=== PATIENT | male | born 1945 | race African-American/Black ===

== ENCOUNTER 2018-01-22 11:16 | Observation (INO) | payer OTHER ==
[2018-01-22] MEDS ORDERED: Morphine VIAL* 4 MG/ML VIAL (1 ml vial) IV ONE ×2 (11:36→12:47)
[2018-01-22] MEDS ORDERED: Morphine VIAL* 10 MG/ML 1 ML VIAL IV ONE (11:49)
[2018-01-22] MEDS ORDERED: Ondansetron INJ* 2 MG/ML VIAL IV ONE (11:49)
[2018-01-22 12:22] LABS: ABS Basophils 0 10^3/ul (0-0.2); ABS Eosinophils 0.2 10^3/ul (0-0.6); ABS Monocytes 0.5 10^3/ul (0-0.8); ABS Neutrophils 5.2 10^3/ul (1.5-7.7); ABS Nucleated RBC 0 10^3/ul; Eosinophil % 2.4 % (0-6); Hematocrit 40 % (42-52); Hemoglobin 13.7 g/dl (14.0-18.0); Lymphocyte % 25.3 % (25-47); Mean Corpuscular HGB Conc 35 g/dl (31-36); Mean Corpuscular Hemoglobin 31 pg (27-31); Mean Corpuscular Volume 89 fL (80-94); Mean Platelet Volume 7.5 um3 (7.4-10.4); Nucleated Red Blood Cells % 0.1; Platelet Count 260 10^3/ul (150-450); Red Blood Count 4.45 10^6/ul (4.0-5.4); Red Cell Distribution Width 14 % (10.5-15); White Blood Count 7.9 10^3/ul (3.5-10.8)
[2018-01-22] MEDS ORDERED: Morphine INJ* 10 MG/ML 1 ML CARPUJECT IV ONE (12:22)
[2018-01-22 12:34] LABS: INR 0.85 (0.77-1.02)
[2018-01-22 12:35] LABS: Urine Appearance Clear; Urine Blood 1+ (Negative); Urine Color Straw; Urine Ketones Negative (Negative); Urine Protein 2+(100 mg/dL) (Negative); Urine Specific Gravity 1.008 (1.010-1.030); Urine Urobilinogen Negative (Negative)
[2018-01-22 12:49] LABS: EGFR Non-African American 74.7 (>60)
--- NOTE | 2018-01-22 13:54 | RAD ---
HISTORY: Fall, history of stroke COMPARISONS: March 16, 2010 TECHNIQUE: Multiple contiguous axial CT scans were obtained of the head without intravenous contrast. FINDINGS: HEMORRHAGE/INFARCT: There is no hemorrhage or acute infarct. MASSES/SHIFT: There is no mass or shift. EXTRA-AXIAL SPACES: There are no extra-axial fluid collections. SULCI AND VENTRICLES: There is stable ex vacuo dilatation of the right lateral ventricle. CEREBRUM: Again noted is a large area of encephalomalacia involving the entirety of the right MCA territory, stable. BRAINSTEM: There are no focal parenchymal abnormalities. CEREBELLUM: There are no focal parenchymal abnormalities. VESSELS: The vessels are grossly normal. PARANASAL SINUSES: There is opacification of the right maxillary sinus with osteitis of the surrounding bone. ORBITS: The orbits are unremarkable. BONES AND SOFT TISSUE: There is post surgical change to the skull. OTHER: None IMPRESSION: 1. STABLE ENCEPHALOMALACIA OF THE RIGHT MCA TERRITORY CONSISTENT WITH REMOTE INFARCT. 2. CHRONIC RIGHT MAXILLARY SINUSITIS. 3. NO ACUTE INTRACRANIAL PATHOLOGY
--- NOTE | 2018-01-22 13:58 | RAD ---
HISTORY: Pain, status post fall, left shoulder pain COMPARISONS: Head CT dated January 22, 2015 TECHNIQUE: Multiple contiguous axial CT scans were obtained of the cervical spine without intravenous contrast, with coronal and sagittal multiplanar reformations. FINDINGS: BRAIN: Again noted is right MCA territory encephalomalacia. CENTRAL CANAL: Evaluation of the central canal is limited on CT technique; however, there is no obvious canalicular mass or epidural hemorrhage. ALIGNMENT: The alignment is normal, without subluxation or dislocation. VERTEBRAL BODIES: There are bridging marginal osteophytes at C3-C4, C4-C5, and C5-C6 and to a lesser extent at C6-C7 and C2-C3. There is subchondral lucency of the facet joints at C6-C7 likely secondary to facet osteoarthritis. There is no displaced fracture. JOINTS: There is osteoarthritis of the atlantoaxial articulation with multilevel uncovertebral and facet osteoarthritis. MUSCULATURE: Unremarkable INTERVERTEBRAL DISCS: There is diffuse loss of intervertebral disc height. AXIAL IMAGES: There is no osseous central canal stenosis. There is mild diffuse neural foraminal narrowing, with more pronounced neural foraminal narrowing at C5-C6. SOFT TISSUES: The visualized soft tissues of the neck are unremarkable. The prevertebral fat stripe is preserved. OTHER: None. IMPRESSION: DEGENERATIVE DISC DISEASE AND OSTEOARTHRITIS. NO ACUTE OSSEOUS INJURY TO THE CERVICAL SPINE
--- NOTE | 2018-01-22 14:35 | RAD ---
HISTORY: Left shoulder pain, status post fall COMPARISONS: None VIEWS: 6, Frontal internal rotation, external rotation, outlet, and axillary views of the left shoulder with frontal internal rotation views of left humerus. FINDINGS: BONE DENSITY: There is diffuse osteopenia. BONES: There is a transverse nondisplaced fracture of the surgical neck of the left humerus. 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 osteoarthritis. ALIGNMENT: There is no dislocation. SOFT TISSUES: Unremarkable. OTHER FINDINGS: None. IMPRESSION: OSTEOPENIA WITH TRANSVERSE NONDISPLACED FRACTURE OF THE SURGICAL NECK OF THE LEFT HUMERUS
--- NOTE | 2018-01-22 17:14 | ED ---
Aquilino Ponce Julia, scribed for Duane Verdugo MD on 01/22/18 at 1148 . Upper Extremity Pain - HPI Summary HPI Summary: This patient is a 72 year old M BIBA to [facility] with a chief complaint of left shoulder pain s/p fall out of bed this morning. The patient rates the pain 10/ 10 in severity. Pain aggravated by movement. Patient reports neck pain and frequent urination, but denies concern for UTI. Left sided weakness at baseline due to previous CVA. Patient denies LOC and CP. - History of Current Complaint Chief Complaint: EDExtremityUpper Stated Complaint: FALL,SHOULDER PAIN Time Seen by Provider: 01/22/18 11:23 Hx Obtained From: Patient Mechanism Of Injury: Fall From Height Of: - bed Onset/Duration: Started Hours Ago, Still Present Timing: Constant Pain Location: Shoulder - left, Other: - neck Aggravating Factor(s): Movement Associated Signs & Symptoms: Positive: Weakness - left sided at baseline - Allergies/Home Medications Allergies/Adverse Reactions: Allergies Allergy/AdvReac Type Severity Reaction Status Date / Time No Known Allergies Allergy Verified 04/02/16 13:27 Home Medications: Home Medications Gabapentin CAP(*) [Neurontin 400 mg CAP(*)] 400 mg PO BID 01/22/18 [History Confirmed 01/22/18] Lisinopril TAB* [Prinivil TAB*] 40 mg PO DAILY 01/22/18 [History Confirmed 01/22] Pantoprazole TAB (NF) [Protonix TAB (NF)] 20 mg PO QAM 01/22/18 [History Confirmed 01/22/18] glipiZIDE TAB* [Glucotrol TAB*] 7.5 mg PO BID 01/22/18 [History Confirmed ] lamoTRIgine TAB(*) [LaMICtal TAB(*)] 150 mg PO Q12H 01/22/18 [History Confirmed 01/22/18] PMH/Surg Hx/FS Hx/Imm Hx Endocrine/Hematology History: Reports: Hx Diabetes Cardiovascular History: Reports: Hx Hypertension, Other Cardiovascular Problems/ Disorders - WPW Neurological History: Reports: Hx CVA - with left sided residual effects - Cancer History Cancer Type, Location and Year: Prostate CA Infectious Disease History: No Infectious Disease History: Denies: Traveled Outside the [place] in Last 30 Days - Family History Known Family History: Positive: Hypertension - Social History Alcohol Use: None Hx Substance Use: No Substance Use Type: Reports: None Hx Tobacco Use: Yes Smoking Status (MU): Never Smoked Tobacco Review of Systems Negative: Chest Pain Positive: frequency Positive: Myalgia - let shoulder pain Positive: Weakness - left sided baseline. Negative: Syncope All Other Systems Reviewed And Are Negative: Yes Physical Exam - Summary Physical Exam Summary: General: well-appearing, mild pain distress Skin: warm, color reflects adequate perfusion, dry Head: normal Eyes: EOMI, EULA ENT: normal Neck: supple, nontender Respiratory: CTA, breath sounds present Cardiovascular: RRR, good capillary refill to left hand Abdomen: soft, nontender Bowel: present Musculoskeletal: tender to palpation to upper left humerus, able to move fingers well Neurological: , sensory/motor intact, A&O x3, chronically weak on left Psychological: affect/mood appropriate Triage Information Reviewed: Yes Vital Signs On Initial Exam: Initial Vitals Temp Pulse Resp BP Pulse Ox 98 F 80 16 149/110 97 01/22/18 11:24 01/22/18 11:24 01/22/18 11:24 01/22/18 11:24 01/22/18 11:24 Vital Signs Reviewed: Yes Diagnostics - Vital Signs Vital Signs Temp Pulse Resp BP Pulse Ox 01/22/18 11:32 84 149/110 98 01/22/18 11:30 85 97 01/22/18 11:24 98 F 80 16 149/110 97 - Laboratory Lab Results: Lab Results 01/22/18 01/22/18 01/22/18 Range/Units 11:56 12:10 12:10 WBC 7.9 (3.5-10.8) 10^3/ul RBC 4.45 (4.0-5.4) 10^6/ul Hgb 13.7 L (14.0-18.0) g/dl Hct 40 L (42-52) % MCV 89 (80-94) fL MCH 31 (27-31) pg MCHC 35 (31-36) g/dl RDW 14 (10.5-15) % Plt Count 260 (150-450) 10^3/ul MPV 7.5 (7.4-10.4) um3 Neut % (Auto) 66.2 (38-83) % Lymph % (Auto) 25.3 (25-47) % Luce % (Auto) 5.8 (0-7) % Eos % (Auto) 2.4 (0-6) % Baso % (Auto) 0.3 (0-2) % Absolute Neuts (auto) 5.2 (1.5-7.7) 10^3/ul Absolute Lymphs (auto) 2.0 (1.0-4.8) 10^3/ul Absolute Monos (auto) 0.5 (0-0.8) 10^3/ul Absolute Eos (auto) 0.2 (0-0.6) 10^3/ul Absolute Basos (auto) 0 (0-0.2) 10^3/ul Absolute Nucleated RBC 0 10^3/ul Nucleated RBC % 0.1 INR (Anticoag Therapy) 0.85 (0.77-1.02) APTT 25.8 L (26.0-36.3) seconds Sodium (139-145) mmol/L Potassium (3.5-5.0) mmol/L Chloride (101-111) mmol/L Carbon Dioxide (22-32) mmol/L Anion Gap (2-11) mmol/L BUN (6-24) mg/dL Creatinine (0.67-1.17) mg/dL Est GFR ( Amer) (>60) Est GFR (Non-Af Amer) (>60) BUN/Creatinine Ratio (8-20) Glucose (70-100) mg/dL Lactic Acid (0.5-2.0) mmol/L Calcium (8.6-10.3) mg/dL Total Bilirubin (0.2-1.0) mg/dL AST (13-39) U/L ALT (7-52) U/L Alkaline Phosphatase (34-104) U/L Total Protein (6.4-8.9) g/dL Albumin (3.2-5.2) g/dL Globulin (2-4) g/dL Albumin/Globulin Ratio (1-3) Urine Color Straw Urine Appearance Clear Urine pH 6.0 (5-9) Ur Specific [place] 1.008 L (1.010-1.030) Urine Protein 2+(100 mg/dl) A (Negative) Urine Ketones Negative (Negative) Urine Blood 1+ A (Negative) Urine Nitrate Negative (Negative) Urine Bilirubin Negative (Negative) Urine Urobilinogen Negative (Negative) Ur Leukocyte Esterase Negative (Negative) Urine WBC (Auto) Trace(0-5/hpf) (Absent) Urine RBC (Auto) Trace(0-2/hpf) (Absent) Ur Squamous Epith Cells Present A (Absent) Urine Bacteria Absent (Absent) Urine Glucose 3+(>=500 mg/dl) A (Negative) 01/22/18 01/22/18 Range/Units 12:10 12:10 WBC (3.5-10.8) 10^3/ul RBC (4.0-5.4) 10^6/ul Hgb (14.0-18.0) g/dl Hct (42-52) % MCV (80-94) fL MCH (27-31) pg MCHC (31-36) g/dl RDW (10.5-15) % Plt Count (150-450) 10^3/ul MPV (7.4-10.4) um3 Neut % (Auto) (38-83) % Lymph % (Auto) (25-47) % Luce % (Auto) (0-7) % Eos % (Auto) (0-6) % Baso % (Auto) (0-2) % Absolute Neuts (auto) (1.5-7.7) 10^3/ul Absolute Lymphs (auto) (1.0-4.8) 10^3/ul Absolute Monos (auto) (0-0.8) 10^3/ul Absolute Eos (auto) (0-0.6) 10^3/ul Absolute Basos (auto) (0-0.2) 10^3/ul Absolute Nucleated RBC 10^3/ul Nucleated RBC % INR (Anticoag Therapy) (0.77-1.02) APTT (26.0-36.3) seconds Sodium 140 (139-145) mmol/L Potassium 3.6 (3.5-5.0) mmol/L Chloride 102 (101-111) mmol/L Carbon Dioxide 29 (22-32) mmol/L Anion Gap 9 (2-11) mmol/L BUN 14 (6-24) mg/dL Creatinine 0.99 (0.67-1.17) mg/dL Est GFR ( Amer) 96.1 (>60) Est GFR (Non-Af Amer) 74.7 (>60) BUN/Creatinine Ratio 14.1 (8-20) Glucose 294 H (70-100) mg/dL Lactic Acid 1.3 (0.5-2.0) mmol/L Calcium 9.5 (8.6-10.3) mg/dL Total Bilirubin 0.50 (0.2-1.0) mg/dL AST 10 L (13-39) U/L ALT 7 (7-52) U/L Alkaline Phosphatase 91 (34-104) U/L Total Protein 7.3 (6.4-8.9) g/dL Albumin 4.1 (3.2-5.2) g/dL Globulin 3.2 (2-4) g/dL Albumin/Globulin Ratio 1.3 (1-3) Urine Color Urine Appearance Urine pH (5-9) Ur Specific [place] (1.010-1.030) Urine Protein (Negative) Urine Ketones (Negative) Urine Blood (Negative) Urine Nitrate (Negative) Urine Bilirubin (Negative) Urine Urobilinogen (Negative) Ur Leukocyte Esterase (Negative) Urine WBC (Auto) (Absent) Urine RBC (Auto) (Absent) Ur Squamous Epith Cells (Absent) Urine Bacteria (Absent) Urine Glucose (Negative) Result Diagrams: 01/22/18 12:10 01/22/18 12:10 Lab Statement: Any lab studies that have been ordered have been reviewed, and results considered in the medical decision making process. - Radiology L Shoulder XR Radiology Interpretation Completed By: Radiologist - OSTEOPENIA WITH TRANSVERSE NONDISPLACED FRACTURE OF THE SURGICAL NECK OF THE LEFT HUMERUS. ED Physician has reviewed this report. L Humerus XR Radiology Interpretation Completed By: Radiologist - OSTEOPENIA WITH TRANSVERSE NONDISPLACED FRACTURE OF THE SURGICAL NECK OF THE LEFT HUMERUS. ED Physician has reviewed this report. - CT C-Spine CT CT Interpretation Completed By: Radiologist - DEGENERATIVE DISC DISEASE AND OSTEOARTHRITIS. NO ACUTE OSSEOUS INJURY TO THE CERVICAL SPINE ED physician has reviewed this report. Brain CT CT Interpretation Completed By: Radiologist - 1. STABLE ENCEPHALOMALACIA OF THE RIGHT MCA TERRITORY CONSISTENT WITH REMOTE INFARCT. 2. CHRONIC RIGHT MAXILLARY SINUSITIS. 3. NO ACUTE INTRACRANIAL PATHOLOGY ED Physician has reviewed this report. Re-Evaluation - Re-Evaluation 1 Re-Evaluation Time: 14:47 Comment: Pt is informed of results. Course/Dx - Course Course Of Treatment: DISCUSSED RESULTS WITH THE PATIENT. HE IS AWAKE, ALERT AND ORIENTED. HIS MD PROVIDER CALLED, [place]LE [place] [place] [phone]. SHE RELATED THE PATIENT HAS BEEN FALLING MULTIPLE TIMES AND IS UNSAFE AT HIS PRESENT HOME. SHE SPOKE WITH MR AMRITA WHO ADMITTED THIS IS THE CASE AND HE REQUESTS HELP. I PLACED A SOCIAL WORK CONSULT AND THE HOSPITALIST WILL ADMIT. - Diagnoses Provider Diagnoses: Closed fracture of left proximal humerus, Multiple falls - Physician Notifications Discussed Care of Patient With: Gurinder Cortés MD - hospitalist Time Discussed With Above Provider: 15:32 Instructed by Provider To: Admit As Inpatient Discharge - Sign-Out/Discharge Documenting (check all that apply): Discharge/Admit/Transfer - Discharge Plan Condition: Stable Disposition: ADMITTED TO [facility] Patient Education Materials: How to Use a Sling (ED), Proximal Humerus Fracture (ED) Referrals: [facility] PHYSICIAN REFERRAL [Outside] [facility]THOPEDICS AND SPORTS MED [Outside] Nick Jimenez MD [Medical Doctor] - Additional Instructions: FOLLOW UP WITH VANDANA VAZQUEZ AT THE [place], X [phone]. CALL TODAY TO ARRANGE FOLLOW UP. FOLLOW UP WITH ORTHOPEDICS, DR JIMENEZ, [phone]. RETURN TO THE EMERGENCY DEPARTMENT FOR ANY WORSENING OF YOUR CONDITION; PAIN, YOU ARE UNABLE TO CARE FOR YOURSELF OR QUESTIONS OR CONCERNS. - Billing Disposition and Condition Condition: STABLE Disposition: [facility] The documentation as recorded by the Aquilino cortez Julia accurately reflects the service I personally performed and the decisions made by me, Duane Verdugo MD.
[2018-01-22] MEDS ORDERED: Al Hydrox/Mg Hydrox/Simet LIQ* 30 ML UDC PO PRN (18:54)
[2018-01-22] MEDS ORDERED: cloNIDine 0.3 MG PATCH* 0.3 MG/24 HR 7 DAY PATCH TRANSDERM SCH (20:00)
--- NOTE | 2018-01-22 21:58 | PN ---
Hospitalist Progress Note Date of Service: 01/22/[address] Maldonado from Orthopedics patient should be placed in a shoulder immobilzer or sling. Patient should start PT in 4 to 6 weeks. He needs to follow up with DR. Maldonado in 1 week for evaluation.
[2018-01-22] MEDS: oxyCODONE/Acetamin 5/325 MG* TAB PO PRN (22:05)
[2018-01-22] MEDS: Atorvastatin* 10 MG TAB PO SCH (22:05)
[2018-01-22] MEDS: Baclofen TAB* 10 MG PO SCH (22:06)
[2018-01-22] MEDS: Gabapentin CAP(*) 400 MG PO SCH (22:07)
[2018-01-22] MEDS: lamoTRIgine TAB(*) 100 MG PO SCH (22:07)
[2018-01-22] MEDS: Heparin VIAL(*) 5000 UNITS/ML VIAL (FIVE THOUSAND) SUBCUT SCH (22:08)
[2018-01-22] MEDS: Trospium (NF) 20 MG TAB PO SCH (23:13)
--- NOTE | 2018-01-23 00:03 | HP ---
CC: Doctor at the [facility] in [place].* HISTORY AND PHYSICAL: DATE OF ADMISSION: 01/22/18 ATTENDING PHYSICIAN WHILE IN THE HOSPITAL: Dr. Ya Cruz * (dictated by Jackelyn Mccoy NP). CHIEF COMPLAINT: 1. Right shoulder pain. 2. Fall. HISTORY OF PRESENT ILLNESS: Mr. Craven is a 72-year-old male with a past medical history significant for diabetes, hypertension, hyperlipidemia, cancer of the prostate and right CVA with left-sided weakness, who presented to the emergency room today for evaluation of left shoulder pain after a fall out of his bed. The patient reports that he was standing to get into his wheelchair and he fell landing on his left shoulder. He denies any loss of consciousness. He denied any dizziness prior to the event. The patient states that he did not hit his head hard. He denies any neck pain. He reports that this incident happened at approximately 4 a.m. this morning. He reports that he lives alone. He denies any other injuries. While in the emergency room, he had routine lab work drawn and chest x-ray of his left humerus, which showed a nondisplaced transverse fracture of the surgical neck of the left humerus and osteopenia. Due to the fact that Mr. Craven has underlying weakness on the left side and now a left humeral fracture , we were asked to evaluate him for admission. PAST MEDICAL HISTORY: 1. CVA with left-sided weakness. 2. Diabetes. 3. Hypertension. 4. Hyperlipidemia. 5. Cancer of the prostate. 6. Seizures. PAST SURGICAL HISTORY: 1. Prostatectomy. 2. Appendectomy. 3. Craniotomy. HOME MEDICATIONS: Include: 1. Metformin 1000 mg p.o. b.i.d. 2. Lamictal 150 mg p.o. q.12 hours. 3. Glipizide 7.5 mg p.o. b.i.d. 4. Clonidine 0.3 mg patch transdermal q.7 days. 5. Amlodipine 5 mg p.o. q.a.m. 6. Sanctura 20 mg p.o. b.i.d. 7. Flomax 0.4 mg p.o. daily. 8. Simvastatin 20 mg p.o. at bedtime. 9. Protonix 20 mg p.o. q.a.m. 10. [place]-3 fatty acids 2000 mg p.o. b.i.d. 11. Lisinopril 40 mg p.o. daily. 12. Levemir 74 units subcu daily. 13. Gabapentin 400 mg p.o. b.i.d. 14. Celexa 40 mg p.o. daily. 15. Vitamin D 2000 units p.o. daily. 16. Carvedilol 37.5 mg p.o. q.a.m. 17. Carvedilol 25 mg p.o. q.p.m. 18. Baclofen 10 mg p.o. b.i.d. 19. Aspirin 325 mg p.o. daily. ALLERGIES TO MEDICATIONS: No known drug allergies. REVIEW OF SYSTEMS: There was no documented fever. No significant weight loss. There was no double vision. Denied any dizziness. Denied any ear discharge. There is no rhinorrhea. There is no sore throat. Denies having any chest pain or shortness of breath. Denies any cough or congestion. Denies any hemoptysis. There was no abdominal pain. Denies any nausea, vomiting or diarrhea. Denies any dysuria or urinary frequency. There were no seizures. He denies any loss of consciousness. No pruritus or skin ulcerations. A review of 14 systems was completed and all others were negative. PHYSICAL EXAMINATION GENERAL: At this time, Mr. Craven is a 72-year-old male that appears in a mild amount of pain, resting on the stretcher in the emergency room. He does not appear to be in any acute distress. VITAL SIGNS: Are as follows: Blood pressure 161/70, heart rate is 90, respirations are 18, O2 saturation was 97%. HEENT: Head is atraumatic, normocephalic. Eyes: EOMs are intact. Sclerae anicteric, not pale. Oral mucosa appears to be moist. NECK: Supple. LUNGS: Clear to auscultation bilaterally. No wheezes, rales or rhonchi. CARDIAC: S1, S2. Regular rate and rhythm. No murmurs, rubs or gallops. ABDOMEN: Soft and nontender. Bowel sounds are present x4. EXTREMITIES: Pulses are +2 throughout. He can move all 4 extremities. The left , he does have left-sided chronic weakness and contractures to his left fingers. His left shoulder is currently in a shoulder immobilizer. NEUROLOGIC: He is alert and oriented x3. Speech is clear. Tongue is midline. SKIN: Intact. DIAGNOSTIC STUDIES/LAB DATA: WBCs were 7.9, RBCs 4.45, hemoglobin was 13.7, hematocrit was 40, platelet count was 260. INR was 0.85. Chemistry: Sodium was 140, potassium was 3.6, chloride 102, carbon dioxide was 29, anion gap was 9 , BUN was 14, creatinine 0.99, glucose was 294, lactic acid was 1.3. ASTs were 10, ALTs were 7. Urine pH was 6.0, specific gravity 1.008, urine protein was 2+ , urine ketones were negative, urine blood was 1+, urine nitrites were negative , urine bilirubin was negative, urobilinogen was negative, urine leukocytes esterase was negative; urine wbc's were trace, rbc's were trace; urine squamous epithelial cells were present, urine bacteria was absent, urine glucose was 3+. The patient had a CT of the brain while in the emergency room. Radiologist's impression: 1. Stable encephalomalacia of the right MCA territory consistent with a remote infarct. 2. Chronic right maxillary sinusitis. 3. No acute intracranial pathology. He had a CT of the cervical spine. Radiologist's impression: Degenerative disk disease and osteoarthritis. No acute osseous injury to the cervical spine. He had an x-ray of the left humerus. Radiologist's impression: Osteopenia with transverse nondisplaced fracture of the surgical neck of the left humerus. He had a left shoulder x-ray, which also showed osteopenia with transverse nondisplaced fracture of the surgical neck of the left humerus. ASSESSMENT AND PLAN: Mr. Craven is a 72-year-old gentleman who presented to the emergency room today complaining of left shoulder pain after a fall from his bed. We were asked to see and evaluate him for admission due to his left humeral head fracture. He will be admitted under observation for: 1. Left humerus fracture. We will give him oxycodone q.4 hours as needed for pain. He has been placed in his shoulder immobilizer for comfort. I will arrange for PT and OT as the patient lives home alone. He will most likely need short-term rehab discharge planning. I will consult Dr. Maldonado from Orthopedics. 2. Diabetes. We will place him on Lantus 74 units subcu daily. We will continue him on his glipizide and metformin. 3. Hypertension. We will continue him on his home medications of clonidine 0.3 patch, Coreg, lisinopril, amlodipine 5 mg. 4. Hyperlipidemia. We will continue him on Simvastatin 20 mg daily. 5. Gastroesophageal reflux disease. We will continue him on Protonix. 6. Seizures. We will continue him on Lamictal 150 mg p.o. q.12 hours. 7. For his history of cerebrovascular accident, we will continue him on aspirin 325 mg along with the simvastatin. 8. FEN. He can be placed on a heart healthy, caffeine okay diet. 9. Code status. He is a full code. 10. DVT prophylaxis. I will place him on heparin 5000 units subcu q. 8 hours. 11. Disposition. He will be placed inpatient on the medical floor. TIME SPENT: Time spent on this admission was 60 minutes, greater than half the time was spent with the patient [id number] obtaining my history and physical, the other half the time was spent going over my plan of care and implementing my plan of care. I have discussed this with my attending, Dr. Ya Cruz, and she is in agreement with my plan. JACKELYN MCCOY, GEORGE [id number]/[facility] #: [id number] RAFAEL
[2018-01-23] MEDS: lamoTRIgine TAB(*) 100 MG PO SCH ×2 (05:41→17:24)
[2018-01-23] MEDS: Heparin VIAL(*) 5000 UNITS/ML VIAL (FIVE THOUSAND) SUBCUT SCH ×3 (05:42→20:36)
[2018-01-23] MEDS: Lisinopril TAB* 10 MG PO SCH (08:16)
[2018-01-23] MEDS: Aspirin TAB* 325 MG PO SCH (08:17)
[2018-01-23] MEDS: Carvedilol TAB* 25 MG PO SCH ×2 (08:17→17:24)
[2018-01-23] MEDS: Gabapentin CAP(*) 400 MG PO SCH ×2 (08:17→20:36)
[2018-01-23] MEDS: Cholecalciferol TAB* 1000 UNITS PO SCH (08:17)
[2018-01-23] MEDS: amLODIPine TAB* 5 MG PO SCH (08:18)
[2018-01-23] MEDS: Tamsulosin CAP* 0.4 MG PO SCH (08:18)
[2018-01-23] MEDS: Citalopram TAB* 40 MG PO SCH (08:18)
[2018-01-23] MEDS: Baclofen TAB* 10 MG PO SCH ×2 (08:18→20:36)
[2018-01-23] MEDS: metFORMIN* 500 MG TAB PO SCH ×2 (08:18→17:25)
[2018-01-23] MEDS: Insulin GLARGINE(*) 1 UNITS UNIT SUBCUT SCH (08:18)
[2018-01-23] MEDS: glipiZIDE TAB* 5 MG PO SCH ×2 (08:18→17:24)
[2018-01-23] MEDS: Trospium (NF) 20 MG TAB PO SCH ×2 (08:19→20:36)
[2018-01-23] MEDS: oxyCODONE/Acetamin 5/325 MG* TAB PO PRN ×2 (08:59→20:33)
[2018-01-23] MEDS: CMCS: Pantoprazole TAB (NF) 40 MG TAB PO SCH (11:08)
--- NOTE | 2018-01-23 15:20 | PN ---
Subjective Date of Service: 01/23/18 Interval History: Mr. Craven reports pain in his left shoulder but denies other complaint. Objective Active Medications: Al Hydrox/Mg Hydrox/Simethicone (Maalox Plus*) 30 ml PO Q6H PRN Amlodipine Besylate (Norvasc Tab*) 5 mg PO QAM PENDING SALE TO [facility] Aspirin (Aspirin Tab*) 325 mg PO DAILY PENDING SALE TO [facility] Atorvastatin Calcium (Lipitor*) 10 mg PO BEDTIME JANELL Baclofen (Lioresal Tab*) 10 mg PO BID JANELL Carvedilol (Coreg Tab*) 25 mg PO QPM JANELL Carvedilol (Coreg Tab*) 37.5 mg PO QAM PENDING SALE TO [facility] Cholecalciferol (Vitamin D Tab*) 2,000 units PO DAILY JANELL Citalopram Hydrobromide (Celexa Tab*) 40 mg PO DAILY PENDING SALE TO [facility] Clonidine HCl (Hjciygst-Jin-6 0.3 Mg Patch*) 0.3 mg TRANSDERM Q7D PENDING SALE TO [facility] Gabapentin (Neurontin Cap(*)) 400 mg PO BID PENDING SALE TO [facility] Glipizide (Glucotrol Tab*) 7.5 mg PO BID WITH MEALS PENDING SALE TO [facility] Heparin Sodium (Porcine) (Heparin Vial(*)) 5,000 units SUBCUT Q8HR PENDING SALE TO [facility] Insulin Glargine (Lantus(*)) 74 units SUBCUT DAILY PENDING SALE TO [facility] Lamotrigine (Lamictal Tab(*)) 150 mg PO Q12H JANELL Lisinopril (Prinivil Tab*) 40 mg PO DAILY PENDING SALE TO [facility] Metformin HCl (Glucophage*) 1,000 mg PO BID WITH MEALS PENDING SALE TO [facility] Oxycodone/Acetaminophen (Percocet 5/325 Tab*) 1 tab PO Q4H PRN Pantoprazole Sodium (Protonix Tab (Nf)) 40 mg PO QAM PENDING SALE TO [facility] Tamsulosin HCl (Flomax Cap*) 0.4 mg PO DAILY PENDING SALE TO [facility] Trospium (Sanctura (Nf)) 20 mg PO BID PENDING SALE TO [facility] Vital Signs: Temp Pulse Resp BP Pulse Ox 98.3 F 71 18 128/60 97 01/23/18 13:48 01/23/18 13:48 01/23/18 13:48 01/23/18 13:48 01/23/18 13:48 Oxygen Devices in Use Now: None Appearance: Male lying in bed in NAD Eyes: No Scleral Icterus Ears/Nose/Mouth/Throat: NL Teeth, Lips, Gums Neck: NL Appearance and Movements; NL JVP Respiratory: Symmetrical Chest Expansion and Respiratory Effort, Clear to Auscultation Cardiovascular: NL Sounds; No Murmurs; No JVD, No Edema Abdominal: NL Sounds; No Tenderness; No Distention Lymphatic: No Cervical Adenopathy Extremities: No Edema Skin: No Rash or Ulcers Neurological: Alert and Oriented x 3, - - Left side flaccid, right U and LE +5 strength Nutrition: Taking PO's Result Diagrams: 01/22/18 12:10 01/22/18 12:10 Additional Lab and Data: . Assess/Plan/Problems-Billing Assessment: Mr. Craven is a 72 yo male with a PMH of CVA with left sided weakness, DM, HTN , and seizures who was admitted on 01/22/18 with left humerus fracture. - Patient Problems (1) Humerus fracture Comment: - Pain meds prn, L shoulder immobilizer in place. - Patient able to transfer to wheelchair, at baseline for mobility. - Follow up with Dr. Lees in 1 week. (2) Hypertension Comment: - SBP 120-130s. - Continue amlodipine, lisinopril, carvedilol, clonidine (3) Hyperlipidemia Comment: - Continue atorvastatin. (4) Diabetes Comment: - Continue lantus. - Continue glipizide and metformin (5) DVT prophylaxis Comment: - Heparin SQ. (6) Full code status Comment: Status and Disposition: Switch from inpatient to OBV. Discharge to home.
--- NOTE | 2018-01-23 15:39 | PN ---
Progress Note - Progress Note Date of Service: 01/23/18 Note: Mr. Craven feels that he is not close enough to baseline to be independent at home with help from aides. He would like to pursue rehab placement at the [facility]. Social workers and case operator following.
[2018-01-23] MEDS: Atorvastatin* 10 MG TAB PO SCH (20:36)
[2018-01-23] MEDS: Morphine VIAL* 4 MG/ML VIAL (1 ml vial) IV PRN (22:22)
[2018-01-23] MEDS ORDERED: Mouth Piece, Nicotine* 1 EACH CARTRIDGE INH PRN ×2 (22:27)
[2018-01-23] MEDS: Nicotine Inhaler* 10 MG AMP INH PRN (23:32)
[2018-01-24] MEDS: lamoTRIgine TAB(*) 100 MG PO SCH ×2 (06:13→17:41)
[2018-01-24] MEDS: Morphine VIAL* 4 MG/ML VIAL (1 ml vial) IV PRN (06:14)
[2018-01-24] MEDS: Heparin VIAL(*) 5000 UNITS/ML VIAL (FIVE THOUSAND) SUBCUT SCH ×2 (06:15→14:25)
[2018-01-24] MEDS: Nicotine Inhaler* 10 MG AMP INH PRN (06:34)
--- NOTE | 2018-01-24 07:18 | RAD ---
INDICATION: Left ankle pain. TECHNIQUE: 4 views of the left ankle were obtained. The exam is limited. The patient was unable to be positioned for the standard views. FINDINGS: The foot is plantarflexed and inverted limiting the study. The bones appear osteopenic. No fracture is seen. There appears to be moderate osteoarthritic change in the tibiotalar joint. IMPRESSION: LIMITED STUDY, NO FRACTURE IS SEEN. IF THE PATIENT'S SYMPTOMS PERSIST RECOMMEND FOLLOW-UP IMAGING.
--- NOTE | 2018-01-24 07:20 | RAD ---
INDICATION: Left foot pain. TECHNIQUE: 2 views of the left foot were obtained. The exam is limited. The patient was unable to be positioned for the standard views. FINDINGS: The bones appear osteopenic. No fracture is seen. There is mild to moderate osteoarthritic changes in the intertarsal and first metatarsal-phalangeal joints. IMPRESSION: LIMITED STUDY, NO EVIDENCE FOR FRACTURE, IF THE PATIENT'S SYMPTOMS PERSIST RECOMMEND FOLLOW-UP IMAGING.
[2018-01-24] MEDS: glipiZIDE TAB* 5 MG PO SCH ×2 (08:11→17:19)
[2018-01-24] MEDS: metFORMIN* 500 MG TAB PO SCH ×2 (08:12→17:18)
[2018-01-24] MEDS: Insulin GLARGINE(*) 1 UNITS UNIT SUBCUT SCH (10:23)
[2018-01-24] MEDS: CMCS: Pantoprazole TAB (NF) 40 MG TAB PO SCH (10:24)
[2018-01-24] MEDS: oxyCODONE/Acetamin 5/325 MG* TAB PO PRN ×2 (10:24→15:27)
[2018-01-24] MEDS: Gabapentin CAP(*) 400 MG PO SCH (10:26)
[2018-01-24] MEDS: Baclofen TAB* 10 MG PO SCH (10:26)
[2018-01-24] MEDS: Citalopram TAB* 40 MG PO SCH (10:27)
[2018-01-24] MEDS: Lisinopril TAB* 10 MG PO SCH (10:27)
[2018-01-24] MEDS: Aspirin TAB* 325 MG PO SCH (10:27)
[2018-01-24] MEDS: amLODIPine TAB* 5 MG PO SCH (10:27)
[2018-01-24] MEDS: Tamsulosin CAP* 0.4 MG PO SCH (10:27)
[2018-01-24] MEDS: Cholecalciferol TAB* 1000 UNITS PO SCH (10:27)
[2018-01-24] MEDS: Carvedilol TAB* 25 MG PO SCH ×2 (10:28→17:18)
[2018-01-24] MEDS: Trospium (NF) 20 MG TAB PO SCH (10:29)
--- NOTE | 2018-01-24 12:54 | PN ---
Subjective Date of Service: 01/24/18 Interval History: continues to c/o right shoulder pain, denies chest pain or shortness of breath. Denies abd pain, n/v/d Family History: Unchanged from Admission Social History: Unchanged from Admission Past Medical History: Unchanged from Admission Objective Active Medications: Al Hydrox/Mg Hydrox/Simethicone (Maalox Plus*) 30 ml PO Q6H PRN PRN Reason: INDIGESTION Amlodipine Besylate (Norvasc Tab*) 5 mg PO QAM [facility] Last Admin: 01/24/18 10:27 Dose: 5 mg Aspirin (Aspirin Tab*) 325 mg PO DAILY [facility] Last Admin: 01/24/18 10:27 Dose: 325 mg Atorvastatin Calcium (Lipitor*) 10 mg PO BEDTIME [facility] Last Admin: 01/23/18 20:36 Dose: 10 mg Baclofen (Lioresal Tab*) 10 mg PO BID [facility] Last Admin: 01/24/18 10:26 Dose: 10 mg Carvedilol (Coreg Tab*) 25 mg PO QPM [facility] Last Admin: 01/23/18 17:24 Dose: 25 mg Carvedilol (Coreg Tab*) 37.5 mg PO QAM [facility] Last Admin: 01/24/18 10:28 Dose: 37.5 mg Cholecalciferol (Vitamin D Tab*) 2,000 units PO DAILY [facility] Last Admin: 01/24/18 10:27 Dose: 2,000 units Citalopram Hydrobromide (Celexa Tab*) 40 mg PO DAILY [facility] Last Admin: 01/24/18 10:27 Dose: 40 mg Clonidine HCl (Sfxouhyk-Tgd-0 0.3 Mg Patch*) 0.3 mg TRANSDERM Q7D [facility] Last Admin: 01/22/18 22:07 Dose: 0.3 mg Device (Nicotine Mouth Piece*) 1 each INH .USE WITH NICOTROL PRN PRN Reason: CRAVING Last Admin: 01/23/18 23:32 Dose: 1 each Gabapentin (Neurontin Cap(*)) 400 mg PO BID [facility] Last Admin: 01/24/18 10:26 Dose: 400 mg Glipizide (Glucotrol Tab*) 7.5 mg PO BID WITH MEALS [facility] Last Admin: 01/24/18 08:11 Dose: 7.5 mg Heparin Sodium (Porcine) (Heparin Vial(*)) 5,000 units SUBCUT Q8HR [facility] Last Admin: 01/24/18 06:15 Dose: 5,000 units Insulin Glargine (Lantus(*)) 74 units SUBCUT DAILY [facility] Last Admin: 01/24/18 10:23 Dose: 74 units Lamotrigine (Lamictal Tab(*)) 150 mg PO Q12H [facility] Last Admin: 01/24/18 06:13 Dose: 150 mg Lisinopril (Prinivil Tab*) 40 mg PO DAILY [facility] Last Admin: 01/24/18 10:27 Dose: 40 mg Metformin HCl (Glucophage*) 1,000 mg PO BID WITH MEALS [facility] Last Admin: 01/24/18 08:12 Dose: 1,000 mg Morphine Sulfate (Morphine Vial*) 2 mg IV Q4H PRN PRN Reason: PAIN - MILD Last Admin: 01/24/18 06:14 Dose: 2 mg Nicotine (Nicotine Inhaler*) 10 mg INH Q2H PRN PRN Reason: CRAVING Last Admin: 01/24/18 06:34 Dose: 10 mg Oxycodone/Acetaminophen (Percocet 5/325 Tab*) 1 tab PO Q4H PRN PRN Reason: Pain Last Admin: 01/24/18 10:24 Dose: 1 tab Pantoprazole Sodium (Protonix Tab (Nf)) 40 mg PO QAM [facility] Last Admin: 01/24/18 10:24 Dose: 40 mg Tamsulosin HCl (Flomax Cap*) 0.4 mg PO DAILY [facility] Last Admin: 01/24/18 10:27 Dose: 0.4 mg Trospium (Sanctura (Nf)) 20 mg PO BID [facility] Last Admin: 01/24/18 10:29 Dose: Not Given Vital Signs - 8 hr 01/24/18 01/24/18 01/24/18 06:14 07:10 07:16 Temperature 97.8 F Pulse Rate 77 Respiratory 16 16 18 Rate Blood Pressure 143/54 (mmHg) O2 Sat by Pulse 96 Oximetry 01/24/18 01/24/18 01/24/18 10:24 10:26 12:15 Temperature Pulse Rate Respiratory 16 16 16 Rate Blood Pressure (mmHg) O2 Sat by Pulse Oximetry Oxygen Devices in Use Now: None Appearance: appears comfortable sitting in bed. no acute distress Eyes: No Scleral Icterus Ears/Nose/Mouth/Throat: Clear Oropharnyx, Mucous Membranes Moist Neck: NL Appearance and Movements; NL JVP Respiratory: Symmetrical Chest Expansion and Respiratory Effort, Clear to Auscultation Cardiovascular: NL Sounds; No Murmurs; No JVD Abdominal: NL Sounds; No Tenderness; No Distention Extremities: No Edema, No Clubbing, Cyanosis, - - left arm in a sling, left sided chronic weakness left foot drop(chronic) Skin: No Rash or Ulcers, No Nodules or Sclerosis Neurological: Alert and Oriented x 3 Nutrition: Taking PO's Result Diagrams: 01/22/18 12:10 01/22/18 12:10 Additional Lab and Data: . Assess/Plan/Problems-Billing Assessment: Mr. Craven is a 72 yo male with a PMH of CVA with left sided weakness, DM, HTN , and seizures who was admitted on 01/22/18 with left humerus fracture. - Patient Problems (1) Diabetes Current Visit: Yes Status: Acute Code(s): E11.9 - TYPE 2 DIABETES MELLITUS WITHOUT COMPLICATIONS SNOMED Code(s): 48696600 Comment: - blood sugar 115-140 today - Continue lantus. - Continue glipizide and metformin (2) Humerus fracture Current Visit: Yes Status: Acute Code(s): S42.309A - UNSP FRACTURE OF SHAFT OF HUMERUS, UNSP ARM, INIT SNOMED Code(s): 92191276 Comment: - Pain meds prn, L shoulder immobilizer in place. - Patient able to transfer to wheelchair, at baseline for mobility. - Follow up with Dr. Lees in 1 week. (3) Hyperlipidemia Current Visit: Yes Status: Acute Code(s): E78.5 - HYPERLIPIDEMIA, UNSPECIFIED SNOMED Code(s): 16791160 Comment: - Continue atorvastatin. (4) Hypertension Current Visit: Yes Status: Acute Code(s): I10 - ESSENTIAL (PRIMARY) HYPERTENSION SNOMED Code(s): 05228897 Comment: - SBP 140's - Continue amlodipine, lisinopril, carvedilol, clonidine (5) DVT prophylaxis Current Visit: Yes Status: Acute Code(s): NSH2075 - SNOMED Code(s): 073630849 Comment: - Heparin SQ. (6) Full code status Current Visit: Yes Status: Acute Code(s): Z78.9 - OTHER SPECIFIED HEALTH STATUS SNOMED Code(s): 638190305 Comment: Status and Disposition: Switch from inpatient to [facility]. may need short term rehab
[2018-01-24 15:54] VITALS: BP 143/49
--- NOTE | 2018-01-25 16:45 | DS ---
CC: Doctor at the [facility] in [place] * DISCHARGE SUMMARY: DATE OF ADMISSION: 01/22/18 DATE OF DISCHARGE: 01/24/18 PROVIDER: Jackelyn Mccoy NP ATTENDING PHYSICIAN WHILE IN THE HOSPITAL: Gab Smith MD * (dictated by Jackelyn Mccoy NP) PRIMARY DIAGNOSES: 1. Left humerus fracture. 2. Fall. SECONDARY DIAGNOSES: 1. Cerebrovascular accident with left-sided weakness. 2. Diabetes. 3. Hypertension. 4. Hyperlipidemia. 5. Cancer of the prostate. 6. Seizures. STUDIES COMPLETED WHILE IN THE HOSPITAL: A. He had a CT of the brain on 01/22/18, radiologist's impression: 1. Stable encephalomalacia of the right MCA territory consistent with a remote infarct. 2. Chronic right maxillary sinusitis. 3. No acute intracranial pathology. B. He had a CT of the C-spine on 01/22/18, radiologist's impression: Degenerative disk disease and osteoarthritis, no acute osseous injury of the cervical spine. C. He had a humerus x-ray on 01/22/18, left humerus osteopenia with transverse nondisplaced fracture of the surgical neck of the left humerus. He also had left shoulder, radiologist's impression again was osteopenia with transverse nondisplaced fracture of the surgical neck of the left humerus. D. On 01/23/18, he had left ankle x-ray, radiologist's impression was limited study, no fracture is seen. E. He also had a left foot x-ray on 01/23/18, this again was a limited study, no evidence of fracture. DISCHARGE MEDICATIONS: 1. Norvasc 5 mg p.o. daily. 2. Aspirin 325 mg p.o. daily. 3. Baclofen 10 mg p.o. b.i.d. 4. Carvedilol 25 mg q.p.m. 5. Carvedilol 37.5 mg p.o. q.a.m. 6. Vitamin D 2000 units p.o. daily. 7. Celexa 40 mg p.o. daily. 8. Clonidine 0.3 mg patch q.7 days. 9. Gabapentin 400 mg p.o. b.i.d. 10. Glipizide 7.5 mg p.o. b.i.d. 11. Levemir 74 units subcu daily. 12. Lamictal 150 mg p.o. q.12 hours. 13. Lisinopril 40 mg p.o. daily. 14. Metformin 1000 mg p.o. b.i.d. 15. Nicotine inhaler 10 mg q.2 hours as needed. 16. Everett-3 fatty acids 2000 units p.o. b.i.d. 17. Oxycodone/acetaminophen 5/325 one tablet q.4 hours as needed. 18. Protonix 20 mg p.o. daily. 19. Simvastatin 20 mg p.o. at bedtime. 20. Flomax 0.4 mg p.o. daily. 21. Sanctura 20 mg p.o. b.i.d. HISTORY OF PRESENT ILLNESS AND HOSPITAL COURSE: Mr. Craven is a 72-year-old male with a past medical history significant for diabetes, hypertension, hyperlipidemia, cancer of the prostate, right CVA with left-sided weakness, who presented to the emergency room on 01/22/18 for evaluation of right shoulder pain after a fall out of his bed. He reports that he was standing to get into his wheelchair and landed on his left shoulder. He denied any loss of consciousness. Denied any dizziness prior to the event. He denies any neck pain. While in the emergency room, routine lab work was drawn, and chest x-ray and left humerus x-ray were completed. The left humerus x-ray showed a nondisplaced transverse fracture of the surgical neck of the left humerus and osteopenia. While in the hospital, Mr. Craven was monitored. He received physical therapy and was given pain meds as needed for left shoulder pain. Mr. Craven lives home alone and is unable to return home, so he has opted to go to short-term rehab at discharge. At this time, Mr. Craven will be placed in a swing bed pending bed placement at the [place]. Mr. Craven is stable for a swing bed today. Vital signs are as follows, temperature was 98.0, pulse 72, respirations 15, blood pressure 142/52. REVIEW OF SYSTEMS: There has been no documented fever during this hospitalization. He denies any double vision. Denies any rhinorrhea. Denies any sore throat. Denies any chest pain or shortness of breath. Denies any orthopnea or nocturnal dyspnea. There was no abdominal pain, nausea, vomiting, or diarrhea. There were no seizures. He has had no loss of consciousness. There has been no pruritus or skin ulcerations. He does report left shoulder pain at rest and with movement. He did report some left foot and ankle pain that has started to resolve. A review of 14 systems was completed and all others are negative. PHYSICAL EXAMINATION: General: At this time, Mr. Craven is a 72-year-old male who appears well, resting in bed. He does have mild discomfort in his left shoulder that has increased with movement. He does not appear to be in any acute distress. HEENT: Head is atraumatic, normocephalic. Eyes: EOMs are intact. Sclerae anicteric and not pale. Oral mucosa appears to be moist. Neck is supple. Lungs are clear to auscultation bilaterally. No wheezes, rales , or rhonchi. Cardiac: S1, S2. Regular rate and rhythm. There are no murmurs , rubs, or gallops. Abdomen is soft and nontender. Bowel sounds are present x4. Extremities: Pulses are +2 throughout. He does have left-sided weakness with decreased strength on the left side. Neurologic: He is awake and alert and oriented x3. His speech is clear. Skin is intact. DISCHARGE PLAN: Mr. Craven will be discharged to the swing bed at [facility]. Activity as tolerated. He should follow up with Dr. Maldonado in 1 week for a recheck of the left humerus fracture. He should continue oxycodone/acetaminophen 5/325 one tablet every 4 hours as needed for pain. He should continue physical therapy. This is a summarization of his medical hospitalization. For further details, please see the entire medical record. TIME SPENT: Time spent on this admission was approximately 45 minutes, greater than half the time was spent with the patient discussing discharge plans and implementing swing bed orders. CONDITION AT DISCHARGE: Stable. This discharge summary will also serve as an admission note for the swing bed patient of Mr. Craven. JACKELYN LONNIE, [employer] REPAIRER [id number]/[facility] #: [id number] RAFAEL
== END 2018-01-24 17:48 | disposition swing bed (61) ==
LOC: ED 11:16 → INTOOBSV 18:54 → MED 18:54
PROVIDERS: ADMIT Hospitalist; ATTEND Student in an Organized Health Care Education/Training Program
DX: S42.215A Unspecified nondisplaced fracture of surgical neck of left humerus, initial encounter for closed fracture (principal); W01.0XXA Fall on same level from slipping, tripping and stumbling without subsequent striking against object, initial encounter; Y92.9 Unspecified place or not applicable; I69.354 Hemiplegia and hemiparesis following cerebral infarction affecting left non-dominant side; I10 Essential (primary) hypertension; E11.9 Type 2 diabetes mellitus without complications; E78.5 Hyperlipidemia, unspecified; G40.909 Epilepsy, unspecified, not intractable, without status epilepticus; Z85.46 Personal history of malignant neoplasm of prostate; Z79.899 Other long term (current) drug therapy; Z79.84 Long term (current) use of oral hypoglycemic drugs
CPT/HCPCS: 36415; 70450; 72125; 80053; 81003; 81015; 83605; 85025; 85610; 85730; 87086; 96372; 96374; 96375; 96376; 99283; A9270-GY; G0378; G8978-GP-CM; G8979-GP-CM; G8987-GO-CM; G8988-GO-CL; J1644; J2270; J2405

== ENCOUNTER 2018-01-24 17:49 | Inpatient (IN) | payer OTHER ==
[2018-01-24] MEDS ORDERED: Al Hydrox/Mg Hydrox/Simet LIQ* 30 ML UDC PO PRN (19:15)
[2018-01-24] MEDS: glipiZIDE TAB* 5 MG PO SCH (20:27)
[2018-01-24] MEDS: oxyCODONE/Acetamin 5/325 MG* TAB PO PRN (20:28)
[2018-01-24] MEDS: Atorvastatin* 10 MG TAB PO SCH (20:28)
[2018-01-24] MEDS: lamoTRIgine TAB(*) 100 MG PO SCH (20:28)
[2018-01-24] MEDS: Gabapentin CAP(*) 400 MG PO SCH (20:29)
[2018-01-24] MEDS: Baclofen TAB* 10 MG PO SCH (20:29)
[2018-01-24] MEDS: metFORMIN* 1,000 MG TAB PO SCH (20:30)
[2018-01-24] MEDS: Nicotine Inhaler* 10 MG AMP INH PRN (20:30)
[2018-01-24] MEDS: Trospium (NF) 20 MG TAB PO SCH (20:38)
[2018-01-24] MEDS: Heparin VIAL(*) 5000 UNITS/ML VIAL (FIVE THOUSAND) SUBCUT SCH (22:11)
[2018-01-25] MEDS: oxyCODONE/Acetamin 5/325 MG* TAB PO PRN ×3 (03:51→14:32)
[2018-01-25] MEDS: Heparin VIAL(*) 5000 UNITS/ML VIAL (FIVE THOUSAND) SUBCUT SCH ×3 (05:51→22:43)
[2018-01-25] MEDS: Trospium (NF) 20 MG TAB PO SCH ×2 (08:13→20:32)
[2018-01-25] MEDS: Baclofen TAB* 10 MG PO SCH ×2 (08:16→20:27)
[2018-01-25] MEDS: metFORMIN* 1,000 MG TAB PO SCH ×2 (08:16→20:27)
[2018-01-25] MEDS: Cholecalciferol TAB* 1000 UNITS PO SCH (08:16)
[2018-01-25] MEDS: amLODIPine TAB* 5 MG PO SCH (08:16)
[2018-01-25] MEDS: Gabapentin CAP(*) 400 MG PO SCH ×2 (08:16→20:26)
[2018-01-25] MEDS: Lisinopril TAB* 10 MG PO SCH (08:16)
[2018-01-25] MEDS: Aspirin TAB* 325 MG PO SCH (08:16)
[2018-01-25] MEDS: Tamsulosin CAP* 0.4 MG PO SCH (08:17)
[2018-01-25] MEDS: Citalopram TAB* 40 MG PO SCH (08:17)
[2018-01-25] MEDS: Pantoprazole TAB (NF) 20 MG TAB PO SCH (08:18)
[2018-01-25] MEDS: glipiZIDE TAB* 5 MG PO SCH ×2 (08:18→20:25)
[2018-01-25] MEDS: Carvedilol TAB* 25 MG PO SCH ×2 (08:20→18:09)
[2018-01-25] MEDS: lamoTRIgine TAB(*) 100 MG PO SCH ×2 (08:22→20:26)
[2018-01-25] MEDS: Insulin GLARGINE(*) 1 UNITS UNIT SUBCUT SCH (08:23)
--- NOTE | 2018-01-25 15:46 | PN ---
Subjective Date of Service: 01/25/18 Interval History: Mr. Crowe is doing a little better today. Still c/o left shoulder pain, relived with narcotics. Denies chest pain, palpitations, weakness or SOB. He is in a swing bed status awaiting placement for STR at [facility]. He has no new complaints. Family History: Unchanged from Admission Social History: Unchanged from Admission Past Medical History: Unchanged from Admission Objective Active Medications: Acetaminophen (Tylenol Tab*) 650 mg PO Q4H PRN PRN Reason: FEVER/PAIN Al Hydrox/Mg Hydrox/Simethicone (Maalox Plus*) 30 ml PO Q6H PRN PRN Reason: INDIGESTION Amlodipine Besylate (Norvasc Tab*) 5 mg PO QAM [facility] Last Admin: 01/25/18 08:16 Dose: 5 mg Aspirin (Aspirin Tab*) 325 mg PO DAILY [facility] Last Admin: 01/25/18 08:16 Dose: 325 mg Atorvastatin Calcium (Lipitor*) 10 mg PO BEDTIME [facility] Last Admin: 01/24/18 20:28 Dose: 10 mg Baclofen (Lioresal Tab*) 10 mg PO BID [facility] Last Admin: 01/25/18 08:16 Dose: 10 mg Carvedilol (Coreg Tab*) 25 mg PO QPM [facility] Carvedilol (Coreg Tab*) 37.5 mg PO QAM [facility] Last Admin: 01/25/18 08:20 Dose: 37.5 mg Cholecalciferol (Vitamin D Tab*) 2,000 units PO DAILY [facility] Last Admin: 01/25/18 08:16 Dose: 2,000 units Citalopram Hydrobromide (Celexa Tab*) 40 mg PO DAILY [facility] Last Admin: 01/25/18 08:17 Dose: 40 mg Clonidine HCl (Hotngfei-Pzv-5 0.3 Mg Patch*) 0.3 mg TRANSDERM Q7D [facility] Gabapentin (Neurontin Cap(*)) 400 mg PO BID [facility] Last Admin: 01/25/18 08:16 Dose: 400 mg Glipizide (Glucotrol Tab*) 7.5 mg PO BID [facility] Last Admin: 01/25/18 08:18 Dose: 7.5 mg Heparin Sodium (Porcine) (Heparin Vial(*)) 5,000 units SUBCUT Q8HR [facility] Last Admin: 05/05/18 14:34 Dose: 5,000 units Insulin Glargine (Lantus(*)) 74 units SUBCUT DAILY [facility] Last Admin: 01/25/18 08:23 Dose: 74 units Lamotrigine (Lamictal Tab(*)) 150 mg PO Q12H [facility] Last Admin: 01/25/18 08:22 Dose: 150 mg Lisinopril (Prinivil Tab*) 40 mg PO DAILY [facility] Last Admin: 01/25/18 08:16 Dose: 40 mg Metformin HCl (Glucophage*) 1,000 mg PO BID [facility] Last Admin: 01/25/18 08:16 Dose: 1,000 mg Morphine Sulfate (Morphine Vial*) 2 mg IV Q1H PRN PRN Reason: PAIN - SEVERE Nicotine (Nicotine Inhaler*) 10 mg INH Q2H PRN PRN Reason: CRAVING Last Admin: 01/24/18 20:30 Dose: 10 mg Oxycodone/Acetaminophen (Percocet 5/325 Tab*) 1 tab PO Q4H PRN PRN Reason: Pain Last Admin: 01/25/18 14:32 Dose: 1 tab Pantoprazole Sodium (Protonix Tab (Nf)) 20 mg PO QAM [facility] Last Admin: 01/25/18 08:18 Dose: 20 mg Tamsulosin HCl (Flomax Cap*) 0.4 mg PO DAILY [facility] Last Admin: 01/25/18 08:17 Dose: 0.4 mg Trospium (Sanctura (Nf)) 20 mg PO BID [facility] Last Admin: 01/25/18 08:13 Dose: Not Given Vital Signs - 8 hr 01/25/18 01/25/18 01/25/18 07:49 08:14 08:16 Temperature 98.2 F Pulse Rate 77 Respiratory 18 16 16 Rate Blood Pressure 186/72 (mmHg) O2 Sat by Pulse 95 Oximetry 01/25/18 01/25/18 01/25/18 08:30 08:50 11:35 Temperature 98.4 F Pulse Rate 71 Respiratory 16 16 Rate Blood Pressure 178/60 151/61 (mmHg) O2 Sat by Pulse 96 Oximetry 01/25/18 01/25/18 14:31 14:32 Temperature Pulse Rate Respiratory 16 16 Rate Blood Pressure (mmHg) O2 Sat by Pulse Oximetry Oxygen Devices in Use Now: None Appearance: Awake and alert, laying on his bed, appears comfortable and in NAD. Eyes: No Scleral Icterus, PERRLA Ears/Nose/Mouth/Throat: Clear Oropharnyx, Mucous Membranes Moist Neck: NL Appearance and Movements; NL JVP, Trachea Midline Respiratory: Symmetrical Chest Expansion and Respiratory Effort, Clear to Auscultation Cardiovascular: NL Sounds; No Murmurs; No JVD, RRR Abdominal: NL Sounds; No Tenderness; No Distention, No Hepatosplenomegaly Extremities: No Edema, No Clubbing, Cyanosis, - - Left shoulder immobilized in place. No visible ecchymosis or deformity. Distal pulse and sensation intact. Neurological: Alert and Oriented x 3, NL Sensation Nutrition: Taking PO's Microbiology and Other Data: . Diagnostic Imaging: Patient Name: CHANDAN CROWE JR Medical Record#: [id number] Ordering Physician: Duane Verdugo MD Acct.#: [id number] : 1945 Age: 72 Sex: M Location: EMERGENCY DEPARTMENT Exam Date: 01/22/18 1311 ADM Status: REG ER Order Information: SHOULDER LEFT 2+ VWS Accession Number: [id number] CPT: 08017 HISTORY: Left shoulder pain, status post fall COMPARISONS: None VIEWS: 6, Frontal internal rotation, external rotation, outlet, and axillary views of the left shoulder with frontal internal rotation views of left humerus. FINDINGS: BONE DENSITY: There is diffuse osteopenia. BONES: There is a transverse nondisplaced fracture of the surgical neck of the left humerus. 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 osteoarthritis. ALIGNMENT: There is no dislocation. SOFT TISSUES: Unremarkable. OTHER FINDINGS: None. IMPRESSION: OSTEOPENIA WITH TRANSVERSE NONDISPLACED FRACTURE OF THE SURGICAL NECK OF THE LEFT HUMERUS EKG Data: . Assess/Plan/Problems-Billing Assessment: A 72 y/o male with hx HTN and insulin-dependent DM, who suffered a non- displaced surgical neck fracture of the left humerus secondary to a fall. - Patient Problems (1) Humerus fracture Current Visit: No Status: Acute Comment: - Pain meds prn, L shoulder immobilizer in place. - Patient able to transfer to wheelchair, at baseline for mobility. - Follow up with Dr. Lese in 1 week. (2) Diabetes Current Visit: No Status: Chronic Comment: - blood glucose at baseline, good glycemic control - Continue lantus - Continue glipizide and metformin (3) Hyperlipidemia Current Visit: No Status: Chronic Comment: - Continue atorvastatin. (4) Hypertension Current Visit: No Status: Chronic Code(s): I10 - ESSENTIAL (PRIMARY) HYPERTENSION SNOMED Code(s): 90893797 Comment: - SBP 140's-150's - Continue amlodipine, lisinopril, carvedilol, clonidine (5) DVT prophylaxis Current Visit: No Status: Acute Comment: - Heparin SQ. (6) Full code status Current Visit: No Status: Acute Comment: Hi is a full code Status and Disposition: Swing bed status, awaiting placement for STR
[2018-01-25] MEDS ORDERED: Mouth Piece, Nicotine* 1 EACH CARTRIDGE ONE (18:08)
[2018-01-25] MEDS: Nicotine Inhaler* 10 MG AMP INH PRN (18:09)
[2018-01-25] MEDS: Morphine VIAL* 4 MG/ML VIAL (1 ml vial) IV PRN (20:22)
[2018-01-25] MEDS: Atorvastatin* 10 MG TAB PO SCH (20:26)
[2018-01-26] MEDS: oxyCODONE/Acetamin 5/325 MG* TAB PO PRN ×3 (03:49→23:11)
[2018-01-26] MEDS: Heparin VIAL(*) 5000 UNITS/ML VIAL (FIVE THOUSAND) SUBCUT SCH ×3 (05:30→21:20)
[2018-01-26] MEDS: Insulin GLARGINE(*) 1 UNITS UNIT SUBCUT SCH (08:03)
[2018-01-26] MEDS: metFORMIN* 1,000 MG TAB PO SCH ×2 (08:03→20:21)
[2018-01-26] MEDS: Lisinopril TAB* 10 MG PO SCH (08:03)
[2018-01-26] MEDS: Aspirin TAB* 325 MG PO SCH (08:03)
[2018-01-26] MEDS: Cholecalciferol TAB* 1000 UNITS PO SCH (08:04)
[2018-01-26] MEDS: Carvedilol TAB* 25 MG PO SCH ×2 (08:04→16:00)
[2018-01-26] MEDS: Gabapentin CAP(*) 400 MG PO SCH ×2 (08:05→20:22)
[2018-01-26] MEDS: glipiZIDE TAB* 5 MG PO SCH ×2 (08:06→20:20)
[2018-01-26] MEDS: lamoTRIgine TAB(*) 100 MG PO SCH ×2 (08:06→20:21)
[2018-01-26] MEDS: Baclofen TAB* 10 MG PO SCH ×2 (08:06→20:20)
[2018-01-26] MEDS: amLODIPine TAB* 5 MG PO SCH (08:06)
[2018-01-26] MEDS: Citalopram TAB* 40 MG PO SCH (08:06)
[2018-01-26] MEDS: Tamsulosin CAP* 0.4 MG PO SCH (08:07)
[2018-01-26] MEDS: Pantoprazole TAB (NF) 20 MG TAB PO SCH (08:07)
[2018-01-26] MEDS: Trospium (NF) 20 MG TAB PO SCH (08:08)
[2018-01-26] MEDS: Morphine VIAL* 4 MG/ML VIAL (1 ml vial) IV PRN ×3 (11:15→23:53)
[2018-01-26] MEDS: Atorvastatin* 10 MG TAB PO SCH (20:21)
[2018-01-26] MEDS: Nicotine Inhaler* 10 MG AMP INH PRN (20:33)
[2018-01-26] MEDS: Docusate CAP* 100 MG PO PRN (21:22)
[2018-01-26] MEDS: Senna TAB PO SCH (21:22)
[2018-01-27] MEDS: oxyCODONE/Acetamin 5/325 MG* TAB PO PRN (05:38)
[2018-01-27] MEDS: Heparin VIAL(*) 5000 UNITS/ML VIAL (FIVE THOUSAND) SUBCUT SCH ×3 (05:38→22:30)
[2018-01-27] MEDS: Morphine VIAL* 4 MG/ML VIAL (1 ml vial) IV PRN ×3 (07:37→20:58)
[2018-01-27] MEDS: Baclofen TAB* 10 MG PO SCH ×2 (10:21→21:05)
[2018-01-27] MEDS: Aspirin TAB* 325 MG PO SCH (10:21)
[2018-01-27] MEDS: Tamsulosin CAP* 0.4 MG PO SCH (10:21)
[2018-01-27] MEDS: Lisinopril TAB* 10 MG PO SCH (10:21)
[2018-01-27] MEDS: Oxybutynin XL TAB* 5 MG PO SCH (10:21)
[2018-01-27] MEDS: Cholecalciferol TAB* 1000 UNITS PO SCH (10:22)
[2018-01-27] MEDS: Citalopram TAB* 40 MG PO SCH (10:22)
[2018-01-27] MEDS: Gabapentin CAP(*) 400 MG PO SCH ×2 (10:22→21:07)
[2018-01-27] MEDS: amLODIPine TAB* 5 MG PO SCH (10:22)
[2018-01-27] MEDS: CMC: Pantoprazole TAB (NF) 40 MG TAB PO SCH (10:23)
[2018-01-27] MEDS: metFORMIN* 1,000 MG TAB PO SCH (10:23)
[2018-01-27] MEDS: glipiZIDE TAB* 5 MG PO SCH (10:24)
[2018-01-27] MEDS: Carvedilol TAB* 25 MG PO SCH ×2 (10:24→17:43)
[2018-01-27] MEDS: lamoTRIgine TAB(*) 100 MG PO SCH ×2 (10:24→21:06)
[2018-01-27] MEDS: Insulin GLARGINE(*) 1 UNITS UNIT SUBCUT SCH (10:25)
[2018-01-27] MEDS: Docusate CAP* 100 MG PO PRN (12:51)
[2018-01-27] MEDS: Polyethylene Glycol 3350* 17 GM PACKET PO PRN (12:51)
[2018-01-27] MEDS ORDERED: Insulin GLARGINE(*) 1 UNITS UNIT SUBCUT SCH (18:42)
--- NOTE | 2018-01-27 18:48 | PN ---
Subjective Date of Service: 01/27/18 Interval History: Mr. Crowe is doing well today. He still c/o intermittent left shoulder pain, relieved with narcotics. Denies any headaches, visual changes, weakness, chest pain or SOB. Per his nurse, BP elevated today, POC blood glucose low upon checking. Patient denies any symptoms. Family History: Unchanged from Admission Social History: Unchanged from Admission Past Medical History: Unchanged from Admission Objective Active Medications: Acetaminophen (Tylenol Tab*) 650 mg PO Q4H PRN PRN Reason: FEVER/PAIN Al Hydrox/Mg Hydrox/Simethicone (Maalox Plus*) 30 ml PO Q6H PRN PRN Reason: INDIGESTION Amlodipine Besylate (Norvasc Tab*) 5 mg PO QAM [facility] Stop: 01/28/18 09:00 Last Admin: 01/27/18 10:22 Dose: 5 mg Amlodipine Besylate (Norvasc Tab*) 10 mg PO QAM [facility] Aspirin (Aspirin Tab*) 325 mg PO DAILY [facility] Last Admin: 01/27/18 10:21 Dose: 325 mg Atorvastatin Calcium (Lipitor*) 10 mg PO BEDTIME [facility] Last Admin: 01/26/18 20:21 Dose: 10 mg Baclofen (Lioresal Tab*) 10 mg PO BID [facility] Last Admin: 01/27/18 10:21 Dose: 10 mg Carvedilol (Coreg Tab*) 37.5 mg PO Q12H [facility] Last Admin: 01/27/18 17:43 Dose: 37.5 mg Cholecalciferol (Vitamin D Tab*) 2,000 units PO DAILY [facility] Last Admin: 01/27/18 10:22 Dose: 2,000 units Citalopram Hydrobromide (Celexa Tab*) 40 mg PO DAILY [facility] Last Admin: 01/27/18 10:22 Dose: 40 mg Clonidine HCl (Yyayozoj-Vea-8 0.3 Mg Patch*) 0.3 mg TRANSDERM Q7D [facility] Docusate Sodium (Colace Cap*) 100 mg PO DAILY PRN PRN Reason: CONSTIPATION Last Admin: 01/27/18 12:51 Dose: 100 mg Gabapentin (Neurontin Cap(*)) 400 mg PO BID [facility] Last Admin: 01/27/18 10:22 Dose: 400 mg Glipizide (Glucotrol Tab*) 7.5 mg PO BID [facility] Last Admin: 01/27/18 10:24 Dose: 7.5 mg Heparin Sodium (Porcine) (Heparin Vial(*)) 5,000 units SUBCUT Q8HR [facility] Last Admin: 01/27/18 14:11 Dose: 5,000 units Insulin Glargine (Lantus(*)) 30 units SUBCUT DAILY [facility] Lamotrigine (Lamictal Tab(*)) 150 mg PO Q12H [facility] Last Admin: 01/27/18 10:24 Dose: 150 mg Lisinopril (Prinivil Tab*) 40 mg PO DAILY [facility] Last Admin: 01/27/18 10:21 Dose: 40 mg Metformin HCl (Glucophage*) 1,000 mg PO BID [facility] Last Admin: 01/27/18 10:23 Dose: 1,000 mg Morphine Sulfate (Morphine Vial*) 2 mg IV Q1H PRN PRN Reason: PAIN - SEVERE Last Admin: 01/27/18 12:19 Dose: 2 mg Nicotine (Nicotine Inhaler*) 10 mg INH Q2H PRN PRN Reason: CRAVING Last Admin: 01/26/18 20:33 Dose: 10 mg Oxybutynin Chloride (Ditropan Xl Tab*) 10 mg PO DAILY [facility] Last Admin: 01/27/18 10:21 Dose: 10 mg Oxycodone/Acetaminophen (Percocet 5/325 Tab*) 1 tab PO Q4H PRN PRN Reason: Pain Last Admin: 01/27/18 05:38 Dose: 1 tab Oxycodone/Acetaminophen (Percocet 5/325 Tab*) 2 tab PO Q6H PRN PRN Reason: PAIN Pantoprazole Sodium (Protonix Tab (Nf)) 40 mg PO DAILY [facility] Last Admin: 01/27/18 10:23 Dose: 40 mg Polyethylene Glycol/Electrolytes (Miralax*) 17 gm PO DAILY PRN PRN Reason: CONSTIPATION Last Admin: 01/27/18 12:51 Dose: 17 gm Senna (Senokot Tab*) 1 tab PO BEDTIME [facility] Last Admin: 01/26/18 21:22 Dose: 1 tab Tamsulosin HCl (Flomax Cap*) 0.4 mg PO DAILY [facility] Last Admin: 01/27/18 10:21 Dose: 0.4 mg Vital Signs - 8 hr 01/27/18 01/27/18 01/27/18 11:25 12:19 12:25 Pulse Rate 69 Respiratory 21 16 Rate Blood Pressure 180/65 180/70 (mmHg) O2 Sat by Pulse 95 Oximetry 01/27/18 01/27/18 12:45 14:39 Pulse Rate Respiratory 16 14 Rate Blood Pressure (mmHg) O2 Sat by Pulse Oximetry Oxygen Devices in Use Now: None Appearance: Comfortable in bed, in NAD Eyes: No Scleral Icterus, PERRLA Ears/Nose/Mouth/Throat: Clear Oropharnyx, Mucous Membranes Moist Neck: NL Appearance and Movements; NL JVP, Trachea Midline Respiratory: Symmetrical Chest Expansion and Respiratory Effort, Clear to Auscultation Cardiovascular: NL Sounds; No Murmurs; No JVD, RRR Abdominal: NL Sounds; No Tenderness; No Distention Extremities: No Edema Neurological: Alert and Oriented x 3, NL Sensation Nutrition: Taking PO's Microbiology and Other Data: . Diagnostic Imaging: Patient Name: CHANDAN CROWE JR Medical Record#: [id number] Ordering Physician: Duane Verdugo MD Acct.#: [id number] : 1945 Age: 72 Sex: M Location: EMERGENCY DEPARTMENT Exam Date: 01/22/18 1311 ADM Status: REG ER Order Information: SHOULDER LEFT 2+ VWS Accession Number: [id number] CPT: 97078 HISTORY: Left shoulder pain, status post fall COMPARISONS: None VIEWS: 6, Frontal internal rotation, external rotation, outlet, and axillary views of the left shoulder with frontal internal rotation views of left humerus. FINDINGS: BONE DENSITY: There is diffuse osteopenia. BONES: There is a transverse nondisplaced fracture of the surgical neck of the left humerus. 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 osteoarthritis. ALIGNMENT: There is no dislocation. SOFT TISSUES: Unremarkable. OTHER FINDINGS: None. IMPRESSION: OSTEOPENIA WITH TRANSVERSE NONDISPLACED FRACTURE OF THE SURGICAL NECK OF THE LEFT HUMERUS EKG Data: . Assess/Plan/Problems-Billing Assessment: A 72 y/o male with hx HTN and insulin-dependent DM, who suffered a non- displaced surgical neck fracture of the left humerus secondary to a fall. - Patient Problems (1) Humerus fracture Current Visit: No Status: Acute Comment: - Continue pain meds prn, L shoulder immobilizer in place. - Patient able to transfer to wheelchair, at baseline for mobility. - Follow up with Dr. Lees in 1 week after discharge - Await placement for SNF (2) Diabetes Current Visit: No Status: Chronic Comment: - Hypoglycemia today, will decrease Lantus dose starting in AM - Continue glipizide and metformin as ordered (3) Hyperlipidemia Current Visit: No Status: Chronic Comment: - Continue atorvastatin. (4) Hypertension Current Visit: No Status: Chronic Code(s): I10 - ESSENTIAL (PRIMARY) HYPERTENSION SNOMED Code(s): 81078196 Comment: - SBP 180's - Continue amlodipine, dose increased to 10mg - Continue lisinopril, carvedilol, clonidine patch (5) DVT prophylaxis Current Visit: No Status: Acute Comment: - Heparin SQ. (6) Full code status Current Visit: No Status: Acute Comment: Hi is a full code Status and Disposition: Swing bed status, awaiting placement for STR
[2018-01-27] MEDS: Atorvastatin* 10 MG TAB PO SCH (21:05)
[2018-01-27] MEDS: Senna TAB PO SCH (21:06)
--- NOTE | 2018-01-28 00:13 | PN ---
Progress Note - Progress Note Date of Service: 01/28/18 Note: Patient persistently hypoglycemic - stopped his oral agents. Will decrease lantus from 20 units to 5 units to be started tomorrow morning.
[2018-01-28] MEDS: oxyCODONE/Acetamin 5/325 MG* TAB PO PRN ×5 (00:39→23:58)
[2018-01-28] MEDS: glipiZIDE TAB* 5 MG PO SCH (00:41)
[2018-01-28] MEDS: metFORMIN* 1,000 MG TAB PO SCH (00:47)
[2018-01-28] MEDS: Carvedilol TAB* 25 MG PO SCH ×2 (05:16→17:46)
[2018-01-28] MEDS: Heparin VIAL(*) 5000 UNITS/ML VIAL (FIVE THOUSAND) SUBCUT SCH ×3 (05:21→22:13)
[2018-01-28] MEDS: lamoTRIgine TAB(*) 100 MG PO SCH ×2 (08:04→20:12)
[2018-01-28] MEDS: Gabapentin CAP(*) 400 MG PO SCH ×2 (08:05→20:12)
[2018-01-28] MEDS: Citalopram TAB* 40 MG PO SCH (08:05)
[2018-01-28] MEDS: Cholecalciferol TAB* 1000 UNITS PO SCH (08:05)
[2018-01-28] MEDS: Oxybutynin XL TAB* 5 MG PO SCH (08:05)
[2018-01-28] MEDS: Baclofen TAB* 10 MG PO SCH ×2 (08:06→20:14)
[2018-01-28] MEDS: amLODIPine TAB* 5 MG PO SCH ×2 (08:06→08:08)
[2018-01-28] MEDS: Lisinopril TAB* 10 MG PO SCH (08:06)
[2018-01-28] MEDS: Tamsulosin CAP* 0.4 MG PO SCH (08:06)
[2018-01-28] MEDS: CMC: Pantoprazole TAB (NF) 40 MG TAB PO SCH (08:07)
[2018-01-28] MEDS: Aspirin TAB* 325 MG PO SCH (08:07)
[2018-01-28] MEDS ORDERED: Insulin GLARGINE(*) 1 UNITS UNIT SUBCUT SCH (09:00)
[2018-01-28] MEDS ORDERED: Mouth Piece, Nicotine* 1 EACH CARTRIDGE ONE (09:53)
[2018-01-28] MEDS: Nicotine Inhaler* 10 MG AMP INH PRN (09:54)
[2018-01-28] MEDS: Atorvastatin* 10 MG TAB PO SCH (20:12)
[2018-01-28] MEDS: Senna TAB PO SCH (20:12)
[2018-01-29] MEDS: Morphine VIAL* 4 MG/ML VIAL (1 ml vial) IV PRN (03:22)
[2018-01-29] MEDS: Carvedilol TAB* 25 MG PO SCH ×2 (05:01→18:04)
[2018-01-29] MEDS: Heparin VIAL(*) 5000 UNITS/ML VIAL (FIVE THOUSAND) SUBCUT SCH ×3 (05:02→20:03)
[2018-01-29] MEDS: Gabapentin CAP(*) 400 MG PO SCH ×2 (09:39→20:02)
[2018-01-29] MEDS: Aspirin TAB* 325 MG PO SCH (09:39)
[2018-01-29] MEDS: oxyCODONE/Acetamin 5/325 MG* TAB PO PRN (09:40)
[2018-01-29] MEDS: Lisinopril TAB* 10 MG PO SCH (09:41)
[2018-01-29] MEDS: amLODIPine TAB* 5 MG PO SCH (09:41)
[2018-01-29] MEDS: Tamsulosin CAP* 0.4 MG PO SCH (09:41)
[2018-01-29] MEDS: Citalopram TAB* 40 MG PO SCH (09:42)
[2018-01-29] MEDS: Cholecalciferol TAB* 1000 UNITS PO SCH (09:42)
[2018-01-29] MEDS: Oxybutynin XL TAB* 5 MG PO SCH (09:43)
[2018-01-29] MEDS: CMC: Pantoprazole TAB (NF) 40 MG TAB PO SCH (09:43)
[2018-01-29] MEDS: Baclofen TAB* 10 MG PO SCH ×2 (09:43→20:01)
[2018-01-29] MEDS: lamoTRIgine TAB(*) 100 MG PO SCH ×2 (09:44→20:02)
[2018-01-29] MEDS: Hydrochlorothiazide TAB* 25 MG PO SCH (09:44)
[2018-01-29] MEDS: Insulin GLARGINE(*) 1 UNITS UNIT SUBCUT SCH (09:46)
--- NOTE | 2018-01-29 13:58 | PN ---
Subjective Date of Service: 01/29/18 Interval History: Patient complains of persistent pain in his left arm which is worse with movement and better with pain medication. Patient denies F/C, N/V, abdominal pain, CP, SOB, Dysuria, dizziness, or other pain. Patient state he would be willing to try an arm immobilizer if it would decrease pain in arm. Family History: Unchanged from Admission Social History: Unchanged from Admission Past Medical History: Unchanged from Admission Objective Active Medications: Acetaminophen (Tylenol Tab*) 650 mg PO Q4H PRN PRN Reason: FEVER/PAIN Al Hydrox/Mg Hydrox/Simethicone (Maalox Plus*) 30 ml PO Q6H PRN PRN Reason: INDIGESTION Amlodipine Besylate (Norvasc Tab*) 10 mg PO QAM [facility] Last Admin: 01/29/18 09:41 Dose: 10 mg Aspirin (Aspirin Tab*) 325 mg PO DAILY [facility] Last Admin: 01/29/18 09:39 Dose: 325 mg Atorvastatin Calcium (Lipitor*) 10 mg PO BEDTIME [facility] Last Admin: 01/28/18 20:12 Dose: 10 mg Baclofen (Lioresal Tab*) 10 mg PO BID [facility] Last Admin: 01/29/18 09:43 Dose: 10 mg Carvedilol (Coreg Tab*) 37.5 mg PO Q12H [facility] Last Admin: 01/29/18 05:01 Dose: 37.5 mg Cholecalciferol (Vitamin D Tab*) 2,000 units PO DAILY [facility] Last Admin: 01/29/18 09:42 Dose: 2,000 units Citalopram Hydrobromide (Celexa Tab*) 40 mg PO DAILY [facility] Last Admin: 01/29/18 09:42 Dose: 40 mg Clonidine HCl (Lwvgbdig-Czh-4 0.3 Mg Patch*) 0.3 mg TRANSDERM Q7D [facility] Docusate Sodium (Colace Cap*) 100 mg PO DAILY PRN PRN Reason: CONSTIPATION Last Admin: 01/27/18 12:51 Dose: 100 mg Gabapentin (Neurontin Cap(*)) 400 mg PO BID [facility] Last Admin: 01/29/18 09:39 Dose: 400 mg Heparin Sodium (Porcine) (Heparin Vial(*)) 5,000 units SUBCUT Q8HR [facility] Last Admin: 01/29/18 05:02 Dose: 5,000 units Hydrochlorothiazide (Hydrodiuril Tab*) 12.5 mg PO DAILY [facility] Last Admin: 01/29/18 09:44 Dose: 12.5 mg Insulin Glargine (Lantus(*)) 5 units SUBCUT DAILY [facility] Last Admin: 01/29/18 09:46 Dose: 5 units Lamotrigine (Lamictal Tab(*)) 150 mg PO Q12H [facility] Last Admin: 01/29/18 09:44 Dose: 150 mg Lisinopril (Prinivil Tab*) 40 mg PO DAILY [facility] Last Admin: 01/29/18 09:41 Dose: 40 mg Nicotine (Nicotine Inhaler*) 10 mg INH Q2H PRN PRN Reason: CRAVING Last Admin: 01/28/18 09:54 Dose: 10 mg Oxybutynin Chloride (Ditropan Xl Tab*) 10 mg PO DAILY [facility] Last Admin: 01/29/18 09:43 Dose: 10 mg Oxycodone/Acetaminophen (Percocet 5/325 Tab*) 1 tab PO Q4H PRN PRN Reason: Pain Last Admin: 01/28/18 23:58 Dose: 1 tab Oxycodone/Acetaminophen (Percocet 5/325 Tab*) 2 tab PO Q6H PRN PRN Reason: PAIN Last Admin: 01/29/18 09:40 Dose: 2 tab Pantoprazole Sodium (Protonix Tab (Nf)) 40 mg PO DAILY [facility] Last Admin: 01/29/18 09:43 Dose: 40 mg Polyethylene Glycol/Electrolytes (Miralax*) 17 gm PO DAILY PRN PRN Reason: CONSTIPATION Last Admin: 01/27/18 12:51 Dose: 17 gm Senna (Senokot Tab*) 1 tab PO BEDTIME [facility] Last Admin: 01/28/18 20:12 Dose: 1 tab Tamsulosin HCl (Flomax Cap*) 0.4 mg PO DAILY [facility] Last Admin: 01/29/18 09:41 Dose: 0.4 mg Vital Signs - 8 hr 01/29/18 01/29/18 01/29/18 07:34 07:53 09:39 Temperature 97.7 F Pulse Rate 63 Respiratory 15 16 16 Rate Blood Pressure 152/53 (mmHg) O2 Sat by Pulse 96 Oximetry 01/29/18 09:40 Temperature Pulse Rate Respiratory 16 Rate Blood Pressure (mmHg) O2 Sat by Pulse Oximetry Oxygen Devices in Use Now: None Appearance: Patient is a 72yo male who appears stated age and is sitting in the bed in NAD. Neck: NL Appearance and Movements; NL JVP, Trachea Midline Respiratory: Symmetrical Chest Expansion and Respiratory Effort, Clear to Auscultation Cardiovascular: NL Sounds; No Murmurs; No JVD, RRR, No Edema Extremities: - - Ecchymosis on KRYSTIAN without obvious deformity. Arm not in sling. Pulses and sensation intact distal Neurological: Alert and Oriented x 3, - - CN II-XII intact Microbiology and Other Data: . EKG Data: . Assess/Plan/Problems-Billing Assessment: A 72 y/o male with hx HTN and insulin-dependent DM, who suffered a non- displaced surgical neck fracture of the left humerus secondary to a fall. - Patient Problems (1) Humerus fracture Current Visit: No Status: Acute Code(s): S42.309A - UNSP FRACTURE OF SHAFT OF HUMERUS, UNSP ARM, INIT SNOMED Code(s): 42759852 Comment: Continue pain meds prn. D/C Morphine L shoulder immobilizer in place. Patient able to transfer to wheelchair, at baseline for mobility. Follow up with Dr. Lees in 1 week after discharge Await placement for SNF (2) Hypertension Current Visit: No Status: Chronic Code(s): I10 - ESSENTIAL (PRIMARY) HYPERTENSION SNOMED Code(s): 37819697 Comment: SBP 180's Started on HCTZ Continue amlodipine, dose increased to 10mg Continue lisinopril, carvedilol, clonidine patch (3) Diabetes Current Visit: No Status: Chronic Code(s): E11.9 - TYPE 2 DIABETES MELLITUS WITHOUT COMPLICATIONS SNOMED Code(s): 51946217 Comment: Hypoglycemia overnight, D/C oral antihyperglycemics. Continue lantus at decreased dose. Good BG control today. (4) Hyperlipidemia Current Visit: No Status: Chronic Code(s): E78.5 - HYPERLIPIDEMIA, UNSPECIFIED SNOMED Code(s): 44577933 Comment: Continue atorvastatin. (5) DVT prophylaxis Current Visit: No Status: Acute Code(s): XQU9976 - SNOMED Code(s): 383586619 Comment: Heparin SQ. (6) Full code status Current Visit: No Status: Acute Code(s): Z78.9 - OTHER SPECIFIED HEALTH STATUS SNOMED Code(s): 183142482 Comment: Status and Disposition: Swing bed status, awaiting placement for STR
[2018-01-29] MEDS: Senna TAB PO SCH (20:01)
[2018-01-29] MEDS: Atorvastatin* 10 MG TAB PO SCH (20:03)
[2018-01-29] MEDS: cloNIDine 0.3 MG PATCH* 0.3 MG/24 HR 7 DAY PATCH TRANSDERM SCH (20:13)
[2018-01-30] MEDS: Heparin VIAL(*) 5000 UNITS/ML VIAL (FIVE THOUSAND) SUBCUT SCH ×3 (05:05→21:42)
[2018-01-30] MEDS: Carvedilol TAB* 25 MG PO SCH ×2 (05:05→16:20)
[2018-01-30] MEDS: oxyCODONE/Acetamin 5/325 MG* TAB PO PRN ×4 (09:14→23:35)
[2018-01-30] MEDS: Lisinopril TAB* 10 MG PO SCH (09:15)
[2018-01-30] MEDS: Citalopram TAB* 40 MG PO SCH (09:16)
[2018-01-30] MEDS: Hydrochlorothiazide TAB* 25 MG PO SCH (09:16)
[2018-01-30] MEDS: Gabapentin CAP(*) 400 MG PO SCH ×2 (09:16→21:39)
[2018-01-30] MEDS: Oxybutynin XL TAB* 5 MG PO SCH (09:16)
[2018-01-30] MEDS: Baclofen TAB* 10 MG PO SCH ×2 (09:17→21:41)
[2018-01-30] MEDS: Cholecalciferol TAB* 1000 UNITS PO SCH (09:17)
[2018-01-30] MEDS: lamoTRIgine TAB(*) 100 MG PO SCH ×2 (09:17→21:40)
[2018-01-30] MEDS: metFORMIN* 1,000 MG TAB PO SCH ×2 (09:17→16:20)
[2018-01-30] MEDS: amLODIPine TAB* 5 MG PO SCH (09:17)
[2018-01-30] MEDS: CMC: Pantoprazole TAB (NF) 40 MG TAB PO SCH (09:17)
[2018-01-30] MEDS: Aspirin TAB* 325 MG PO SCH (09:18)
[2018-01-30] MEDS: Insulin GLARGINE(*) 1 UNITS UNIT SUBCUT SCH (09:19)
[2018-01-30] MEDS: Tamsulosin CAP* 0.4 MG PO SCH (09:19)
--- NOTE | 2018-01-30 12:59 | RAD ---
Indication: Left humerus fracture. 2 views of the left humerus demonstrates fracture through the surgical neck with medial displacement approximately one half shafts width. IMPRESSION: There is fracture of the surgical neck of the humerus with displacement approximately one half shafts width medially.
--- NOTE | 2018-01-30 13:48 | PN ---
Subjective Date of Service: 01/30/18 Interval History: Patient state that the pain in his arm is increased from yesterday, rates it at 8.5/10. Patient describes a crepitus sensation. Denies numbness, tingling or pain in distal arm. Denies F/C, N/v, CP, SOB, N/V, abdominal pain, diarrhea, Or other pain. Patient would be amenable to surgery and dose not want his daughter contacted. Family History: Unchanged from Admission Social History: Unchanged from Admission Past Medical History: Unchanged from Admission Objective Active Medications: Acetaminophen (Tylenol Tab*) 650 mg PO Q4H PRN PRN Reason: FEVER/PAIN Al Hydrox/Mg Hydrox/Simethicone (Maalox Plus*) 30 ml PO Q6H PRN PRN Reason: INDIGESTION Amlodipine Besylate (Norvasc Tab*) 10 mg PO QAM [facility] Last Admin: 01/30/18 09:17 Dose: 10 mg Aspirin (Aspirin Tab*) 325 mg PO DAILY [facility] Last Admin: 01/30/18 09:18 Dose: 325 mg Atorvastatin Calcium (Lipitor*) 10 mg PO BEDTIME [facility] Last Admin: 01/29/18 20:03 Dose: 10 mg Baclofen (Lioresal Tab*) 10 mg PO BID [facility] Last Admin: 01/30/18 09:17 Dose: 10 mg Carvedilol (Coreg Tab*) 37.5 mg PO Q12H [facility] Last Admin: 01/30/18 05:05 Dose: 37.5 mg Cholecalciferol (Vitamin D Tab*) 2,000 units PO DAILY [facility] Last Admin: 01/30/18 09:17 Dose: 2,000 units Citalopram Hydrobromide (Celexa Tab*) 40 mg PO DAILY [facility] Last Admin: 01/30/18 09:16 Dose: 40 mg Clonidine HCl (Raumtthd-Qzd-0 0.3 Mg Patch*) 0.3 mg TRANSDERM Q7D [facility] Last Admin: 01/29/18 20:13 Dose: 0.3 mg Docusate Sodium (Colace Cap*) 100 mg PO DAILY PRN PRN Reason: CONSTIPATION Last Admin: 01/27/18 12:51 Dose: 100 mg Gabapentin (Neurontin Cap(*)) 400 mg PO BID [facility] Last Admin: 01/30/18 09:16 Dose: 400 mg Heparin Sodium (Porcine) (Heparin Vial(*)) 5,000 units SUBCUT Q8HR [facility] Last Admin: 01/30/18 05:05 Dose: 5,000 units Hydrochlorothiazide (Hydrodiuril Tab*) 12.5 mg PO DAILY [facility] Last Admin: 01/30/18 09:16 Dose: 12.5 mg Insulin Glargine (Lantus(*)) 5 units SUBCUT DAILY [facility] Last Admin: 01/30/18 09:19 Dose: 5 units Lamotrigine (Lamictal Tab(*)) 150 mg PO Q12H [facility] Last Admin: 01/30/18 09:17 Dose: 150 mg Lisinopril (Prinivil Tab*) 40 mg PO DAILY [facility] Last Admin: 01/30/18 09:15 Dose: 40 mg Metformin HCl (Glucophage*) 1,000 mg PO 0800,1700 [facility] Last Admin: 01/30/18 09:17 Dose: 1,000 mg Nicotine (Nicotine Inhaler*) 10 mg INH Q2H PRN PRN Reason: CRAVING Last Admin: 01/28/18 09:54 Dose: 10 mg Oxybutynin Chloride (Ditropan Xl Tab*) 10 mg PO DAILY [facility] Last Admin: 01/30/18 09:16 Dose: 10 mg Oxycodone/Acetaminophen (Percocet 5/325 Tab*) 1 tab PO Q4H PRN PRN Reason: Pain Last Admin: 01/30/18 00:00 Dose: 1 tab Oxycodone/Acetaminophen (Percocet 5/325 Tab*) 2 tab PO Q6H PRN PRN Reason: PAIN Last Admin: 01/30/18 09:14 Dose: 2 tab Pantoprazole Sodium (Protonix Tab (Nf)) 40 mg PO DAILY [facility] Last Admin: 01/30/18 09:17 Dose: 40 mg Polyethylene Glycol/Electrolytes (Miralax*) 17 gm PO DAILY PRN PRN Reason: CONSTIPATION Last Admin: 01/27/18 12:51 Dose: 17 gm Senna (Senokot Tab*) 1 tab PO BEDTIME [facility] Last Admin: 01/29/18 20:01 Dose: 1 tab Tamsulosin HCl (Flomax Cap*) 0.4 mg PO DAILY [facility] Last Admin: 01/30/18 09:19 Dose: 0.4 mg Vital Signs - 8 hr 01/30/18 01/30/18 01/30/18 07:34 09:14 09:16 Temperature 97.9 F Pulse Rate 64 Respiratory 16 16 16 Rate Blood Pressure 151/53 (mmHg) O2 Sat by Pulse 97 Oximetry 01/30/18 01/30/18 01/30/18 09:39 10:58 11:02 Temperature 98.4 F Pulse Rate 58 Respiratory 16 16 17 Rate Blood Pressure 142/62 (mmHg) O2 Sat by Pulse 93 Oximetry Oxygen Devices in Use Now: None Appearance: Patient is a 72yo male who appears stated age and is sitting in the bed in NAD. Eyes: No Scleral Icterus, PERRLA Ears/Nose/Mouth/Throat: NL Teeth, Lips, Gums, Clear Oropharnyx, Mucous Membranes Moist Neck: NL Appearance and Movements; NL JVP, Trachea Midline Respiratory: Symmetrical Chest Expansion and Respiratory Effort, Clear to Auscultation Cardiovascular: NL Sounds; No Murmurs; No JVD, RRR, No Edema Abdominal: NL Sounds; No Tenderness; No Distention, No Hepatosplenomegaly Lymphatic: No Cervical Adenopathy Extremities: No Edema, No Clubbing, Cyanosis, - - Ecchymosis on proximal left UE. No obvious deformity. Skin: No Rash or Ulcers, No Nodules or Sclerosis Neurological: Alert and Oriented x 3, - - CN II-XII intact. Microbiology and Other Data: . EKG Data: . Assess/Plan/Problems-Billing Assessment: A 72 y/o male with hx HTN and insulin-dependent DM, who suffered a non- displaced surgical neck fracture of the left humerus secondary to a fall which has become displaced during his hospitalization. - Patient Problems (1) Humerus fracture Current Visit: No Status: Acute Code(s): S42.309A - UNSP FRACTURE OF SHAFT OF HUMERUS, UNSP ARM, INIT SNOMED Code(s): 89814186 Comment: Continue pain meds prn. D/C Morphine L shoulder immobilizer in place. Repeat shoulder XR shows new displacement of humerus. Patient will decide on surgery with orthopedics later today. Patient able to transfer to wheelchair, at baseline for mobility. Await placement for SNF (2) Hypertension Current Visit: No Status: Chronic Code(s): I10 - ESSENTIAL (PRIMARY) HYPERTENSION SNOMED Code(s): 09272717 Comment: SBP 140's-150s Started on HCTZ Continue amlodipine, dose increased to 10mg Continue lisinopril, carvedilol, clonidine patch (3) Diabetes Current Visit: No Status: Chronic Code(s): E11.9 - TYPE 2 DIABETES MELLITUS WITHOUT COMPLICATIONS SNOMED Code(s): 98219191 Comment: Hyperglycemia overnight. Resume metformin, Continue lantus at decreased dose. Worse BG control today. (4) Hyperlipidemia Current Visit: No Status: Chronic Code(s): E78.5 - HYPERLIPIDEMIA, UNSPECIFIED SNOMED Code(s): 18095639 Comment: Continue atorvastatin. (5) DVT prophylaxis Current Visit: No Status: Acute Code(s): ZQP0943 - SNOMED Code(s): 726580026 Comment: Heparin SQ. (6) Full code status Current Visit: No Status: Acute Code(s): Z78.9 - OTHER SPECIFIED HEALTH STATUS SNOMED Code(s): 345665902 Comment: Status and Disposition: Swing bed status, awaiting placement for STR and consideration for surgery.
--- NOTE | 2018-01-30 15:38 | RAD ---
INDICATION: Traumatic fracture left humerus COMPARISON: Left shoulder January 22, 2018 TECHNIQUE: Multiple views were obtained. FINDINGS: There is a transverse fracture through the surgical neck of the humerus. There is mild increased distraction. There is medial displacement distal fracture fragment one quarter bone width. No other fractures are evident. There is AC joint osteoarthritis. IMPRESSION: FRACTURE OF THE THE SURGICAL NECK OF THE LEFT HUMERUS DESCRIBED.
[2018-01-30] MEDS: Atorvastatin* 10 MG TAB PO SCH (21:39)
[2018-01-30] MEDS: Senna TAB PO SCH (21:41)
--- NOTE | 2018-01-30 22:25 | CONS ---
CONSULTATION REPORT: DATE OF CONSULT: 01/30/18 PRIMARY CARE PHYSICIAN: [facility] in [place]. ATTENDING ORTHOPEDIC PROVIDER: Dr. Nick Maldonado. CHIEF COMPLAINT: Left humerus fracture. HISTORY OF PRESENT ILLNESS: Mr. 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 He presented to [facility] on 01/22/18, at which time he was diagnosed with a nondisplaced left humerus fracture. The patient was placed in an immobilizer for comfort. He has been in the hospital since and Orthopedics was consulted on 01/30/18 prior to discharge as the patient was originally to follow up with Orthopedics in 1 week. As he is still in the hospital after one week, I was asked to see him today. New x-rays were ordered, which showed displacement of the left humerus fracture. The patient states that the original fall occurred while he was reaching to get out of bed at his home. He has a pole next to his bed that helps him to mobilize at baseline as he has significant left-sided weakness. He states that his pole was not in the position he expected, his left hand slipped out off the pole and he fell onto his left shoulder. He did not have any loss of consciousness at that time and did not have any chest pain, shortness of breath, dizziness, or headache at that time. The patient has had surgery in the past and tolerated the anesthesia well. He has never had a blood transfusion and has no known history of hepatitis or hypotension. He has no history of heart attack or blood clot. He does have a history of stroke leaving him with left-sided weakness 8 years ago. This is also resulted in him being wheelchair bound. Most of the time, he does stand to take a few steps to transfer. He does live alone and cares for himself with a nurse coming in daily, morning and night. PAST MEDICAL HISTORY: CVA with left-sided weakness 8 years ago; diabetes; hypertension; hyperlipidemia; history of prostate cancer; seizures, last 4 months ago. PAST SURGICAL HISTORY: Prostatectomy, appendectomy, craniotomy. Craniotomy was for seizures and the patient suffered a stroke during this procedure. HOME MEDICATIONS: As in chart. ALLERGIES: No known drug allergies. SOCIAL HISTORY: The patient does not use alcohol. He does not use drugs. He is a former smoker stopping when he had the CVA. The patient lives alone and he cares for himself. He is wheelchair bound. Aside from transfers, he takes a few steps. He does have a pole by his bed to allow him to mobilize more easily. REVIEW OF SYSTEMS: General: No report of fever or chills. He had a history of craniotomy with known scar. No headaches. ENT: No new change in vision. Cardiac: No history of IA. No chest pain. No irregular beats. Respiratory: No shortness of breath. No asthma. No COPD. GI: No abdominal pain. No nausea. No vomiting. No diarrhea. No constipation. : History of prostatectomy due to prostate cancer. Denies dysuria. Hematology: No history of blood clot. No history of easy bleeding or bruising. Endocrine: History of diabetes. Musculoskeletal: Left humerus fracture. Neuro: Weakness on the left side both the arm and the leg resulting in inability to walk long distances beginning 8 years ago with CVA. PHYSICAL EXAM: Vital Signs: Temperature 98.4, pulse rate 54, respiratory rate 17, oxygen saturation 93%, blood pressure 142/62. General: Mr. Craven is well appearing. He is in no acute distress. He is lying in bed. HEENT: The patient has a scar to the right of midline of his scalp from history of craniotomy. Extraocular movements are intact. Lungs: Clear to auscultation bilaterally. Cardiac: S1, S2. Regular rate and rhythm. Abdomen: Bowel sounds normoactive, soft, and nontender. Musculoskeletal: Left upper extremity without any obvious deformity. He is wearing an immobilizer, though both straps have fallen down around his wrist. The patient is unable to produce any active range of motion at the elbow, wrist or fingers. At baseline , his hand is somewhat contracted. He reports that at baseline he is able to move his wrist and elbow. I am able to range his elbow to reach almost full extension and flex up to approximately 90 degrees before the patient is in a great deal of pain. The left foot is turned inward at baseline. He is nontender throughout bilateral lower extremities or throughout the right upper extremity. He moves the extremities on the right well. The left lower extremity , he is able to straight leg raise, but is not able to hold the leg off the bed due to baseline weakness. Neuro: Sensation is intact throughout the left upper extremity from the shoulder to the distal tips of the fingers. The patient's speech is clear. He is alert and oriented x3. Skin is intact. The patient does have some yellow ecchymosis around the proximal aspect of the left humerus. Vascular: Radial pulse 2+ bilaterally. DIAGNOSTIC STUDIES/LAB DATA: X-ray of the left humerus and shoulder shows fracture of the surgical neck of the left humerus. This is displaced from previous. ASSESSMENT: Mr. Craven is a 72-year-old male with a left humerus fracture. PLAN: Left humerus fracture: The patient will remain in his immobilizer or in his sling. He has been reminded not to use his left arm for adjusting his position in bed, he is to be nonweightbearing and to allow his arm to rest comfortably in the immobilizer or in the sling. Dr. Maldonado will be seeing this patient within the next day. JUAN CARLOS DARDEN [id number]/[facility] #: [id number] RAFAEL
[2018-01-31] MEDS ORDERED: LORazepam INJ* 2 MG/ML 1 ML VIAL IV ONE (01:20)
[2018-01-31] MEDS ORDERED: Naloxone* 0.4 MG/ML 1 ML VIAL IV PUSH ONE (04:02)
[2018-01-31] MEDS: Heparin VIAL(*) 5000 UNITS/ML VIAL (FIVE THOUSAND) SUBCUT SCH ×3 (05:27→21:38)
[2018-01-31] MEDS: Carvedilol TAB* 25 MG PO SCH ×2 (05:27→16:47)
[2018-01-31 06:29] LABS: ABS Basophils 0 10^3/ul (0-0.2); ABS Eosinophils 0.3 10^3/ul (0-0.6); ABS Lymphocytes 2.9 10^3/ul (1.0-4.8); ABS Monocytes 0.6 10^3/ul (0-0.8); ABS Neutrophils 3.7 10^3/ul (1.5-7.7); ABS Nucleated RBC 0 10^3/ul; Eosinophil % 3.8 % (0-6); Hematocrit 34 % (42-52); Hemoglobin 11.8 g/dl (14.0-18.0); Lymphocyte % 38.5 % (25-47); Mean Corpuscular HGB Conc 34 g/dl (31-36); Mean Corpuscular Hemoglobin 31 pg (27-31); Mean Corpuscular Volume 91 fL (80-94); Mean Platelet Volume 7.5 um3 (7.4-10.4); Nucleated Red Blood Cells % 0.1; Platelet Count 248 10^3/ul (150-450); Red Blood Count 3.76 10^6/ul (4.0-5.4); Red Cell Distribution Width 14 % (10.5-15); White Blood Count 7.5 10^3/ul (3.5-10.8)
[2018-01-31 06:40] LABS: EGFR Non-African American 57.1 (>60)
[2018-01-31] MEDS: Oxybutynin XL TAB* 5 MG PO SCH (08:24)
[2018-01-31] MEDS: Aspirin TAB* 325 MG PO SCH (08:24)
[2018-01-31] MEDS: Cholecalciferol TAB* 1000 UNITS PO SCH (08:24)
[2018-01-31] MEDS: Baclofen TAB* 10 MG PO SCH ×2 (08:25→20:15)
[2018-01-31] MEDS: amLODIPine TAB* 5 MG PO SCH (08:25)
[2018-01-31] MEDS: Tamsulosin CAP* 0.4 MG PO SCH (08:25)
[2018-01-31] MEDS: lamoTRIgine TAB(*) 100 MG PO SCH ×2 (08:26→20:15)
[2018-01-31] MEDS: metFORMIN* 1,000 MG TAB PO SCH ×2 (08:27→16:47)
[2018-01-31] MEDS: Lisinopril TAB* 10 MG PO SCH (08:27)
[2018-01-31] MEDS: Hydrochlorothiazide TAB* 25 MG PO SCH (08:27)
[2018-01-31] MEDS: Citalopram TAB* 40 MG PO SCH (08:27)
[2018-01-31] MEDS: Gabapentin CAP(*) 400 MG PO SCH ×2 (08:28→20:14)
[2018-01-31] MEDS: oxyCODONE/Acetamin 5/325 MG* TAB PO PRN (08:28)
[2018-01-31] MEDS: CMC: Pantoprazole TAB (NF) 40 MG TAB PO SCH (08:29)
[2018-01-31] MEDS: Insulin GLARGINE(*) 1 UNITS UNIT SUBCUT SCH (08:44)
--- NOTE | 2018-01-31 17:37 | PN ---
Progress Note - Progress Note Date of Service: 01/31/18 SOAP: Subjective: See ortho consult note from yesterday. 72 yo M c CVA 8 years ago with profound left sided weakness, wheelchair bound with some steps for transfers, p/w fall and proximal humerus fracture. Treated non-op in shoulder immobilizer so far. I met patient this morning and again this afternoon. This morning his answers were non-sensical. Hospitalist was treating him for delirium. Objective: NAD LUE - Mild swelling left shoulder - Skin intact - Sensation intact L upper extremity but gross motor deficit - CR < 2 sec x-rays: L proximal humerus fracture, surgical neck, minimally displaced medial and anterior with less than 1cm of displacement. Osteopenia. Assessment: L proximal humerus fracture, minimally displaced Plan: - Patient does not meet absolute surgical indications (1 cm displacement surgical neck) - Osteopenia, post-CVA weakness of LUE increase risk of hardware cut-out and other surgical complications, another reason to treat non-op. - Fracture should heal and not change his prior LUE function - Crepitus should be expected as healing starts - Recommend immobilizer or sling immobilization x 6 weeks from fracture date - F/u with me in 2 weeks for xrays to make sure fracture does not displace more - Medical manage/social/dispo by Hospitalist -
[2018-01-31] MEDS: Atorvastatin* 10 MG TAB PO SCH (20:14)
[2018-01-31] MEDS: Senna TAB PO SCH (20:14)
[2018-01-31] MEDS: Acetaminophen TAB* 325 MG PO PRN (20:18)
[2018-02-01] MEDS: oxyCODONE/Acetamin 5/325 MG* TAB PO PRN ×2 (01:59→23:46)
[2018-02-01] MEDS: Carvedilol TAB* 25 MG PO SCH ×2 (05:22→16:50)
[2018-02-01] MEDS: Heparin VIAL(*) 5000 UNITS/ML VIAL (FIVE THOUSAND) SUBCUT SCH ×3 (05:23→20:36)
[2018-02-01] MEDS: Acetaminophen TAB* 325 MG PO PRN (05:31)
[2018-02-01] MEDS: Baclofen TAB* 10 MG PO SCH ×2 (08:37→20:35)
[2018-02-01] MEDS: Tamsulosin CAP* 0.4 MG PO SCH (08:37)
[2018-02-01] MEDS: lamoTRIgine TAB(*) 100 MG PO SCH ×2 (08:37→20:35)
[2018-02-01] MEDS: CMC: Pantoprazole TAB (NF) 40 MG TAB PO SCH (08:37)
[2018-02-01] MEDS: metFORMIN* 1,000 MG TAB PO SCH ×2 (08:39→16:50)
[2018-02-01] MEDS: Cholecalciferol TAB* 1000 UNITS PO SCH (08:39)
[2018-02-01] MEDS: Citalopram TAB* 40 MG PO SCH (08:40)
[2018-02-01] MEDS: Aspirin TAB* 325 MG PO SCH (08:40)
[2018-02-01] MEDS: Gabapentin CAP(*) 400 MG PO SCH ×2 (08:41→20:34)
[2018-02-01] MEDS: Oxybutynin XL TAB* 5 MG PO SCH (08:41)
[2018-02-01] MEDS: amLODIPine TAB* 5 MG PO SCH (08:41)
[2018-02-01] MEDS: Lisinopril TAB* 10 MG PO SCH (08:42)
[2018-02-01] MEDS: Hydrochlorothiazide TAB* 25 MG PO SCH (08:42)
[2018-02-01] MEDS: Insulin GLARGINE(*) 1 UNITS UNIT SUBCUT SCH (08:43)
--- NOTE | 2018-02-01 16:03 | PN ---
Subjective Date of Service: 02/01/18 Interval History: Patient was seen and examined at bedside. Reports intermittent left shoulder/ arm pain, relieved with narcotics. Denies chest pain, headaches, weakness, dizziness or SOB. Has been ambulatory, awaiting placement to SNF. He has no new complaints today. Seen your orthopedic team yesterday, new xrays reviewed, no indications for surgical repair. Recommended immobilizer and follow up in 2 weeks. Family History: Unchanged from Admission Social History: Unchanged from Admission Past Medical History: Unchanged from Admission Objective Active Medications: Acetaminophen (Tylenol Tab*) 650 mg PO Q4H PRN PRN Reason: FEVER/PAIN Last Admin: 02/01/18 05:31 Dose: 650 mg Al Hydrox/Mg Hydrox/Simethicone (Maalox Plus*) 30 ml PO Q6H PRN PRN Reason: INDIGESTION Amlodipine Besylate (Norvasc Tab*) 10 mg PO QAM [facility] Last Admin: 02/01/18 08:41 Dose: 10 mg Aspirin (Aspirin Tab*) 325 mg PO DAILY [facility] Last Admin: 02/01/18 08:40 Dose: 325 mg Atorvastatin Calcium (Lipitor*) 10 mg PO BEDTIME [facility] Last Admin: 01/31/18 20:14 Dose: 10 mg Baclofen (Lioresal Tab*) 10 mg PO BID [facility] Last Admin: 02/01/18 08:37 Dose: 10 mg Carvedilol (Coreg Tab*) 37.5 mg PO Q12H [facility] Last Admin: 02/01/18 05:22 Dose: 37.5 mg Cholecalciferol (Vitamin D Tab*) 2,000 units PO DAILY [facility] Last Admin: 02/01/18 08:39 Dose: 2,000 units Citalopram Hydrobromide (Celexa Tab*) 40 mg PO DAILY [facility] Last Admin: 02/01/18 08:40 Dose: 40 mg Clonidine HCl (Cdjlukfz-Veg-7 0.3 Mg Patch*) 0.3 mg TRANSDERM Q7D [facility] Last Admin: 01/29/18 20:13 Dose: 0.3 mg Docusate Sodium (Colace Cap*) 100 mg PO DAILY PRN PRN Reason: CONSTIPATION Last Admin: 01/27/18 12:51 Dose: 100 mg Gabapentin (Neurontin Cap(*)) 400 mg PO BID [facility] Last Admin: 02/01/18 08:41 Dose: 400 mg Heparin Sodium (Porcine) (Heparin Vial(*)) 5,000 units SUBCUT Q8HR [facility] Last Admin: 02/01/18 13:10 Dose: 5,000 units Hydrochlorothiazide (Hydrodiuril Tab*) 12.5 mg PO DAILY [facility] Last Admin: 02/01/18 08:42 Dose: 12.5 mg Insulin Glargine (Lantus(*)) 5 units SUBCUT DAILY [facility] Last Admin: 02/01/18 08:43 Dose: 5 units Lamotrigine (Lamictal Tab(*)) 150 mg PO Q12H [facility] Last Admin: 02/01/18 08:37 Dose: 150 mg Lisinopril (Prinivil Tab*) 40 mg PO DAILY [facility] Last Admin: 02/01/18 08:42 Dose: 40 mg Metformin HCl (Glucophage*) 1,000 mg PO 0800,1700 [facility] Last Admin: 02/01/18 08:39 Dose: 1,000 mg Nicotine (Nicotine Inhaler*) 10 mg INH Q2H PRN PRN Reason: CRAVING Last Admin: 01/28/18 09:54 Dose: 10 mg Oxybutynin Chloride (Ditropan Xl Tab*) 10 mg PO DAILY [facility] Last Admin: 02/01/18 08:41 Dose: 10 mg Oxycodone/Acetaminophen (Percocet 5/325 Tab*) 1 tab PO Q6H PRN PRN Reason: Pain Last Admin: 02/01/18 01:59 Dose: 1 tab Pantoprazole Sodium (Protonix Tab (Nf)) 40 mg PO DAILY [facility] Last Admin: 02/01/18 08:37 Dose: 40 mg Polyethylene Glycol/Electrolytes (Miralax*) 17 gm PO DAILY PRN PRN Reason: CONSTIPATION Last Admin: 01/27/18 12:51 Dose: 17 gm Senna (Senokot Tab*) 1 tab PO BEDTIME [facility] Last Admin: 01/31/18 20:14 Dose: 1 tab Tamsulosin HCl (Flomax Cap*) 0.4 mg PO DAILY [facility] Last Admin: 02/01/18 08:37 Dose: 0.4 mg Vital Signs - 8 hr 02/01/18 02/01/18 02/01/18 08:00 08:41 10:39 Respiratory 16 16 14 Rate Oxygen Devices in Use Now: None Appearance: Appears comfortable and in NAD. Eyes: No Scleral Icterus, PERRLA Ears/Nose/Mouth/Throat: Clear Oropharnyx, Mucous Membranes Moist Neck: Trachea Midline Respiratory: Symmetrical Chest Expansion and Respiratory Effort, Clear to Auscultation Cardiovascular: NL Sounds; No Murmurs; No JVD, RRR Abdominal: NL Sounds; No Tenderness; No Distention Extremities: No Edema, - - L shoulder secured with immobilizer, No ecchymosis or swelling. Skin: No Rash or Ulcers Neurological: Alert and Oriented x 3, NL Sensation Nutrition: Taking PO's Result Diagrams: 01/31/18 05:45 01/31/18 05:45 Microbiology and Other Data: . Diagnostic Imaging: Patient Name: CHANDAN CROWE JR Medical Record#: [id number] Ordering Physician: Duane Verdugo MD Acct.#: [id number] : 1945 Age: 72 Sex: M Location: EMERGENCY DEPARTMENT Exam Date: 01/22/18 1311 ADM Status: REG ER Order Information: SHOULDER LEFT 2+ VWS Accession Number: [id number] CPT: 97343 HISTORY: Left shoulder pain, status post fall COMPARISONS: None VIEWS: 6, Frontal internal rotation, external rotation, outlet, and axillary views of the left shoulder with frontal internal rotation views of left humerus. FINDINGS: BONE DENSITY: There is diffuse osteopenia. BONES: There is a transverse nondisplaced fracture of the surgical neck of the left humerus. 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 osteoarthritis. ALIGNMENT: There is no dislocation. SOFT TISSUES: Unremarkable. OTHER FINDINGS: None. IMPRESSION: OSTEOPENIA WITH TRANSVERSE NONDISPLACED FRACTURE OF THE SURGICAL NECK OF THE LEFT HUMERUS EKG Data: . Assess/Plan/Problems-Billing Assessment: A 72 y/o male with hx HTN and insulin-dependent DM, who suffered a non- displaced surgical neck fracture of the left humerus secondary to a fall which has become displaced during his hospitalization. - Patient Problems (1) Humerus fracture Current Visit: No Status: Acute Comment: Continue pain meds prn. D/C Morphine L shoulder immobilizer in place. Repeat shoulder XR shows new displacement of humerus. Orthopedic team consulted again and no indication for surgerical repair at this time. Patient able to transfer to wheelchair, at baseline for mobility. Await placement for SNF (2) Diabetes Current Visit: No Status: Chronic Comment: Remains hyperglycemic, but POC glucose checks have been improving slowly. Continue Metformin and low dose Lantus. (3) Hyperlipidemia Current Visit: No Status: Chronic Comment: Continue atorvastatin. (4) Hypertension Current Visit: No Status: Chronic Code(s): I10 - ESSENTIAL (PRIMARY) HYPERTENSION SNOMED Code(s): 75720890 Comment: SBP 130's-170s Started on HCTZ Continue amlodipine, dose increased to 10mg Continue lisinopril, carvedilol, clonidine patch (5) DVT prophylaxis Current Visit: No Status: Acute Comment: Heparin SQ. (6) Full code status Current Visit: No Status: Acute Comment: Status and Disposition: Swing bed status, awaiting placement for STR at SNF. Per ortho team, no indication for surgical repair at this time. Patient aware and agreeable to plans.
[2018-02-01] MEDS: Atorvastatin* 10 MG TAB PO SCH (20:35)
[2018-02-01] MEDS: Senna TAB PO SCH (20:36)
[2018-02-02] MEDS ORDERED: hydrALAZINE IV* 20 MG/ML VIAL IV PRN (04:00)
[2018-02-02] MEDS: Carvedilol TAB* 25 MG PO SCH ×2 (05:15→16:18)
[2018-02-02] MEDS: Heparin VIAL(*) 5000 UNITS/ML VIAL (FIVE THOUSAND) SUBCUT SCH ×3 (05:22→22:21)
[2018-02-02] MEDS: lamoTRIgine TAB(*) 100 MG PO SCH ×2 (08:22→22:18)
[2018-02-02] MEDS: Citalopram TAB* 40 MG PO SCH (08:23)
[2018-02-02] MEDS: Baclofen TAB* 10 MG PO SCH ×2 (08:23→22:19)
[2018-02-02] MEDS: metFORMIN* 1,000 MG TAB PO SCH ×2 (08:23→16:18)
[2018-02-02] MEDS: Tamsulosin CAP* 0.4 MG PO SCH (08:25)
[2018-02-02] MEDS: Hydrochlorothiazide TAB* 25 MG PO SCH (08:25)
[2018-02-02] MEDS: amLODIPine TAB* 5 MG PO SCH (08:26)
[2018-02-02] MEDS: CMC: Pantoprazole TAB (NF) 40 MG TAB PO SCH (08:26)
[2018-02-02] MEDS: Gabapentin CAP(*) 400 MG PO SCH ×2 (08:26→22:19)
[2018-02-02] MEDS: Lisinopril TAB* 10 MG PO SCH (08:27)
[2018-02-02] MEDS: Cholecalciferol TAB* 1000 UNITS PO SCH (08:27)
[2018-02-02] MEDS: Oxybutynin XL TAB* 5 MG PO SCH (08:27)
[2018-02-02] MEDS: Aspirin TAB* 325 MG PO SCH (08:27)
[2018-02-02] MEDS: Insulin GLARGINE(*) 1 UNITS UNIT SUBCUT SCH (08:28)
[2018-02-02] MEDS: oxyCODONE/Acetamin 5/325 MG* TAB PO PRN ×2 (08:31→16:19)
[2018-02-02] MEDS: Senna TAB PO SCH (22:18)
[2018-02-02] MEDS: Atorvastatin* 10 MG TAB PO SCH (22:18)
[2018-02-03] MEDS: oxyCODONE/Acetamin 5/325 MG* TAB PO PRN (04:02)
[2018-02-03] MEDS: Heparin VIAL(*) 5000 UNITS/ML VIAL (FIVE THOUSAND) SUBCUT SCH ×3 (05:37→20:06)
[2018-02-03] MEDS: Carvedilol TAB* 25 MG PO SCH ×2 (05:37→16:56)
[2018-02-03] MEDS: lamoTRIgine TAB(*) 100 MG PO SCH ×2 (07:49→19:55)
[2018-02-03] MEDS: Hydrochlorothiazide TAB* 25 MG PO SCH (07:50)
[2018-02-03] MEDS: Lisinopril TAB* 10 MG PO SCH (07:51)
[2018-02-03] MEDS: Tamsulosin CAP* 0.4 MG PO SCH (07:52)
[2018-02-03] MEDS: Gabapentin CAP(*) 400 MG PO SCH ×2 (07:52→19:56)
[2018-02-03] MEDS: metFORMIN* 1,000 MG TAB PO SCH ×2 (07:52→16:55)
[2018-02-03] MEDS: amLODIPine TAB* 5 MG PO SCH (07:53)
[2018-02-03] MEDS: Aspirin TAB* 325 MG PO SCH (07:53)
[2018-02-03] MEDS: Cholecalciferol TAB* 1000 UNITS PO SCH (07:53)
[2018-02-03] MEDS: Baclofen TAB* 10 MG PO SCH ×2 (07:54→19:56)
[2018-02-03] MEDS: Citalopram TAB* 40 MG PO SCH (07:54)
[2018-02-03] MEDS: Insulin GLARGINE(*) 1 UNITS UNIT SUBCUT SCH (07:54)
[2018-02-03] MEDS: CMC: Pantoprazole TAB (NF) 40 MG TAB PO SCH (07:56)
[2018-02-03] MEDS: Oxybutynin XL TAB* 5 MG PO SCH (07:56)
[2018-02-03] MEDS: Acetaminophen TAB* 325 MG PO PRN (19:54)
[2018-02-03] MEDS: Atorvastatin* 10 MG TAB PO SCH (19:55)
[2018-02-03] MEDS: Senna TAB PO SCH (19:55)
[2018-02-04] MEDS: Heparin VIAL(*) 5000 UNITS/ML VIAL (FIVE THOUSAND) SUBCUT SCH ×3 (07:31→21:09)
[2018-02-04] MEDS: Carvedilol TAB* 25 MG PO SCH ×2 (07:33→16:31)
[2018-02-04] MEDS: Insulin GLARGINE(*) 1 UNITS UNIT SUBCUT SCH (09:19)
[2018-02-04] MEDS: Oxybutynin XL TAB* 5 MG PO SCH (09:20)
[2018-02-04] MEDS: Aspirin TAB* 325 MG PO SCH (09:20)
[2018-02-04] MEDS: lamoTRIgine TAB(*) 100 MG PO SCH ×2 (09:20→21:10)
[2018-02-04] MEDS: Lisinopril TAB* 10 MG PO SCH (09:20)
[2018-02-04] MEDS: metFORMIN* 1,000 MG TAB PO SCH ×2 (09:20→16:31)
[2018-02-04] MEDS: Baclofen TAB* 10 MG PO SCH ×2 (09:20→21:10)
[2018-02-04] MEDS: Tamsulosin CAP* 0.4 MG PO SCH (09:21)
[2018-02-04] MEDS: Citalopram TAB* 40 MG PO SCH (09:21)
[2018-02-04] MEDS: CMC: Pantoprazole TAB (NF) 40 MG TAB PO SCH (09:21)
[2018-02-04] MEDS: Gabapentin CAP(*) 400 MG PO SCH ×2 (09:21→21:09)
[2018-02-04] MEDS: Hydrochlorothiazide TAB* 25 MG PO SCH (09:21)
[2018-02-04] MEDS: amLODIPine TAB* 5 MG PO SCH (09:21)
[2018-02-04] MEDS: Cholecalciferol TAB* 1000 UNITS PO SCH (09:21)
[2018-02-04] MEDS: oxyCODONE/Acetamin 5/325 MG* TAB PO PRN ×2 (11:05→21:10)
[2018-02-04] MEDS: Senna TAB PO SCH (21:09)
[2018-02-04] MEDS: Atorvastatin* 10 MG TAB PO SCH (21:10)
[2018-02-05] MEDS: Carvedilol TAB* 25 MG PO SCH ×2 (05:59→17:14)
[2018-02-05] MEDS: Heparin VIAL(*) 5000 UNITS/ML VIAL (FIVE THOUSAND) SUBCUT SCH ×3 (05:59→22:06)
[2018-02-05] MEDS: Polyethylene Glycol 3350* 17 GM PACKET PO PRN (08:10)
[2018-02-05] MEDS: metFORMIN* 1,000 MG TAB PO SCH ×2 (08:11→17:13)
[2018-02-05] MEDS: Docusate CAP* 100 MG PO PRN (08:11)
[2018-02-05] MEDS: CMC: Pantoprazole TAB (NF) 40 MG TAB PO SCH (08:11)
[2018-02-05] MEDS: amLODIPine TAB* 5 MG PO SCH (08:11)
[2018-02-05] MEDS: Citalopram TAB* 40 MG PO SCH (08:11)
[2018-02-05] MEDS: Cholecalciferol TAB* 1000 UNITS PO SCH (08:11)
[2018-02-05] MEDS: Gabapentin CAP(*) 400 MG PO SCH ×2 (08:11→22:06)
[2018-02-05] MEDS: Oxybutynin XL TAB* 5 MG PO SCH (08:12)
[2018-02-05] MEDS: Hydrochlorothiazide TAB* 25 MG PO SCH (08:12)
[2018-02-05] MEDS: Baclofen TAB* 10 MG PO SCH ×2 (08:12→22:08)
[2018-02-05] MEDS: lamoTRIgine TAB(*) 100 MG PO SCH ×2 (08:12→22:08)
[2018-02-05] MEDS: Aspirin TAB* 325 MG PO SCH (08:12)
[2018-02-05] MEDS: Lisinopril TAB* 10 MG PO SCH (08:12)
[2018-02-05] MEDS: Tamsulosin CAP* 0.4 MG PO SCH (08:13)
[2018-02-05] MEDS: oxyCODONE/Acetamin 5/325 MG* TAB PO PRN (08:13)
[2018-02-05] MEDS: Insulin GLARGINE(*) 1 UNITS UNIT SUBCUT SCH (08:15)
--- NOTE | 2018-02-05 12:06 | PN ---
Subjective Date of Service: 02/05/18 Interval History: Patient reports pain is well controlled at this time. He is noted to be A+Ox3 but then has moments of confusion stating "he is home", easily reoriented. He denies SOB/CP. No fever or chills. Reports good appetite. No diarrhea or constipation. Family History: Unchanged from Admission Social History: Unchanged from Admission Past Medical History: Unchanged from Admission Objective Active Medications: Acetaminophen (Tylenol Tab*) 650 mg PO Q4H PRN PRN Reason: FEVER/PAIN Last Admin: 02/03/18 19:54 Dose: 650 mg Al Hydrox/Mg Hydrox/Simethicone (Maalox Plus*) 30 ml PO Q6H PRN PRN Reason: INDIGESTION Amlodipine Besylate (Norvasc Tab*) 10 mg PO QAM [facility] Last Admin: 02/05/18 08:11 Dose: 10 mg Aspirin (Aspirin Tab*) 325 mg PO DAILY [facility] Last Admin: 02/05/18 08:12 Dose: 325 mg Atorvastatin Calcium (Lipitor*) 10 mg PO BEDTIME [facility] Last Admin: 02/04/18 21:10 Dose: 10 mg Baclofen (Lioresal Tab*) 10 mg PO BID [facility] Last Admin: 02/05/18 08:12 Dose: 10 mg Carvedilol (Coreg Tab*) 37.5 mg PO Q12H [facility] Last Admin: 02/05/18 05:59 Dose: 37.5 mg Cholecalciferol (Vitamin D Tab*) 2,000 units PO DAILY [facility] Last Admin: 02/05/18 08:11 Dose: 2,000 units Citalopram Hydrobromide (Celexa Tab*) 40 mg PO DAILY [facility] Last Admin: 02/05/18 08:11 Dose: 40 mg Clonidine HCl (Gpgkzqtz-Vft-8 0.3 Mg Patch*) 0.3 mg TRANSDERM Q7D [facility] Last Admin: 01/29/18 20:13 Dose: 0.3 mg Docusate Sodium (Colace Cap*) 100 mg PO DAILY PRN PRN Reason: CONSTIPATION Last Admin: 02/05/18 08:11 Dose: 100 mg Gabapentin (Neurontin Cap(*)) 400 mg PO BID [facility] Last Admin: 02/05/18 08:11 Dose: 400 mg Heparin Sodium (Porcine) (Heparin Vial(*)) 5,000 units SUBCUT Q8HR [facility] Last Admin: 02/05/18 05:59 Dose: 5,000 units Hydralazine HCl (Apresoline Iv*) 10 mg IV Q4H PRN PRN Reason: Systolic >170 Last Admin: 02/02/18 04:19 Dose: 10 mg Hydrochlorothiazide (Hydrodiuril Tab*) 12.5 mg PO DAILY [facility] Last Admin: 02/05/18 08:12 Dose: 12.5 mg Insulin Glargine (Lantus(*)) 5 units SUBCUT DAILY [facility] Last Admin: 02/04/18 09:19 Dose: 5 units Lamotrigine (Lamictal Tab(*)) 150 mg PO Q12H [facility] Last Admin: 02/05/18 08:12 Dose: 150 mg Lisinopril (Prinivil Tab*) 40 mg PO DAILY [facility] Last Admin: 02/05/18 08:12 Dose: 40 mg Metformin HCl (Glucophage*) 1,000 mg PO 0800,1700 [facility] Last Admin: 02/05/18 08:11 Dose: 1,000 mg Nicotine (Nicotine Inhaler*) 10 mg INH Q2H PRN PRN Reason: CRAVING Last Admin: 01/28/18 09:54 Dose: 10 mg Oxybutynin Chloride (Ditropan Xl Tab*) 10 mg PO DAILY [facility] Last Admin: 02/05/18 08:12 Dose: 10 mg Oxycodone/Acetaminophen (Percocet 5/325 Tab*) 1 tab PO Q6H PRN PRN Reason: Pain Last Admin: 02/05/18 08:13 Dose: 1 tab Pantoprazole Sodium (Protonix Tab (Nf)) 40 mg PO DAILY [facility] Last Admin: 02/05/18 08:11 Dose: 40 mg Polyethylene Glycol/Electrolytes (Miralax*) 17 gm PO DAILY PRN PRN Reason: CONSTIPATION Last Admin: 02/05/18 08:10 Dose: 17 gm Senna (Senokot Tab*) 1 tab PO BEDTIME [facility] Last Admin: 02/04/18 21:09 Dose: 1 tab Tamsulosin HCl (Flomax Cap*) 0.4 mg PO DAILY [facility] Last Admin: 02/05/18 08:13 Dose: 0.4 mg Vital Signs - 8 hr 02/05/18 02/05/18 02/05/18 04:15 07:18 08:00 Temperature 98.8 F Pulse Rate 68 Respiratory 16 16 18 Rate Blood Pressure 110/51 (mmHg) O2 Sat by Pulse 97 Oximetry 02/05/18 02/05/18 08:11 08:13 Temperature Pulse Rate Respiratory 18 18 Rate Blood Pressure (mmHg) O2 Sat by Pulse Oximetry Oxygen Devices in Use Now: None Appearance: A+Ox3 elderly male, some mild confusion noted. NAD Eyes: No Scleral Icterus, PERRLA Ears/Nose/Mouth/Throat: NL Teeth, Lips, Gums, Mucous Membranes Moist Respiratory: Symmetrical Chest Expansion and Respiratory Effort Cardiovascular: NL Sounds; No Murmurs; No JVD, RRR, No Edema Extremities: No Edema, No Clubbing, Cyanosis, - - left arm in immobilzer Skin: No Rash or Ulcers, No Nodules or Sclerosis Neurological: Alert and Oriented x 3 Lines/Tubes/Other Access: Clean, Dry and Intact Peripheral IV Nutrition: Taking PO's Result Diagrams: 01/31/18 05:45 01/31/18 05:45 Microbiology and Other Data: . Diagnostic Imaging: Patient Name: CHANDAN CROWE JR Medical Record#: [id number] Ordering Physician: Duane Verdugo MD Acct.#: [id number] : 1945 Age: 72 Sex: M Location: EMERGENCY DEPARTMENT Exam Date: 01/22/181310 ADM Status: REG ER Order Information: SHOULDER LEFT 2+ VWS Accession Number: [id number] CPT: 39130 HISTORY: Left shoulder pain, status post fall COMPARISONS: None VIEWS: 6, Frontal internal rotation, external rotation, outlet, and axillary views of the left shoulder with frontal internal rotation views of left humerus. FINDINGS: BONE DENSITY: There is diffuse osteopenia. BONES: There is a transverse nondisplaced fracture of the surgical neck of the left humerus. 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 osteoarthritis. ALIGNMENT: There is no dislocation. SOFT TISSUES: Unremarkable. OTHER FINDINGS: None. IMPRESSION: OSTEOPENIA WITH TRANSVERSE NONDISPLACED FRACTURE OF THE SURGICAL NECK OF THE LEFT HUMERUS EKG Data: . Assess/Plan/Problems-Billing Assessment: A 72 y/o male with hx HTN and insulin-dependent DM, who suffered a non- displaced surgical neck fracture of the left humerus secondary to a fall which has become displaced during his hospitalization. - Patient Problems (1) Humerus fracture Comment: L shoulder immobilizer in place. Continue pain meds prn. Repeat shoulder XR shows new displacement of humerus. Orthopedic team consulted again and no indication for surgerical repair at this time. Patient able to transfer to wheelchair, at baseline for mobility. Await placement for SNF (2) Diabetes Comment: Good control. Continue Metformin and low dose Lantus. (3) Hyperlipidemia Comment: Continue atorvastatin. (4) Hypertension Status: Chronic Comment: Better control Started on HCTZ Continue amlodipine, dose increased to 10mg Continue lisinopril, carvedilol, clonidine patch (5) DVT prophylaxis Comment: Heparin SQ. (6) Full code status Comment: Status and Disposition: Swing bed status, awaiting placement for STR at SNF. Per ortho team, no indication for surgical repair at this time. Patient aware and agreeable to plans.
[2018-02-05] MEDS: Senna TAB PO SCH (22:09)
[2018-02-05] MEDS: Atorvastatin* 10 MG TAB PO SCH (22:09)
[2018-02-05] MEDS: cloNIDine 0.3 MG PATCH* 0.3 MG/24 HR 7 DAY PATCH TRANSDERM SCH (22:15)
[2018-02-06] MEDS: Carvedilol TAB* 25 MG PO SCH ×2 (05:57→17:28)
[2018-02-06] MEDS: Heparin VIAL(*) 5000 UNITS/ML VIAL (FIVE THOUSAND) SUBCUT SCH ×3 (05:59→20:12)
[2018-02-06] MEDS: lamoTRIgine TAB(*) 100 MG PO SCH ×2 (09:11→20:10)
[2018-02-06] MEDS: Hydrochlorothiazide TAB* 25 MG PO SCH (09:11)
[2018-02-06] MEDS: Insulin GLARGINE(*) 1 UNITS UNIT SUBCUT SCH (09:12)
[2018-02-06] MEDS: Polyethylene Glycol 3350* 17 GM PACKET PO PRN (09:12)
[2018-02-06] MEDS: Oxybutynin XL TAB* 5 MG PO SCH (09:12)
[2018-02-06] MEDS: Docusate CAP* 100 MG PO PRN ×2 (09:12→20:12)
[2018-02-06] MEDS: Tamsulosin CAP* 0.4 MG PO SCH (09:13)
[2018-02-06] MEDS: Aspirin TAB* 325 MG PO SCH (09:13)
[2018-02-06] MEDS: Lisinopril TAB* 10 MG PO SCH (09:13)
[2018-02-06] MEDS: amLODIPine TAB* 5 MG PO SCH (09:13)
[2018-02-06] MEDS: metFORMIN* 1,000 MG TAB PO SCH ×2 (09:14→17:28)
[2018-02-06] MEDS: Cholecalciferol TAB* 1000 UNITS PO SCH (09:14)
[2018-02-06] MEDS: Gabapentin CAP(*) 400 MG PO SCH ×2 (09:14→20:11)
[2018-02-06] MEDS: Citalopram TAB* 40 MG PO SCH (09:15)
[2018-02-06] MEDS: Baclofen TAB* 10 MG PO SCH ×2 (09:15→20:12)
[2018-02-06] MEDS: CMC: Pantoprazole TAB (NF) 40 MG TAB PO SCH (09:15)
[2018-02-06] MEDS: Senna TAB PO SCH (20:11)
[2018-02-06] MEDS: Atorvastatin* 10 MG TAB PO SCH (20:12)
[2018-02-07] MEDS: oxyCODONE/Acetamin 5/325 MG* TAB PO PRN (00:54)
[2018-02-07] MEDS: Carvedilol TAB* 25 MG PO SCH (04:54)
[2018-02-07] MEDS: Heparin VIAL(*) 5000 UNITS/ML VIAL (FIVE THOUSAND) SUBCUT SCH (04:56)
[2018-02-07 08:22] VITALS: BP 154/60
[2018-02-07] MEDS: Polyethylene Glycol 3350* 17 GM PACKET PO PRN (08:47)
[2018-02-07] MEDS: Insulin GLARGINE(*) 1 UNITS UNIT SUBCUT SCH (08:47)
[2018-02-07] MEDS: Aspirin TAB* 325 MG PO SCH (08:49)
[2018-02-07] MEDS: Gabapentin CAP(*) 400 MG PO SCH (08:49)
[2018-02-07] MEDS: Tamsulosin CAP* 0.4 MG PO SCH (08:49)
[2018-02-07] MEDS: Oxybutynin XL TAB* 5 MG PO SCH (08:49)
[2018-02-07] MEDS: lamoTRIgine TAB(*) 100 MG PO SCH (08:50)
[2018-02-07] MEDS: metFORMIN* 1,000 MG TAB PO SCH (08:50)
[2018-02-07] MEDS: Citalopram TAB* 40 MG PO SCH (08:51)
[2018-02-07] MEDS: Cholecalciferol TAB* 1000 UNITS PO SCH (08:51)
[2018-02-07] MEDS: Hydrochlorothiazide TAB* 25 MG PO SCH (08:51)
[2018-02-07] MEDS: amLODIPine TAB* 5 MG PO SCH (08:51)
[2018-02-07] MEDS: Lisinopril TAB* 10 MG PO SCH (08:51)
[2018-02-07] MEDS: Baclofen TAB* 10 MG PO SCH (08:51)
[2018-02-07] MEDS: Docusate CAP* 100 MG PO PRN (08:52)
[2018-02-07] MEDS: Acetaminophen TAB* 325 MG PO PRN (08:52)
[2018-02-07] MEDS: CMC: Pantoprazole TAB (NF) 40 MG TAB PO SCH (08:52)
--- NOTE | 2018-02-07 09:02 | DS ---
DISCHARGE SUMMARY: INITIAL DATE OF ADMISSION: 01/22/18 DATE OF DISCHARGE TO SWING STATUS: 01/25/18 DATE OF ADMISSION TO SWING STATUS: 01/25/18 DATE OF DISCHARGE: 02/07/18. ATTENDING FOR THIS ADMISSION: Gab Smith MD ATTENDING PROVIDER FOR TODAY: Dr. Vazquez * (dictated by Rona Lara NP ) PRIMARY CARE PROVIDER: [facility] COURSE: This is a 72-year-old male patient who initially presented to the emergency department with complaint of a fall with traumatic injury. The patient was initially brought in for evaluation of some left arm pain. The patient states he was trying to stand and transfer to his wheelchair when he fell onto his left shoulder. He denied any loss of consciousness or any prodromal symptoms prior to the event. It was subsequently a mechanical fall. The patient was found to have a surgical neck fracture of the left humerus and some moderate osteopenia. The patient also has some underlying weaknesses in the side secondary to previous CVA with prominent hemiparesis, which is normally at his baseline. Imaging revealed a fracture of the left humerus, and he was admitted for evaluation by orthopedics in anticipation of his potentially having surgery; however, he was seen by Dr. Maldonado who determined conservative treatment would be appropriate as the fracture is nondisplaced and the patient would require pain control, nonweightbearing on left side, control of his diabetes, and then placement in a rehab facility. It took some time to get patient placed into rehab, so he was discharged into swing status. During that time, he had some difficulty controlling the sugars. He went from bouts of hyperglycemia to hypoglycemia, and sugars have been regulated since. The patient was waiting for bed placement which there were some issues because he would need to be placed through the [facility]. We were told today that the patient did have a placement option at [facility] in [place]. The patient will be transferred to that facility on 02/07/18. PHYSICAL EXAMINATION: Blood pressure 141/54, heart rate 59, respiratory rate 16 , O2 saturation 94% on room air with temperature of 97.6. HEENT: The patient is atraumatic, normocephalic. PERRLA, with nonicteric sclerae. Neck is supple , nontender. No JVD noted. No carotid bruit auscultated. Cardiovascular: S1 , S2 are present. No murmurs, gallops, or rubs noted. Lungs are clear bilaterally to auscultation with no wheezing, rhonchi, or rales. He does have a significant amount of tenderness over the left shoulder and some swelling, but otherwise he has good pulses. His cap refill was brisk. His left upper extremity is warm and he does have range of motion of his fingers. Neurologic: He is confused at baseline at some times, but he is easy to be reoriented. Otherwise, he is alert and oriented x3. No further neurologic focal findings noted. Psychiatric: He is cooperative and appropriate. LABORATORY DATA: Last labs include WBCs 7.5, RBCs 3.76, hemoglobin 11.8, hematocrit 34, platelets 248. Blood glucose ranging between 122 and 172. Sodium 138, potassium 4.3, chloride 105, CO2 30, BUN 23, creatinine 1.25, GFR 57.1, calcium 9.2. DISCHARGE DIAGNOSES: 1. Mechanical fall with left humerus surgical neck fracture - conservative treatment maintained. 2. Diabetes mellitus - controlled with metformin and low-dose Lantus. 3. History of hyperlipidemia - controlled on atorvastatin. 4. History of hypertension - presently stable on lisinopril, carvedilol, clonidine, and amlodipine. DISCHARGE MEDICATIONS: 1. Maalox 30 mL q.6 hours as needed. 2. Percocet 5/325 one tablet q.4 hours as needed. 3. Metformin 1000 mg p.o. 2 times a day. 4. Lamictal 150 mg q.12 hours. 5. Glipizide 7.5 mg p.o. b.i.d. 6. Clonidine 0.3 mg patch transdermal q.7 days. 7. Sanctura 20 mg p.o. b.i.d. 8. Flomax 0.4 daily. 9. Simvastatin 20 mg p.o. at bedtime. 10. Protonix 20 mg in the morning. 11. Fish oil 2000 mg two times a day. 12. Lisinopril 40 mg daily. 13. Levemir 74 units subcu daily. 14. Gabapentin 400 mg two times a day. 15. Celexa 40 mg daily. 16. Amlodipine 5 mg daily. 17. Vitamin D 2000 units daily. 18. Carvedilol 37.5 mg in the morning 25 mg in the evening. 19. Baclofen 10 mg p.o. two times a day. 20. Aspirin 325 mg daily. 21. MiraLax 17 g daily as needed. 22. Ditropan 10 mg p.o. daily. 23. Tylenol 650 mg q.4 hours as needed. 24. Colace 100 mg p.o. daily as needed. DISPOSITION: The patient will be discharged to [facility] in the morning, . The patient states understanding of his discharge. Case management has also communicated with his health care proxy of the plan for discharge. Again, this plan will also be communicated by me tomorrow before the patient is transferred. It will be discussed with Ashtyn Echeverria, who is his caregiver and person to notify in case of emergency. RONA ALTAMIRANO, CHEMICAL DEPENDENCY COUNSELOR [id number]/[facility] #: [id number] RAFAEL
== END 2018-02-07 12:05 | DRG 563 ==
LOC: MED 17:49
PROVIDERS: ADMIT Hospitalist; ATTEND Internal Medicine
DX: S42.212A Unspecified displaced fracture of surgical neck of left humerus, initial encounter for closed fracture (principal); I69.354 Hemiplegia and hemiparesis following cerebral infarction affecting left non-dominant side; W17.89XA Other fall from one level to another, initial encounter; M85.832 Other specified disorders of bone density and structure, left forearm; I10 Essential (primary) hypertension; E78.5 Hyperlipidemia, unspecified; E11.65 Type 2 diabetes mellitus with hyperglycemia; E11.649 Type 2 diabetes mellitus with hypoglycemia without coma; Z85.46 Personal history of malignant neoplasm of prostate; Y92.89 Other specified places as the place of occurrence of the external cause; Z99.3 Dependence on wheelchair; Z79.84 Long term (current) use of oral hypoglycemic drugs; Z79.82 Long term (current) use of aspirin; Z90.79 Acquired absence of other genital organ(s); Z87.891 Personal history of nicotine dependence
CPT/HCPCS: 36415; 80048; 85025; 97530; A9270-GY; G8978-GP-CM; G8979-GP-CL; J0360; J1644; J2060; J2270; J2310

== ENCOUNTER 2018-07-14 10:13 | Emergency (ER) | payer OTHER ==
[2018-07-14] MEDS ORDERED: Morphine INJ** 4 MG/ML 1 ML CARPUJECT IV ONE (10:56)
--- NOTE | 2018-07-14 10:59 | ED ---
Upper Extremity Pain - HPI Summary HPI Summary: Patient is a 73-year-old male with a history of stroke and recent injury to the left arm 2 months ago presenting to the ED after a fall. He sustained a fall last evening and trying to get up from his wheelchair to get into bed. He denies hitting his head and recalls the event. He states he was unable to get himself back up into the bed due to his stroke and left arm pain so he lied there until his home health aide came into work this morning. He states he lied on the floor for approximately 8 hours. He has a home health aide 2 hours per day who helps him with his ADLs. He states he fell directly onto his left side, injuring his left hip as well as his left arm. He states he fractured the arm a few months ago, but the orthopedist decided not to do any surgery at that time. He is unable to tell me exactly what he has fractured. He is A & O x 3 on arrival. Ambulance was called by home health aideLory Ogden - History of Current Complaint Chief Complaint: EDExtremityUpper Stated Complaint: FALL Time Seen by Provider: 07/14/18 10:21 Hx Obtained From: Patient Onset/Duration: Started Hours Ago Timing: Constant Severity Initially: Moderate Severity Currently: Moderate Pain Location: Shoulder Character: Aching Alleviating Factor(s): Rest, Ice Associated Signs & Symptoms: Positive: Swelling Related History: Dominant Hand Right - Risk Factors Non-Orthopedic Risk Factor: Negative DVT Risk Factors: Negative Septic Arthritis Risk Factor: Negative Compartment Syndrome Risk Factors: Pain - Allergies/Home Medications Allergies/Adverse Reactions: Allergies Allergy/AdvReac Type Severity Reaction Status Date / Time No Known Allergies Allergy Verified 07/14/18 10:32 Home Medications: Home Medications Acetaminophen [Acetaminophen Extra Strength] 500 mg PO BID PRN 07/14/18 [ History Confirmed 07/14/18] Aspirin EC TAB* [Ecotrin EC Low Dose 81 MG*] 81 mg PO DAILY 07/14/18 [History Confirmed 07/14/18] Dextrose [Glucose] 12 gm PO DAILY PRN 07/14/18 [History Confirmed 07/14/18] Dextrose/Dextrin/Maltose [Insta-Glucose Gel] 31 gm PO DAILY PRN 07/14/18 [ History Confirmed 07/14/18] Melatonin (NF) 6 mg PO BEDTIME PRN 10/22/18 [History Confirmed 07/14/18] Nut.tx.gluc.intoler,Lac-Fr,Soy [Glucerna] 237 ml PO DAILY 07/14/18 [History Confirmed 07/14/18] Pantoprazole TAB (NF) [Protonix TAB (NF)] 20 mg PO QAM 07/14/18 [History Confirmed 07/14/18] Pioglitazone TAB* [Actos TAB*] 30 mg PO DAILY 07/14/18 [History Confirmed ] Salsalate TAB* [Disalcid*] 500 mg PO TID 07/14/18 [History Confirmed 07/14/18] Simvastatin (NF) [Zocor (NF)] 20 mg PO DAILY 07/14/18 [History Confirmed ] amLODIPine TAB* [Norvasc 5 mg TAB*] 5 mg PO DAILY 07/14/18 [History Confirmed ] PMH/Surg Hx/FS Hx/Imm Hx Previously Healthy: No - previous stroke Endocrine/Hematology History: Reports: Hx Diabetes Cardiovascular History: Reports: Hx Hypertension, 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: Hx Benign Prostatic Hyperplasia, Other Problems/ Disorders - Prostate cancer Musculoskeletal History: Reports: Hx Arthritis, Hx Back Problems Sensory History: Denies: Hx Contacts or Glasses, Hx Glaucoma, Hx Hearing Aid Opthamlomology History: Denies: Hx Contacts or Glasses, Hx Glaucoma Neurological History: Reports: Hx CVA - with left sided residual effects, Hx Seizures, 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 - Cancer History Cancer Type, Location and Year: Prostate CA - Surgical History Surgery Procedure, Year, and Place: brain, prostate - Immunization History Hx Pertussis Vaccination: No Immunizations Up to Date: Yes Infectious Disease History: No Infectious Disease History: Denies: Traveled Outside the [place] in Last 30 Days - Family History Known Family History: Positive: Hypertension - Social History Occupation: Unemployed, Disabled Lives: Alone - home health aide comes to visit x 2 hours per day Alcohol Use: None Hx Substance Use: No Substance Use Type: Reports: None Hx Tobacco Use: Yes Smoking Status (MU): Never Smoked Tobacco Have You Smoked in the Last Year: No Review of Systems Negative: Fever, Chills, Fatigue, Skin Diaphoresis Negative: Palpitations, Chest Pain Negative: Shortness Of Breath, Cough Positive: Arthralgia - left shoulder and forearm pain, left hip pain Skin: Negative Neurological: Negative All Other Systems Reviewed And Are Negative: Yes Physical Exam Triage Information Reviewed: Yes Vital Signs On Initial Exam: Initial Vitals Temp Pulse Resp BP Pulse Ox 97.6 F 77 16 191/86 97 07/14/18 10:17 07/14/18 10:17 07/14/18 10:17 07/14/18 10:17 07/14/18 10:17 Vital Signs Reviewed: Yes Appearance: Positive: Well-Appearing, Well-Nourished Skin: Positive: Skin Color Reflects Adequate Perfusion Head/Face: Positive: Normal Head/Face Inspection Eyes: Positive: EULA, Conjunctiva Clear Neck: Positive: Supple, No Lymphadenopathy Respiratory/Lung Sounds: Positive: Breath Sounds Present Cardiovascular: Positive: Pulses are Symmetrical in both Upper and Lower Extremities. Negative: Leg Edema Left, Leg Edema Right Musculoskeletal: Positive: Pain @ - left shoulder and left forearm pain, pain also to the left hip on deep palpation, no pain with log rolling Neurological: Positive: Speech Normal Psychiatric: Positive: Normal, Affect/Mood Appropriate AVPU Assessment: Alert Diagnostics - Vital Signs Vital Signs Temp Pulse Resp BP Pulse Ox 07/14/18 10:29 77 160/95 97 07/14/18 10:17 97.6 F 77 16 191/86 97 - Laboratory Result Diagrams: 07/14/18 11:01 07/14/18 11:01 Lab Statement: Any lab studies that have been ordered have been reviewed, and results considered in the medical decision making process. Course/Dx - Course Course Of Treatment: During the course treatment, the patient is evaluated for left arm pain and left hip pain. He states pain is currently approximately 5/10 , , constant and throbbing. He sustained the injuries last evening after falling. He states he injured the left arm 2-1/2 months ago but is unsure which she fractured. He did not have any surgery on his arm. He feels he may have reinjured it last evening. While he injured his hip, he states the pain to his hip is currently at 3/10. On physical examination, log rolled patient without pain. No fracture of the left hip, left forearm, left clavicle. Healing left humeral fracture. Patient states he is feeling much improved after 4 mg IV morphine. He will be sent home with tramadol as needed for discomfort and will follow up with his orthopedist. No new findings or new injuries are identified. He did have a lactic acid of 3.6 and was given 2 L fluids. Lactic reduced to 2.0. - Diagnoses Differential Diagnosis/HQI/PQRI: Positive: Contusion, Fracture (Open), Fracture (Closed) Provider Diagnoses: Fall Discharge - Sign-Out/Discharge Documenting (check all that apply): Patient Departure - Discharge Plan Condition: Stable Disposition: HOME Prescriptions: traMADol TAB* [Ultram*] 50 mg PO Q8H PRN #12 tab MDD 3 PRN Reason: Pain Referrals: No Primary Care Phys,NOPCP [Primary Care Provider] - Additional Instructions: Please follow up with orthopedist Drink plenty of water - Billing Disposition and Condition Condition: STABLE Disposition: Home
[2018-07-14 11:21] LABS: ABS Basophils 0 10^3/ul (0-0.2); ABS Eosinophils 0.2 10^3/ul (0-0.6); ABS Lymphocytes 2.6 10^3/ul (1.0-4.8); ABS Monocytes 0.5 10^3/ul (0-0.8); ABS Neutrophils 3.4 10^3/ul (1.5-7.7); ABS Nucleated RBC 0 10^3/ul; Eosinophil % 2.6 % (0-6); Hematocrit 38 % (42-52); Hemoglobin 12.9 g/dl (14.0-18.0); Lymphocyte % 39.2 % (25-47); Mean Corpuscular HGB Conc 34 g/dl (31-36); Mean Corpuscular Hemoglobin 31 pg (27-31); Mean Corpuscular Volume 91 fL (80-94); Mean Platelet Volume 7.7 um3 (7.4-10.4); Nucleated Red Blood Cells % 0.1; Platelet Count 207 10^3/ul (150-450); Red Blood Count 4.16 10^6/ul (4.00-5.40); Red Cell Distribution Width 14 % (10.5-15); White Blood Count 6.7 10^3/ul (3.5-10.8)
[2018-07-14 11:33] LABS: EGFR Non-African American 83.2 (>60)
[2018-07-14] MEDS ORDERED: NS 0.9% 1000 ML* 2,000 ML IV ONE (11:35)
[2018-07-14] MEDS ORDERED: Morphine INJ* 4 MG/ML 1 ML SYRINGE (NEW SYRINGE VERSION) ONE (12:00)
--- NOTE | 2018-07-14 12:33 | RAD ---
Indication: Left clavicle injury after fall. 2 views of left clavicle demonstrates no fracture or dislocation. No other bone or joint abnormality is identified. Again noted is a fracture of the surgical neck of the left humerus. IMPRESSION: No evidence of clavicle fracture. Fracture of the surgical neck of the left humerus.
--- NOTE | 2018-07-14 12:34 | RAD ---
Indication: Left forearm injury 2 views of the left forearm demonstrates no fracture or dislocation. No other bone or joint abnormalities identified. IMPRESSION: No fracture of the left forearm is noted.
--- NOTE | 2018-07-14 12:34 | RAD ---
HISTORY: fall COMPARISONS: January 30, 2018 VIEWS: 2 , Frontal internal rotation and external rotation views of the left humerus FINDINGS: BONE DENSITY: There is diffuse osteopenia. BONES: Again noted is a fracture of the surgical neck of the left humerus. The fracture line is still visible. There is callus formation. JOINTS: There is no arthropathy. ALIGNMENT: There is no dislocation. SOFT TISSUES: Unremarkable. OTHER FINDINGS: None. IMPRESSION: HEALING FRACTURE OF THE PROXIMAL LEFT HUMERUS
--- NOTE | 2018-07-14 12:37 | RAD ---
Indication: LEFT hip pain post fall. Unable to stand and pivot. Comparison: October 07, 2003 abdomen radiograph. Technique: AP pelvis and AP and frog-leg lateral views LEFT hip. Report: Normally located LEFT hip. No radiographic evidence for LEFT proximal femur or pelvic fracture or pelvic joint diastases. Both hips are remarkable for moderate marginal osteophytosis and predominant mild axial joint space narrowing with interval worsening. Bilateral pelvic surgical clips. Peripheral vascular calcifications. Unremarkable soft tissue contours accounting for body habitus. IMPRESSION: #. Moderate bilateral hip osteoarthritis with interval worsening. #. No radiographic evidence for LEFT hip or pelvic fracture. As x-rays may be negative with nondisplaced hip fracture if there is persistent clinical concern MRI or in setting of contraindication to MRI or limitation in emergent access to MRI CT would be suggested.
[2018-07-14 14:14] VITALS: BP 199/83
== END 2018-07-14 14:15 | disposition home or self-care (01) ==
LOC: ED 10:13
DX: M25.552 Pain in left hip (principal); M25.512 Pain in left shoulder; Z91.81 History of falling
CPT/HCPCS: 36415; 80053; 82550; 83605; 84484; 85025; 86140; 96374; 99284; J2270

== ENCOUNTER 2018-12-30 15:04 | Observation (INO) | payer OTHER ==
--- NOTE | 2018-12-30 15:26 | ED ---
HPI Diabetic - HPI Summary HPI Summary: A 73 y/o M [facility] ED with elevated sugar over 500 [employer]. Associated sx: n/v, fatigue. Pt also has a fractured L humorous and two broken bones in L shoulder that are not healing. Pt arrived wearing LUE sling. He has L-sided hemiparesis due to a stroke 10 years ago,. Pt given Zofran en route by EMS, he states feeling better at bedside. PMHx: WPW, DM II, stroke. - History Of Current Complaint Time Seen by Provider: 12/30/18 15:21 Hx Obtained From: Patient, EMS Onset/Duration: Still Present Timing: Constant Severity Initially: Moderate Severity Currently: Moderate Character: Alert Alleviating: EMS Treatment Associated Signs & Symptoms: Nausea, Vomiting Related History: DM II - Allergies/Home Medications Allergies/Adverse Reactions: Allergies Allergy/AdvReac Type Severity Reaction Status Date / Time No Known Allergies Allergy Verified 07/14/18 10:32 Home Medications: Home Medications Atorvastatin* [Lipitor*] 40 mg PO DAILY 12/30/18 [History Confirmed 12/30/18] Calcium Citrate TAB* [Citracal TAB*] 200 mg PO BID 12/30/18 [History Confirmed 12/30/18] Lisinopril TAB* [Prinivil TAB*] 5 mg PO DAILY 12/30/18 [History Confirmed ] Pioglitazone TAB* [Actos TAB*] 45 mg PO DAILY 12/30/18 [History Confirmed ] Zolpidem TAB* [Ambien TAB*] 10 mg PO BEDTIME PRN 12/30/18 [History Confirmed 06/11] traZODone TAB* [Desyrel TAB*] 50 mg PO BEDTIME PRN 12/30/18 [History Confirmed 12/30/18] PMH/Surg Hx/FS Hx/Imm Hx Previously Healthy: No Endocrine/Hematology History: Reports: Hx Diabetes Cardiovascular History: Reports: Hx Hypertension, 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: Hx Benign Prostatic Hyperplasia, Other Problems/ Disorders - Prostate cancer Musculoskeletal History: Reports: Hx Arthritis, Hx Back Problems Sensory History: Denies: Hx Contacts or Glasses, Hx Glaucoma, Hx Hearing Aid Opthamlomology History: Denies: Hx Contacts or Glasses, Hx Glaucoma Neurological History: Reports: Hx CVA - with left sided residual effects, Hx Seizures, 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 - Cancer History Cancer Type, Location and Year: Prostate CA - Surgical History Surgery Procedure, Year, and Place: brain, prostate - Family History Known Family History: Positive: Hypertension - Social History Occupation: Retired Lives: Alone Alcohol Use: None Hx Substance Use: No Substance Use Type: Reports: None Hx Tobacco Use: Yes Smoking Status (MU): Never Smoked Tobacco Have You Smoked in the Last Year: No Review of Systems Positive: Fatigue Positive: Vomiting, Nausea, Other - pos: elevated blood glucose Musculoskeletal: Other - pos: multiple fx to LUE All Other Systems Reviewed And Are Negative: Yes Physical Exam - Summary Physical Exam Summary: Appearance: The patient is well-nourished in no acute distress and in no acute pain. Skin: The skin is warm and dry and skin color reflects adequate perfusion. HEENT: The head is normocephalic and atraumatic. The pupils are equal and reactive. The conjunctivae are clear and without drainage. Nares are patent and without drainage. Mouth reveals dry mucous membranes and the throat is without erythema and exudate. The external ears are intact. The ear canals are patent and without drainage. The tympanic membranes are intact. Neck: the neck is supple with full range of motion and non-tender. There are no carotid bruits. There is no neck vein distension. Respiratory: Chest is non-tender. Lungs are clear to auscultation and breath sounds are symmetrical and equal. Cardiovascular: Heart is regular rate and rhythm. Blowing systolic ejection murmur. There is no peripheral edema and pulses are symmetrical and equal. Abdomen: The abdomen is soft and non-tender. There are normal bowel sounds heard in all four quadrants and there is no organomegaly palpated. Musculoskeletal: There is no back tenderness noted. L-hemiparesis. There is good capillary refill. There is no peripheral edema or calf tenderness elicited. Neurological: Patient is alert and oriented to person, place and time. The patient has L-hemiparesis. Cranial nerves are grossly intact. Psychiatric: The patient has an appropriate affect and does not exhibit any anxiety or depression. Triage Information Reviewed: Yes Vital Signs Reviewed: Yes Diagnostics - Laboratory Result Diagrams: 12/30/18 16:30 12/30/18 16:30 Lab Statement: Any lab studies that have been ordered have been reviewed, and results considered in the medical decision making process. Diabetic Course/Dx - Course Course Of Treatment: Mr. Craven presented with a chief complaint of nausea and fatigue for the last day or so. He is diabetic and checked his blood sugar and found it to be high and became concerned that he might be getting DKA. He was nontoxic in appearance here and labs were obtained revealing that he was hyperglycemic without DKA. His EKG showed no acute ischemic changes but his troponin was in the indeterminate range at 0.07. The last troponin that we have was a couple months ago and was 0.02. I'm concerned that his fatigue and nausea are anginal equivalents given his diabetes. The hospitalist service was contacted for admission. - Diagnoses Provider Diagnoses: Elevated troponin, Fatigue - Physician Notifications Discussed Care Of Patient With: Beatrice Ellison - hospitalist Time Discussed With Above Provider: 17:35 Instructed by Provider To: Admit As Inpatient Discharge - Sign-Out/Discharge Documenting (check all that apply): Patient Departure - ADMIT Patient Received Moderate/Deep Sedation with Procedure: No - Discharge Plan Condition: Stable Disposition: ADMITTED TO [facility] - Billing Disposition and Condition Condition: STABLE Disposition: Admitted to [facility] - Attestation Statements Document Initiated by Scribe: Yes Documenting Scribe: Go Friedman Provider For Whom Scribe is Documenting (Include Credential): Dr. Andrea Arora MD Scribe Attestation: IGo, scribed for Dr. Andrea Arora MD on 12/30/18 at 2125. Scribe Documentation Reviewed: Yes Provider Attestation: The documentation as recorded by the Go cortez accurately reflects the service I personally performed and the decisions made by me, Dr. Andrea Arora MD Status of Scribe Document: Viewed
[2018-12-30 16:48] LABS: ABS Basophils 0 10^3/ul (0-0.2); ABS Eosinophils 0 10^3/ul (0-0.6); ABS Lymphocytes 0.7 10^3/ul (1.0-4.8); ABS Monocytes 1.1 10^3/ul (0-0.8); ABS Neutrophils 12.7 10^3/ul (1.5-7.7); ABS Nucleated RBC 0 10^3/ul; Eosinophil % 0.3 %; Hematocrit 43 % (36-46); Hemoglobin 14.6 g/dL (14.0-18.0); Mean Corpuscular HGB Conc 34 g/dL (31-36); Mean Corpuscular Hemoglobin 31 pg (27-31); Mean Corpuscular Volume 90 fL (80-94); Mean Platelet Volume 7.6 fL (7.4-10.4); Nucleated Red Blood Cells % 0; Platelet Count 239 10^3/uL (150-450); Red Cell Distribution Width 14 % (10.5-15); White Blood Count 14.6 10^3/uL (3.5-10.8)
[2018-12-30 17:02] LABS: INR 0.82 (0.77-1.02)
[2018-12-30 17:04] LABS: Urine Appearance Clear; Urine Bacteria Absent (Absent); Urine Bilirubin Negative (Negative); Urine Blood Negative (Negative); Urine Color Yellow; Urine Glucose 3+(>=500 mg/dL) (Negative); Urine Ketones Negative (Negative); Urine Nitrite Negative (Negative); Urine Protein 2+(100 mg/dL) (Negative); Urine Red Blood Cell Trace(0-2/hpf) (Absent); Urine Specific Gravity 1.023 (1.010-1.030); Urine Squamous Epithelial Cell Present (Absent); Urine Urobilinogen Negative (Negative); Urine White Blood Cell Trace(0-5/hpf) (Absent)
[2018-12-30 17:18] LABS: ALT 7 U/L (7-52); AST 13 U/L (13-39); Albumin 3.8 g/dL (3.2-5.2); Albumin/Globulin Ratio 1.2 (1-3); Alkaline Phosphatase 85 U/L (34-104); Anion Gap 6 mmol/L (2-11); BUN/Creatinine Ratio 14.3 (8-20); Blood Urea Nitrogen 16 mg/dL (6-24); C Reactive Protein 2.79 mg/L (<8.01); CO2 Carbon Dioxide 28 mmol/L (22-32); Calcium 9.2 mg/dL (8.6-10.3); Chloride 101 mmol/L (101-111); EGFR African American 78.2 (>60); EGFR Non-African American 64.6 (>60); Globulin 3.1 g/dL (2-4); Glucose 405 mg/dL (70-100); Potassium 4.6 mmol/L (3.5-5.0); Sodium 135 mmol/L (135-145); Total Protein 6.9 g/dL (6.4-8.9)
[2018-12-30 17:41] LABS: Troponin I 0.01 ng/mL (<0.04)
[2018-12-30] MEDS ORDERED: NS 0.9% 1000 ML** 1,000 ML IV ONE (19:16)
[2018-12-30] MEDS ORDERED: Dextrose 50% Syringe 50 ML* 25 GM/50 ML SYRINGE IV PUSH PRN ×2 (19:40→19:41)
[2018-12-30] MEDS ORDERED: Insulin LISPRO* 1 UNITS UNIT SUBCUT ONE (19:41)
[2018-12-30] MEDS ORDERED: NS 0.9% 1000 ML** 1,000 ML IV SCH (19:45)
[2018-12-30] MEDS ORDERED: cloNIDine 0.3 MG PATCH* 0.3 MG/24 HR 7 DAY PATCH TRANSDERM SCH (21:00)
[2018-12-30] MEDS: traZODone TAB* 50 MG TAB PO PRN (21:52)
[2018-12-30] MEDS: Zolpidem TAB* 10 MG PO PRN (21:52)
[2018-12-30] MEDS: Baclofen TAB* 10 MG PO SCH (21:52)
[2018-12-30] MEDS: Insulin LISPRO* 1 UNITS UNIT SUBCUT SCH (21:55)
[2018-12-30] MEDS: Calcium Citrate TAB* 200 MG PO SCH (21:58)
--- NOTE | 2018-12-30 21:59 | HP ---
CC: Dr. Sina Sims * HISTORY AND PHYSICAL: DATE OF ADMISSION: 12/30/18 PRIMARY CARE PROVIDER: Dr. Sina Sims. ATTENDING PHYSICIAN: Tony Dumont MD * (dictated by JUAN CARLOS Rocha). CHIEF COMPLAINT: Generalized weakness, hyperglycemia. HISTORY OF PRESENT ILLNESS: Mr. 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 The patient states that he went to see his PCP for the implantation of a glucose reader today due to left arm being nonmobile and difficulty with checking glucose regularly. The glucose reader was implanted. He then was noted to have a blood sugar that was over 500. He was sent by [facility] to the ER. At that time, he was noted to have nausea and vomiting. He was given Zofran, which relieved these symptoms. The patient's diabetes is typically controlled with metformin and glipizide. In the past he has used insulin, but has not required insulin for over 1 year. He states that his blood sugars have been very well controlled in the recent past and that he does try to maintain a healthy diet. The patient states that he had a bout of diarrhea x6 for 1 hour yesterday, which resolved without intervention. He also complains of runny nose, sneezing , and "sniffles" yesterday. He states that he vomited or dry heaved appropriately 5 times this morning while he was at his PCP office and was having abdominal pain. Currently, he denies chest pain and shortness of breath. He denies abdominal pain, nausea and vomiting. He denies cough, changes in urination. In the ER, he received a fluid boluses. His blood sugar was noted to be 405 upon arrival. It trended down to 330. The hospitalist team was asked to evaluate the patient for admission. PAST MEDICAL HISTORY: 1. Diabetes mellitus. 2. Hypertension. 3. Ladma-Orsfzoxzi-Hdsom. 4. BPH, history of prostate cancer. 5. Arthritis. 6. History of CVA with residual left-sided effects appropriately 8 years ago. 7. Seizures. 8. Left arm, shoulder fracture which occurred appropriately 5 years ago. This was not operated on. PAST SURGICAL HISTORY: Brain, prostate. HOME MEDICATIONS: 1. Zolpidem 10 mg p.o. at bedtime. 2. Trospium 20 mg p.o. b.i.d. 3. Trazodone 50 mg p.o. at bedtime. 4. Tamsulosin 0.4 mg p.o. daily. 5. Salicylate 500 mg p.o. t.i.d. 6. Pioglitazone 45 mg p.o. daily. 7. Pantoprazole 20 mg p.o. q.a.m. 8. Metformin 1000 mg p.o. b.i.d. 9. Lisinopril 5 mg p.o. daily. 10. Famotidine 150 mg p.o. q.12 hours. 11. Dextrose 12 g p.o. daily p.r.n. 12. Glipizide 10 mg p.o. b.i.d. 13. Clonidine 0.3 mg patch transdermal weekly. 14. Gabapentin 400 mg p.o. b.i.d. 15. Citalopram 40 mg p.o. daily. 16. Cholecalciferol 2000 units p.o. daily. 17. Carvedilol 37.5 mg p.o. q.a.m., 25 mg p.o. q.p.m. 18. Calcium citrate 200 mg p.o. b.i.d. 19. Baclofen 10 mg p.o. b.i.d. 20. Atorvastatin 40 mg p.o. daily. 21. Amlodipine 5 mg p.o. daily. 22. Aspirin 81 mg p.o. daily. ALLERGIES: No known drug allergies. FAMILY HISTORY: The patient reports a family history of hypertension. SOCIAL HISTORY: The patient states he smokes appropriately one-half pack per day. He denies alcohol use. He denies illicit drug use. The patient lives alone. 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 In the event that he is unable to make his own medical decisions, he appoints his daughter Leticia Craven to be his surrogate decision maker. REVIEW OF SYSTEMS: A 10-point review of systems was performed and all the pertinent positives and negatives are in the HPI, all other systems are negative. PHYSICAL EXAMINATION GENERAL: Mr. Craven is a well-developed, well-nourished, older gentleman who is sitting up in bed. He appears well. He appears to be in no acute distress. VITAL SIGNS: Temperature 97.9 temporal, heart rate 103, respiratory rate 12, oxygen saturation 99% on room air, blood pressure 179/98. HEENT: Visual carbone are grossly intact. Pupils are equally round and reactive to light. Extraocular movements are intact. Sclerae without icterus. Hearing is grossly intact. External auditory canals patent. Tympanic membranes intact with visible landmarks without erythema or fluid levels. Nares patent. Mucous membranes moist without erythema. Sinus is nontender to palpation. Oral mucous membranes dry. There are no lesions. The pharynx is clear. NECK: Trachea midline. No lymphadenopathy. RESPIRATORY: Symmetrical chest expansion. There is no use of accessory muscles. Lungs are clear to auscultation. There are no rhonchi, wheezes, and rubs, although it is noted that the patient does have decreased breath sounds bilaterally. CARDIOVASCULAR: Regular rate and rhythm. The patient has a slight systolic murmur. There are no rubs, gallops, or JVD. ABDOMEN: Bowel sounds are normoactive. The abdomen is soft. It is nontender to palpation. There is no hepatosplenomegaly. EXTREMITIES: Skin is warm and smooth bilaterally. There is no clubbing or cyanosis. Radial and pedal pulses are palpable. The left upper extremity has 1 + pitting edema. The left arm is noted to be nonmobile, which is the patient's baseline. The left lower extremity has decreased mobility, which again is a result of CVA approximately 8 years ago and is the patient's baseline. There is a 1-2+ pitting edema in the left lower extremity. NEURO: The patient is awake. He is alert and oriented x3. He uses a wheelchair for transportation. SKIN: Grossly intact without lesions. There are no ulcers posteriorly. DIAGNOSTIC STUDIES/LAB DATA: Chest x-ray, 12/30/18, pending. WBC 14.6, RBC 4.8, HGB 14.6, HCT 43, platelets 239. Sodium 135, potassium 4.6, chloride 101, carbon dioxide 28, anion gap 6, BUN 16, creatinine 1.12. Glucose 405 at 1630, 330 at 1920. Lactic acid 2.2. Urine with 2+ protein, squamous epithelial cells, and 3+ glucose. ASSESSMENT AND PLAN: Mr. Craven is a 73-year-old male with a past medical history that includes diabetes, hypertension, and cerebrovascular accident with residual left-sided effects, who presented to the ER today with complaints of generalized weakness and hyperglycemia. The patient will be admitted to observation for: 1. Sepsis with generalized weakness, hyperglycemia. The patient was noted to meet sepsis criteria with tachypnea, tachycardia, hypertension, and an elevated glucose. He received 1 L bolus in the ER. He will be given another liter of fluid bolus and then maintenance fluids at 125 per hour. He was also spilling glucose in the urine. He had a lactic acidosis of 2.2. Lactic acid will be rechecked in the a.m. He will monitor for correction of vital signs after fluid bolus. Chest x-ray ordered. This is likely a result of hyperglycemia leading to dehydration and generalized weakness. 2. Hyperglycemia. It is noted that the patient's hyperglycemia is trending down with fluid boluses. He will be given 7 units of Lispro for blood sugars of 330. Fluids will be continued. The patient will be placed on sliding scale Lispro a.c. and h.s. The patient's home diabetes medications will be held. Hemoglobin A1C will be ordered. 3. Hypertension. Continue lisinopril, carvedilol, amlodipine. 4. Seizure. Continue the patient's seizure medications. The patient will be placed on seizure precautions. 5. Benign prostatic hypertrophy. Continue home medication, tamsulosin. 6. DVT prophylaxis: According to the DVT risk assessment, the patient scores 4 , which is high risk. He will be placed on Lovenox daily. TIME SPENT: Approximately 60 minutes were spent on this admission, greater than half that time was spent face to face with the patient obtaining history, performing physical, and reviewing the plan of care. The case has been reviewed with my attending Dr. Dumont, who is in agreement with the plan of care. JUAN CARLOS LAMBERT [id number]/[facility] #: [id number] RAFAEL
[2018-12-30] MEDS: Enoxaparin(*) 40 MG/0.4 ML SYR SUBCUT SCH (22:00)
[2018-12-30] MEDS: lamoTRIgine TAB(*) 100 MG PO SCH (22:57)
[2018-12-30] MEDS: Gabapentin CAP(*) 400 MG PO SCH (22:57)
[2018-12-30] MEDS: Trospium (NF) 20 MG TAB PO SCH (22:59)
[2018-12-31] MEDS: Acetaminophen TAB* 325 MG PO PRN (00:29)
[2018-12-31] MEDS: Ondansetron ODT TAB* 4 MG SL PRN ×2 (00:29→06:24)
[2018-12-31 06:53] LABS: ABS Basophils 0 10^3/ul (0-0.2); ABS Eosinophils 0.1 10^3/ul (0-0.6); ABS Lymphocytes 1.8 10^3/ul (1.0-4.8); ABS Monocytes 0.4 10^3/ul (0-0.8); ABS Neutrophils 7.9 10^3/ul (1.5-7.7); ABS Nucleated RBC 0 10^3/ul; Eosinophil % 1.5 %; Hematocrit 39 % (36-46); Lymphocyte % 17.6 %; Mean Corpuscular HGB Conc 34 g/dL (31-36); Mean Corpuscular Hemoglobin 30 pg (27-31); Mean Corpuscular Volume 89 fL (80-94); Mean Platelet Volume 7.9 fL (7.4-10.4); Nucleated Red Blood Cells % 0; Platelet Count 229 10^3/uL (150-450); Red Blood Count 4.32 10^6 /uL (4.18-5.48); Red Cell Distribution Width 14 % (10.5-15); White Blood Count 10.2 10^3/uL (3.5-10.8)
[2018-12-31 07:15] LABS: BUN/Creatinine Ratio 12.9 (8-20); Calcium 8.7 mg/dL (8.6-10.3); EGFR African American 107.5 (>60); EGFR Non-African American 88.9 (>60); Potassium 3.8 mmol/L (3.5-5.0)
[2018-12-31] MEDS: Insulin LISPRO* 1 UNITS UNIT SUBCUT SCH ×4 (08:00→20:44)
[2018-12-31] MEDS: Tamsulosin CAP* 0.4 MG PO SCH (08:02)
[2018-12-31] MEDS: Carvedilol TAB* 25 MG PO SCH ×2 (08:02→16:47)
[2018-12-31] MEDS: Aspirin EC TAB* 81 MG TAB.EC PO SCH (08:02)
[2018-12-31] MEDS: Baclofen TAB* 10 MG PO SCH ×2 (08:02→20:44)
[2018-12-31] MEDS: Gabapentin CAP(*) 400 MG PO SCH ×2 (08:02→20:44)
[2018-12-31] MEDS: Lisinopril TAB* 5 MG PO SCH (08:03)
[2018-12-31] MEDS: Citalopram TAB* 40 MG PO SCH (08:03)
[2018-12-31] MEDS: lamoTRIgine TAB(*) 100 MG PO SCH ×2 (08:03→20:43)
[2018-12-31] MEDS: amLODIPine TAB* 5 MG PO SCH (08:03)
[2018-12-31] MEDS: Atorvastatin* 40 MG TAB PO SCH (08:04)
[2018-12-31] MEDS: Cholecalciferol TAB* 1000 UNITS PO SCH (08:04)
[2018-12-31] MEDS: Calcium Citrate TAB* 200 MG PO SCH ×2 (08:04→20:44)
[2018-12-31] MEDS: Pantoprazole TAB * 40 MG TAB PO SCH (08:04)
[2018-12-31] MEDS: Trospium (NF) 20 MG TAB PO SCH ×2 (08:21→20:54)
[2018-12-31] MEDS: Insulin GLARGINE(*) 1 UNITS UNIT SUBCUT SCH (16:46)
[2018-12-31] MEDS: Enoxaparin(*) 40 MG/0.4 ML SYR SUBCUT SCH (20:43)
[2018-12-31] MEDS: Zolpidem TAB* 10 MG PO PRN (20:44)
[2018-12-31] MEDS: traZODone TAB* 50 MG TAB PO PRN (20:44)
--- NOTE | 2018-12-31 21:12 | PN ---
Subjective Date of Service: 12/31/18 Interval History: patient reports that he is feeling better, reports that he feels less weak . Denies chest pain or shortness of breath. Denies abd pain n/v/d. Family History: Unchanged from Admission Social History: Unchanged from Admission Past Medical History: Unchanged from Admission Objective Active Medications: Acetaminophen (Tylenol Tab*) 975 mg PO Q8H PRN PRN Reason: PAIN Last Admin: 12/31/18 00:29 Dose: 975 mg Amlodipine Besylate (Norvasc Tab*) 5 mg PO DAILY [facility] Last Admin: 12/31/18 08:03 Dose: 5 mg Aspirin (Aspirin Ec Tab*) 81 mg PO DAILY [facility] Last Admin: 12/31/18 08:02 Dose: 81 mg Atorvastatin Calcium (Lipitor*) 40 mg PO DAILY [facility] Last Admin: 12/31/18 08:04 Dose: 40 mg Baclofen (Lioresal Tab*) 10 mg PO BID [facility] Last Admin: 12/31/18 20:44 Dose: 10 mg Calcium Citrate (Citracal Tab*) 200 mg PO BID [facility] Last Admin: 12/31/18 20:44 Dose: 200 mg Carvedilol (Coreg Tab*) 25 mg PO QPM [facility] Last Admin: 12/31/18 16:47 Dose: 25 mg Carvedilol (Coreg Tab*) 37.5 mg PO QAM [facility] Last Admin: 12/31/18 08:02 Dose: 37.5 mg Cholecalciferol (Vitamin D Tab*) 2,000 units PO DAILY [facility] Last Admin: 12/31/18 08:04 Dose: 2,000 units Citalopram Hydrobromide (Celexa Tab*) 40 mg PO DAILY [facility] Last Admin: 12/31/18 08:03 Dose: 40 mg Clonidine HCl (Edecfbty-Jlk-6 0.3 Mg Patch*) 0.3 mg TRANSDERM WEEKLY [facility] Dextrose (D50w Syringe 50 Ml*) 12.5 gm IV PUSH .FOR FS < 60 - SS PRN PRN Reason: FS < 60 Enoxaparin Sodium (Lovenox(*)) 40 mg SUBCUT Q24H [facility] Last Admin: 12/31/18 20:43 Dose: 40 mg Gabapentin (Neurontin Cap(*)) 400 mg PO BID [facility] Last Admin: 12/31/18 20:44 Dose: 400 mg Sodium Chloride (Ns 0.9% 1000 Ml) 1,000 mls @ 125 mls/hr IV PER RATE [facility] Last Admin: 12/30/18 21:52 Dose: 125 mls/hr Insulin Glargine (Lantus(*)) 10 units SUBCUT Q24H [facility] Last Admin: 12/31/18 16:46 Dose: 10 units Insulin Human Lispro (Humalog*) 0 units SUBCUT ACHS [facility]; Protocol Last Admin: 12/31/18 20:44 Dose: 2 unit Lamotrigine (Lamictal Tab(*)) 150 mg PO Q12H [facility] Last Admin: 12/31/18 20:43 Dose: 150 mg Lisinopril (Prinivil Tab*) 5 mg PO DAILY [facility] Last Admin: 12/31/18 08:03 Dose: 5 mg Ondansetron HCl (Zofran Odt Tab*) 4 mg SL Q6H PRN PRN Reason: NAUSEA/VOMITING Last Admin: 12/31/18 06:24 Dose: 4 mg Pantoprazole Sodium (Protonix Tab*) 40 mg PO QAM [facility] Last Admin: 12/31/18 08:04 Dose: 40 mg Tamsulosin HCl (Flomax Cap*) 0.4 mg PO DAILY [facility] Last Admin: 12/31/18 08:02 Dose: 0.4 mg Trazodone HCl (Desyrel Tab*) 50 mg PO BEDTIME PRN PRN Reason: SLEEP Last Admin: 12/31/18 20:44 Dose: 50 mg Trospium (Sanctura (Nf)) 20 mg PO BID [facility] Last Admin: 12/31/18 20:54 Dose: Not Given Zolpidem Tartrate (Ambien Tab*) 10 mg PO BEDTIME PRN PRN Reason: SLEEP Last Admin: 12/31/18 20:44 Dose: 10 mg Vital Signs - 8 hr 12/31/18 12/31/18 16:05 20:44 Temperature 97.0 F Pulse Rate 70 Respiratory 16 16 Rate Blood Pressure 123/58 (mmHg) O2 Sat by Pulse 96 Oximetry Oxygen Devices in Use Now: None Appearance: alert resting in bed , no acute distress Eyes: No Scleral Icterus Ears/Nose/Mouth/Throat: Clear Oropharnyx, Mucous Membranes Moist Neck: NL Appearance and Movements; NL JVP, Trachea Midline Respiratory: Symmetrical Chest Expansion and Respiratory Effort, Clear to Auscultation Cardiovascular: NL Sounds; No Murmurs; No JVD, No Edema Abdominal: NL Sounds; No Tenderness; No Distention Extremities: No Edema, No Clubbing, Cyanosis, - - left foot with swelling ( chronic ) per patient Neurological: Alert and Oriented x 3 - left side with weakness Nutrition: Taking PO's Result Diagrams: 12/31/18 06:31 12/31/18 06:31 Microbiology and Other Data: Microbiology 12/30/18 16:37 Urine Culture - Final Urine No Growth (<1,000 CFU/mL) Assess/Plan/Problems-Billing Assessment: Mr. Craven is a 73 y.o male with pmhx of CVA with left sided weakness, w/c bound, htn, DM, Jorge - Parkinson white syndrome and who sent to the emergency room from his primary care doctors office for elevated blood sugar of 500. - Patient Problems (1) Hyperglycemia Current Visit: Yes Status: Acute Code(s): R73.9 - HYPERGLYCEMIA, UNSPECIFIED SNOMED Code(s): 51631282 Comment: - elevated blood sugar on arrival 330 - no anion gap - elevated lactic acid - suspect this is related to dehydration in the setting of hyperglycemia - Blood glucose improving with sliding scale insulin - will discharge home with lantus 10 units daily and previous oral medications - a1c 11.0 (2) SIRS (systemic inflammatory response syndrome) Current Visit: Yes Status: Acute Code(s): R65.10 - SIRS OF NON-INFECTIOUS ORIGIN W/O ACUTE ORGAN DYSFUNCTION SNOMED Code(s): 101237730 Comment: chest x ray does show possible RLL infiltrate - cxr with poor inspiration , patient is afebrile, not tachypneic, no cough or sputum production - i do not feel as this correlates clinically with pneumonia - i will hold on starting antibioitics - patient did meet SIR criteria on admission but i suspect that the tachycardia , tachypnea, leukocytosis and elevated lactic acid was related to dehydration in the setting of hyperglycemia. (3) Elevated lactic acid level Current Visit: Yes Status: Acute Code(s): R79.89 - OTHER SPECIFIED ABNORMAL FINDINGS OF BLOOD CHEMISTRY SNOMED Code(s): 9728150 Comment: suspect this is related to hyperglycemia - no signs of infection - urine culture is negative (4) Hyperlipidemia Current Visit: No Status: Chronic Code(s): E78.5 - HYPERLIPIDEMIA, UNSPECIFIED SNOMED Code(s): 96516917 Comment: Continue atorvastatin. (5) Hypertension Current Visit: No Status: Chronic Code(s): I10 - ESSENTIAL (PRIMARY) HYPERTENSION SNOMED Code(s): 46393054 Comment: stable Continue lisinopril, carvedilol, clonidine patch and norvasc (6) History of CVA (cerebrovascular accident) Current Visit: Yes Status: Acute Code(s): Z86.73 - PRSNL HX OF TIA (TIA), AND CEREB INFRC W/O RESID DEFICITS SNOMED Code(s): 566534646 Comment: continue statin and ASA - patient is residual left sided weakness - w/c bound as baseline (7) DVT prophylaxis Current Visit: No Status: Acute Code(s): ZVG7311 - SNOMED Code(s): 718079013 Comment: Lovenox (8) Full code status Current Visit: No Status: Acute Code(s): Z78.9 - OTHER SPECIFIED HEALTH STATUS SNOMED Code(s): 245823211 Comment: Status and Disposition: discharge home when medically stable
[2019-01-01] MEDS: Insulin LISPRO* 1 UNITS UNIT SUBCUT SCH ×3 (08:17→17:40)
[2019-01-01] MEDS: Acetaminophen TAB* 325 MG PO PRN (08:37)
[2019-01-01] MEDS: Atorvastatin* 40 MG TAB PO SCH (09:48)
[2019-01-01] MEDS: Aspirin EC TAB* 81 MG TAB.EC PO SCH (09:48)
[2019-01-01] MEDS: Baclofen TAB* 10 MG PO SCH (09:48)
[2019-01-01] MEDS: Citalopram TAB* 40 MG PO SCH (09:48)
[2019-01-01] MEDS: amLODIPine TAB* 5 MG PO SCH (09:48)
[2019-01-01] MEDS: Tamsulosin CAP* 0.4 MG PO SCH (09:48)
[2019-01-01] MEDS: Cholecalciferol TAB* 1000 UNITS PO SCH (09:48)
[2019-01-01] MEDS: Lisinopril TAB* 5 MG PO SCH (09:49)
[2019-01-01] MEDS: Gabapentin CAP(*) 400 MG PO SCH (09:49)
[2019-01-01] MEDS: Pantoprazole TAB * 40 MG TAB PO SCH (09:49)
[2019-01-01] MEDS: Calcium Citrate TAB* 200 MG PO SCH (09:49)
[2019-01-01] MEDS: lamoTRIgine TAB(*) 100 MG PO SCH (09:51)
[2019-01-01] MEDS: Carvedilol TAB* 25 MG PO SCH ×2 (09:51→17:40)
[2019-01-01] MEDS: Trospium (NF) 20 MG TAB PO SCH (10:01)
[2019-01-01 16:27] VITALS: BP 147/56
[2019-01-01] MEDS: Insulin GLARGINE(*) 1 UNITS UNIT SUBCUT SCH (17:41)
--- NOTE | 2019-01-02 02:05 | DS ---
CC: Dr. Sina Sims * DISCHARGE SUMMARY: DATE OF ADMISSION: 12/30/18 DATE OF DISCHARGE: 01/01/19 PRIMARY CARE PHYSICIAN: Dr. Sina Sims. MY ATTENDING WHILE IN THE HOSPITAL: Dr. Tony Dumont.* (DICTATED BY JUAN CARLOS VAZQUEZ) PRIMARY DISCHARGE DIAGNOSES: 1. Hyperglycemia due to diabetes mellitus type 2. 2. Weakness, likely due to hyperglycemia. SECONDARY DISCHARGE DIAGNOSES: 1. Hypertension. 2. History of Yhsqk-Plreqxwom-Wfwyh disease. 3. BPH. 4. History of prostate cancer. 5. Arthritis. 6. History of cerebrovascular accident with residual left side deficits. 7. Seizures. 8. Left arm and shoulder fracture, treated nonoperatively. STUDIES DONE WHILE IN THE HOSPITAL: Chest x-ray from 12/30/18 read as low lung volumes, small left basilar infiltrate. Electrocardiogram from 12/30/18 read as early repolarization in V1 to V3, T- wave inversion in V6, II, III, and aVF. No other hypertrophy or enlargement, type I AV block. MEDICATIONS AT DISCHARGE: 1. Sanctura 20 mg p.o. b.i.d. 2. Tamsulosin 0.4 mg p.o. daily. 3. Metformin 1000 mg p.o. b.i.d. 4. Clonidine 0.3 mg transdermal weekly. 5. Citalopram 40 mg p.o. daily. 6. Vitamin D 2000 units p.o. daily. 7. Carvedilol 25 mg p.o. nightly, carvedilol 37.5 mg p.o. q.a.m. 8. Baclofen 10 mg p.o. b.i.d. 9. Gabapentin 400 mg p.o. b.i.d. 10. Lamictal 150 mg p.o. q.12 hours. 11. Salicylate 500 mg p.o. b.i.d. as needed. 12. Pantoprazole 20 mg p.o. daily. 13. Dextrose 12 g p.o. daily as needed for little help with hyperglycemia. 14. Aspirin 81 mg daily. 15. Norvasc 5 mg p.o. daily. 16. Ambien 10 mg p.o. at bedtime as needed. 17. Trazodone 50 mg p.o. at bedtime as needed. 18. Lisinopril 5 mg p.o. daily. 19. Citrucel 500 mg p.o. b.i.d. 20. Lipitor 5 mg p.o. daily. 21. Insulin glargine 10 units subcutaneous daily. 22. Glipizide 5 mg p.o. b.i.d. New Medications on Discharge: 1. Glargine. 2. Glipizide. Medications Discontinued At Discharge: 1. Pioglitazone 45 mg p.o. daily. 2. Glipizide 10 mg p.o. b.i.d. HOSPITAL COURSE: This is a brief summary of patient's presentation. For more details, please see the history and physical from Dr. Tony Dumont on 06/11. In brief, patient is a 73-year-old male with a past medical history significant for the above who presented to the emergency department after diffuse weakness and a blood sugar read at over 500. Patient states that he checked his blood sugar twice a week and it had been generally well controlled. Patient is having issues with upper respiratory symptoms and diarrhea. Patient in the emergency department had a blood sugar of 405 and was given insulin 7 units and was started on insulin sliding scale and glargine insulin 10 units. The patient's blood glucoses improved greatly to a low of 108 on 08/11; however, generally is between 150 and 250. Patient was not on his metformin or glipizide. While in the hospital, patient's strength improved greatly. Patient had no fevers, cough, shortness of breath, wheezing consistent with pneumonia. Patient's blood pressure was initially very high while he was receiving fluids, but when these were stopped they returned to normal range. Patient had elevated lactic acid, which decreased after fluid resuscitation. Patient had no evidence of UTI on urinalysis. Patient's white blood cell count was initially elevated and then normalized. Patient was stable medically for discharge on 01/01/19 with changes to his diabetes medications. PHYSICAL EXAMINATION AT DISCHARGE: General: Patient is a 73-year-old male who appears stated age and is sitting comfortably in bed, in no acute distress. Vital Signs: Temperature 97.0, pulse rate 70, respiratory rate 18, oxygen saturation 97% on room air, blood pressure 147/56. HEENT: Head normocephalic, atraumatic. Sclerae anicteric. No conjunctival injection. Nasal mucosa moist. Oral mucosa moist. No pharyngeal erythema, discharge, or exudate. Neck: Supple, nontender. No lymphadenopathy. No carotid bruits auscultated. No JVD. Cardiac: Regular rate and rhythm. No clicks, murmurs, gallops, or rubs. Pulses are 2+ in bilateral dorsalis pedis, posterior, tibial and radial areas. Respiratory: Clear to auscultation bilaterally. No wheezes, rales, or rhonchi. Good air exchange bilaterally. Abdomen: Soft, nontender, nondistended. Bowel sounds present in all 4 quadrants. No hepatosplenomegaly. No abdominal bruits auscultated. No hepatojugular reflux. Genitourinary: No suprapubic or CVA tenderness. Skin: Clean, dry, and intact. No rash. Neuro : Cranial nerves II through XII intact. Slight weakness in the left upper and lower extremity. No other focal deficits. Psychiatric: Very pleasant and cooperative. DISCHARGE PLAN: Patient will be discharged to home. It is unclear whether the patient was on Actos. If he was, this should be discontinued. Patient has been started on Lantus 10 units daily, but will have his glipizide decreased. Patient encouraged to check his blood sugar twice daily. Patient will be resumed on his metformin. Patient should follow up closely with primary care provider for general medical management and particularly management of his diabetes. Patient's hemoglobin A1c while in the hospital was 11, which is not consistent with his blood glucose readings while in the hospital. Likely, his diet will be very different and longer-term monitoring now that he has an implanted monitor of his blood glucose would be helpful to assess multiple times a day. Patient has glucose tablets as needed for hypoglycemia. Patient has aide help both private and [facility] as well as visiting nurse services. Visiting nurse services should help him with medication management and his aides will help him with personal care. Patient is wheelchair-bound. Patient should have a consistent carbohydrate diet and engage in activity as tolerated using a wheelchair as needed for mobility. TIME SPENT: Approximately 60 minutes were spent in the discharge of this patient, 30 of which were spent [id number] with the patient obtaining history and physical and discussing treatment plan. JUAN CARLOS VAZQUEZ [id number]/[facility] #: [id number] RAFAEL
== END 2019-01-01 17:55 | disposition home or self-care (01) ==
LOC: ED 15:04 → MED 19:34
PROVIDERS: ADMIT Internal Medicine; ATTEND Internal Medicine
DX: E11.65 Type 2 diabetes mellitus with hyperglycemia (principal); R65.10 Systemic inflammatory response syndrome (SIRS) of non-infectious origin without acute organ dysfunction; R79.89 Other specified abnormal findings of blood chemistry; E78.5 Hyperlipidemia, unspecified; I10 Essential (primary) hypertension; Z86.73 Personal history of transient ischemic attack (TIA), and cerebral infarction without residual deficits; I45.6 Pre-excitation syndrome; R11.2 Nausea with vomiting, unspecified; R53.83 Other fatigue; N40.0 Benign prostatic hyperplasia without lower urinary tract symptoms; Z85.46 Personal history of malignant neoplasm of prostate; R56.9 Unspecified convulsions
CPT/HCPCS: 36415; 71045; 80048; 80053; 81003; 81015; 82803; 83036; 83605; 84484; 85025; 85610; 86140; 87086; 93005; 96361; 96372; 99285; A9270-GY; G0378; J1650

== ENCOUNTER 2019-05-09 14:27 | Emergency (ER) | payer OTHER ==
--- NOTE | 2019-05-09 15:00 | ED ---
Head Injury - HPI Summary HPI Summary: Patient is a 73-year-old male who presents emergency department for head injury that occurred prior to arrival. Patient has a history of CVA and has chronic weakness on his left side. Patient states his dog was barking this morning and he try to get out of bed too quick causing him to fall and strike his head on the ground. Patient denies loss of consciousness or syncope. Patient denies recent illness, prior chest pain, shortness of breath, dizziness, lightheadedness. Patient states he simply fell because he got up too quickly and he has chronic weakness on the left. Patient states his neighbor checks on him every morning and when his neighbor came over and he saw him on the ground and called 911. - History Of Current Complaint Chief Complaint: EDHeadInjury Stated Complaint: FALLS PER EMS Time Seen by Provider: 05/09/19 14:34 Hx Obtained From: Patient Pain Intensity: 7 - Allergies/Home Medications Allergies/Adverse Reactions: Allergies Allergy/AdvReac Type Severity Reaction Status Date / Time No Known Allergies Allergy Verified 07/14/18 10:32 PMH/Surg Hx/FS Hx/Imm Hx Previously Healthy: Yes Endocrine/Hematology History: Reports: Hx Diabetes Cardiovascular History: Reports: Hx Hypertension, 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: Hx Benign Prostatic Hyperplasia, Other Problems/ Disorders - Prostate cancer Musculoskeletal History: Reports: Hx Arthritis, Hx Back Problems Sensory History: Denies: Hx Contacts or Glasses, Hx Glaucoma, Hx Hearing Aid Opthamlomology History: Denies: Hx Contacts or Glasses, Hx Glaucoma Neurological History: Reports: Hx CVA - with left sided residual effects, Hx Seizures, 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 - Cancer History Cancer Type, Location and Year: Prostate CA - Surgical History Surgery Procedure, Year, and Place: brain, prostate Infectious Disease History: No Infectious Disease History: Denies: Traveled Outside the [place] in Last 30 Days - Family History Known Family History: Positive: Hypertension, Non-Contributory - Social History Occupation: Retired Lives: Alone Alcohol Use: None Hx Substance Use: No Substance Use Type: Reports: None Hx Tobacco Use: Yes Smoking Status (MU): Light Every Day Tobacco Smoker Have You Smoked in the Last Year: No Review of Systems Constitutional: Negative ENT: Negative Cardiovascular: Negative Negative: Palpitations, Chest Pain Respiratory: Negative Negative: Shortness Of Breath, Cough Gastrointestinal: Negative Negative: Abdominal Pain, Vomiting, Diarrhea Genitourinary: Negative Positive: Other - left ankle pain Skin: Negative Positive: Headache. Negative: Weakness, Paresthesia, Numbness, Syncope, Slurred Speech All Other Systems Reviewed And Are Negative: Yes Physical Exam Triage Information Reviewed: Yes Vital Signs On Initial Exam: Initial Vitals Temp Pulse Resp BP Pulse Ox 97.3 F 68 18 185/77 97 05/09/19 14:28 05/09/19 14:28 05/09/19 14:28 05/09/19 14:28 05/09/19 14:28 Vital Signs Reviewed: Yes Appearance: Positive: Well-Appearing - Pt. lying in bed in NAD> Answers questions appropriately. Skin: Positive: Warm, Dry Head/Face: Positive: Other - Large left sided frontal hematoma without laceration. Eyes: Positive: Normal, EOMI, EULA Neck: Positive: Supple, Other: - mild distal midline tenderness. Respiratory/Lung Sounds: Positive: Clear to Auscultation, Breath Sounds Present Cardiovascular: Positive: Normal, RRR Musculoskeletal: Positive: Other - Mild edema and pain to left lateral ankle. Chronic left sided weakness. Neurological: Positive: Normal, CN Intact II-III Psychiatric: Positive: Affect/Mood Appropriate Diagnostics - Vital Signs Vital Signs Temp Pulse Resp BP Pulse Ox 05/09/19 14:28 97.3 F 68 18 185/77 97 - Laboratory Lab Statement: Any lab studies that have been ordered have been reviewed, and results considered in the medical decision making process. Head Injury Course/Dx Course Of Treatment: Pt. presenting with large frontal hematoma after a mechanical fall. Pt. has no other c/o other than left ankle pain. Chronic left sided weakness without change. CT brain per radiology: IMPRESSION: 1. REMOTE RIGHT MCA INFARCT. 2. SOFT TISSUE SWELLING OF THE LEFT SUPRAORBITAL SCALP. 3. NO ACUTE INTRACRANIAL PATHOLOGY. Remainder of imaging negative for acute findings per radiology. Results discussed. Pt. will be dc home. To ice intermittently. tylenol for pain as directed. To f.u with PCP in 2-3 days. To return to ER if sxs change or worsen. Pt. understands and agrees with plan. - Diagnoses Differential Diagnosis/HQI/PQRI: Cerebral Contusion, Concussion Without LOC, Contusion, Hematoma, Intracranial Bleed, Skull Fracture Provider Diagnoses: Head injury consultation, Cervical sprain, Ankle sprain, Scalp hematoma Discharge - Sign-Out/Discharge Documenting (check all that apply): Patient Departure Patient Received Moderate/Deep Sedation with Procedure: No - Discharge Plan Condition: Good Disposition: HOME Patient Education Materials: Cervical Strain (ED), Head Injury (ED), Hematoma ( ED) Referrals: Sina Sims MD [Primary Care Provider] - Additional Instructions: Follow up with PCP in 2-3 days Ice head intermittently Tylenol for pain as directed Return to ER if symptoms change or worsen - Billing Disposition and Condition Condition: GOOD Disposition: Home
[2019-05-09] MEDS ORDERED: Acetaminophen TAB* 325 MG PO ONE (15:49)
[2019-05-09 17:32] VITALS: BP 168/98
== END 2019-05-09 17:31 | disposition home or self-care (01) ==
LOC: ED 14:27
DX: S09.90XA Unspecified injury of head, initial encounter (principal); S13.4XXA Sprain of ligaments of cervical spine, initial encounter; S93.402A Sprain of unspecified ligament of left ankle, initial encounter; S00.03XA Contusion of scalp, initial encounter; W06.XXXA Fall from bed, initial encounter; Y92.003 Bedroom of unspecified non-institutional (private) residence as the place of occurrence of the external cause; E11.9 Type 2 diabetes mellitus without complications; I10 Essential (primary) hypertension; N40.0 Benign prostatic hyperplasia without lower urinary tract symptoms; I69.30 Unspecified sequelae of cerebral infarction; F17.210 Nicotine dependence, cigarettes, uncomplicated
CPT/HCPCS: 70450; 72125; 99283; A9270-GY

== ENCOUNTER 2019-12-02 10:37 | Inpatient (IN) | payer OTHER ==
[2019-12-02] MEDS ORDERED: Etomidate* 2 MG/ML 20 ML VIAL (40 MG) ONE (10:46)
[2019-12-02] MEDS ORDERED: Rocuronium* 10 MG/ML VIAL ONE (10:46)
[2019-12-02] MEDS ORDERED: Ticagrelor* 90 MG TAB PO ONE (10:47)
[2019-12-02] MEDS ORDERED: Heparin for STEMI(*) 5,000 UNITS/ML 1 ML VIAL IV ONE (10:52)
[2019-12-02] MEDS ORDERED: Heparin 2 UNITS/ML IVPREMIX* 3,000 ML IV ONE (10:53)
[2019-12-02] MEDS ORDERED: Lidocaine 1% INJ* 10 MG/ML 30 ML SDV ONE (10:53)
[2019-12-02] MEDS ORDERED: Iohexol 350 (CONTRAST) 200 ML MDV IV ONE (10:53)
[2019-12-02] MEDS ORDERED: Aspirin 81 mg CHEW TAB* 81 MG TAB.CHEW ONE ×2 (10:55→11:17)
[2019-12-02 10:59] LABS: Hematocrit 43 % (42-52); Hemoglobin 14.1 g/dL (14.0-18.0); Mean Corpuscular HGB Conc 33 g/dL (31-36); Mean Corpuscular Hemoglobin 31 pg (27-31); Mean Corpuscular Volume 95 fL (80-94); Mean Platelet Volume 7.8 fL (7.4-10.4); Platelet Count 211 10^3/uL (150-450); Red Blood Count 4.54 10^6 /uL (4.18-5.48); Red Cell Distribution Width 14 % (10-15)
[2019-12-02] MEDS ORDERED: VERAPAMIL 2.5 MG/ML 2 ML VIAL ** 5 mg/2 ml ONE (10:59)
[2019-12-02] MEDS ORDERED: nitroGLYCERIN DRIP* 25,000 MCG/250 ML BTL ONE (10:59)
[2019-12-02] MEDS ORDERED: Heparin(*) 1000 UNIT/ML 10 ML VIAL CATH LAB IV ONE (10:59)
--- NOTE | 2019-12-02 11:04 | ED ---
Cardiac Resuscitation - HPI Summary HPI Summary: Dr. Devries at bedside upon patient's arrival. The patient is a 74-year-old male arriving via ambulance to [facility] for unresponsiveness following a witnessed cardiac arrest. Per EMS, the patient had someone at his house helping him clean when the patient fell into cardiac arrest. Bystander CPR was begun immediately, and state police arrived and continued CPR. Police administered one shock. When EMS arrived, there was no pulse, so they continued CPR with observed rate of 3-4 BPM, no airway present. They administered one epinephrine with noted change in cardiac activity to sinus tachycardia. They lost a pulse and administered a second epinephrine with return of sinus tachycardia. EMS began bagging the patient as there was oral airway, and they also administered Narcan without change in responsiveness. There was occasional breathing on self. The patients blood pressure was in the 200s/100s mmHg, with most recent reading of 120/60 mmHg immediately prior to arrival. EMS performed a 12-lead EKG which was positive for VT. Unable to obtain blood glucose. Patient is noted to have fecal incontinence. 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 Medications reviewed. Allergies noted. LEVEL 5 CAVEAT SECONDARY TO EXTREMIS. Initial history obtained from EMS. Additional history obtained from medical records: DVT, Ublnq-Vmufoztsz-Sixce disease, hypertension, diabetes, hyperlipidemia, BPH, prostate cancer, CVA, seizures, SIRS, aspirin use. - History of Current Complaint Stated Complaint: FULL ARREST PER EMS Hx Obtained From: EMS Hx From Patient Unobtainable Due To: Extremis - LEVEL 5 CAVEAT Arrest Witnessed: Yes Down-time Before Basic Life Support Initiated: Down-time before BLS initiated: - 0 minutes, bystander CPR initiated immediately Was AED Placed on Patient: Yes AED Placed on Patient By: Other: - police/EMS Did AED Recommend Defibrillation: Yes Was Defibrillating Shock Administered: Yes Did Patient Have Return of Spontaneous Circulation (ROSC): Yes - Prehospital Findings Airway: Obstructed Circulation/Rhythm: PEA Disability/Neurologic: Unresponsive - Prehospital Intervention Circulation/Rhythm: Chest Compressions, Epinephrine: - x2 - Prehospital Response Circulation/Rhythm: Sinus Tachycardia - Additional Pertinent History Primary Care Physician: [id number] - Allergies/Home Medications Allergies/Adverse Reactions: Allergies Allergy/AdvReac Type Severity Reaction Status Date / Time No Known Allergies Allergy Verified 07/14/18 10:32 Home Medications: Home Medications Baclofen TAB* [Lioresal TAB*] 10 mg PO BID 04/02/16 [History Confirmed 05/09/19] Carvedilol TAB* [Coreg TAB*] 25 mg PO QPM 04/02/16 [History Confirmed 05/09/19] Carvedilol TAB* [Coreg TAB*] 37.5 mg PO QAM 04/02/16 [History Confirmed 05/09/19 ] Cholecalciferol TAB* [Vitamin D TAB*] 2,000 units PO DAILY 04/02/16 [History Confirmed 05/09/19] Citalopram TAB* [Celexa TAB*] 40 mg PO DAILY 04/02/16 [History Confirmed ] Tamsulosin CAP* [Flomax CAP*] 0.4 mg PO DAILY 04/02/16 [History Confirmed ] Trospium (NF) [Sanctura (NF)] 20 mg PO BID 04/02/16 [History Confirmed 05/09/19] cloNIDine 0.3 MG PATCH* [Jvpuwnfh-Lzb-9 0.3 mg Patch*] 0.3 mg TRANSDERM WEEKLY 04/02/16 [History Confirmed 05/09/19] metFORMIN* [Glucophage 500 MG TAB *] 1,000 mg PO BID 04/02/16 [History Confirmed 05/09/19] Gabapentin CAP(*) [Neurontin 400 mg CAP(*)] 400 mg PO BID 01/22/18 [History Confirmed 05/09/19] lamoTRIgine TAB(*) [Lamictal TAB(*)] 150 mg PO Q12H 01/22/18 [History Confirmed 05/09/19] Aspirin EC TAB* [Ecotrin EC Low Dose 81 MG*] 81 mg PO DAILY 07/14/18 [History Confirmed 05/09/19] Dextrose [Glucose] 12 gm PO DAILY PRN 07/14/18 [History Confirmed 05/09/19] Pantoprazole TAB (NF) [Protonix TAB (NF)] 20 mg PO QAM 07/14/18 [History Confirmed 05/09/19] Salsalate TAB* [Disalcid*] 500 mg PO TID PRN 07/14/18 [History Confirmed ] amLODIPine TAB* [Norvasc 5 mg TAB*] 5 mg PO DAILY 07/14/18 [History Confirmed ] Atorvastatin* [Lipitor 80 MG*] 40 mg PO DAILY 12/30/18 [History Confirmed ] Calcium Citrate TAB* [Citracal TAB*] 200 mg PO BID 12/30/18 [History Confirmed 05/09/19] Lisinopril TAB* [Prinivil TAB 10 MG*] 5 mg PO DAILY 12/30/18 [History Confirmed 05/09/19] Zolpidem TAB* [Ambien*] 10 mg PO BEDTIME PRN 12/30/18 [History Confirmed ] traZODone TAB* [Desyrel TAB*] 50 mg PO BEDTIME PRN 12/30/18 [History Confirmed 05/09/19] Insulin Glargine,Hum.rec.anlog [Lantus Solostar 5x3 ML PENS] 10 units SUBCUT DAILY #1 box 12/31/18 [Rx Confirmed 05/09/19] glipiZIDE TAB* [Glucotrol TAB*] 5 mg PO BID #60 tab 01/01/19 [Rx Confirmed 05/09] - Past Medical History Past Medical History: Unobtainable Due to Extremis, Cerebrovascular Accident, Other: - paralyzed below the waist, DVT, Vrhkm-Scdxgktso-Isddv disease, hypertension, diabetes, hyperlipidemia, BPH, prostate cancer, CVA, seizures, SIRS, aspirin use. - Family History Family History: Unobtainable Due to Extremis - Social History Social History: Unobtainable Due to Extremis - Review of Systems Review of Systems: Unobtainable Due to Extremis - patient noted to have fecal incontinece by EMS Physical Examination - Summary Physical Exam Summary: VITAL SIGNS: Reviewed. GENERAL: Patient is a well-developed and nourished male. Patient is unresponsive. HEAD AND FACE: No signs of trauma. No ecchymosis, hematomas or skull depressions. No sinus tenderness. EYES: Dilated pupils, Slightly reactive. No injected conjunctiva, no nystagmus. EARS: Ear canals and tympanic membranes are within normal limits. MOUTH: Oropharynx within normal limits. NECK: Supple, trachea is midline, no adenopathy, no JVD, no carotid bruit, neck with full ROM. CHEST: Symmetric. LUNGS: Agonal breathing. No wheezing or crackles. CVS: Regular rate and rhythm, S1 and S2 present, no murmurs or gallops appreciated. ABDOMEN: Soft. No signs of distention. No rebound, no guarding, and no masses palpated. Decreased bowel sounds. EXTREMITIES: Positive femoral pulses. No edema, no cyanosis or clubbing. NEURO: Unresponsive. Decreased reflexes. SKIN: Dry and warm. - Physical Examination Triage Information Reviewed: Yes Completion Of Physical Exam Limited Due To: Extremis - LEVEL 5 CAVEAT Resuscitation: Successful - by EMS Procedures - Procedure Summary Procedure Summary: Procedure - Endotracheal Intubation Permit was implied secondary to an emergent situation. An LMA and bougie were placed within arm's reach. Patient administered rocuronium as paralytic. A Glidescope blade was inserted into the oropharynx at which time the vocal cords were visualized. A 7.5 [place]i endotracheal tube was inserted and visualized going through the vocal cords. The stylet was removed. The colorimetric change was visualized on the CO2 meter. Breath sounds were heard in both lung carbone equally. The endotracheal tube was placed at 24 cm, measured at the teeth. Portable chest x-ray ordered for confirmation of tube level. Post intubation sedation ordered. Intubation was made at the first attempt. No complications were encountered. - Sedation Patient Received Moderate/Deep Sedation with Procedure: No - Intubation Time of Intubation: 10:47 Intubation Method: orotracheal Tube Size (cm): 7.5 Breath Sounds after Intubation: equal Intubation Complications: no complications Post Intubation Xray: No - patient immediately to label press operator, unable to obtain Diagnostics - Laboratory Result Diagrams: 12/05/19 05:57 12/05/19 08:12 Lab Statement: Any lab studies that have been ordered have been reviewed, and results considered in the medical decision making process. - EKG 1043 Cardiac Rate: NL - 63 BPM EKG Rhythm: Sinus Rhythm Summary of EKG Findings: An EKG at 1043 reveals normal sinus rhythm at rate of [address] elevations in II, III, and aVF consistent with inferior infarct. Dr. Devries has interpreted and reviewed this EKG. 1044 Cardiac Rate: NL - 74 BPM EKG Rhythm: Sinus Rhythm Summary of EKG Findings: An EKG at 1044 reveals normal sinus rhythm at rate of [address] elevations in II, III, and aVF consistent with inferior infarct. Dr. Devries has interpreted and reviewed this EKG. Re-Evaluation - Re-Evaluation First Eval Re-Evaluation Time: 10:37 Comment: Patient unresponsive upon arrival. EKG performed. STEMI called at 1045. Patient administered Etomidate and Rocuronium. Intubation at 1047. Dr. Goldman in room at 1049 with plan for NG tube placement and admission for cardiac catherization. Cardiac Resus. Course/Dx - Course Assessment/Plan: Patient is a 74-year-old male with witnessed cardiac arrest. Mode of arrival to the ED the patient is unresponsive with agonal breathing. The patient has pulses, and blood pressure. Two IV accesses were obtained. The patient was given Rocuronium and Etomidate to secure the airway with endotracheal intubation. Success on the first attempt. Patient was given IV fluids. EKG was performed and it shows ST elevations in leads II, III, and aVF consistent with inferior wall VT. STEMI alert was called. Patient was given heparin, aspirin and Brilinta. Dr. Goldman at bedside. After his assessment, he decided that he would take the patient to the label press operator. Patient is critical but hemodynamically stable. Blood test w/o a significant abnormality except for WBCs of 16, carbon dioxide of 17, anion gap of 19, BUN of 34, creatinine of 2.36 , glucose of 247, lactic acid of 9.3, AST of 312, ALT of 336, and troponin of 0.07. - Cardiac Resuscitation Differential Dx/HPI/PQRI: Acute Myocardial Infarct, Asystole, Cardiac Rhythm Disturbance, Drug Overdose, Pulmonary Edema, Pulseless Electrical Activity, Respiratory Failure - Diagnoses Provider Diagnoses: STEMI (ST elevation myocardial infarction), Unresponsive During the Visit The Following Alert/Code Occurred: STEMI - called at 1045 - Provider Notifications Discussed Care Of Patient With: Oc Goldman - interventionalist Time Discussed With Above Provider: 10:49 Instructed by Provider To: Other - Dr. Goldman in room after STEMI called. He suggests NG tube, admission for cardiac cath. - Critical Care Time Critical Care Time: 30-74 min - 60 minutes Discharge ED - Sign-Out/Discharge Documenting (check all that apply): Patient Departure - Patient accepted for admission by Dr. Goldman. - Discharge Plan Condition: Critical Disposition: ADMITTED TO [facility] - Billing Disposition and Condition Condition: CRITICAL Disposition: Admitted to [facility] - Attestation Statements Document Initiated by Jean Marie: Yes Documenting Scribe: Soniya Lawrence Provider For Whom Jean Marie is Documenting (Include Credential): Dr. Hossein Devries MD Scribe Attestation: I, Soniya Lawrence scribed for Dr. Hossein Devries MD on 12/05/19 at 1732. Scribe Documentation Reviewed: Yes Provider Attestation: The documentation as recorded by the Soniya cortez accurately reflects the service I personally performed and the decisions made by me, Dr. Hossein Devries MD Status of Scribe Document: Viewed
[2019-12-02] MEDS ORDERED: Amiodarone 360 MG IVPREMIX* 0 MG/0 ML BAG IV ONE (11:07)
[2019-12-02] MEDS ORDERED: Amiodarone IV VIAL** 50 MG/ML 3 ML (150 MG) VIAL ONE (11:07)
[2019-12-02 11:13] LABS: Activated Partial Thrombo Time 32.8 seconds (26.0-38.0); INR 1.02 (0.82-1.09)
[2019-12-02 11:21] LABS: ALT 336 U/L (7-52); AST 312 U/L (13-39); Albumin 3.7 g/dL (3.2-5.2); Albumin/Globulin Ratio 1.2 (1-3); Alkaline Phosphatase 88 U/L (34-104); Anion Gap 19 mmol/L (2-11); BUN/Creatinine Ratio 14.4 (8-20); Blood Urea Nitrogen 34 mg/dL (6-24); CKMB ng/mL 5.2 ng/mL (0.6-6.3); CO2 Carbon Dioxide 17 mmol/L (22-32); Calcium 8.9 mg/dL (8.6-10.3); Chloride 101 mmol/L (101-111); Creatine Kinase 202 U/L (10-223); EGFR Non-African American 27.3 (>60); Glucose 347 mg/dL (70-100); LDL Cholesterol Direct 93 mg/dL; Potassium 3.7 mmol/L (3.5-5.0); Sodium 137 mmol/L (135-145); Total Protein 6.7 g/dL (6.4-8.9)
[2019-12-02 11:23] LABS: Troponin I 0.07 ng/mL (<0.03)
[2019-12-02] MEDS ORDERED: Iodixanol 320 (CONTRAST) 100 ML SDV ONE ×3 (11:28→12:09)
[2019-12-02] MEDS ORDERED: Heparin 2 UNITS/ML IVPREMIX* 1,000 ML IV ONE ×2 (11:30→12:50)
[2019-12-02 11:50] LABS: ABS Eosinophils 0.1 10^3/ul (0-0.6); ABS Lymphocytes 5.5 10^3/ul (1.0-4.8); ABS Monocytes 0.9 10^3/ul (0-0.8); ABS Neutrophils 9.5 10^3/ul (1.5-7.7); Eosinophil % 0.6 %; Lymphocyte % 34.5 %; Nucleated Red Blood Cells % 0.1
[2019-12-02] MEDS ORDERED: Bivalirudin(*) 250 MG VIAL ONE ×2 (11:59→12:23)
[2019-12-02] MEDS ORDERED: Heparin VIAL(*) 5000 UNITS/ML VIAL (FIVE THOUSAND) IV SCH (12:00)
[2019-12-02] MEDS ORDERED: Midazolam* 1 MG/ML 5 ML VIAL (5 MG) ONE (12:26)
[2019-12-02] MEDS ORDERED: Propofol* 10 MG/ML 20 ML BTL ONE (12:28)
[2019-12-02] MEDS ORDERED: Propofol* 100 ML ONE (12:31)
[2019-12-02 13:33] LABS: Magnesium 2.4 mg/dL (1.9-2.7)
[2019-12-02] MEDS ORDERED: Nitroglycerin TAB 0.4 MG* 0.4 MG TAB SL PRN (13:39)
--- NOTE | 2019-12-02 13:39 | HP ---
AMENDED REPORT NOW INCLUDES DESIGNATED COSIGNER HISTORY AND PHYSICAL: DATE OF ADMISSION: 12/02/19 ATTENDING PHYSICIAN: Dr. Oc Goldman, Cardiology.* (DICTATED BY ESTHER BELL NP) CHIEF COMPLAINT: Out of hospital witnessed arrest. HISTORY OF PRESENT ILLNESS: This is a 74-year-old male patient with a notable history of diabetes, hypertension, WPW, prior remote right MCA infarct with residual left-sided hemiparesis, who presented to [facility] this morning due to out of hospital witnessed cardiac arrest. According to EMS, whom I personally spoke with, the patient had his cleaning lady at his home when he suddenly collapsed. CPR was initiated immediately, 911 was called. The state police arrived to the patient's home and continued CPR. He apparently had a shockable rhythm, thus received one defibrillation. CPR was continued and EMS arrived who resumed CPR. They administered two rounds of epinephrine before return of circulation occurred. The patient was intubated and transferred to [facility] where a STEMI alert was called and the patient was seen emergently in the emergency room by Dr. Oc Goldman. Initial ECG revealed sinus rhythm with ST segment elevations in leads II, III and aVF with ST depression in lead I and aVL with PVCs. The patient was taken emergently to the cytogenetics laboratory manager. Prior to undergoing cardiac catheterization, he was given 325 mg of aspirin, 5000 units of heparin, 180 mg of Brilinta. The patient is intubated, thus history of present illness was obtained through medical records and speaking directly with EMS. PAST MEDICAL HISTORY: Based on review of prior medical records include: 1. Diabetes mellitus. 2. Hypertension. 3. WPW. 4. Remote right-sided MCA infarct with residual left-sided hemiparesis. 5. BPH. 6. Prostate cancer. 7. Arthritis. 8. Seizures. 9. Left arm fracture. PAST SURGICAL HISTORY: Includes: 1. Prostatectomy. 2. Craniotomy for brain decompression. 3. Right craniotomy defect closure with right bone flap. MEDICATIONS: Home medications based on list brought with the patient include: 1. Coreg 25 mg tablet 1-1/2 tablets by mouth in the morning and 1 tablet at night. 2. Aspirin 81 mg a day. 3. Lipitor 80 mg p.o. q.h.s. 4. Baclofen 10 mg 1 tablet by mouth b.i.d. 5. Amlodipine 10 mg a day. 6.. Clonidine 0.3 mg q.24 h. 7.. Citalopram 40 mg a day. 8.. Gabapentin 400 mg b.i.d. 9.. Glipizide 10 mg b.i.d. 10. Lisinopril 5 mg daily. 11.. Lamotrigine 150 mg b.i.d. 12. Calcium 200 mg b.i.d. 13, Metformin 1000 mg p.o. b.i.d. 14. Pantoprazole 20 mg a day. 15. Pioglitazone 45 mg p.o. daily. 16. Flomax 0.4 mg daily. 17. Trazodone 100 mg a day. 18. Zolpidem tartrate 10 mg daily. 19.. Salsalate 500 mg t.i.d. ALLERGIES: Listed as no known drug allergies. FAMILY HISTORY: Unable to obtain at this current time. 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 REVIEW OF SYSTEMS: Unable to obtain at this time due the patient's current medical state. PHYSICAL EXAMINATION GENERAL: The patient is unresponsive, intubated status post arrest, in guarded condition. HEENT: Head is atraumatic, normocephalic. Oral mucosa is moist with ET tube in place. Pupils are 3 mm and do not restrict. NECK: Supple. No carotid bruits. LUNGS: Lung are auscultated posteriorly. No evidence of adventitious breath sounds. CARDIAC: Diminished S1, S2, regular rate and rhythm. No overt murmur auscultated. EXTREMITIES: No pedal edema. No clubbing. No cyanosis. PERIPHERAL VASCULAR: 3+ femoral pulse palpated bilaterally. No thrill. DIAGNOSTIC STUDIES/LAB DATA: Blood work pending. ECG: As mentioned above, sinus rhythm rate [address] segment elevation lead II, III, and aVF. 1st degree AVB Chest x-ray pending. ASSESSMENT AND PLAN: 1. Status post witnessed arrest with 2 rounds of epinephrine and 1 defibrillation. The patient is intubated and not responsive at this current time. It appears that he had sudden collapse. I am unable to delineate at this time if he had symptoms prior to witnessed arrest. Given sudden cardiac arrest with persistent inferior ST segment elevation, decision was made to take the patient emergently to the cytogenetics laboratory manager. He was given 180 mg of Brilinta, 325 mg of aspirin, and 5000 units of heparin. We will make further recommendations post catheterization. The patient would be a candidate for hypothermic protocol given witnessed arrest. We will defer to ICU team and make recommendations following cardiac catheterization. Will cycle enzymes and follow up with echocardiogram in the next 24 to 36 hours. Condition is guarded at this time 2. History of WPW no documented history of prior ablation. 3. History of right middle cerebral artery territory infarct status post prostatectomy at age 38 that required a craniotomy with reversal on aspirin therapy with known residual left hemiparesis according to medical records. 4. History of hypertension. 5. History of diabetes. 6. Disposition: Pending course. 7. The patient's condition is guarded listed as full code. We will follow closely post-cardiac catheterization. Dr. Oc Goldman has seen and examined the patient and agrees with the above assessment and plan. ESTHER BELL NP [id number]/[facility] #: [id number] RAFAEL
[2019-12-02] MEDS ORDERED: NS 0.9% 1000 ML** 1,000 ML IV SCH (13:45)
[2019-12-02 15:13] LABS: CKMB ng/mL 171.1 ng/mL (0.6-6.3)
[2019-12-02 15:25] LABS: Creatine Kinase 2567 U/L (10-223)
[2019-12-02 15:29] LABS: Urine Appearance Cloudy; Urine Bilirubin Negative (Negative); Urine Blood 3+ (Negative); Urine Color Amber; Urine Glucose 1+(50 mg/dL) (Negative); Urine Ketones Negative (Negative); Urine Nitrite Negative (Negative); Urine Protein 2+(100 mg/dL) (Negative); Urine Specific Gravity 1.051 (1.010-1.030); Urine Urobilinogen Negative (Negative)
[2019-12-02] MEDS ORDERED: Perflutren Lipid Microsphere* 3 ML VIAL ONE ×2 (15:34→15:41)
[2019-12-02 15:42] LABS: ALT 305 U/L (7-52); AST 448 U/L (13-39); Albumin 3.1 g/dL (3.2-5.2); Albumin/Globulin Ratio 1.2 (1-3); Alkaline Phosphatase 68 U/L (34-104); BUN/Creatinine Ratio 16.9 (8-20); Blood Urea Nitrogen 33 mg/dL (6-24); CO2 Carbon Dioxide 16 mmol/L (22-32); Calcium 7.9 mg/dL (8.6-10.3); Chloride 106 mmol/L (101-111); EGFR African American 41.1 (>60); Globulin 2.6 g/dL (2-4); Glucose 254 mg/dL (70-100); Sodium 137 mmol/L (135-145); Total Protein 5.7 g/dL (6.4-8.9)
[2019-12-02 15:43] LABS: Anion Gap 15 mmol/L (2-11); Potassium 5.4 mmol/L (3.5-5.0)
[2019-12-02 15:49] LABS: Urine Bacteria Absent (Absent); Urine Red Blood Cell Absent (Absent); Urine Squamous Epithelial Cell Present (Absent); Urine White Blood Cell Trace(0-5/hpf) (Absent)
[2019-12-02] MEDS ORDERED: Propofol* 100 ML IV SCH (16:00)
[2019-12-02 17:55] LABS: Hematocrit 38 % (42-52); Hemoglobin 12.6 g/dL (14.0-18.0); Mean Corpuscular HGB Conc 33 g/dL (31-36); Mean Corpuscular Hemoglobin 31 pg (27-31); Mean Corpuscular Volume 95 fL (80-94); Mean Platelet Volume 7.9 fL (7.4-10.4); Platelet Count 219 10^3/uL (150-450); Red Blood Count 4.06 10^6 /uL (4.18-5.48); Red Cell Distribution Width 14 % (10-15); White Blood Count 13.8 10^3/uL (3.5-10.8)
[2019-12-02] MEDS ORDERED: Pantoprazole IV* 40 MG IV ONE (17:57)
[2019-12-02] MEDS ORDERED: Dextrose 50% Syringe 50 ML* 25 GM/50 ML SYRINGE IV PUSH PRN (17:58)
[2019-12-02] MEDS ORDERED: Albuterol 2.5 MG/3 ML NEB.SOL* (0.083%) INH PRN (17:58)
[2019-12-02] MEDS ORDERED: Meperidine SYRINGE* 50 MG/ML IV PRN (18:17)
[2019-12-02] MEDS ORDERED: Piperacillin/Tazobac ADVAN(*) 3.375 GM in NS 0.9% 100 ML* 100 ML IVPB ONE (18:25)
[2019-12-02 18:27] LABS: Hematocrit 39 % (42-52); Hemoglobin 13.1 g/dL (14.0-18.0); Mean Corpuscular HGB Conc 34 g/dL (31-36); Mean Corpuscular Hemoglobin 31 pg (27-31); Mean Corpuscular Volume 93 fL (80-94); Mean Platelet Volume 7.6 fL (7.4-10.4); Platelet Count 200 10^3/uL (150-450); Red Blood Count 4.19 10^6 /uL (4.18-5.48); Red Cell Distribution Width 15 % (10-15); White Blood Count 15.3 10^3/uL (3.5-10.8)
[2019-12-02] MEDS: NS 0.9% 1000 ML** 1,000 ML IV SCH (18:32)
[2019-12-02] MEDS ORDERED: fentaNYL* 50 MCG/ML 2 ML VIAL (100 MCG VIAL) IV SLOW PU PRN (18:34)
[2019-12-02 18:39] LABS: INR 3.92 (0.82-1.09)
[2019-12-02 18:44] LABS: Activated Partial Thrombo Time 209.5 seconds (26.0-38.0)
[2019-12-02 18:44] LABS: BUN/Creatinine Ratio 19.5 (8-20); Blood Urea Nitrogen 37 mg/dL (6-24); CO2 Carbon Dioxide 18 mmol/L (22-32); Chloride 108 mmol/L (101-111); EGFR African American 42.4 (>60); Glucose 223 mg/dL (70-100); Magnesium 2.1 mg/dL (1.9-2.7); Phosphorus 6.8 mg/dL (2.5-5.0); Sodium 136 mmol/L (135-145)
[2019-12-02 18:50] LABS: ABS Lymphocytes 1.1 10^3/ul (1.0-4.8); ABS Monocytes 1.5 10^3/ul (0-0.8); ABS Neutrophils 11.2 10^3/ul (1.5-7.7); Eosinophil % 0.1 %; Lymphocyte % 8.1 %; Nucleated Red Blood Cells % 0.1
[2019-12-02 19:00] LABS: Anion Gap 10 mmol/L (2-11); Potassium 5.8 mmol/L (3.5-5.0)
[2019-12-02 19:01] LABS: Troponin I 41.77 ng/mL (<0.03)
[2019-12-02 19:06] LABS: TSH (Thyroid Stimulating Horm) 1.02 mcIU/mL (0.34-5.60)
[2019-12-02 19:18] LABS: Alcohol < 10 mg/dL (<10)
[2019-12-02 19:19] LABS: Activated Partial Thrombo Time 70.2 seconds (26.0-38.0); Fibrinogen 238.2 mg/dL (110.8-404.3)
[2019-12-02] MEDS: Insulin LISPRO* 1 UNITS UNIT SUBCUT SCH ×2 (19:19→23:58)
[2019-12-02] MEDS: Pantoprazole* 80 mg IN NS 80 MG/250 ML BAG IV SCH (19:20)
[2019-12-02] MEDS: Chlorhexidine MOUTHWASH 0.12%* 15 ML UDC TOPICAL SCH ×2 (19:28→22:48)
[2019-12-02] MEDS: Sodium Bicarbonate 8.4%* 50 ML SYRINGE IV SCH ×3 (19:28→20:00)
[2019-12-02] MEDS ORDERED: Calcium Gluconate INJ* 3 GM in NS 0.9% 250 ML* 250 ML IV ONE (19:57)
[2019-12-02] MEDS: Ticagrelor* 90 MG TAB PO SCH (20:03)
--- NOTE | 2019-12-02 20:06 | CONSULT ---
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 He was a witnessed collapse by house keeper, who started CPR, called EMS, state troopers arrive and gave 1 shock and continued CPR, EMS arrived and cont CPR with 2 epi with ROSC. Brought to ER and intubated. EKG demonstrated NSR with inferior ST elevations. STEMI called, taken to [facility], found to have occluded mid-RCA. PCI performed with 3 stents, discussed intraop findings with cardiology , some distal disease still present in RCA, no sig disease in LAD at this time. Given brillinta/asa. He is now in ICU, intubated, did not wake post code, on propofol now, BP stable. Given criteria for cardiac arrest he is started on Therapeutic hypothermia protocol. CT brain done showing no acute findings, areas of encephalomalacia+. 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 Allergies: NKDA Home Medications: Simvastatin [Zocor 40 MG (NF)] 20 mg PO QPM 07/17/16 [History Confirmed 12/01/19 ] Adapalene 0.1% CREAM (NF) [Differin 0.1 % CREAM (NF)] 0.1 % EX BEDTIME PRN 10/08 [History Confirmed 12/01/19] Beclomethasone 80 MCG MDI(NF) [Qvar 80 MCG MDI(NF)] 1 puff INH BID 10/08/18 [ History Confirmed 12/01/19] Beclomethasone Dipropionate [Qnasl] 80 mcg NA BID 10/08/18 [History Confirmed ] Cholecalciferol (Vitamin D3) [Vitamin D3] 1,000 unit PO DAILY 10/08/18 [History Confirmed 12/01/19] Cyclobenzaprine HCl 10 mg PO DAILY PRN 10/08/18 [History Confirmed 12/01/19] Hydrochlorothiazide TAB* [Hydrodiuril TAB*] 25 mg PO DAILY 10/08/18 [History Confirmed 12/01/19] Metformin HCl [Metformin HCl ER] 500 mg PO BID 10/08/18 [History Confirmed 11/30] Omeprazole 20 mg PO DAILY 10/08/18 [History Confirmed 12/01/19] Diclofenac Sodium 20 - 40 drop TOPICAL BID PRN 12/01/19 [History Confirmed 11/30] EPINEPHrine [Epipen Jr] 0.15 mg IM ONCE PRN 12/01/19 [History Confirmed 12/01/19 ] Gabapentin CAP(*) [Neurontin 300 CAP(*)] 300 mg PO BID 12/01/19 [History Confirmed 12/01/19] LevoCETirizine TAB (NF) [Xyzal TAB (NF)] 5 mg PO DAILY 12/01/19 [History Confirmed 12/01/19] Olopatadine 0.2% (NF) [Pataday 0.2% (NF)] 1 - 2 drop BOTH EYES BID PRN 12/01/19 [History Confirmed 12/01/19] Scopolamine 1.5 mg* PATCH* [Transderm-Scop 1.5 mg Patch*] 1 patch TRANSDERM Q72H 12/01/19 [History Confirmed 12/01/19] lisinopriL [Lisinopril] 40 mg PO DAILY 12/01/19 [History Confirmed 12/01/19] metroNIDAZOLE [Metronidazole 0.75 % gel] 1 applic TOPICAL DAILY 12/01/19 [ History Confirmed 12/01/19] Tele: NSR Vitals: Vital Signs Temp 98.1 F 12/02/19 16:04 Pulse 71 12/02/19 16:00 Resp 20 12/02/19 16:00 BP 127/53 12/02/19 16:00 Pulse Ox 97 12/02/19 16:00 Intake & Output 12/01/19 12/02/19 12/02/19 18:59 06:59 18:59 Intake Total 150 1803 960 Output Total 850 500 Balance 150 953 460 Weight 97.568 kg Intake: IV Fluids 150 1323 NS (0.9%) 1323 Oral 480 960 Output: Urine 850 500 Other: # Voids 1 O2/Vent: AC 14/400/+5/60% Infusions: propofol, +/- levophed, NS infusion Current Medications: Acetaminophen (Tylenol Tab*) 650 mg PO Q6H PRN PRN Reason: PAIN - MILD Albuterol (Ventolin 2.5 Mg/3 Ml Neb.Mariangel*) 2.5 mg INH Q4H [facility] Cyclobenzaprine HCl (Flexeril Tab*) 10 mg PO DAILY PRN PRN Reason: Muscle spasm Docusate Sodium (Colace Cap*) 100 mg PO BID [facility] Last Admin: 12/02/19 09:18 Dose: Not Given Enoxaparin Sodium (Lovenox(*)) 40 mg SUBCUT Q24H [facility] Last Admin: 12/02/19 16:02 Dose: 40 mg Famotidine (Pepcid Tab*) 20 mg PO BID [facility] Fluticasone Propionate (Flonase Nasal [place] 50mcg*) 2 spray BOTH NARES DAILY [facility] Last Admin: 12/02/19 09:08 Dose: 2 spray Gabapentin (Neurontin Cap(*)) 300 mg PO BID [facility] Last Admin: 12/02/19 09:17 Dose: 300 mg Guaifenesin (Mucinex*) 600 mg PO BID [facility] Last Admin: 12/02/19 09:16 Dose: 600 mg Hydrochlorothiazide (Hydrodiuril Tab*) 25 mg PO DAILY [facility] Last Admin: 12/02/19 09:16 Dose: 25 mg Ceftriaxone Sodium 1 gm/ (Sodium Chloride) 50 mls @ 100 mls/hr IVPB Q24H [facility] Last Admin: 12/02/19 16:02 Dose: 100 mls/hr Lisinopril (Prinivil Tab*) 40 mg PO DAILY [facility] Last Admin: 12/02/19 09:12 Dose: 40 mg Metformin HCl (Glucophage*) 500 mg PO 0800,1700 [facility] Last Admin: 12/02/19 16:02 Dose: 500 mg Methylprednisolone Sodium Succinate (Solu-Medrol 40 Mg) 40 mg IV Q12H [facility] Last Admin: 12/02/19 13:13 Dose: 40 mg Mometasone Furoate/Formoterol Fumar (Dulera 200/5 Mdi*) 2 puff INH BID [facility] Last Admin: 12/02/19 09:07 Dose: 2 puff Ondansetron HCl (Zofran Inj*) 4 mg IV Q6H PRN PRN Reason: NAUSEA Last Admin: 12/02/19 15:06 Dose: 4 mg Pantoprazole Sodium (Protonix Tab*) 40 mg PO DAILY [facility] Last Admin: 12/02/19 09:16 Dose: 40 mg Physical Exam: Constitutional: intubated, unresponsive, no distress, no diaphoresis Head: normocephalic, atraumatic Eyes: no pallor, no icterus ENT: moist mucous membranes Neck: soft, supple, no jvd CVS: normal rate, regular, no murmur Chest/Resp: bilateral air entry, no rhales, no wheeze, + rhonchi on left, no acc muscle use Abdomen/GI: soft, nondistended, BS+ Ext/Msk: warm, pulses+, no edema Skin: intact, warm Neuro: intubated, unresponsive/sedated, pupils reactive bilaterally, cough+, gag +; limited exam Psych: unable to assess/intubated Labs: Laboratory Results - last 24 hr 12/01/19 12/02/19 12/02/19 15:26 06:00 06:50 WBC 7.3 RBC 4.47 Hgb 13.3 Hct 38 MCV 86 MCH 30 MCHC 35 RDW 13 Plt Count 207 MPV 8.6 Neut % (Auto) 40.7 Lymph % (Auto) 44.0 [place] % (Auto) 11.5 Eos % (Auto) 3.3 Baso % (Auto) 0.5 Absolute Neuts (auto) 3.0 Absolute Lymphs (auto) 3.2 Absolute Monos (auto) 0.8 Absolute Eos (auto) 0.2 Absolute Basos (auto) 0.0 Absolute Nucleated RBC 0.0 Nucleated RBC % 0.3 Sodium 135 Potassium 3.5 Chloride 101 Carbon Dioxide 23 Anion Gap 11 BUN 18 Creatinine 0.82 Est GFR ( Amer) 83.2 Est GFR (Non-Af Amer) 68.7 BUN/Creatinine Ratio 22.0 H Glucose 138 H Calcium 8.5 L C-Reactive Protein 33.26 H Urine Color Yellow Urine Appearance Cloudy Urine pH 5.0 Ur Specific [place] 1.010 Urine Protein Negative Urine Ketones Negative Urine Blood Negative Urine Nitrate Negative Urine Bilirubin Negative Urine Urobilinogen Negative Ur Leukocyte Esterase Negative Urine Glucose Negative Imaging: brain ct 12/01 - no acute findings; encephalomalacia chronic+ cxr 12/01 - ett above theodore; ogt in place; left sided haziness++ Assessment: 73y M w/pmhx of DM, HTN, WPW, prior history of prostate surgery complicated by 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 He was a witnessed collapse by house keeper, who started CPR, called EMS, state troopers arrive and gave 1 shock and continued CPR, EMS arrived and cont CPR with 2 epi with ROSC. Brought to ER and intubated. EKG demonstrated NSR with inferior ST elevations. STEMI called, taken to [facility] [employer] [facility], found to have occluded mid-RCA. PCI performed with 3 stents, discussed intraop findings with cardiology , some distal disease still present in RCA, no sig disease in LAD at this time. Given brillinta/asa. He is now in ICU, intubated, did not wake post code, on propofol now, BP stable. Given criteria for cardiac arrest he is started on Therapeutic hypothermia protocol. CT brain done showing no acute findings, areas of encephalomalacia+. -VT/VF out of hospital arrest -STEMI of RCA; s/p PCI x3 to mRCA 12/01 -Acute hypoxix respiratory failure, int 12/01 -BAM -Shock liver -metabolic acidosis -possible aspiration pneumonia of left lung -Encephalopathy -upper GI bleed DM HTN h/o WPW h/o prior Right MCA CVA with left deficit seizure disorder Plan: Neuro- -s/p cardiac arrest, not responsive post ROSC; meets criteria for TTM -brain ct 12/01 - no acute findings; chronic encephalomalacia+ -start TTM, goal temp 33C for now -neuro consult after warming -daily neurochecks -cont propofol for sedation; fentanyl and precedex for shivering -h/o Right MCA CVA - chronic left residual weakness; has contractures of upper ext -seizure disorder - cont lamictal -hold sedatives and other anxiety meds -cont baclofen for spasms -Delirium prec; avoid BDZ CVS- -VT/VF arrest - no further arrhythmias, no antiarrhythmics needs, follow tele -STEMI RCA; s/p PCI - some left over residual disease; cont DAPT/statin -trend trop, ekgs, cks -BP stable, no pressors needed currently -follow urine output, cont IVF -TTE reviewed - thick LV, intact function it appears; no effusion, small cavity ; some mild RV dysfunction noted only -HTN - hold antihypertensives; noted to be on clonidine/coreg/norvasc/ lisinopril at home -h/o WPW - monitoring -Titrate Pressors to Maintain MAP>65 Resp- -intubated on AC 60%; abg reviewed -CXR 12/01 with left sided haziness -possible periarrest aspiration; send sputum cx; start empiric asp abx -abg q6h -cxr tomorrow -no sig secretions -Wean Fio2 to keep sat>92% -Bronchodilators PRN, Aspiration prec, Pulmonary Toilet -VAP bundle ID- afebrile, wbc 16 on arrival. -CXR 12/01 with left haziness+ -high risk for aspiration; will start empiric asp coverage with zosyn (day#1) -sent blood and urine cx as part of sepsis/hypothermia protocol GI- -NPO -coffee ground and dark red from OGT+; will lavage. possible GI bleed from arrest/stress/AC/antiplatelets. -h/o PPI at home; previous PUD? -start PPI infusion -trend h/h q6h Renal- -BAM, suspect this to be from ischemic ATN/hypoperfusion from cardiac arrest -no obstruction, rose in place, making urine -metabolic acidosis+; likely from elevated LA and hypoperfusion; improving, will given 3 Nabicarb pushes -cont IVF NS 125cc/hr; some underfilling of cavity on ECHO -hyperkalemia - last K 5.8; will given bicarb; kayexelate PO q12h x2 doses; follow BMP; calcium gluconate 3gm iv x1 -bmp q4h -strict I/O, replete to keep K>4, Mg>2 -rose as indicated Heme- -hg stable -plt okay -cont DAPT for coronary stents -ptts/inr a few hours after procedure are slightly elevated but no changes to be done; no transfusion indicated. -heparin sq q8h tomorrow to be started once PTT improved Endo- Maintain BG<200, insulin protocol as needed -check tsh and hba1b Musculsk- pressure ulcer prophylaxis. Bedrest. Wounds- none Nutrition- NPO DVT prophylaxis: SCD GI prophylaxis: ppi Central Line: left fem tlc/cooling cath 12/01 Arterial Line: right fem 12/01 Rose Cathetor: yes 12/01 Disposition: Admit to ICU; Expected LOS>2 midnights; Patient requires Critical Care/ICU for cardiac arrest, encephalopathy, stemi, therapeutic hypothermia Patient Clinical Status: guarded, critical Code Status: full code will need to find out if any HCP or next of kin who patient may have assigned to assist in making decisions. Noted that daughter may have been distanced from him for years. Total Critical Care time is 90 minutes, excluding procedures/teaching Christian Rodriguez MD [employer] (Electronically Signed)
--- NOTE | 2019-12-02 20:08 | OP ---
Operative Report - Blank - Operative Report Date of Operation: 12/02/19 Note: Arterial Line Procedure Note Indication: frequent arterial blood gases , invasive hemodynamic monitoring Diagnosis: cardiac arrest, acute hypoxic respiratory failure, stemi Performed by: Christian Rodriguez MD Consent: Emergent Tina Protocol: Time-out was performed and the correct patient and site were verified - Left arm had contractures; right arm with radial cath approach - Prior labs/history was reviewed prior to procedure - Full sterile precautions with chlorhexidine/full drapes/gowns/gloves utilized - Right femoral artery visualized with US - Vessel accessed with return of pulsatile blood. One attempt was made to access vessel. A cathetor was threaded over wire into vessel. Good arterial waveform was observed on monitor. - Arterial Catheter was sutured to site; dressing applied to site. EBL <5 cc No immediate complications noted, patient tolerated procedure well. Christian Rodriguez MD Stock Driver (Electronically Signed)
[2019-12-02 20:09] LABS: CKMB ng/mL > 297.0 ng/mL (0.6-6.3)
[2019-12-02 21:15] LABS: Creatine Kinase 4093 U/L (10-223)
[2019-12-02] MEDS: lamoTRIgine TAB(*) 100 MG PO SCH (21:15)
[2019-12-02] MEDS: busPIRone TAB* 30 MG PO SCH (21:15)
[2019-12-02] MEDS: Baclofen TAB* 10 MG PO SCH (21:15)
[2019-12-02] MEDS: Sodium Polystyrene ORAL.SUSP* 15 GM/60 ML BTL PO SCH (21:40)
[2019-12-02 22:26] LABS: BUN/Creatinine Ratio 21.1 (8-20); Calcium 7.6 mg/dL (8.6-10.3); EGFR African American 40.2 (>60); EGFR Non-African American 33.2 (>60)
[2019-12-02 22:29] LABS: Potassium 5.3 mmol/L (3.5-5.0)
[2019-12-02] MEDS ORDERED: NS 0.9% 500 ML* 500 ML IV ONE (23:15)
[2019-12-02] MEDS: fentaNYL* 50 MCG/ML 2 ML VIAL (100 MCG VIAL) IV SLOW PU PRN (23:29)
[2019-12-03] MEDS: Piperacillin/Tazobac ADVAN(*) 3.375 GM in NS 0.9% 100 ML* 100 ML IVPB SCH ×3 (00:10→15:55)
--- NOTE | 2019-12-03 00:11 | ECHO ---
*[facility]* [place] [address] Fax #: [phone] Transthoracic Echocardiogram Patient: Sherif Craven : 1945 Study Date: 12/02/2019 Age: 74 Gender: M HR: 74 bpm Height: 10 in /25.4 cm BSA: 0.49 m^2 Weight: 180.6 lb /82.1 kg BMI: 1272.6 kg/m^2 *Staff Trainer: * Liz Torres *Referring Physician: * Oc Goldman MD *Reading Physician: * Atiya Schofield MD Indications: Cardiac Arrest. History: PMH: Myocardial infarction. Risk factors: Hypertension. Diabetes mellitus. Conclusions Summary: - Procedure narrative: Transthoracic echocardiography was performed. Image quality was suboptimal. The study was technically limited due to poor acoustic window availability, restricted patient mobility, and Patient on ventilator. - Left ventricle: The cavity size is mildly reduced. Wall thickness is moderately increased. Systolic function is hyperdynamic. The estimated ejection fraction is 55-60%. Severe hypokinesis of the basal-midinferior myocardium. - Right ventricle: Systolic function is moderately reduced. - Mitral valve: There is trace regurgitation. Study data: Transthoracic echocardiogram. Procedure: Transthoracic echocardiography was performed. Image quality was suboptimal. The study was technically limited due to poor acoustic window availability, restricted patient mobility, and Patient on ventilator. Complete 2D, spectral Doppler, and color flow Doppler. Location: ICU Patient status: Inpatient. Patient room number: 13. Rhythm: Normal sinus rhythm. Findings Left ventricle: The cavity size is mildly reduced. Wall thickness is moderately increased. Systolic function is hyperdynamic. The estimated ejection fraction is 55-60%. Regional wall motion abnormalities: Severe hypokinesis of the basal-midinferior myocardium. Left ventricular diastolic function parameters are indeterminate. Right ventricle: Not well visualized. Systolic function is moderately reduced. Ventricular septum: The ventricular septum is normal. Left atrium: The atrium is normal in size. Right atrium: Not well visualized. Atrial septum: No defect or patent foramen ovale is identified. Mitral valve: The valve is structurally normal. There is no evidence of stenosis. There is trace regurgitation. Aortic valve: Not well visualized. There is no significant regurgitation. Tricuspid valve: The valve is structurally normal. There is no evidence of stenosis. There is no significant regurgitation. Pulmonic valve: Not well visualized. Aorta: The aortic root appears normal. The aortic arch appears normal. Pericardium: There is no significant pericardial effusion. Pulmonary arteries: Systolic pressure can not be accurately estimated. Systemic veins: Inferior vena cava: The vessel is normal in size. There is (>= 50%) respiratory change in the IVC dimension. Pulmonary veins: Not well visualized. Measurements Left ventricle Value Ref Mitral valve Value Ref MIGNON, LAX (L) 1.9 cm 4.2 - 5.8 Peak E 0.9 m/sec ---- ESD, LAX (L) 1.3 cm 2.5 - 4.0 Peak A 0.46 m/sec ---- FS, LAX 35 % 25 - 43 Decel time 238 ms ---- PW, ED, LAX (H) 1.7 cm 0.6 - 1.0 Peak grad, D 3.3 mm Hg ---- Peak E/A ratio 2 ---- LVOT Value Ref Diam, S 2.00 cm --------- Aortic root Value Ref Area 3.1 cm^2 --------- Root diam (H) 3.1 cm <3.0 Ventricular septum Value Ref Ascending aorta Value Ref IVS, ED (H) 1.3 cm 0.6 - 1.0 AAo AP diam, S 4.2 cm ---- Right ventricle Value Ref Aortic arch Value Ref MIGNON, LAX 3.2 cm --------- Arch diam 2.5 cm ---- Aortic valve Value Ref Decending aorta Value Ref Peak v, S 1.1 m/sec --------- Can peak kadeem 0.36 m/sec ---- VTI, S 27.1 cm --------- Mean grad, S 3.0 mm Hg --------- Inferior vena cava Value Ref Peak grad, S 5.0 mm Hg --------- Diam 1.6 cm ---- Legend: (L) and (H) lavonne values outside specified reference range. Prepared and electronically signed by Atiya Schofield MD 12/03/2019 00:10
[2019-12-03 00:14] LABS: Hematocrit 36 % (42-52); Hemoglobin 11.9 g/dL (14.0-18.0)
[2019-12-03] MEDS: Propofol* 100 ML IV SCH ×5 (00:19→23:46)
[2019-12-03 00:32] LABS: Phosphorus 6.4 mg/dL (2.5-5.0)
[2019-12-03 00:34] LABS: Troponin I 60.49 ng/mL (<0.03)
[2019-12-03 00:36] LABS: Activated Partial Thrombo Time 52.6 seconds (26.0-38.0); INR 1.28 (0.82-1.09)
[2019-12-03] MEDS: fentaNYL* 50 MCG/ML 2 ML VIAL (100 MCG VIAL) IV SLOW PU PRN (00:43)
[2019-12-03 00:48] LABS: Creatine Kinase 3973 U/L (10-223)
[2019-12-03] MEDS ORDERED: NS 0.9% 1000 ML/HR X 1 BAG (TOTAL 1000 ML) IV ONE (01:00)
[2019-12-03] MEDS: Dexmedetomidine* 1,000 MCG in NS 0.9% 250 ML* 240 ML IV SCH ×2 (01:10→16:19)
[2019-12-03] MEDS: Norepinephrine 16MCG/ML IVPRE* 4,000 MCG/250 ML BAG IV SCH (02:09)
[2019-12-03 02:27] LABS: Calcium 7.7 mg/dL (8.6-10.3); EGFR African American 43.4 (>60); EGFR Non-African American 35.9 (>60); Potassium 4.6 mmol/L (3.5-5.0)
[2019-12-03] MEDS: Chlorhexidine MOUTHWASH 0.12%* 15 ML UDC TOPICAL SCH ×5 (03:30→17:59)
[2019-12-03] MEDS: NS 0.9% 1000 ML** 1,000 ML IV SCH ×3 (04:21→19:58)
[2019-12-03] MEDS: Pantoprazole* 80 mg IN NS 80 MG/250 ML BAG IV SCH ×2 (04:58→15:00)
[2019-12-03 06:18] LABS: Hematocrit 35 % (42-52); Hemoglobin 11.6 g/dL (14.0-18.0); Mean Corpuscular HGB Conc 34 g/dL (31-36); Mean Corpuscular Hemoglobin 31 pg (27-31); Mean Corpuscular Volume 93 fL (80-94); Mean Platelet Volume 7.7 fL (7.4-10.4); Platelet Count 164 10^3/uL (150-450); Red Blood Count 3.74 10^6 /uL (4.18-5.48); Red Cell Distribution Width 15 % (10-15); White Blood Count 11.2 10^3/uL (3.5-10.8)
[2019-12-03 06:27] LABS: INR 1.2 (0.82-1.09)
[2019-12-03 06:31] LABS: ALT 223 U/L (7-52); AST 491 U/L (13-39); Albumin 2.8 g/dL (3.2-5.2); Albumin/Globulin Ratio 1.2 (1-3); Alkaline Phosphatase 59 U/L (34-104); Anion Gap 10 mmol/L (2-11); BUN/Creatinine Ratio 22.7 (8-20); Blood Urea Nitrogen 41 mg/dL (6-24); CO2 Carbon Dioxide 22 mmol/L (22-32); Calcium 7.6 mg/dL (8.6-10.3); Chloride 111 mmol/L (101-111); Cholesterol 100 mg/dL; EGFR African American 44.8 (>60); Globulin 2.3 g/dL (2-4); Glucose 147 mg/dL (70-100); HDL Cholesterol 24.7 mg/dL; Indirect Bilirubin 0.4 mg/dL (0.3-1.0); LDL Cholesterol 33 mg/dL; Phosphorus 5.6 mg/dL (2.5-5.0); Potassium 4.5 mmol/L (3.5-5.0); Sodium 143 mmol/L (135-145); Total Protein 5.1 g/dL (6.4-8.9); Triglycerides 210 mg/dL
[2019-12-03 06:36] LABS: CKMB ng/mL > 297.0 ng/mL (0.6-6.3)
[2019-12-03] MEDS: Insulin LISPRO* 1 UNITS UNIT SUBCUT SCH ×3 (06:42→17:58)
[2019-12-03 06:51] LABS: Creatine Kinase 3691 U/L (10-223)
[2019-12-03] MEDS: Baclofen TAB* 10 MG PO SCH ×2 (08:41→21:01)
[2019-12-03] MEDS: lamoTRIgine TAB(*) 100 MG PO SCH ×2 (08:42→21:01)
[2019-12-03] MEDS: Aspirin 81 mg CHEW TAB* 81 MG TAB.CHEW PO SCH (08:42)
[2019-12-03] MEDS: Ticagrelor* 90 MG TAB PO SCH ×2 (08:43→21:01)
[2019-12-03] MEDS: busPIRone TAB* 30 MG PO SCH ×2 (08:43→21:00)
[2019-12-03] MEDS: Sodium Polystyrene ORAL.SUSP* 15 GM/60 ML BTL PO SCH (08:43)
--- NOTE | 2019-12-03 09:32 | PN ---
<AlmaManasa - Last Filed: 12/03/19 09:25> Subjective Date of Service: 12/03/19 - Inferior STEMI s/p PCI to proximal RCA, out of hospital witnessed arrest. BAM, ischemic liver injury Interval History: No events last night. Patient is sedated/ventilated and currently undergoing hypothermic protocol. He reached goal temperature at 0300. + coffee ground emesis and loose stool. No next of kin available to speak to. I am told his is estranged from his daughters. A caregiver had informed our staff that patient is listed as a DNR however, his medication list that was from the [facility] did not suggest this when I saw him yesterday in the Emergency room. Medications Active Medications: Acetaminophen (Tylenol 650 Mg Supp) 650 mg CO Q6H PRN PRN Reason: shivering or fever >100.4 Albuterol (Ventolin 2.5 Mg/3 Ml Neb.Mariangel*) 2.5 mg INH Q2H PRN PRN Reason: SOB/WHEEZING Aspirin (Aspirin 81 Mg Chew Tab*) 81 mg PO DAILY [facility] Last Admin: 12/03/19 08:42 Dose: 81 mg Atorvastatin Calcium (Lipitor*) 80 mg PO 1700 [facility] Baclofen (Lioresal Tab*) 5 mg PO BID [facility] Last Admin: 12/03/19 08:41 Dose: 5 mg Buspirone HCl (Buspar Tab*) 30 mg PO BID [facility] Stop: 12/05/19 20:59 Last Admin: 12/03/19 08:43 Dose: 30 mg Chlorhexidine Gluconate (Peridex Mouth Wash 0.12%*) 15 ml TOPICAL Q4H [facility] Last Admin: 12/03/19 06:23 Dose: 15 ml Dextrose (D50w Syringe 50 Ml*) 12.5 gm IV PUSH .FOR FS < 60 - SS PRN PRN Reason: FS < 60 Fentanyl Citrate (Fentanyl*) 50 mcg IV SLOW PU Q1H PRN PRN Reason: shivering Last Admin: 12/03/19 00:43 Dose: 50 mcg Heparin Sodium (Porcine) (Heparin Vial(*)) 5,000 units IV ED ONCE [facility] Last Admin: 12/02/19 10:54 Dose: 5,000 units Sodium Chloride (Ns 0.9% 1000 Ml) 1,000 mls @ 125 mls/hr IV PER RATE [facility] Last Admin: 12/03/19 04:21 Dose: 125 mls/hr Pantoprazole Sodium (Protonix Iv Bag*) 80 mg in 250 mls @ 25 mls/hr IV Q10H [facility] Last Admin: 12/03/19 04:58 Dose: 25 mls/hr Norepinephrine Bitartrate (Levophed 16 Mcg/Ml Premix*) 4,000 mcg in 250 mls @ 18.75 mls/hr IV .PER PROTOCOL [facility]; Protocol Last Admin: 12/03/19 02:09 Dose: 18.75 mls/hr Piperacillin Sod/Tazobactam (Sod 3.375 gm/ Sodium Chloride) 100 mls @ 25 mls/ hr IVPB Q8H [facility] Last Admin: 12/03/19 08:36 Dose: 25 mls/hr Propofol (Diprivan*) 100 mls @ 7.209 mls/hr IV .PER PROTOCOL [facility]; Protocol Last Admin: 12/03/19 08:50 Dose: 19.2 mls/hr Dexmedetomidine HCl 1,000 mcg/ (Sodium Chloride) 250 mls @ 10.01 mls/hr IV .PER PROTOCOL [facility]; Protocol Last Admin: 12/03/19 01:10 Dose: 10.01 mls/hr Insulin Human Lispro (Humalog*) 0 units SUBCUT FS Q6 ICU [facility]; Protocol Last Admin: 12/03/19 06:42 Dose: 1 units Lamotrigine (Lamictal Tab(*)) 150 mg PO Q12H [facility] Last Admin: 12/03/19 08:42 Dose: 150 mg Ticagrelor (Brilinta*) 90 mg PO BID [facility] Last Admin: 12/03/19 08:43 Dose: 90 mg Objective Vital Signs: Temp Pulse Resp BP Pulse Ox 91.4 F 58 17 117/74 95 12/03/19 08:00 12/03/19 09:00 12/03/19 09:00 12/02/19 17:00 12/03/19 09:00 Oxygen Devices in Use Now: Endotracheal Tube, Mechanical Ventilator Appearance: Sedated, ventilated. ill but stable at this time Eyes: - - 2mm fixed. Ears/Nose/Mouth/Throat: Mucous Membranes Moist, - - ET/OG tube in place. Neck: Trachea Midline, No Thyroid Enlargement, Masses Respiratory: - - Auscultated anteriorly. Clear. No secretions were suctioned from ET. OG tube has coffee ground emesis noted in tube Cardiovascular: NL Sounds; No Murmurs; No JVD, No Edema Extremities: No Edema, - - cool to touch. Skin: No Rash or Ulcers Neurological: - - sedated on ventilator. Lines/Tubes/Other Access: Clean, Dry and Intact Endotracheal Tube, Clean, Dry and Intact Rose, Clean, Dry and Intact Central Line, Clean, Dry and Intact Arterial Line Laboratory Results: 12/03/19 05:55 12/03/19 05:55 INR (Anticoag Therapy) 1.20 (0.82-1.09) H 12/03/19 05:55 APTT 43.0 seconds (26.0-38.0) H 12/03/19 05:55 Total Bilirubin 0.80 mg/dL (0.2-1.0) 12/03/19 05:55 Direct Bilirubin 0.40 mg/dL (0.03-0.18) H 12/03/19 05:55 Indirect Bilirubin 0.4 mg/dL (0.3-1.0) 12/03/19 05:55 AST 491 U/L (13-39) H 12/03/19 05:55 ALT 223 U/L (7-52) H 12/03/19 05:55 Alkaline Phosphatase 59 U/L (34-104) 12/03/19 05:55 CK-MB (CK-2) > 297.0 ng/mL (0.6-6.3) H 12/03/19 05:55 B-Natriuretic Peptide 70 pg/mL (<=100) 12/02/19 18:15 Total Protein 5.1 g/dL (6.4-8.9) L 12/03/19 05:55 Albumin 2.8 g/dL (3.2-5.2) L 12/03/19 05:55 Globulin 2.3 g/dL (2-4) 12/03/19 05:55 Albumin/Globulin Ratio 1.2 (1-3) 12/03/19 05:55 Triglycerides 210 mg/dL 12/03/19 05:55 Cholesterol 100 mg/dL 12/03/19 05:55 LDL Cholesterol 33 mg/dL 12/03/19 05:55 HDL Cholesterol 24.7 mg/dL 12/03/19 05:55 TSH 1.02 mcIU/mL (0.34-5.60) 12/02/19 18:15 12/02/19 12/02/19 12/02/19 10:47 13:15 18:15 Troponin I 0.07 H* 19.50 H* 41.77 H* 12/03/19 00:00 Troponin I 60.49 H* Laboratory Results - last 24 hr 12/02/19 12/02/19 12/02/19 10:47 10:47 10:47 WBC 16.0 H RBC 4.54 Hgb 14.1 Hct 43 MCV 95 H MCH 31 MCHC 33 RDW 14 Plt Count 211 MPV 7.8 Neut % (Auto) 59.1 Lymph % (Auto) 34.5 Andrews % (Auto) 5.5 Eos % (Auto) 0.6 Baso % (Auto) 0.3 Absolute Neuts (auto) 9.5 H Absolute Lymphs (auto) 5.5 H Absolute Monos (auto) 0.9 H Absolute Eos (auto) 0.1 Absolute Basos (auto) 0.0 Absolute Nucleated RBC 0.0 Immature Gran % 3.0 Neutrophils % 54.0 Band Neutrophils % 2.0 Lymphocytes % 17.0 Reactive Lymphs % 21.0 H Monocytes % 4.0 Eosinophils % 1.0 Metamyelocytes % 1.0 Nucleated RBC % 0.1 Normal RBC Morphology Normal INR (Anticoag Therapy) 1.02 APTT 32.8 Fibrinogen ABG pH ABG pCO2 ABG pO2 ABG HCO3 ABG O2 Saturation ABG Base Excess Sodium 137 Potassium 3.7 Chloride 101 Carbon Dioxide 17 L Anion Gap 19 H BUN 34 H Creatinine 2.36 H Est GFR ( Amer) 33.0 Est GFR (Non-Af Amer) 27.3 BUN/Creatinine Ratio 14.4 Glucose 347 H POC Glucose (mg/dL) Hemoglobin A1c Lactic Acid Calcium 8.9 Ionized Calcium Phosphorus Magnesium 2.4 Total Bilirubin 0.70 Direct Bilirubin Indirect Bilirubin AST 312 H ALT 336 H Alkaline Phosphatase 88 Ammonia Total Creatine Kinase 202 CK-MB (CK-2) 5.2 Troponin I 0.07 H* B-Natriuretic Peptide Total Protein 6.7 Albumin 3.7 Globulin 3.0 Albumin/Globulin Ratio 1.2 Triglycerides Cholesterol LDL Cholesterol LDL Cholesterol Direct 93 HDL Cholesterol Lipase TSH Cortisol Urine Color Urine Appearance Urine pH Ur Specific [place] Urine Protein Urine Ketones Urine Blood Urine Nitrate Urine Bilirubin Urine Urobilinogen Ur Leukocyte Esterase Urine WBC (Auto) Urine RBC (Auto) Ur Squamous Epith Cells Urine Bacteria Hyaline Casts Urine Glucose Serum Alcohol Blood Type Antibody Screen 12/02/19 12/02/19 12/02/19 10:47 10:47 13:15 WBC RBC Hgb Hct MCV MCH MCHC RDW Plt Count MPV Neut % (Auto) Lymph % (Auto) Andrews % (Auto) Eos % (Auto) Baso % (Auto) Absolute Neuts (auto) Absolute Lymphs (auto) Absolute Monos (auto) Absolute Eos (auto) Absolute Basos (auto) Absolute Nucleated RBC Immature Gran % Neutrophils % Band Neutrophils % Lymphocytes % Reactive Lymphs % Monocytes % Eosinophils % Metamyelocytes % Nucleated RBC % Normal RBC Morphology INR (Anticoag Therapy) APTT Fibrinogen ABG pH ABG pCO2 ABG pO2 ABG HCO3 ABG O2 Saturation ABG Base Excess Sodium 137 Potassium 5.4 H D Chloride 106 Carbon Dioxide 16 L Anion Gap 15 H BUN 33 H Creatinine 1.95 H Est GFR ( Amer) 41.1 Est GFR (Non-Af Amer) 34.0 BUN/Creatinine Ratio 16.9 Glucose 254 H POC Glucose (mg/dL) Hemoglobin A1c Lactic Acid 9.3 H* Calcium 7.9 L Ionized Calcium Phosphorus Magnesium Total Bilirubin 0.70 Direct Bilirubin Indirect Bilirubin AST 448 H ALT 305 H Alkaline Phosphatase 68 Ammonia Total Creatine Kinase 2567 H CK-MB (CK-2) 171.1 H Troponin I 19.50 H* B-Natriuretic Peptide 92 Total Protein 5.7 L Albumin 3.1 L Globulin 2.6 Albumin/Globulin Ratio 1.2 Triglycerides Cholesterol LDL Cholesterol LDL Cholesterol Direct HDL Cholesterol Lipase TSH Cortisol Urine Color Urine Appearance Urine pH Ur Specific [place] Urine Protein Urine Ketones Urine Blood Urine Nitrate Urine Bilirubin Urine Urobilinogen Ur Leukocyte Esterase Urine WBC (Auto) Urine RBC (Auto) Ur Squamous Epith Cells Urine Bacteria Hyaline Casts Urine Glucose Serum Alcohol Blood Type Antibody Screen 12/02/19 12/02/19 12/02/19 14:25 14:25 14:42 WBC 13.8 H RBC 4.06 L Hgb 12.6 L Hct 38 L MCV 95 H MCH 31 MCHC 33 RDW 14 Plt Count 219 MPV 7.9 Neut % (Auto) 81.1 Lymph % (Auto) 8.1 Andrews % (Auto) 10.5 Eos % (Auto) 0.1 Baso % (Auto) 0.2 Absolute Neuts (auto) 11.2 H Absolute Lymphs (auto) 1.1 Absolute Monos (auto) 1.5 H Absolute Eos (auto) 0.0 Absolute Basos (auto) 0.0 Absolute Nucleated RBC 0.0 Immature Gran % Neutrophils % Band Neutrophils % Lymphocytes % Reactive Lymphs % Monocytes % Eosinophils % Metamyelocytes % Nucleated RBC % 0.1 Normal RBC Morphology INR (Anticoag Therapy) 3.92 H APTT 209.5 H* Fibrinogen ABG pH ABG pCO2 ABG pO2 ABG HCO3 ABG O2 Saturation ABG Base Excess Sodium Potassium Chloride Carbon Dioxide Anion Gap BUN Creatinine Est GFR ( Amer) Est GFR (Non-Af Amer) BUN/Creatinine Ratio Glucose POC Glucose (mg/dL) Hemoglobin A1c Lactic Acid Calcium Ionized Calcium Phosphorus Magnesium Total Bilirubin Direct Bilirubin Indirect Bilirubin AST ALT Alkaline Phosphatase Ammonia Total Creatine Kinase CK-MB (CK-2) Troponin I B-Natriuretic Peptide Total Protein Albumin Globulin Albumin/Globulin Ratio Triglycerides Cholesterol LDL Cholesterol LDL Cholesterol Direct HDL Cholesterol Lipase TSH Cortisol Urine Color Sherry Urine Appearance Cloudy Urine pH 5.0 Ur Specific [place] 1.051 H Urine Protein 2+(100 mg/dl) A Urine Ketones Negative Urine Blood 3+ A Urine Nitrate Negative Urine Bilirubin Negative Urine Urobilinogen Negative Ur Leukocyte Esterase Negative Urine WBC (Auto) Trace(0-5/hpf) Urine RBC (Auto) Absent Ur Squamous Epith Cells Present A Urine Bacteria Absent Hyaline Casts Present A Urine Glucose 1+(50 mg/dl) A Serum Alcohol Blood Type Antibody Screen 12/02/19 12/02/19 12/02/19 17:59 18:15 18:15 WBC RBC Hgb Hct MCV MCH MCHC RDW Plt Count MPV Neut % (Auto) Lymph % (Auto) Andrews % (Auto) Eos % (Auto) Baso % (Auto) Absolute Neuts (auto) Absolute Lymphs (auto) Absolute Monos (auto) Absolute Eos (auto) Absolute Basos (auto) Absolute Nucleated RBC Immature Gran % Neutrophils % Band Neutrophils % Lymphocytes % Reactive Lymphs % Monocytes % Eosinophils % Metamyelocytes % Nucleated RBC % Normal RBC Morphology INR (Anticoag Therapy) APTT Fibrinogen ABG pH 7.22 L ABG pCO2 25 L ABG pO2 140 H ABG HCO3 12.6 L ABG O2 Saturation 99.6 H ABG Base Excess -15.8 L Sodium 136 Potassium 5.8 H Chloride 108 Carbon Dioxide 18 L Anion Gap 10 BUN 37 H Creatinine 1.90 H Est GFR ( Amer) 42.4 Est GFR (Non-Af Amer) 35.0 BUN/Creatinine Ratio 19.5 Glucose 223 H POC Glucose (mg/dL) Hemoglobin A1c Lactic Acid Calcium 8.0 L Ionized Calcium Phosphorus 6.8 H Magnesium 2.1 Total Bilirubin Direct Bilirubin Indirect Bilirubin AST ALT Alkaline Phosphatase Ammonia 80 H Total Creatine Kinase 4093 H CK-MB (CK-2) > 297.0 H Troponin I 41.77 H* B-Natriuretic Peptide 70 Total Protein Albumin Globulin Albumin/Globulin Ratio Triglycerides Cholesterol LDL Cholesterol LDL Cholesterol Direct HDL Cholesterol Lipase 37 TSH 1.02 Cortisol 33.77 Urine Color Urine Appearance Urine pH Ur Specific [place] Urine Protein Urine Ketones Urine Blood Urine Nitrate Urine Bilirubin Urine Urobilinogen Ur Leukocyte Esterase Urine WBC (Auto) Urine RBC (Auto) Ur Squamous Epith Cells Urine Bacteria Hyaline Casts Urine Glucose Serum Alcohol < 10 Blood Type Antibody Screen 12/02/19 12/02/19 12/02/19 18:15 18:15 18:15 WBC 15.3 H RBC 4.19 Hgb 13.1 L Hct 39 L MCV 93 MCH 31 MCHC 34 RDW 15 Plt Count 200 MPV 7.6 Neut % (Auto) Lymph % (Auto) Andrews % (Auto) Eos % (Auto) Baso % (Auto) Absolute Neuts (auto) Absolute Lymphs (auto) Absolute Monos (auto) Absolute Eos (auto) Absolute Basos (auto) Absolute Nucleated RBC Immature Gran % Neutrophils % Band Neutrophils % Lymphocytes % Reactive Lymphs % Monocytes % Eosinophils % Metamyelocytes % Nucleated RBC % Normal RBC Morphology INR (Anticoag Therapy) APTT 70.2 H Fibrinogen 238.2 ABG pH ABG pCO2 ABG pO2 ABG HCO3 ABG O2 Saturation ABG Base Excess Sodium Potassium Chloride Carbon Dioxide Anion Gap BUN Creatinine Est GFR ( Amer) Est GFR (Non-Af Amer) BUN/Creatinine Ratio Glucose POC Glucose (mg/dL) Hemoglobin A1c 9.6 H Lactic Acid Calcium Ionized Calcium Phosphorus Magnesium Total Bilirubin Direct Bilirubin Indirect Bilirubin AST ALT Alkaline Phosphatase Ammonia Total Creatine Kinase CK-MB (CK-2) Troponin I B-Natriuretic Peptide Total Protein Albumin Globulin Albumin/Globulin Ratio Triglycerides Cholesterol LDL Cholesterol LDL Cholesterol Direct HDL Cholesterol Lipase TSH Cortisol Urine Color Urine Appearance Urine pH Ur Specific [place] Urine Protein Urine Ketones Urine Blood Urine Nitrate Urine Bilirubin Urine Urobilinogen Ur Leukocyte Esterase Urine WBC (Auto) Urine RBC (Auto) Ur Squamous Epith Cells Urine Bacteria Hyaline Casts Urine Glucose Serum Alcohol Blood Type Antibody Screen 12/02/19 12/02/19 12/02/19 18:15 18:15 22:01 WBC RBC Hgb Hct MCV MCH MCHC RDW Plt Count MPV Neut % (Auto) Lymph % (Auto) Andrews % (Auto) Eos % (Auto) Baso % (Auto) Absolute Neuts (auto) Absolute Lymphs (auto) Absolute Monos (auto) Absolute Eos (auto) Absolute Basos (auto) Absolute Nucleated RBC Immature Gran % Neutrophils % Band Neutrophils % Lymphocytes % Reactive Lymphs % Monocytes % Eosinophils % Metamyelocytes % Nucleated RBC % Normal RBC Morphology INR (Anticoag Therapy) APTT Fibrinogen ABG pH ABG pCO2 ABG pO2 ABG HCO3 ABG O2 Saturation ABG Base Excess Sodium 143 Potassium 5.3 H Chloride 107 Carbon Dioxide 26 Anion Gap 10 BUN 42 H Creatinine 1.99 H Est GFR ( Amer) 40.2 Est GFR (Non-Af Amer) 33.2 BUN/Creatinine Ratio 21.1 H Glucose 134 H POC Glucose (mg/dL) Hemoglobin A1c Lactic Acid 3.1 H* Calcium 7.6 L Ionized Calcium Phosphorus Magnesium Total Bilirubin Direct Bilirubin Indirect Bilirubin AST ALT Alkaline Phosphatase Ammonia Total Creatine Kinase 4156 H CK-MB (CK-2) Troponin I B-Natriuretic Peptide Total Protein Albumin Globulin Albumin/Globulin Ratio Triglycerides Cholesterol LDL Cholesterol LDL Cholesterol Direct HDL Cholesterol Lipase TSH Cortisol Urine Color Urine Appearance Urine pH Ur Specific [place] Urine Protein Urine Ketones Urine Blood Urine Nitrate Urine Bilirubin Urine Urobilinogen Ur Leukocyte Esterase Urine WBC (Auto) Urine RBC (Auto) Ur Squamous Epith Cells Urine Bacteria Hyaline Casts Urine Glucose Serum Alcohol Blood Type B Positive Antibody Screen Negative 12/02/19 12/03/19 12/03/19 23:54 00:00 00:00 WBC RBC Hgb Hct MCV MCH MCHC RDW Plt Count MPV Neut % (Auto) Lymph % (Auto) Andrews % (Auto) Eos % (Auto) Baso % (Auto) Absolute Neuts (auto) Absolute Lymphs (auto) Absolute Monos (auto) Absolute Eos (auto) Absolute Basos (auto) Absolute Nucleated RBC Immature Gran % Neutrophils % Band Neutrophils % Lymphocytes % Reactive Lymphs % Monocytes % Eosinophils % Metamyelocytes % Nucleated RBC % Normal RBC Morphology INR (Anticoag Therapy) 1.28 H APTT 52.6 H Fibrinogen ABG pH 7.31 L ABG pCO2 40 ABG pO2 94 ABG HCO3 20.4 ABG O2 Saturation 98.6 H ABG Base Excess -5.8 L Sodium Potassium Chloride Carbon Dioxide Anion Gap BUN Creatinine Est GFR ( Amer) Est GFR (Non-Af Amer) BUN/Creatinine Ratio Glucose POC Glucose (mg/dL) 103 H Hemoglobin A1c Lactic Acid Calcium Ionized Calcium Phosphorus Magnesium Total Bilirubin Direct Bilirubin Indirect Bilirubin AST ALT Alkaline Phosphatase Ammonia Total Creatine Kinase CK-MB (CK-2) Troponin I B-Natriuretic Peptide Total Protein Albumin Globulin Albumin/Globulin Ratio Triglycerides Cholesterol LDL Cholesterol LDL Cholesterol Direct HDL Cholesterol Lipase TSH Cortisol Urine Color Urine Appearance Urine pH Ur Specific [place] Urine Protein Urine Ketones Urine Blood Urine Nitrate Urine Bilirubin Urine Urobilinogen Ur Leukocyte Esterase Urine WBC (Auto) Urine RBC (Auto) Ur Squamous Epith Cells Urine Bacteria Hyaline Casts Urine Glucose Serum Alcohol Blood Type Antibody Screen 12/03/19 12/03/19 12/03/19 00:00 00:00 00:00 WBC RBC Hgb 11.9 L Hct 36 L MCV MCH MCHC RDW Plt Count MPV Neut % (Auto) Lymph % (Auto) Andrews % (Auto) Eos % (Auto) Baso % (Auto) Absolute Neuts (auto) Absolute Lymphs (auto) Absolute Monos (auto) Absolute Eos (auto) Absolute Basos (auto) Absolute Nucleated RBC Immature Gran % Neutrophils % Band Neutrophils % Lymphocytes % Reactive Lymphs % Monocytes % Eosinophils % Metamyelocytes % Nucleated RBC % Normal RBC Morphology INR (Anticoag Therapy) APTT Fibrinogen ABG pH ABG pCO2 ABG pO2 ABG HCO3 ABG O2 Saturation ABG Base Excess Sodium Potassium Chloride Carbon Dioxide Anion Gap BUN Creatinine Est GFR ( Amer) Est GFR (Non-Af Amer) BUN/Creatinine Ratio Glucose POC Glucose (mg/dL) Hemoglobin A1c Lactic Acid 5.1 H* Calcium Ionized Calcium Phosphorus 6.4 H Magnesium 2.0 Total Bilirubin Direct Bilirubin Indirect Bilirubin AST ALT Alkaline Phosphatase Ammonia Total Creatine Kinase 3973 H CK-MB (CK-2) Troponin I 60.49 H* B-Natriuretic Peptide Total Protein Albumin Globulin Albumin/Globulin Ratio Triglycerides Cholesterol LDL Cholesterol LDL Cholesterol Direct HDL Cholesterol Lipase TSH Cortisol Urine Color Urine Appearance Urine pH Ur Specific [place] Urine Protein Urine Ketones Urine Blood Urine Nitrate Urine Bilirubin Urine Urobilinogen Ur Leukocyte Esterase Urine WBC (Auto) Urine RBC (Auto) Ur Squamous Epith Cells Urine Bacteria Hyaline Casts Urine Glucose Serum Alcohol Blood Type Antibody Screen 12/03/19 12/03/19 12/03/19 02:00 05:55 05:55 WBC RBC Hgb Hct MCV MCH MCHC RDW Plt Count MPV Neut % (Auto) Lymph % (Auto) Andrews % (Auto) Eos % (Auto) Baso % (Auto) Absolute Neuts (auto) Absolute Lymphs (auto) Absolute Monos (auto) Absolute Eos (auto) Absolute Basos (auto) Absolute Nucleated RBC Immature Gran % Neutrophils % Band Neutrophils % Lymphocytes % Reactive Lymphs % Monocytes % Eosinophils % Metamyelocytes % Nucleated RBC % Normal RBC Morphology INR (Anticoag Therapy) 1.20 H APTT 43.0 H Fibrinogen ABG pH 7.29 L ABG pCO2 39 ABG pO2 80 ABG HCO3 19.2 ABG O2 Saturation 97.4 ABG Base Excess -7.3 L Sodium 143 Potassium 4.6 Chloride 111 Carbon Dioxide 22 Anion Gap 10 BUN 41 H Creatinine 1.86 H Est GFR ( Amer) 43.4 Est GFR (Non-Af Amer) 35.9 BUN/Creatinine Ratio 22.0 H Glucose 80 POC Glucose (mg/dL) Hemoglobin A1c Lactic Acid Calcium 7.7 L Ionized Calcium Phosphorus Magnesium Total Bilirubin Direct Bilirubin Indirect Bilirubin AST ALT Alkaline Phosphatase Ammonia Total Creatine Kinase CK-MB (CK-2) Troponin I B-Natriuretic Peptide Total Protein Albumin Globulin Albumin/Globulin Ratio Triglycerides Cholesterol LDL Cholesterol LDL Cholesterol Direct HDL Cholesterol Lipase TSH Cortisol Urine Color Urine Appearance Urine pH Ur Specific [place] Urine Protein Urine Ketones Urine Blood Urine Nitrate Urine Bilirubin Urine Urobilinogen Ur Leukocyte Esterase Urine WBC (Auto) Urine RBC (Auto) Ur Squamous Epith Cells Urine Bacteria Hyaline Casts Urine Glucose Serum Alcohol Blood Type Antibody Screen 12/03/19 12/03/19 12/03/19 05:55 05:55 05:55 WBC 11.2 H RBC 3.74 L Hgb 11.6 L Hct 35 L MCV 93 MCH 31 MCHC 34 RDW 15 Plt Count 164 MPV 7.7 Neut % (Auto) Lymph % (Auto) Andrews % (Auto) Eos % (Auto) Baso % (Auto) Absolute Neuts (auto) Absolute Lymphs (auto) Absolute Monos (auto) Absolute Eos (auto) Absolute Basos (auto) Absolute Nucleated RBC Immature Gran % Neutrophils % Band Neutrophils % Lymphocytes % Reactive Lymphs % Monocytes % Eosinophils % Metamyelocytes % Nucleated RBC % Normal RBC Morphology INR (Anticoag Therapy) APTT Fibrinogen ABG pH ABG pCO2 ABG pO2 ABG HCO3 ABG O2 Saturation ABG Base Excess Sodium 143 Potassium 4.5 Chloride 111 Carbon Dioxide 22 Anion Gap 10 BUN 41 H Creatinine 1.81 H Est GFR ( Amer) 44.8 Est GFR (Non-Af Amer) 37.0 BUN/Creatinine Ratio 22.7 H Glucose 147 H POC Glucose (mg/dL) Hemoglobin A1c Lactic Acid Calcium 7.6 L Ionized Calcium 1.07 L Phosphorus 5.6 H Magnesium 2.0 Total Bilirubin 0.80 Direct Bilirubin 0.40 H Indirect Bilirubin 0.4 AST 491 H ALT 223 H Alkaline Phosphatase 59 Ammonia Total Creatine Kinase 3691 H CK-MB (CK-2) > 297.0 H Troponin I B-Natriuretic Peptide Total Protein 5.1 L Albumin 2.8 L Globulin 2.3 Albumin/Globulin Ratio 1.2 Triglycerides 210 Cholesterol 100 LDL Cholesterol 33 LDL Cholesterol Direct HDL Cholesterol 24.7 Lipase TSH Cortisol Urine Color Urine Appearance Urine pH Ur Specific [place] Urine Protein Urine Ketones Urine Blood Urine Nitrate Urine Bilirubin Urine Urobilinogen Ur Leukocyte Esterase Urine WBC (Auto) Urine RBC (Auto) Ur Squamous Epith Cells Urine Bacteria Hyaline Casts Urine Glucose Serum Alcohol Blood Type Antibody Screen 12/03/19 05:55 WBC RBC Hgb Hct MCV MCH MCHC RDW Plt Count MPV Neut % (Auto) Lymph % (Auto) Andrews % (Auto) Eos % (Auto) Baso % (Auto) Absolute Neuts (auto) Absolute Lymphs (auto) Absolute Monos (auto) Absolute Eos (auto) Absolute Basos (auto) Absolute Nucleated RBC Immature Gran % Neutrophils % Band Neutrophils % Lymphocytes % Reactive Lymphs % Monocytes % Eosinophils % Metamyelocytes % Nucleated RBC % Normal RBC Morphology INR (Anticoag Therapy) APTT Fibrinogen ABG pH ABG pCO2 ABG pO2 ABG HCO3 ABG O2 Saturation ABG Base Excess Sodium Potassium Chloride Carbon Dioxide Anion Gap BUN Creatinine Est GFR ( Amer) Est GFR (Non-Af Amer) BUN/Creatinine Ratio Glucose POC Glucose (mg/dL) Hemoglobin A1c Lactic Acid 2.2 H* Calcium Ionized Calcium Phosphorus Magnesium Total Bilirubin Direct Bilirubin Indirect Bilirubin AST ALT Alkaline Phosphatase Ammonia Total Creatine Kinase CK-MB (CK-2) Troponin I B-Natriuretic Peptide Total Protein Albumin Globulin Albumin/Globulin Ratio Triglycerides Cholesterol LDL Cholesterol LDL Cholesterol Direct HDL Cholesterol Lipase TSH Cortisol Urine Color Urine Appearance Urine pH Ur Specific [place] Urine Protein Urine Ketones Urine Blood Urine Nitrate Urine Bilirubin Urine Urobilinogen Ur Leukocyte Esterase Urine WBC (Auto) Urine RBC (Auto) Ur Squamous Epith Cells Urine Bacteria Hyaline Casts Urine Glucose Serum Alcohol Blood Type Antibody Screen Diagnostic Imaging: *[facility] [place] [address] Fax #: [phone] Transthoracic Echocardiogram Patient: Sherif Craven : 1945 Study Date: 12/02/2019 Age: 74 Gender: M HR: 74 bpm Height: 10 in /25.4 cm BSA: 0.49 m^2 Weight: 180.6 lb /82.1 kg BMI: 1272.6 kg/m^2 *[employer]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 History: PMH: Myocardial infarction. Risk factors: Hypertension. Diabetes mellitus. Conclusions Summary: - Procedure narrative: Transthoracic echocardiography was performed. Image quality was suboptimal. The study was technically limited due to poor acoustic window availability, restricted patient mobility, and Patient on ventilator. - Left ventricle: The cavity size is mildly reduced. Wall thickness is moderately increased. Systolic function is hyperdynamic. The estimated ejection fraction is 55-60%. Severe hypokinesis of the basal-midinferior myocardium. - Right ventricle: Systolic function is moderately reduced. - Mitral valve: There is trace regurgitation. Study data: Transthoracic echocardiogram. Procedure: Transthoracic echocardiography was performed. Image quality was suboptimal. The study was technically limited due to poor acoustic window availability, restricted patient mobility, and Patient on This report is only to be considered final once signed by the Provider(s) as displayed in the "<Electronically Signed by >" field (s). Absence of a signature indicates the report is in a draft status and still needs to be finalized. In the event this document was created by someone other than the signing Provider, the individual initiating the document will be listed in the "Entered by:" or "Dictated by:" carbone. Patient Name: SHERIF CRAVEN JR Medical Record#: [id number] Ordering Physician: Christian Rodriguez MD Acct.#: [id number] : 1945 Age: 74 Sex: M Location: [facility] Exam Date: 12/03/19 0600 ADM Status: ADM IN Order Information: CHEST AP/PORT Accession Number: [id number] CPT: 64375 INDICATION: Respiratory failure COMPARISON: There are no relevant prior studies available for comparison. TECHNIQUE: A portable view of the chest was obtained. FINDINGS: Overlying leads obscure the [id number]. The patient rotated. Endotracheal tube tip terminates approximately 6 cm above the theodore. An enteric tube terminates in the left upper quadrant. A temperature probe is seen in the midesophagus. There is decreased aeration in the right midlung zone with similar opacification of the left hemithorax. Small pleural effusions are possible. The heart is similarly enlarged. The vascular markings are prominent. IMPRESSION: 1. The endotracheal tube is about 6 cm above the theodore (consider advancing). 2. Slightly decreased aeration of the right middle lung zone with similar opacification of the left hemithorax. 3. Small pleural effusions are suspected. <Electronically signed by Gerardo Dickey MD in [place]> 12/03/19 0807 Dictated By: Gerardo Dickey MD Dictated Date/Time: 12/03/19756 Transcribed Date/Time: 12/03/19756 Copy to: CC:Sina Sims MD; Christian Rodriguez MD; Oc Goldman MD Imaging - [facility] Imaging - [facility] [address] This report is only to be considered final once signed by the Provider(s) as displayed in the "<Electronically Signed by >" field (s). Absence of a signature indicates the report is in a draft status and still needs to be finalized. In the event this document was created by someone other than the signing Provider, the individual initiating the document will be listed in the "Entered by:" or "Dictated by:" carbone. 1 of 2 EKG Data: 12/03/2019; Sinus bradycardia rate 57 with inferior Q waves and TW inversion/ flattening c/w recent IL. QTc 531 Telemetry; reviewed. Sinus bradycardia rate 50's. No VT/VF Assessment/Plan #1 S/P Acute Inferior STEMI presented with witnessed arrest. Patient was defibrillated x1 per EMS and received 2 rounds of Epi. He is s/p CAROLE to Proximal RCA 12/02/2019. LVEF 55-60% with basal midinferior hypokinesis. Troponin has not peaked. At 0000 12/03/19 it was 60 will continue to cycle. He is currently undergoing hypothermic protocol. HE is on ASA 81/day in combination with Brilinta 90 BID. No bblocker due to relative bradycardia on IV Precedex. on Lipitor 80/day. Will follow #2 Transaminitis; AST/ALT are elevated however are < 500. Likely ischemic injury due to above #1. Primary team following. He is on high intensity statin therapy. #3 BAM; Likely due to above #1. + dark colored urine noted in rose. renal function is improving slowly. 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 On ASA therapy. 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 Will reassess once clinically able to. Currently patient has relative bradycardia. #6 Coffee ground emesis in noted in OG tube. Hgb 11.6. On IV Protonix managed by ICU team. #7 Disposition pending course. Patient condition guarded. Neuro to see patient once euthermic. Will follow closely. Attending: Oc Goldman <Oc Goldman - Last Filed: 12/03/19 11:05> Medications Active Medications: Acetaminophen (Tylenol 650 Mg Supp) 650 mg CO Q6H PRN PRN Reason: shivering or fever >100.4 Albuterol (Ventolin 2.5 Mg/3 Ml Neb.Mariangel*) 2.5 mg INH Q2H PRN PRN Reason: SOB/WHEEZING Aspirin (Aspirin 81 Mg Chew Tab*) 81 mg PO DAILY [facility] Last Admin: 12/03/19 08:42 Dose: 81 mg Atorvastatin Calcium (Lipitor*) 80 mg PO 1700 [facility] Baclofen (Lioresal Tab*) 5 mg PO BID [facility] Last Admin: 12/03/19 08:41 Dose: 5 mg Buspirone HCl (Buspar Tab*) 30 mg PO BID [facility] Stop: 12/05/19 20:59 Last Admin: 12/03/19 08:43 Dose: 30 mg Chlorhexidine Gluconate (Peridex Mouth Wash 0.12%*) 15 ml TOPICAL Q4H [facility] Last Admin: 12/03/19 06:23 Dose: 15 ml Dextrose (D50w Syringe 50 Ml*) 12.5 gm IV PUSH .FOR FS < 60 - SS PRN PRN Reason: FS < 60 Fentanyl Citrate (Fentanyl*) 50 mcg IV SLOW PU Q1H PRN PRN Reason: shivering Last Admin: 12/03/19 00:43 Dose: 50 mcg Heparin Sodium (Porcine) (Heparin Vial(*)) 5,000 units IV ED ONCE [facility] Last Admin: 12/02/19 10:54 Dose: 5,000 units Sodium Chloride (Ns 0.9% 1000 Ml) 1,000 mls @ 125 mls/hr IV PER RATE [facility] Last Admin: 12/03/19 04:21 Dose: 125 mls/hr Pantoprazole Sodium (Protonix Iv Bag*) 80 mg in 250 mls @ 25 mls/hr IV Q10H [facility] Last Admin: 12/03/19 04:58 Dose: 25 mls/hr Norepinephrine Bitartrate (Levophed 16 Mcg/Ml Premix*) 4,000 mcg in 250 mls @ 18.75 mls/hr IV .PER PROTOCOL [facility]; Protocol Last Admin: 12/03/19 02:09 Dose: 18.75 mls/hr Piperacillin Sod/Tazobactam (Sod 3.375 gm/ Sodium Chloride) 100 mls @ 25 mls/ hr IVPB Q8H [facility] Last Admin: 12/03/19 08:36 Dose: 25 mls/hr Propofol (Diprivan*) 100 mls @ 7.209 mls/hr IV .PER PROTOCOL [facility]; Protocol Last Admin: 12/03/19 08:50 Dose: 19.2 mls/hr Dexmedetomidine HCl 1,000 mcg/ (Sodium Chloride) 250 mls @ 10.01 mls/hr IV .PER PROTOCOL JANELL; Protocol Last Admin: 12/03/19 01:10 Dose: 10.01 mls/hr Insulin Human Lispro (Humalog*) 0 units SUBCUT FS Q6 ICU [facility]; Protocol Last Admin: 12/03/19 06:42 Dose: 1 units Lamotrigine (Lamictal Tab(*)) 150 mg PO Q12H [facility] Last Admin: 12/03/19 08:42 Dose: 150 mg Ticagrelor (Brilinta*) 90 mg PO BID [facility] Last Admin: 12/03/19 08:43 Dose: 90 mg Objective Vital Signs: Temp Pulse Resp BP Pulse Ox 91.4 F 58 18 117/74 94 03/12/20 08:00 12/03/19 10:00 12/03/19 10:00 12/02/19 17:00 12/03/19 10:00 Laboratory Results: 12/03/19 05:55 12/03/19 10:03 INR (Anticoag Therapy) 1.20 (0.82-1.09) H 12/03/19 05:55 APTT 43.0 seconds (26.0-38.0) H 12/03/19 05:55 Total Bilirubin 0.80 mg/dL (0.2-1.0) 12/03/19 10:03 Direct Bilirubin 0.40 mg/dL (0.03-0.18) H 12/03/19 05:55 Indirect Bilirubin 0.4 mg/dL (0.3-1.0) 12/03/19 05:55 AST 430 U/L (13-39) H 12/03/19 10:03 ALT 213 U/L (7-52) H 12/03/19 10:03 Alkaline Phosphatase 50 U/L (34-104) 12/03/19 10:03 CK-MB (CK-2) > 297.0 ng/mL (0.6-6.3) H 12/03/19 05:55 B-Natriuretic Peptide 70 pg/mL (<=100) 12/02/19 18:15 Total Protein 4.9 g/dL (6.4-8.9) L 12/03/19 10:03 Albumin 2.6 g/dL (3.2-5.2) L 12/03/19 10:03 Globulin 2.3 g/dL (2-4) 12/03/19 10:03 Albumin/Globulin Ratio 1.1 (1-3) 12/03/19 10:03 Triglycerides 210 mg/dL 12/03/19 05:55 Cholesterol 100 mg/dL 12/03/19 05:55 LDL Cholesterol 33 mg/dL 12/03/19 05:55 HDL Cholesterol 24.7 mg/dL 12/03/19 05:55 TSH 1.02 mcIU/mL (0.34-5.60) 12/02/19 18:15 12/02/19 12/02/19 12/02/19 10:47 13:15 18:15 Troponin I 0.07 H* 19.50 H* 41.77 H* 12/03/19 12/03/19 00:00 05:55 Troponin I 60.49 H* 66.45 H* Assessment/Plan Points of Discussion: The patient was seen and examined by me. I agree with the current plan outlined above by my Nurse Practioner Manasa Marquez. We will be cqarefully following him along with Dr. Rodriguez , Sander And Buffer, as we eventually bring him back to normal temperature when appropriate by protocol. Oc Goldman MD,FACC,[facility]
[2019-12-03 10:52] LABS: Albumin 2.6 g/dL (3.2-5.2); Albumin/Globulin Ratio 1.1 (1-3); BUN/Creatinine Ratio 24.4 (8-20); Calcium 7.5 mg/dL (8.6-10.3); EGFR African American 51.7 (>60); EGFR Non-African American 42.7 (>60); Globulin 2.3 g/dL (2-4); Total Bilirubin 0.8 mg/dL (0.2-1.0); Total Protein 4.9 g/dL (6.4-8.9)
[2019-12-03 11:00] LABS: Troponin I 66.45 ng/mL (<0.03)
--- NOTE | 2019-12-03 12:00 | PN ---
Progress Note - Progress Note Date of Service: 12/03/19 Note: Progress Note -- Critical Care 24 hour events -remains intubated -on hypothermia protocol; did reach target temp in evening but some shivering and temp increased so documented target temp 3am -on propofol for sedation, low dose levophed but MAPs 80s -making urine -no sig secretions from ETT -no further oozing from line sites on left groin -some loose stool+ -no arrhythmias noted overnight ROS: ROS unable to be obtained secondary to intubated/sedated Tele: sinus cosmo Vitals: Vital Signs Temp 91.4 F 12/03/19 08:00 Pulse 58 12/03/19 10:00 Resp 18 12/03/19 10:00 BP 117/74 12/02/19 17:00 Pulse Ox 94 12/03/19 10:00 Intake & Output 12/02/19 12/03/19 12/03/19 18:59 06:59 18:59 Intake Total 1750 6456 180 Output Total 375 1118 185 Balance 1375 5338 -5 Weight 80.1 kg 83.1 kg Intake: IV Fluids 1750 4849 NS 4849 IVPB 522 Ca Gluconate 299 Zosyn 223 Medicated IV 685 Levophed 48 Precedex 51 Propofol 312 Protonix 274 Tube Feeding 200 NG Tube Irrigate Amount 200 180 Output: NG Tube Drainage Amount 700 Rose 125 418 185 Residual 250 Coude 250 O2/Vent: AC 14/400/+5/40% Infusions: propofol, +/- levophed, NS infusion, protonix infusion Current Medications: Acetaminophen (Tylenol 650 Mg Supp) 650 mg TX Q6H PRN PRN Reason: shivering or fever >100.4 Albuterol (Ventolin 2.5 Mg/3 Ml Neb.Mariangel*) 2.5 mg INH Q2H PRN PRN Reason: SOB/WHEEZING Aspirin (Aspirin 81 Mg Chew Tab*) 81 mg PO DAILY [facility] Last Admin: 12/03/19 08:42 Dose: 81 mg Atorvastatin Calcium (Lipitor*) 80 mg PO 1700 JANELL Baclofen (Lioresal Tab*) 5 mg PO BID [facility] Last Admin: 12/03/19 08:41 Dose: 5 mg Buspirone HCl (Buspar Tab*) 30 mg PO BID [facility] Stop: 12/05/19 20:59 Last Admin: 12/03/19 08:43 Dose: 30 mg Chlorhexidine Gluconate (Peridex Mouth Wash 0.12%*) 15 ml TOPICAL Q4H [facility] Last Admin: 12/03/19 06:23 Dose: 15 ml Dextrose (D50w Syringe 50 Ml*) 12.5 gm IV PUSH .FOR FS < 60 - SS PRN PRN Reason: FS < 60 Fentanyl Citrate (Fentanyl*) 50 mcg IV SLOW PU Q1H PRN PRN Reason: shivering Last Admin: 12/03/19 00:43 Dose: 50 mcg Heparin Sodium (Porcine) (Heparin Vial(*)) 5,000 units IV ED ONCE [facility] Last Admin: 12/02/19 10:54 Dose: 5,000 units Sodium Chloride (Ns 0.9% 1000 Ml) 1,000 mls @ 125 mls/hr IV PER RATE [facility] Last Admin: 12/03/19 04:21 Dose: 125 mls/hr Pantoprazole Sodium (Protonix Iv Bag*) 80 mg in 250 mls @ 25 mls/hr IV Q10H [facility] Last Admin: 12/03/19 04:58 Dose: 25 mls/hr Norepinephrine Bitartrate (Levophed 16 Mcg/Ml Premix*) 4,000 mcg in 250 mls @ 18.75 mls/hr IV .PER PROTOCOL JANELL; Protocol Last Admin: 12/03/19 02:09 Dose: 18.75 mls/hr Piperacillin Sod/Tazobactam (Sod 3.375 gm/ Sodium Chloride) 100 mls @ 25 mls/ hr IVPB Q8H [facility] Last Admin: 12/03/19 08:36 Dose: 25 mls/hr Propofol (Diprivan*) 100 mls @ 7.209 mls/hr IV .PER PROTOCOL JANELL; Protocol Last Admin: 12/03/19 08:50 Dose: 19.2 mls/hr Dexmedetomidine HCl 1,000 mcg/ (Sodium Chloride) 250 mls @ 10.01 mls/hr IV .PER PROTOCOL JANELL; Protocol Last Admin: 12/03/19 01:10 Dose: 10.01 mls/hr Insulin Human Lispro (Humalog*) 0 units SUBCUT FS Q6 ICU JANELL; Protocol Last Admin: 12/03/19 06:42 Dose: 1 units Lamotrigine (Lamictal Tab(*)) 150 mg PO Q12H [facility] Last Admin: 12/03/19 08:42 Dose: 150 mg Ticagrelor (Brilinta*) 90 mg PO BID [facility] Last Admin: 12/03/19 08:43 Dose: 90 mg Physical Exam: Constitutional: intubated, unresponsive, no distress, no diaphoresis Head: normocephalic, atraumatic Eyes: no pallor, no icterus ENT: moist mucous membranes Neck: soft, supple, no jvd CVS: normal rate, regular, no murmur Chest/Resp: bilateral air entry, no rhales, no wheeze, + rhonchi scattered, no acc muscle use Abdomen/GI: soft, nondistended, BS+ Ext/Msk: cool, pulses+, no edema Skin: intact, cool Neuro: intubated, unresponsive/sedated, pupils small but reactive bilaterally; limited exam due to sedation/hypothermia Psych: unable to assess/intubated Labs: Laboratory Results - last 24 hr 12/02/19 12/02/19 12/02/19 10:47 13:15 14:25 WBC 13.8 H RBC 4.06 L Hgb 12.6 L Hct 38 L MCV 95 H MCH 31 MCHC 33 RDW 14 Plt Count 219 MPV 7.9 Neut % (Auto) 81.1 Lymph % (Auto) 8.1 [place] % (Auto) 10.5 Eos % (Auto) 0.1 Baso % (Auto) 0.2 Absolute Neuts (auto) 11.2 H Absolute Lymphs (auto) 1.1 Absolute Monos (auto) 1.5 H Absolute Eos (auto) 0.0 Absolute Basos (auto) 0.0 Absolute Nucleated RBC 0.0 Nucleated RBC % 0.1 INR (Anticoag Therapy) APTT Fibrinogen ABG pH ABG pCO2 ABG pO2 ABG HCO3 ABG O2 Saturation ABG Base Excess Sodium 137 137 Potassium 3.7 5.4 H D Chloride 101 106 Carbon Dioxide 17 L 16 L Anion Gap 19 H 15 H BUN 34 H 33 H Creatinine 2.36 H 1.95 H Est GFR ( Amer) 33.0 41.1 Est GFR (Non-Af Amer) 27.3 34.0 BUN/Creatinine Ratio 14.4 16.9 Glucose 347 H 254 H POC Glucose (mg/dL) Hemoglobin A1c Lactic Acid Calcium 8.9 7.9 L Ionized Calcium Phosphorus Magnesium 2.4 Total Bilirubin 0.70 0.70 Direct Bilirubin Indirect Bilirubin AST 312 H 448 H ALT 336 H 305 H Alkaline Phosphatase 88 68 Ammonia Total Creatine Kinase 202 2567 H CK-MB (CK-2) 5.2 171.1 H Troponin I 0.07 H* 19.50 H* B-Natriuretic Peptide Total Protein 6.7 5.7 L Albumin 3.7 3.1 L Globulin 3.0 2.6 Albumin/Globulin Ratio 1.2 1.2 Triglycerides Cholesterol LDL Cholesterol LDL Cholesterol Direct 93 HDL Cholesterol Lipase TSH Cortisol Urine Color Urine Appearance Urine pH Ur Specific [place] Urine Protein Urine Ketones Urine Blood Urine Nitrate Urine Bilirubin Urine Urobilinogen Ur Leukocyte Esterase Urine WBC (Auto) Urine RBC (Auto) Ur Squamous Epith Cells Urine Bacteria Hyaline Casts Urine Glucose Serum Alcohol Blood Type Antibody Screen 12/02/19 12/02/19 12/02/19 14:25 14:42 17:59 WBC RBC Hgb Hct MCV MCH MCHC RDW Plt Count MPV Neut % (Auto) Lymph % (Auto) [place] % (Auto) Eos % (Auto) Baso % (Auto) Absolute Neuts (auto) Absolute Lymphs (auto) Absolute Monos (auto) Absolute Eos (auto) Absolute Basos (auto) Absolute Nucleated RBC Nucleated RBC % INR (Anticoag Therapy) 3.92 H APTT 209.5 H* Fibrinogen ABG pH 7.22 L ABG pCO2 25 L ABG pO2 140 H ABG HCO3 12.6 L ABG O2 Saturation 99.6 H ABG Base Excess -15.8 L Sodium Potassium Chloride Carbon Dioxide Anion Gap BUN Creatinine Est GFR ( Amer) Est GFR (Non-Af Amer) BUN/Creatinine Ratio Glucose POC Glucose (mg/dL) Hemoglobin A1c Lactic Acid Calcium Ionized Calcium Phosphorus Magnesium Total Bilirubin Direct Bilirubin Indirect Bilirubin AST ALT Alkaline Phosphatase Ammonia Total Creatine Kinase CK-MB (CK-2) Troponin I B-Natriuretic Peptide Total Protein Albumin Globulin Albumin/Globulin Ratio Triglycerides Cholesterol LDL Cholesterol LDL Cholesterol Direct HDL Cholesterol Lipase TSH Cortisol Urine Color Sherry Urine Appearance Cloudy Urine pH 5.0 Ur Specific [place] 1.051 H Urine Protein 2+(100 mg/dl) A Urine Ketones Negative Urine Blood 3+ A Urine Nitrate Negative Urine Bilirubin Negative Urine Urobilinogen Negative Ur Leukocyte Esterase Negative Urine WBC (Auto) Trace(0-5/hpf) Urine RBC (Auto) Absent Ur Squamous Epith Cells Present A Urine Bacteria Absent Hyaline Casts Present A Urine Glucose 1+(50 mg/dl) A Serum Alcohol Blood Type Antibody Screen 12/02/19 12/02/19 12/02/19 18:15 18:15 18:15 WBC 15.3 H RBC 4.19 Hgb 13.1 L Hct 39 L MCV 93 MCH 31 MCHC 34 RDW 15 Plt Count 200 MPV 7.6 Neut % (Auto) Lymph % (Auto) [place] % (Auto) Eos % (Auto) Baso % (Auto) Absolute Neuts (auto) Absolute Lymphs (auto) Absolute Monos (auto) Absolute Eos (auto) Absolute Basos (auto) Absolute Nucleated RBC Nucleated RBC % INR (Anticoag Therapy) APTT Fibrinogen ABG pH ABG pCO2 ABG pO2 ABG HCO3 ABG O2 Saturation ABG Base Excess Sodium 136 Potassium 5.8 H Chloride 108 Carbon Dioxide 18 L Anion Gap 10 BUN 37 H Creatinine 1.90 H Est GFR ( Amer) 42.4 Est GFR (Non-Af Amer) 35.0 BUN/Creatinine Ratio 19.5 Glucose 223 H POC Glucose (mg/dL) Hemoglobin A1c Lactic Acid Calcium 8.0 L Ionized Calcium Phosphorus 6.8 H Magnesium 2.1 Total Bilirubin Direct Bilirubin Indirect Bilirubin AST ALT Alkaline Phosphatase Ammonia 80 H Total Creatine Kinase 4093 H CK-MB (CK-2) > 297.0 H Troponin I 41.77 H* B-Natriuretic Peptide 70 Total Protein Albumin Globulin Albumin/Globulin Ratio Triglycerides Cholesterol LDL Cholesterol LDL Cholesterol Direct HDL Cholesterol Lipase 37 TSH 1.02 Cortisol 33.77 Urine Color Urine Appearance Urine pH Ur Specific [place] Urine Protein Urine Ketones Urine Blood Urine Nitrate Urine Bilirubin Urine Urobilinogen Ur Leukocyte Esterase Urine WBC (Auto) Urine RBC (Auto) Ur Squamous Epith Cells Urine Bacteria Hyaline Casts Urine Glucose Serum Alcohol < 10 Blood Type Antibody Screen 12/02/19 12/02/19 12/02/19 18:15 18:15 18:15 WBC RBC Hgb Hct MCV MCH MCHC RDW Plt Count MPV Neut % (Auto) Lymph % (Auto) [place] % (Auto) Eos % (Auto) Baso % (Auto) Absolute Neuts (auto) Absolute Lymphs (auto) Absolute Monos (auto) Absolute Eos (auto) Absolute Basos (auto) Absolute Nucleated RBC Nucleated RBC % INR (Anticoag Therapy) APTT 70.2 H Fibrinogen 238.2 ABG pH ABG pCO2 ABG pO2 ABG HCO3 ABG O2 Saturation ABG Base Excess Sodium Potassium Chloride Carbon Dioxide Anion Gap BUN Creatinine Est GFR ( Amer) Est GFR (Non-Af Amer) BUN/Creatinine Ratio Glucose POC Glucose (mg/dL) Hemoglobin A1c 9.6 H Lactic Acid 3.1 H* Calcium Ionized Calcium Phosphorus Magnesium Total Bilirubin Direct Bilirubin Indirect Bilirubin AST ALT Alkaline Phosphatase Ammonia Total Creatine Kinase CK-MB (CK-2) Troponin I B-Natriuretic Peptide Total Protein Albumin Globulin Albumin/Globulin Ratio Triglycerides Cholesterol LDL Cholesterol LDL Cholesterol Direct HDL Cholesterol Lipase TSH Cortisol Urine Color Urine Appearance Urine pH Ur Specific [place] Urine Protein Urine Ketones Urine Blood Urine Nitrate Urine Bilirubin Urine Urobilinogen Ur Leukocyte Esterase Urine WBC (Auto) Urine RBC (Auto) Ur Squamous Epith Cells Urine Bacteria Hyaline Casts Urine Glucose Serum Alcohol Blood Type Antibody Screen 12/02/19 12/02/19 12/02/19 18:15 22:01 23:54 WBC RBC Hgb Hct MCV MCH MCHC RDW Plt Count MPV Neut % (Auto) Lymph % (Auto) [place] % (Auto) Eos % (Auto) Baso % (Auto) Absolute Neuts (auto) Absolute Lymphs (auto) Absolute Monos (auto) Absolute Eos (auto) Absolute Basos (auto) Absolute Nucleated RBC Nucleated RBC % INR (Anticoag Therapy) APTT Fibrinogen ABG pH ABG pCO2 ABG pO2 ABG HCO3 ABG O2 Saturation ABG Base Excess Sodium 143 Potassium 5.3 H Chloride 107 Carbon Dioxide 26 Anion Gap 10 BUN 42 H Creatinine 1.99 H Est GFR ( Amer) 40.2 Est GFR (Non-Af Amer) 33.2 BUN/Creatinine Ratio 21.1 H Glucose 134 H POC Glucose (mg/dL) 103 H Hemoglobin A1c Lactic Acid Calcium 7.6 L Ionized Calcium Phosphorus Magnesium Total Bilirubin Direct Bilirubin Indirect Bilirubin AST ALT Alkaline Phosphatase Ammonia Total Creatine Kinase 4156 H CK-MB (CK-2) Troponin I B-Natriuretic Peptide Total Protein Albumin Globulin Albumin/Globulin Ratio Triglycerides Cholesterol LDL Cholesterol LDL Cholesterol Direct HDL Cholesterol Lipase TSH Cortisol Urine Color Urine Appearance Urine pH Ur Specific [place] Urine Protein Urine Ketones Urine Blood Urine Nitrate Urine Bilirubin Urine Urobilinogen Ur Leukocyte Esterase Urine WBC (Auto) Urine RBC (Auto) Ur Squamous Epith Cells Urine Bacteria Hyaline Casts Urine Glucose Serum Alcohol Blood Type B Positive Antibody Screen Negative 12/03/19 12/03/19 12/03/19 00:00 00:00 00:00 WBC RBC Hgb Hct MCV MCH MCHC RDW Plt Count MPV Neut % (Auto) Lymph % (Auto) [place] % (Auto) Eos % (Auto) Baso % (Auto) Absolute Neuts (auto) Absolute Lymphs (auto) Absolute Monos (auto) Absolute Eos (auto) Absolute Basos (auto) Absolute Nucleated RBC Nucleated RBC % INR (Anticoag Therapy) 1.28 H APTT 52.6 H Fibrinogen ABG pH 7.31 L ABG pCO2 40 ABG pO2 94 ABG HCO3 20.4 ABG O2 Saturation 98.6 H ABG Base Excess -5.8 L Sodium Potassium Chloride Carbon Dioxide Anion Gap BUN Creatinine Est GFR ( Amer) Est GFR (Non-Af Amer) BUN/Creatinine Ratio Glucose POC Glucose (mg/dL) Hemoglobin A1c Lactic Acid Calcium Ionized Calcium Phosphorus 6.4 H Magnesium 2.0 Total Bilirubin Direct Bilirubin Indirect Bilirubin AST ALT Alkaline Phosphatase Ammonia Total Creatine Kinase 3973 H CK-MB (CK-2) Troponin I 60.49 H* B-Natriuretic Peptide Total Protein Albumin Globulin Albumin/Globulin Ratio Triglycerides Cholesterol LDL Cholesterol LDL Cholesterol Direct HDL Cholesterol Lipase TSH Cortisol Urine Color Urine Appearance Urine pH Ur Specific [place] Urine Protein Urine Ketones Urine Blood Urine Nitrate Urine Bilirubin Urine Urobilinogen Ur Leukocyte Esterase Urine WBC (Auto) Urine RBC (Auto) Ur Squamous Epith Cells Urine Bacteria Hyaline Casts Urine Glucose Serum Alcohol Blood Type Antibody Screen 12/03/19 12/03/19 12/03/19 00:00 00:00 02:00 WBC RBC Hgb 11.9 L Hct 36 L MCV MCH MCHC RDW Plt Count MPV Neut % (Auto) Lymph % (Auto) [place] % (Auto) Eos % (Auto) Baso % (Auto) Absolute Neuts (auto) Absolute Lymphs (auto) Absolute Monos (auto) Absolute Eos (auto) Absolute Basos (auto) Absolute Nucleated RBC Nucleated RBC % INR (Anticoag Therapy) APTT Fibrinogen ABG pH ABG pCO2 ABG pO2 ABG HCO3 ABG O2 Saturation ABG Base Excess Sodium 143 Potassium 4.6 Chloride 111 Carbon Dioxide 22 Anion Gap 10 BUN 41 H Creatinine 1.86 H Est GFR ( Amer) 43.4 Est GFR (Non-Af Amer) 35.9 BUN/Creatinine Ratio 22.0 H Glucose 80 POC Glucose (mg/dL) Hemoglobin A1c Lactic Acid 5.1 H* Calcium 7.7 L Ionized Calcium Phosphorus Magnesium Total Bilirubin Direct Bilirubin Indirect Bilirubin AST ALT Alkaline Phosphatase Ammonia Total Creatine Kinase CK-MB (CK-2) Troponin I B-Natriuretic Peptide Total Protein Albumin Globulin Albumin/Globulin Ratio Triglycerides Cholesterol LDL Cholesterol LDL Cholesterol Direct HDL Cholesterol Lipase TSH Cortisol Urine Color Urine Appearance Urine pH Ur Specific [place] Urine Protein Urine Ketones Urine Blood Urine Nitrate Urine Bilirubin Urine Urobilinogen Ur Leukocyte Esterase Urine WBC (Auto) Urine RBC (Auto) Ur Squamous Epith Cells Urine Bacteria Hyaline Casts Urine Glucose Serum Alcohol Blood Type Antibody Screen 12/03/19 12/03/19 12/03/19 05:55 05:55 05:55 WBC RBC Hgb Hct MCV MCH MCHC RDW Plt Count MPV Neut % (Auto) Lymph % (Auto) [place] % (Auto) Eos % (Auto) Baso % (Auto) Absolute Neuts (auto) Absolute Lymphs (auto) Absolute Monos (auto) Absolute Eos (auto) Absolute Basos (auto) Absolute Nucleated RBC Nucleated RBC % INR (Anticoag Therapy) 1.20 H APTT 43.0 H Fibrinogen ABG pH 7.29 L ABG pCO2 39 ABG pO2 80 ABG HCO3 19.2 ABG O2 Saturation 97.4 ABG Base Excess -7.3 L Sodium 143 Potassium 4.5 Chloride 111 Carbon Dioxide 22 Anion Gap 10 BUN 41 H Creatinine 1.81 H Est GFR ( Amer) 44.8 Est GFR (Non-Af Amer) 37.0 BUN/Creatinine Ratio 22.7 H Glucose 147 H POC Glucose (mg/dL) Hemoglobin A1c Lactic Acid Calcium 7.6 L Ionized Calcium Phosphorus 5.6 H Magnesium 2.0 Total Bilirubin 0.80 Direct Bilirubin 0.40 H Indirect Bilirubin 0.4 AST 491 H ALT 223 H Alkaline Phosphatase 59 Ammonia Total Creatine Kinase 3691 H CK-MB (CK-2) > 297.0 H Troponin I 66.45 H* B-Natriuretic Peptide Total Protein 5.1 L Albumin 2.8 L Globulin 2.3 Albumin/Globulin Ratio 1.2 Triglycerides 210 Cholesterol 100 LDL Cholesterol 33 LDL Cholesterol Direct HDL Cholesterol 24.7 Lipase TSH Cortisol Urine Color Urine Appearance Urine pH Ur Specific [place] Urine Protein Urine Ketones Urine Blood Urine Nitrate Urine Bilirubin Urine Urobilinogen Ur Leukocyte Esterase Urine WBC (Auto) Urine RBC (Auto) Ur Squamous Epith Cells Urine Bacteria Hyaline Casts Urine Glucose Serum Alcohol Blood Type Antibody Screen 12/03/19 12/03/19 12/03/19 05:55 05:55 05:55 WBC 11.2 H RBC 3.74 L Hgb 11.6 L Hct 35 L MCV 93 MCH 31 MCHC 34 RDW 15 Plt Count 164 MPV 7.7 Neut % (Auto) Lymph % (Auto) [place] % (Auto) Eos % (Auto) Baso % (Auto) Absolute Neuts (auto) Absolute Lymphs (auto) Absolute Monos (auto) Absolute Eos (auto) Absolute Basos (auto) Absolute Nucleated RBC Nucleated RBC % INR (Anticoag Therapy) APTT Fibrinogen ABG pH ABG pCO2 ABG pO2 ABG HCO3 ABG O2 Saturation ABG Base Excess Sodium Potassium Chloride Carbon Dioxide Anion Gap BUN Creatinine Est GFR ( Amer) Est GFR (Non-Af Amer) BUN/Creatinine Ratio Glucose POC Glucose (mg/dL) Hemoglobin A1c Lactic Acid 2.2 H* Calcium Ionized Calcium 1.07 L Phosphorus Magnesium Total Bilirubin Direct Bilirubin Indirect Bilirubin AST ALT Alkaline Phosphatase Ammonia Total Creatine Kinase CK-MB (CK-2) Troponin I B-Natriuretic Peptide Total Protein Albumin Globulin Albumin/Globulin Ratio Triglycerides Cholesterol LDL Cholesterol LDL Cholesterol Direct HDL Cholesterol Lipase TSH Cortisol Urine Color Urine Appearance Urine pH Ur Specific [place] Urine Protein Urine Ketones Urine Blood Urine Nitrate Urine Bilirubin Urine Urobilinogen Ur Leukocyte Esterase Urine WBC (Auto) Urine RBC (Auto) Ur Squamous Epith Cells Urine Bacteria Hyaline Casts Urine Glucose Serum Alcohol Blood Type Antibody Screen 12/03/19 10:03 WBC RBC Hgb Hct MCV MCH MCHC RDW Plt Count MPV Neut % (Auto) Lymph % (Auto) [place] % (Auto) Eos % (Auto) Baso % (Auto) Absolute Neuts (auto) Absolute Lymphs (auto) Absolute Monos (auto) Absolute Eos (auto) Absolute Basos (auto) Absolute Nucleated RBC Nucleated RBC % INR (Anticoag Therapy) APTT Fibrinogen ABG pH ABG pCO2 ABG pO2 ABG HCO3 ABG O2 Saturation ABG Base Excess Sodium 143 Potassium 4.0 Chloride 113 H Carbon Dioxide 19 L Anion Gap 11 BUN 39 H Creatinine 1.60 H Est GFR ( Amer) 51.7 Est GFR (Non-Af Amer) 42.7 BUN/Creatinine Ratio 24.4 H Glucose 175 H POC Glucose (mg/dL) Hemoglobin A1c Lactic Acid Calcium 7.5 L Ionized Calcium Phosphorus Magnesium Total Bilirubin 0.80 Direct Bilirubin Indirect Bilirubin AST 430 H ALT 213 H Alkaline Phosphatase 50 Ammonia Total Creatine Kinase CK-MB (CK-2) Troponin I B-Natriuretic Peptide Total Protein 4.9 L Albumin 2.6 L Globulin 2.3 Albumin/Globulin Ratio 1.1 Triglycerides Cholesterol LDL Cholesterol LDL Cholesterol Direct HDL Cholesterol Lipase TSH Cortisol Urine Color Urine Appearance Urine pH Ur Specific [place] Urine Protein Urine Ketones Urine Blood Urine Nitrate Urine Bilirubin Urine Urobilinogen Ur Leukocyte Esterase Urine WBC (Auto) Urine RBC (Auto) Ur Squamous Epith Cells Urine Bacteria Hyaline Casts Urine Glucose Serum Alcohol Blood Type Antibody Screen Imaging: brain ct 12/01 - no acute findings; encephalomalacia chronic+ cxr 12/01 - ett above the[place]ore; ogt in place; left sided haziness++ cxr 12/02 - ett above [place] ; bilateral haziness, left>right infiltrates+ Assessment: 73y M w/pmhx of DM, HTN, WPW, prior history of prostate surgery complicated by 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 He was a witnessed collapse by house keeper, who started CPR, called EMS, state troopers arrive and gave 1 shock and continued CPR, EMS arrived and cont CPR with 2 epi with ROSC. Brought to ER and intubated. EKG demonstrated NSR with inferior ST elevations. STEMI called, taken to section laborer, found to have occluded mid-RCA. PCI performed with 3 stents, discussed intraop findings with cardiology , some distal disease still present in RCA, no sig disease in LAD at this time. Given brillinta/asa. He is now in ICU, intubated, did not wake post code, on propofol now, BP stable. Given criteria for cardiac arrest he is started on Therapeutic hypothermia protocol. CT brain done showing no acute findings, areas of encephalomalacia+. -VT/VF out of hospital arrest -STEMI of RCA; s/p PCI x3 to mRCA 12/01 -Acute hypoxix respiratory failure, int 12/01 -BAM -Shock liver -metabolic acidosis -possible aspiration pneumonia of left lung -Encephalopathy -upper GI bleed DM HTN h/o WPW h/o prior Right MCA CVA with left deficit seizure disorder Plan: Neuro- -s/p cardiac arrest, not responsive post ROSC; ongoing TTM; started with target temp 33C at 3am, maintainence cooling phase -brain ct 12/01 - no acute findings; chronic encephalomalacia+ -neuro consult after warming -daily neurochecks -cont propofol for sedation; fentanyl and precedex for shivering -h/o Right MCA CVA - chronic left residual weakness; has contractures of upper ext -seizure disorder - cont lamictal -hold sedatives and other anxiety meds -cont baclofen for spasms -Delirium prec; avoid BDZ CVS- -VT/VF arrest - no further arrhythmias, no antiarrhythmics needs, follow tele -current sinus cosmo 50s; likely from hypothermia -EKG with resolved ST elevations, inferior Qwaves noted -STEMI RCA; s/p PCI - some left over residual disease; cont DAPT/statin -trop still rising -shock; unspecified; labile BP requiring low dose levophed; maintain MAP 70-80 -follow urine output, cont IVF 125cc/hr -TTE reviewed - thick LV, intact function it appears; no effusion, small cavity ; some mild RV dysfunction noted only -HTN - hold antihypertensives; noted to be on clonidine/coreg/norvasc/ lisinopril at home -h/o WPW - monitoring -Titrate Pressors to Maintain MAP>65 Resp- -intubated on AC 40%; abg reviewed -CXR 12/02 bilatera haziness, left>right -no sig secretions -possible periarrest aspiration; send sputum cx; cont empiric asp abx -abg q6h -cxr tomorrow -Wean Fio2 to keep sat>92% -Bronchodilators PRN, Aspiration prec, Pulmonary Toilet -VAP bundle ID- hypothermic on protocol; wbc 16-15-11 -CXR 12/02 with left>right haziness+ -high risk for aspiration; cont empiric asp coverage with zosyn q8h (day#2) -pending blood and urine cx as part of sepsis/hypothermia protocol GI- -NPO -coffee ground and dark red from OGT+ yesterday, improved now; hg stable; possible GI bleed from arrest/stress/AC/antiplatelets. -h/o PPI at home; previous PUD? -cont PPI infusion -trend h/h q6h Renal- -BAM, suspect this to be from ischemic ATN/hypoperfusion from cardiac arrest; Cr improving, making urine -no obstruction, rose in place -metabolic acidosis+, likely was from hypoperfusion, improving -cont IVF NS 125cc/hr -hyperkalemia, resolved -bmp q4h -strict I/O, replete to keep K>4, Mg>2 -rose as indicated Heme- -hg stable -plt okay -cont DAPT for coronary stents -trial heparin sq q8h today, no further bleeding noted; at risk of DVTs Endo- Maintain BG<200, insulin protocol as needed -tsh 1; check hba1b Musculsk- pressure ulcer prophylaxis. Bedrest. Wounds- none Nutrition- NPO DVT prophylaxis: SCD, heparin sq GI prophylaxis: ppi Central Line: left fem tlc/cooling cath 12/01 Arterial Line: right fem 12/01 Rose Cathetor: yes 12/01 Followup discussion with family --- Called Daughter Leticia Craven, , and found that Patient had destroyed relationship with her 20+ years back. She has not spoken with him in 10+ years. She was updated on his medical condition but does not state she will participate as decision maker at this time. He was by 10+ years back, unclear of ex- status. Awaiting callback from his sister, Daysi Mendoza, who daughter states also is distanced from patient but will clarify this. If no surrogate available, then may need to be administrative consents/decision making. also pending a possible old DNR/DNI order from prior? will need to followup with this. [facility] but no documentation there but may be at home as per care-takers? Disposition: Patient requires Critical Care/ICU for cardiac arrest, encephalopathy, stemi, therapeutic hypothermia Patient Clinical Status: guarded, critical Code Status: full code Total Critical Care time is 65 minutes, excluding procedures/teaching Chrisitan Rodriguez MD Engine Pilot (Electronically Signed)
[2019-12-03 12:33] LABS: ABS Lymphocytes 0.5 10^3/ul (1.0-4.8); ABS Neutrophils 8.4 10^3/ul (1.5-7.7); Hematocrit 34 % (42-52); Hemoglobin 11.7 g/dL (14.0-18.0); Lymphocyte % 5.2 %; Mean Corpuscular HGB Conc 34 g/dL (31-36); Mean Corpuscular Hemoglobin 32 pg (27-31); Mean Corpuscular Volume 93 fL (80-94); Mean Platelet Volume 7.8 fL (7.4-10.4); Nucleated Red Blood Cells % 0.1; Platelet Count 156 10^3/uL (150-450); Red Cell Distribution Width 15 % (10-15); White Blood Count 9.9 10^3/uL (3.5-10.8)
[2019-12-03 12:49] LABS: Phosphorus 5.4 mg/dL (2.5-5.0)
[2019-12-03] MEDS: Heparin VIAL(*) 5000 UNITS/ML VIAL (FIVE THOUSAND) SUBCUT SCH ×2 (13:40→21:01)
[2019-12-03 14:21] LABS: Activated Partial Thrombo Time 35.8 seconds (26.0-38.0); INR 1.14 (0.82-1.09)
[2019-12-03 14:22] LABS: BUN/Creatinine Ratio 25.2 (8-20); Calcium 7.4 mg/dL (8.6-10.3); EGFR African American 53.6 (>60); EGFR Non-African American 44.3 (>60); Potassium 3.9 mmol/L (3.5-5.0)
--- NOTE | 2019-12-03 16:36 | CATH ---
CARDIAC CATHETERIZATION REPORT: DATE OF PROCEDURE: 12/02/19 - ROOM #ICU-13 INDICATION FOR PROCEDURE: The patient presents with cardiac arrest, now unresponsive with EKG demonstrating ST segment elevation inferior wall myocardial infarction. PROCEDURE PERFORMED: Coronary arteriography, intervention into proximal and distal right coronary artery with subsequent placement ultimately of multiple stents in proximal LAD including a 2.75 x 12 mm long Synergy drug-eluting stent with a 3.0 x 32 mm long Synergy drug-eluting stent placed within it in order to crush a compressed 2.5 x 30 mm long Orsiro stent within the proximal segment of the right coronary artery, balloon angioplasty of the distal right coronary artery after the PDA. APPROACH UTILIZED: The right radial artery was assessed for size in the cardiovascular laboratory and found to be acceptable and as such this was the approach. EQUIPMENT UTILIZED: 1. The right radial artery sheath was a 6-Mexican Glidesheath Slender. 2. The diagnostic catheter was a 5-Mexican TIG 4 catheter. 3. The diagnostic guidewire was a Cunha 260 length curved wire as well as a Wholey 145 cm length guidewire. 4. The guiding catheter initially utilized was an ART4 curved 6-Mexican guide catheter with side holes. 5. The interventional wires used included an All Star 190 length, a BMW 190 length and several All Star exchange length guidewires. The balloon angioplasty catheters utilized included a 2.5 x 15 mm long Emerge balloon in addition to 2.75 x 15 mm an Emerge over the wire 1.5 x 8 mm for support and a noncompliant Emerge 2.0 x 8 mm and a noncompliant 3.0 x 20 mm Emerge balloon. STENTS UTILIZED: 1. A Synergy 2.75 x 12 mm in the proximal right coronary artery, the Orsiro 2.5 x 30 mm length was unable to be delivered distally and had to be crushed in the proximal portion of the right coronary artery with balloon angioplasty and placement of a 3.0 x 32 mm long Synergy stent in the proximal right coronary artery. 2. An IC intravascular heat exchange catheter was placed in the left femoral vein for hypothermic therapy. Also, a GuideLiner V3 catheter was utilized to try to get extra support to deliver distal stent. 3. Closure device utilized was a regular length Vasc Band. 4. Thrombectomy device attempted to be used was a Pronto V4 extraction catheter 5.5 Mexican. Laboratory results were not present at the start of the case, eventually they came back. Glucose was 347, BUN and creatinine was 34 and 2.36. Sodium 137, potassium 3.7, chloride 101, bicarb 17, troponin was 0.07. MEDICATIONS GIVEN: The patient received aspirin with a suppository as well as 160 mg down the NG tube with 180 mg down the NG tube. The patient had a heparin bolus in the emergency room and the ACT was found to be subtherapeutic, Angiomax bolus and Angiomax drip adjusted for renal dysfunction was given. The patient received 1% lidocaine for anesthesia and a radial artery cocktail including 300 mcg of nitroglycerin and 3 mg of verapamil were given. The patient did receive Versed for sedation and the patient was intubated already and the contracting manager nurse practitioner managed propofol therapy on the patient. DESCRIPTION OF PROCEDURE: The patient was brought to the cardiovascular laboratory with a respirator and prepped and draped in sterile fashion. Under ultrasound guidance, the right radial artery was cannulated and the sheath was placed. Coronary arteriography was then performed utilizing the TIG catheter. Following this, decision was made to intervene in the totally occluded right coronary artery. Of note, the contracting manager Dr. Rodriguez had come in and placed an NG tube so that aspirin and Brilinta could be given. ACT was checked and found to be subtherapeutic and as such as Angiomax bolus and Angiomax drip was started. Guiding views were obtained. An [id number] system was utilized to assess the location of the wire. Following this, balloon angioplasty was performed to the proximal lesion with the wire in an acute marginal branch. This allowed to better visualize the right coronary artery and is allowed for passage of the wire to the distal segment. Balloon angioplasty was then performed to the distal segment. Because of the fact that there was compromise of flow at the proximal lesion seen in the right coronary artery, the distal balloon angioplasty procedure was aborted and a stent was placed in the proximal right coronary artery. This reestablished much better flow. A Guide-Liner was then placed to attempt to get better support for distal balloon angioplasty, which was subsequently performed with reestablishment of flow to the distal vessel. Attempts were then to be made to try to deliver an Orsiro stent to the distal area. This was unable to be delivered and unfortunately on pulling it back, it sheared off of the catheter in the proximal right coronary artery with some compression of the stent. Due to loss of guidewire, the decision was then made to attempt to perform balloon angioplasty and crush the stent into the wall of the proximal right coronary artery. Thisd was successfully performed. Following this, the 3.0 x 30 mm synergy stent was then deployed in the proximal right coronary artery with high pressure balloon inflations performed afterwards. At that point in time, the patient had received a significant amount of contrast and radiation and flow was well established and decision was made not to pursue the distal stenting of the vessel at that time. The catheter and sheath were removed and hemostasis was obtained with the Vasc Band. The reverse Barbeau was found to be a B. The total contrast used was 225 cc of Visipaque dye with 25 cc of Omnipaque dye. Initially, the radiation exposure included 36.8 minutes of fluoro time. The air kerma radiation was 5340 mGy. The DAP radiation was 3761 microgray per meter squared. RESULTS: CORONARY ARTERIOGRAPHY: A. Left coronary artery: 1. Left main - there was calcium seen within the left main, but no significant narrowing was noted. A mild 10% to 15% distal and ostial narrowing was seen. 2. Left anterior descending artery. The left anterior descending artery had calcium within it as well. There was a proximal 40% lesion was noted with mid disease of 30% to 35%. The left anterior descending artery extended to the apical region onto the distal inferior wall. It supplied a moderate size proximal diagonal branch which bifurcated along its course. There was mild-to- moderate disease present, but no critical lesion seen. 3. Circumflex artery - a nondominant vessel supplying a thin first obtuse marginal branch, followed by a thin second and third obtuse marginal branch and ending in a low-lying bifurcated moderate size obtuse marginal branch. B. Right coronary artery - totally occluded in its proximal area, on reconstitution the vessel was noted to have a [id number] 35% to 40% mid lesion. The distal artery had a 35% to 40% lesion and after the posterior descending artery, there was total occlusion of the vessel with what appeared to be the dissection of the thrombus. INTERVENTION INTO RIGHT CORONARY ARTERY: Successful reconstitution of totally occluded right coronary artery with balloon angioplasty with placement of a 2.75 x 12 mm, which was then spanned with a 3.0 x 30 mm long Synergy drug-eluting stent in order to crush the Orsiro stent that came off of the balloon in the proximal segment with GARRET-3 flow and no dissection seen but a question on the [place] projection of a small area of staining within the myocardium versus proximal portion of a conus branch of the right coronary artery. The mid segment of the right coronary artery had the 35 % to 40% narrowing noted. The distal segment of the artery had a probable dissected area with a narrowing of 75% and the proximal portion of the PDA had a narrowing of about 65%. OVERALL ASSESSMENT: Successful intervention into totally occluded right coronary artery with reconstitution as described above. Dual antiplatelet is paramount at this time. We will institute beta-rudi therapy if we can at some point in time, but clearly have to see whether the patient wakes up from his cardiac arrest. Consideration for further intervention of the right coronary artery may have to be approached at sometime, but for now we will not proceed with this. [id number]/CPS #: [id number]
[2019-12-03] MEDS ORDERED: Atorvastatin* 80 MG TAB PO SCH (17:00)
[2019-12-03 17:46] LABS: BUN/Creatinine Ratio 26.5 (8-20); Blood Urea Nitrogen 39 mg/dL (6-24); CO2 Carbon Dioxide 18 mmol/L (22-32); Calcium 7.3 mg/dL (8.6-10.3); EGFR Non-African American 47.1 (>60); Glucose 206 mg/dL (70-100); Potassium 3.8 mmol/L (3.5-5.0); Sodium 143 mmol/L (135-145)
[2019-12-03 17:55] LABS: Anion Gap 10 mmol/L (2-11); CKMB ng/mL > 297.0 ng/mL (0.6-6.3); Chloride 115 mmol/L (101-111)
[2019-12-03] MEDS: Atorvastatin* 80 MG TAB PO SCH (17:59)
[2019-12-03 18:13] LABS: Phosphorus 5.4 mg/dL (2.5-5.0)
[2019-12-03 18:28] LABS: Creatine Kinase 2752 U/L (10-223)
[2019-12-03 22:14] LABS: Hematocrit 34 % (42-52); Hemoglobin 11.6 g/dL (14.0-18.0); Mean Corpuscular HGB Conc 34 g/dL (31-36); Mean Corpuscular Hemoglobin 32 pg (27-31); Mean Corpuscular Volume 93 fL (80-94); Mean Platelet Volume 7.9 fL (7.4-10.4); Platelet Count 140 10^3/uL (150-450); Red Blood Count 3.67 10^6 /uL (4.18-5.48); Red Cell Distribution Width 15 % (10-15); White Blood Count 8.6 10^3/uL (3.5-10.8)
[2019-12-03 22:23] LABS: BUN/Creatinine Ratio 24.2 (8-20); Calcium 7.1 mg/dL (8.6-10.3); EGFR African American 51.3 (>60); EGFR Non-African American 42.4 (>60); Potassium 3.7 mmol/L (3.5-5.0)
[2019-12-04] MEDS: Piperacillin/Tazobac ADVAN(*) 3.375 GM in NS 0.9% 100 ML* 100 ML IVPB SCH ×3 (00:23→14:59)
[2019-12-04] MEDS: Chlorhexidine MOUTHWASH 0.12%* 15 ML UDC TOPICAL SCH ×6 (00:23→19:58)
[2019-12-04 00:43] LABS: Phosphorus 5.2 mg/dL (2.5-5.0)
[2019-12-04] MEDS: Insulin LISPRO* 1 UNITS UNIT SUBCUT SCH ×4 (01:30→19:57)
[2019-12-04] MEDS: Pantoprazole* 80 mg IN NS 80 MG/250 ML BAG IV SCH ×3 (01:31→20:01)
[2019-12-04 02:29] LABS: BUN/Creatinine Ratio 26.2 (8-20); Calcium 7.2 mg/dL (8.6-10.3); EGFR African American 57.9 (>60); EGFR Non-African American 47.8 (>60); Potassium 3.6 mmol/L (3.5-5.0)
[2019-12-04] MEDS: NS 0.9% 1000 ML** 1,000 ML IV SCH ×2 (04:11→16:25)
[2019-12-04] MEDS: Propofol* 100 ML IV SCH ×5 (04:11→23:41)
[2019-12-04] MEDS: Heparin VIAL(*) 5000 UNITS/ML VIAL (FIVE THOUSAND) SUBCUT SCH (06:35)
[2019-12-04 06:53] LABS: Hematocrit 33 % (42-52); Hemoglobin 11.8 g/dL (14.0-18.0); Mean Corpuscular HGB Conc 35 g/dL (31-36); Mean Corpuscular Hemoglobin 32 pg (27-31); Mean Corpuscular Volume 92 fL (80-94); Mean Platelet Volume 8.3 fL (7.4-10.4); Platelet Count 154 10^3/uL (150-450); Red Blood Count 3.65 10^6 /uL (4.18-5.48); Red Cell Distribution Width 15 % (10-15); White Blood Count 8.3 10^3/uL (3.5-10.8)
[2019-12-04 06:54] LABS: INR 1.2 (0.82-1.09)
[2019-12-04 07:05] LABS: ALT 161 U/L (7-52); AST 258 U/L (13-39); Albumin 2.7 g/dL (3.2-5.2); Albumin/Globulin Ratio 1.2 (1-3); Alkaline Phosphatase 47 U/L (34-104); BUN/Creatinine Ratio 26.2 (8-20); Blood Urea Nitrogen 39 mg/dL (6-24); CO2 Carbon Dioxide 19 mmol/L (22-32); Creatine Kinase 1536 U/L (10-223); EGFR African American 56.1 (>60); EGFR Non-African American 46.4 (>60); Globulin 2.3 g/dL (2-4); Glucose 166 mg/dL (70-100); Indirect Bilirubin 0.3 mg/dL (0.3-1.0); Phosphorus 4.7 mg/dL (2.5-5.0); Potassium 3.5 mmol/L (3.5-5.0); Sodium 143 mmol/L (135-145)
[2019-12-04 07:09] LABS: Troponin I 43.16 ng/mL (<0.03)
[2019-12-04 07:10] LABS: CKMB ng/mL 240.9 ng/mL (0.6-6.3)
[2019-12-04 07:13] LABS: Anion Gap 10 mmol/L (2-11); Chloride 114 mmol/L (101-111)
[2019-12-04] MEDS: Ticagrelor* 90 MG TAB PO SCH ×3 (07:40→19:58)
[2019-12-04] MEDS: Aspirin 81 mg CHEW TAB* 81 MG TAB.CHEW PO SCH ×2 (07:40→09:59)
[2019-12-04] MEDS: lamoTRIgine TAB(*) 100 MG PO SCH ×2 (07:40→09:59)
[2019-12-04] MEDS: Baclofen TAB* 10 MG PO SCH ×3 (07:40→19:58)
[2019-12-04] MEDS: busPIRone TAB* 30 MG PO SCH ×3 (07:41→20:00)
--- NOTE | 2019-12-04 09:21 | PN ---
<Manasa Marquez - Last Filed: 12/04/19 09:35> Subjective Date of Service: 12/04/19 - Inferior STEMI s/p PCI, witnessed cardiac arrest. Interval History: No events last night. Patient is sedated/ventilated and currently undergoing hypothermic protocol. He is not euthermic yet. Once he is plan is for neuro to eval. Currently on Levophed. Continues to have coffee ground emesis. + loose stool noted in flexiseal. There is concern that patient is not absorbing medication given RN was able to retract meds from OG tube. Medications Active Medications: Acetaminophen (Tylenol 650 Mg Supp) 650 mg WV Q6H PRN PRN Reason: shivering or fever >100.4 Albuterol (Ventolin 2.5 Mg/3 Ml Neb.Mariangel*) 2.5 mg INH Q2H PRN PRN Reason: SOB/WHEEZING Aspirin (Aspirin 81 Mg Chew Tab*) 81 mg PO DAILY [facility] Last Admin: 12/04/19 07:40 Dose: 81 mg Atorvastatin Calcium (Lipitor*) 80 mg PO 1700 [facility] Last Admin: 12/03/19 17:59 Dose: 80 mg Baclofen (Lioresal Tab*) 5 mg PO BID [facility] Last Admin: 12/04/19 07:40 Dose: 5 mg Buspirone HCl (Buspar Tab*) 30 mg PO BID [facility] Stop: 12/05/19 20:59 Last Admin: 12/04/19 07:41 Dose: 30 mg Chlorhexidine Gluconate (Peridex Mouth Wash 0.12%*) 15 ml TOPICAL Q4H [facility] Last Admin: 12/04/19 06:55 Dose: 15 ml Dextrose (D50w Syringe 50 Ml*) 12.5 gm IV PUSH .FOR FS < 60 - SS PRN PRN Reason: FS < 60 Fentanyl Citrate (Fentanyl*) 50 mcg IV SLOW PU Q1H PRN PRN Reason: shivering Last Admin: 12/03/19 00:43 Dose: 50 mcg Heparin Sodium (Porcine) (Heparin Vial(*)) 5,000 units SUBCUT Q8HR [facility] Last Admin: 12/04/19 06:35 Dose: 5,000 units Sodium Chloride (Ns 0.9% 1000 Ml) 1,000 mls @ 125 mls/hr IV PER RATE [facility] Last Admin: 12/04/19 04:11 Dose: 125 mls/hr Pantoprazole Sodium (Protonix Iv Bag*) 80 mg in 250 mls @ 25 mls/hr IV Q10H [facility] Last Admin: 12/04/19 01:31 Dose: 25 mls/hr Norepinephrine Bitartrate (Levophed 16 Mcg/Ml Premix*) 4,000 mcg in 250 mls @ 18.75 mls/hr IV .PER PROTOCOL [facility]; Protocol Last Admin: 12/03/19 02:09 Dose: 18.75 mls/hr Piperacillin Sod/Tazobactam (Sod 3.375 gm/ Sodium Chloride) 100 mls @ 25 mls/ hr IVPB Q8H [facility] Last Admin: 12/04/19 07:42 Dose: 25 mls/hr Propofol (Diprivan*) 100 mls @ 7.209 mls/hr IV .PER PROTOCOL [facility]; Protocol Last Admin: 12/04/19 04:11 Dose: 21.6 mls/hr Dexmedetomidine HCl 1,000 mcg/ (Sodium Chloride) 250 mls @ 10.01 mls/hr IV .PER PROTOCOL [facility]; Protocol Last Admin: 12/03/19 16:19 Dose: 10.01 mls/hr Insulin Human Lispro (Humalog*) 0 units SUBCUT FS Q6 ICU [facility]; Protocol Last Admin: 12/04/19 07:39 Dose: 2 units Lamotrigine (Lamictal Tab(*)) 150 mg PO Q12H [facility] Last Admin: 12/04/19 07:40 Dose: 150 mg Ticagrelor (Brilinta*) 90 mg PO BID [facility] Last Admin: 12/04/19 07:40 Dose: 90 mg Objective Vital Signs: Temp Pulse Resp BP Pulse Ox 91.8 F 65 19 107/60 94 12/04/19 03:14 12/04/19 09:00 12/04/19 09:00 12/04/19 08:42 12/04/19 09:00 Oxygen Devices in Use Now: Endotracheal Tube, Mechanical Ventilator Appearance: Sedated, ventilated. ill but stable at this time Eyes: - - 2mm fixed. Ears/Nose/Mouth/Throat: Mucous Membranes Moist, - - ET/OG tube in place. Neck: Trachea Midline, No Thyroid Enlargement, Masses Respiratory: - - Auscultated anteriorly. Clear. No secretions were suctioned from ET. OG tube has coffee ground emesis noted in tube Cardiovascular: NL Sounds; No Murmurs; No JVD, No Edema Extremities: No Edema, - - cool to touch. Skin: No Rash or Ulcers Neurological: - - sedated on ventilator. Lines/Tubes/Other Access: Clean, Dry and Intact Endotracheal Tube, Clean, Dry and Intact Valentin, Clean, Dry and Intact Central Line, Clean, Dry and Intact Arterial Line Laboratory Results: 12/04/19 06:20 12/04/19 06:20 INR (Anticoag Therapy) 1.20 (0.82-1.09) H 12/04/19 06:20 APTT 33.0 seconds (26.0-38.0) 12/04/19 06:20 Total Bilirubin 0.70 mg/dL (0.2-1.0) 12/04/19 06:20 Direct Bilirubin 0.40 mg/dL (0.03-0.18) H 12/04/19 06:20 Indirect Bilirubin 0.3 mg/dL (0.3-1.0) 12/04/19 06:20 AST 258 U/L (13-39) H 12/04/19 06:20 ALT 161 U/L (7-52) H 12/04/19 06:20 Alkaline Phosphatase 47 U/L (34-104) 12/04/19 06:20 CK-MB (CK-2) 240.9 ng/mL (0.6-6.3) H 12/04/19 06:20 B-Natriuretic Peptide 70 pg/mL (<=100) 12/02/19 18:15 Total Protein 5.0 g/dL (6.4-8.9) L 12/04/19 06:20 Albumin 2.7 g/dL (3.2-5.2) L 12/04/19 06:20 Globulin 2.3 g/dL (2-4) 12/04/19 06:20 Albumin/Globulin Ratio 1.2 (1-3) 12/04/19 06:20 Triglycerides 210 mg/dL 12/03/19 05:55 Cholesterol 100 mg/dL 12/03/19 05:55 LDL Cholesterol 33 mg/dL 12/03/19 05:55 HDL Cholesterol 24.7 mg/dL 12/03/19 05:55 TSH 1.02 mcIU/mL (0.34-5.60) 12/02/19 18:15 12/02/19 12/02/19 12/02/19 10:47 13:15 18:15 Troponin I 0.07 H* 19.50 H* 41.77 H* 12/03/19 12/03/19 12/03/19 00:00 05:55 17:20 Troponin I 60.49 H* 66.45 H* 53.30 H* 12/04/19 06:20 Troponin I 43.16 H* Laboratory Results - last 24 hr 12/02/19 12/03/19 12/03/19 10:47 03:52 05:55 WBC RBC Hgb Hct MCV MCH MCHC RDW Plt Count MPV Neut % (Auto) Lymph % (Auto) Angelina % (Auto) Eos % (Auto) Baso % (Auto) Absolute Neuts (auto) Absolute Lymphs (auto) Absolute Monos (auto) Absolute Eos (auto) Absolute Basos (auto) Absolute Nucleated RBC Nucleated RBC % Hem Pathologist Commnt INR (Anticoag Therapy) APTT Patient Temperature ABG pH ABG pH (Temp Correct) ABG pCO2 ABG pCO2 (Temp Corrct ABG pO2 ABG pO2 (Temp Correct ABG HCO3 ABG O2 Saturation ABG Base Excess Respiration Rate O2 Delivery Device Ventilator Type Vent Mode FiO2 Inspiratory Time PEEP Pressure Support Pressure Control EPAP IPAP BiPAP Sodium Potassium Chloride Carbon Dioxide Anion Gap BUN Creatinine Est GFR ( Amer) Est GFR (Non-Af Amer) BUN/Creatinine Ratio Glucose POC Glucose (mg/dL) 124 H Glucose Meter Confirm Lactic Acid Calcium Ionized Calcium Phosphorus Magnesium Total Bilirubin Direct Bilirubin Indirect Bilirubin AST ALT Alkaline Phosphatase Total Creatine Kinase CK-MB (CK-2) Troponin I 66.45 H* Total Protein Albumin Globulin Albumin/Globulin Ratio 12/03/19 12/03/19 12/03/19 10:03 11:50 12:02 WBC 9.9 RBC 3.70 L Hgb 11.7 L Hct 34 L MCV 93 MCH 32 H MCHC 34 RDW 15 Plt Count 156 MPV 7.8 Neut % (Auto) 85.1 Lymph % (Auto) 5.2 Angelina % (Auto) 9.6 Eos % (Auto) 0.0 Baso % (Auto) 0.1 Absolute Neuts (auto) 8.4 H Absolute Lymphs (auto) 0.5 L Absolute Monos (auto) 1.0 H Absolute Eos (auto) 0.0 Absolute Basos (auto) 0.0 Absolute Nucleated RBC 0.0 Nucleated RBC % 0.1 Hem Pathologist Commnt INR (Anticoag Therapy) APTT Patient Temperature ABG pH 7.31 L ABG pH (Temp Correct) Not Reportable ABG pCO2 35 ABG pCO2 (Temp Corrct Not Reportable ABG pO2 71 L ABG pO2 (Temp Correct Not Reportable ABG HCO3 18.7 L ABG O2 Saturation 94.6 ABG Base Excess -7.8 L Respiration Rate O2 Delivery Device Vent Ventilator Type Vent Mode Apv/cmv FiO2 40 Inspiratory Time PEEP 5 Pressure Support Pressure Control EPAP IPAP BiPAP Sodium 143 Potassium 4.0 Chloride 113 H Carbon Dioxide 19 L Anion Gap 11 BUN 39 H Creatinine 1.60 H Est GFR ( Amer) 51.7 Est GFR (Non-Af Amer) 42.7 BUN/Creatinine Ratio 24.4 H Glucose 175 H POC Glucose (mg/dL) Glucose Meter Confirm Lactic Acid Calcium 7.5 L Ionized Calcium Phosphorus Magnesium Total Bilirubin 0.80 Direct Bilirubin Indirect Bilirubin AST 430 H ALT 213 H Alkaline Phosphatase 50 Total Creatine Kinase CK-MB (CK-2) Troponin I Total Protein 4.9 L Albumin 2.6 L Globulin 2.3 Albumin/Globulin Ratio 1.1 12/03/19 12/03/19 12/03/19 12:02 12:02 13:53 WBC RBC Hgb Hct MCV MCH MCHC RDW Plt Count MPV Neut % (Auto) Lymph % (Auto) Angelina % (Auto) Eos % (Auto) Baso % (Auto) Absolute Neuts (auto) Absolute Lymphs (auto) Absolute Monos (auto) Absolute Eos (auto) Absolute Basos (auto) Absolute Nucleated RBC Nucleated RBC % Hem Pathologist Commnt INR (Anticoag Therapy) 1.14 H APTT 35.8 Patient Temperature ABG pH ABG pH (Temp Correct) ABG pCO2 ABG pCO2 (Temp Corrct ABG pO2 ABG pO2 (Temp Correct ABG HCO3 ABG O2 Saturation ABG Base Excess Respiration Rate O2 Delivery Device Ventilator Type Vent Mode FiO2 Inspiratory Time PEEP Pressure Support Pressure Control EPAP IPAP BiPAP Sodium Potassium Chloride Carbon Dioxide Anion Gap BUN Creatinine Est GFR ( Amer) Est GFR (Non-Af Amer) BUN/Creatinine Ratio Glucose 197 H POC Glucose (mg/dL) Glucose Meter Confirm Lactic Acid 1.5 Calcium Ionized Calcium Phosphorus 5.4 H Magnesium 2.0 Total Bilirubin Direct Bilirubin Indirect Bilirubin AST ALT Alkaline Phosphatase Total Creatine Kinase 3424 H CK-MB (CK-2) Troponin I Total Protein Albumin Globulin Albumin/Globulin Ratio 12/03/19 12/03/19 12/03/19 13:53 17:20 17:20 WBC RBC Hgb Hct MCV MCH MCHC RDW Plt Count MPV Neut % (Auto) Lymph % (Auto) Angelina % (Auto) Eos % (Auto) Baso % (Auto) Absolute Neuts (auto) Absolute Lymphs (auto) Absolute Monos (auto) Absolute Eos (auto) Absolute Basos (auto) Absolute Nucleated RBC Nucleated RBC % Hem Pathologist Commnt INR (Anticoag Therapy) APTT Patient Temperature Not Reportable ABG pH 7.30 L ABG pH (Temp Correct) Not Reportable ABG pCO2 35 ABG pCO2 (Temp Corrct Not Reportable ABG pO2 81 ABG pO2 (Temp Correct Not Reportable ABG HCO3 18.3 L ABG O2 Saturation 97.3 ABG Base Excess -8.4 L Respiration Rate Not Reportable O2 Delivery Device Vent Ventilator Type Not Reportable Vent Mode Apv/cmv FiO2 40 Inspiratory Time Not Reportable PEEP 5 Pressure Support Not Reportable Pressure Control Not Reportable EPAP Not Reportable IPAP Not Reportable BiPAP Not Reportable Sodium 143 143 Potassium 3.9 3.8 Chloride 114 H 115 H Carbon Dioxide 19 L 18 L Anion Gap 10 10 BUN 39 H 39 H Creatinine 1.55 H 1.47 H Est GFR ( Amer) 53.6 57.0 Est GFR (Non-Af Amer) 44.3 47.1 BUN/Creatinine Ratio 25.2 H 26.5 H Glucose 203 H 206 H POC Glucose (mg/dL) Glucose Meter Confirm Lactic Acid Calcium 7.4 L 7.3 L Ionized Calcium Phosphorus 5.4 H Magnesium 2.0 Total Bilirubin Direct Bilirubin Indirect Bilirubin AST ALT Alkaline Phosphatase Total Creatine Kinase 2752 H CK-MB (CK-2) > 297.0 H Troponin I 53.30 H* Total Protein Albumin Globulin Albumin/Globulin Ratio 12/03/19 12/03/19 12/04/19 22:00 22:00 00:05 WBC 8.6 RBC 3.67 L Hgb 11.6 L Hct 34 L MCV 93 MCH 32 H MCHC 34 RDW 15 Plt Count 140 L MPV 7.9 Neut % (Auto) Lymph % (Auto) Angelina % (Auto) Eos % (Auto) Baso % (Auto) Absolute Neuts (auto) Absolute Lymphs (auto) Absolute Monos (auto) Absolute Eos (auto) Absolute Basos (auto) Absolute Nucleated RBC Nucleated RBC % Hem Pathologist Commnt INR (Anticoag Therapy) APTT Patient Temperature ABG pH 7.40 ABG pH (Temp Correct) ABG pCO2 27 L ABG pCO2 (Temp Corrct ABG pO2 78 L ABG pO2 (Temp Correct ABG HCO3 19.7 ABG O2 Saturation 97.5 ABG Base Excess -6.6 L Respiration Rate O2 Delivery Device Ventilator Type Vent Mode FiO2 Inspiratory Time PEEP Pressure Support Pressure Control EPAP IPAP BiPAP Sodium 143 Potassium 3.7 Chloride 114 H Carbon Dioxide 20 L Anion Gap 9 BUN 39 H Creatinine 1.61 H Est GFR ( Amer) 51.3 Est GFR (Non-Af Amer) 42.4 BUN/Creatinine Ratio 24.2 H Glucose 182 H POC Glucose (mg/dL) Glucose Meter Confirm Lactic Acid Calcium 7.1 L Ionized Calcium Phosphorus Magnesium Total Bilirubin Direct Bilirubin Indirect Bilirubin AST ALT Alkaline Phosphatase Total Creatine Kinase CK-MB (CK-2) Troponin I Total Protein Albumin Globulin Albumin/Globulin Ratio 12/04/19 12/04/19 12/04/19 00:05 02:02 06:20 WBC RBC Hgb Hct MCV MCH MCHC RDW Plt Count MPV Neut % (Auto) Lymph % (Auto) Angelina % (Auto) Eos % (Auto) Baso % (Auto) Absolute Neuts (auto) Absolute Lymphs (auto) Absolute Monos (auto) Absolute Eos (auto) Absolute Basos (auto) Absolute Nucleated RBC Nucleated RBC % Hem Pathologist Commnt INR (Anticoag Therapy) APTT Patient Temperature ABG pH 7.33 L ABG pH (Temp Correct) ABG pCO2 31 L ABG pCO2 (Temp Corrct ABG pO2 79 L ABG pO2 (Temp Correct ABG HCO3 18.3 L ABG O2 Saturation 97.0 ABG Base Excess -8.4 L Respiration Rate O2 Delivery Device Ventilator Type Vent Mode FiO2 Inspiratory Time PEEP Pressure Support Pressure Control EPAP IPAP BiPAP Sodium 143 Potassium 3.6 Chloride 114 H Carbon Dioxide 20 L Anion Gap 9 BUN 38 H Creatinine 1.45 H Est GFR ( Amer) 57.9 Est GFR (Non-Af Amer) 47.8 BUN/Creatinine Ratio 26.2 H Glucose 178 H POC Glucose (mg/dL) Glucose Meter Confirm 176 H Lactic Acid Calcium 7.2 L Ionized Calcium Phosphorus 5.2 H Magnesium 2.0 Total Bilirubin Direct Bilirubin Indirect Bilirubin AST ALT Alkaline Phosphatase Total Creatine Kinase 1956 H CK-MB (CK-2) Troponin I Total Protein Albumin Globulin Albumin/Globulin Ratio 12/04/19 12/04/19 12/04/19 06:20 06:20 06:20 WBC RBC Hgb Hct MCV MCH MCHC RDW Plt Count MPV Neut % (Auto) Lymph % (Auto) Angelina % (Auto) Eos % (Auto) Baso % (Auto) Absolute Neuts (auto) Absolute Lymphs (auto) Absolute Monos (auto) Absolute Eos (auto) Absolute Basos (auto) Absolute Nucleated RBC Nucleated RBC % Hem Pathologist Commnt INR (Anticoag Therapy) 1.20 H APTT 33.0 Patient Temperature ABG pH ABG pH (Temp Correct) ABG pCO2 ABG pCO2 (Temp Corrct ABG pO2 ABG pO2 (Temp Correct ABG HCO3 ABG O2 Saturation ABG Base Excess Respiration Rate O2 Delivery Device Ventilator Type Vent Mode FiO2 Inspiratory Time PEEP Pressure Support Pressure Control EPAP IPAP BiPAP Sodium 143 Potassium 3.5 Chloride 114 H Carbon Dioxide 19 L Anion Gap 10 BUN 39 H Creatinine 1.49 H Est GFR ( Amer) 56.1 Est GFR (Non-Af Amer) 46.4 BUN/Creatinine Ratio 26.2 H Glucose 166 H POC Glucose (mg/dL) Glucose Meter Confirm Lactic Acid Calcium 7.0 L Ionized Calcium 0.95 L Phosphorus 4.7 Magnesium 2.0 Total Bilirubin 0.70 Direct Bilirubin 0.40 H Indirect Bilirubin 0.3 AST 258 H ALT 161 H Alkaline Phosphatase 47 Total Creatine Kinase 1536 H CK-MB (CK-2) 240.9 H Troponin I 43.16 H* Total Protein 5.0 L Albumin 2.7 L Globulin 2.3 Albumin/Globulin Ratio 1.2 12/04/19 06:20 WBC 8.3 RBC 3.65 L Hgb 11.8 L Hct 33 L MCV 92 MCH 32 H MCHC 35 RDW 15 Plt Count 154 MPV 8.3 Neut % (Auto) Lymph % (Auto) Angelina % (Auto) Eos % (Auto) Baso % (Auto) Absolute Neuts (auto) Absolute Lymphs (auto) Absolute Monos (auto) Absolute Eos (auto) Absolute Basos (auto) Absolute Nucleated RBC Nucleated RBC % Hem Pathologist Commnt INR (Anticoag Therapy) APTT Patient Temperature ABG pH ABG pH (Temp Correct) ABG pCO2 ABG pCO2 (Temp Corrct ABG pO2 ABG pO2 (Temp Correct ABG HCO3 ABG O2 Saturation ABG Base Excess Respiration Rate O2 Delivery Device Ventilator Type Vent Mode FiO2 Inspiratory Time PEEP Pressure Support Pressure Control EPAP IPAP BiPAP Sodium Potassium Chloride Carbon Dioxide Anion Gap BUN Creatinine Est GFR ( Amer) Est GFR (Non-Af Amer) BUN/Creatinine Ratio Glucose POC Glucose (mg/dL) Glucose Meter Confirm Lactic Acid Calcium Ionized Calcium Phosphorus Magnesium Total Bilirubin Direct Bilirubin Indirect Bilirubin AST ALT Alkaline Phosphatase Total Creatine Kinase CK-MB (CK-2) Troponin I Total Protein Albumin Globulin Albumin/Globulin Ratio Diagnostic Imaging: *[facility]* [place] [address] Fax #: [phone] Transthoracic Echocardiogram Patient: Sherif Craven : 1945 Study Date: 12/02/2019 Age: 74 Gender: M HR: 74 bpm Height: 10 in /25.4 cm BSA: 0.49 m^2 Weight: 180.6 lb /82.1 kg BMI: 1272.6 kg/m^2 *Glass Furnace Tender: * Liz Torres *Referring Physician: * Oc Goldman MD *Reading Physician: * Atiya Schofield MD Indications: Cardiac Arrest. History: PMH: Myocardial infarction. Risk factors: Hypertension. Diabetes mellitus. Conclusions Summary: - Procedure narrative: Transthoracic echocardiography was performed. Image quality was suboptimal. The study was technically limited due to poor acoustic window availability, restricted patient mobility, and Patient on ventilator. - Left ventricle: The cavity size is mildly reduced. Wall thickness is moderately increased. Systolic function is hyperdynamic. The estimated ejection fraction is 55-60%. Severe hypokinesis of the basal-midinferior myocardium. - Right ventricle: Systolic function is moderately reduced. - Mitral valve: There is trace regurgitation. Study data: Transthoracic echocardiogram. Procedure: Transthoracic echocardiography was performed. Image quality was suboptimal. The study was technically limited due to poor acoustic window availability, restricted patient mobility, and Patient on This report is only to be considered final once signed by the Provider(s) as displayed in the "<Electronically Signed by >" field (s). Absence of a signature indicates the report is in a draft status and still needs to be finalized. In the event this document was created by someone other than the signing Provider, the individual initiating the document will be listed in the "Entered by:" or "Dictated by:" carbone. Patient Name: SHERIF CRAVEN JR Medical Record#: [id number] Ordering Physician: Christian Rodriguez MD Acct.#: [id number] : 1945 Age: 74 Sex: M Location: [facility] Exam Date: 12/03/19 0600 ADM Status: ADM IN Order Information: CHEST AP/PORT Accession Number: [id number] CPT: 86034 INDICATION: Respiratory failure COMPARISON: There are no relevant prior studies available for comparison. TECHNIQUE: A portable view of the chest was obtained. FINDINGS: Overlying leads obscure the [id number]. The patient rotated. Endotracheal tube tip terminates approximately 6 cm above the theodore. An enteric tube terminates in the left upper quadrant. A temperature probe is seen in the midesophagus. There is decreased aeration in the right midlung zone with similar opacification of the left hemithorax. Small pleural effusions are possible. The heart is similarly enlarged. The vascular markings are prominent. IMPRESSION: 1. The endotracheal tube is about 6 cm above the theodore (consider advancing). 2. Slightly decreased aeration of the right middle lung zone with similar opacification of the left hemithorax. 3. Small pleural effusions are suspected. <Electronically signed by Gerardo Dickey MD in [place]> 12/03/1907 Dictated By: Gerardo Dickey MD Dictated Date/Time: 12/03/19756 Transcribed Date/Time: 12/03/19756 Copy to: CC:Sina Sims MD; Christian Rodriguez MD; Oc Goldman MD Imaging - [facility] [address] This report is only to be considered final once signed by the Provider(s) as displayed in the "<Electronically Signed by >" field (s). Absence of a signature indicates the report is in a draft status and still needs to be finalized. In the event this document was created by someone other than the signing Provider, the individual initiating the document will be listed in the "Entered by:" or "Dictated by:" carbone. 1 of 2 EKG Data: 12/03/2019; Sinus bradycardia rate 57 with inferior Q waves and TW inversion/ flattening c/w recent FL. QTc 531 02/03/2020; Sinus bradycardia rate Telemetry; reviewed. Sinus bradycardia rate 50's. No VT/VF Assessment/Plan #1 S/P Acute Inferior STEMI presented with witnessed arrest. Patient was defibrillated x1 per EMS and received 2 rounds of Epi. He is s/p CAROLE to Proximal RCA 12/02/2019. LVEF 55-60% with basal midinferior hypokinesis. Troponin peaked at 66 on 12/03/2019 and has started to trend down. He is currently undergoing hypothermic protocol and is not euthermic yet. There is concern for lack of absorbion thus decision was made to give ASA 300mg/day rectally and discontinue Brilinta and given Integrilin with bolus x2. on Lipitor 80/day. Will follow. Condition is guarded. Patient will need repeat CBC 2-3 hours after Integrilin is given for Plt and Hgb evaluation. #2 Transaminitis; AST/ALT are elevated however are < 500. Likely ischemic injury due to above #1. Primary team following. He is on high intensity statin therapy. #3 BAM; Likely due to above #1. Renal function improving. 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 On ASA therapy. 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 Will reassess once clinically able to. Currently patient has relative bradycardia. #6 Coffee ground emesis in noted in OG tube. Hgb 11.6. On IV Protonix managed by ICU team. #7 Disposition pending course. Patient condition guarded. Neuro to see patient once euthermic. Will follow closely. Attending: Oc Goldman <Oc Goldman - Last Filed: 12/04/19 14:59> Medications Active Medications: Acetaminophen (Tylenol 650 Mg Supp) 650 mg WV Q6H PRN PRN Reason: shivering or fever >100.4 Albuterol (Ventolin 2.5 Mg/3 Ml Neb.Mariangel*) 2.5 mg INH Q2H PRN PRN Reason: SOB/WHEEZING Aspirin (Aspirin 81 Mg Chew Tab*) 81 mg PO DAILY [facility] Last Admin: 12/04/19 09:59 Dose: Not Given Atorvastatin Calcium (Lipitor*) 80 mg PO 1700 [facility] Last Admin: 12/03/19 17:59 Dose: 80 mg Baclofen (Lioresal Tab*) 5 mg PO BID [facility] Last Admin: 12/04/19 09:59 Dose: Not Given Buspirone HCl (Buspar Tab*) 30 mg PO BID [facility] Stop: 12/05/19 20:59 Last Admin: 12/04/19 10:00 Dose: Not Given Chlorhexidine Gluconate (Peridex Mouth Wash 0.12%*) 15 ml TOPICAL Q4H [facility] Last Admin: 12/04/19 11:49 Dose: 15 ml Dextrose (D50w Syringe 50 Ml*) 12.5 gm IV PUSH .FOR FS < 60 - SS PRN PRN Reason: FS < 60 Fentanyl Citrate (Fentanyl*) 50 mcg IV SLOW PU Q1H PRN PRN Reason: shivering Last Admin: 12/03/19 00:43 Dose: 50 mcg Sodium Chloride (Ns 0.9% 1000 Ml) 1,000 mls @ 125 mls/hr IV PER RATE [facility] Last Admin: 12/04/19 04:11 Dose: 125 mls/hr Pantoprazole Sodium (Protonix Iv Bag*) 80 mg in 250 mls @ 25 mls/hr IV Q10H [facility] Last Admin: 12/04/19 11:03 Dose: 25 mls/hr Norepinephrine Bitartrate (Levophed 16 Mcg/Ml Premix*) 4,000 mcg in 250 mls @ 18.75 mls/hr IV .PER PROTOCOL [facility]; Protocol Last Admin: 12/04/19 11:14 Dose: 11.3 mls/hr Piperacillin Sod/Tazobactam (Sod 3.375 gm/ Sodium Chloride) 100 mls @ 25 mls/ hr IVPB Q8H [facility] Last Admin: 12/04/19 07:42 Dose: 25 mls/hr Propofol (Diprivan*) 100 mls @ 7.209 mls/hr IV .PER PROTOCOL [facility]; Protocol Last Admin: 12/04/19 11:50 Dose: 24 mls/hr Dexmedetomidine HCl 1,000 mcg/ (Sodium Chloride) 250 mls @ 10.01 mls/hr IV .PER PROTOCOL [facility]; Protocol Last Admin: 12/03/19 16:19 Dose: 10.01 mls/hr Levetiracetam (Keppra Iv Premix*) 500 mg in 100 mls @ 400 mls/hr IV Q12H [facility] Last Admin: 12/04/19 12:53 Dose: 400 mls/hr Eptifibatide (Integrilin (*)) 100 mls @ 6.648 mls/hr IV .INITIAL RATE [facility]; Protocol Last Admin: 12/04/19 11:53 Dose: 6.648 mls/hr Potassium Chloride (Potassium Chloride 20 Meq/100 Ml Ivpremix*) 20 meq in 100 mls @ 50 mls/hr IV Q2H [facility] Stop: 12/04/19 18:59 Insulin Human Lispro (Humalog*) 0 units SUBCUT FS Q6 ICU [facility]; Protocol Last Admin: 12/04/19 12:16 Dose: 2 units Ticagrelor (Brilinta*) 90 mg PO BID [facility] Last Admin: 12/04/19 10:00 Dose: Not Given Objective Vital Signs: Temp Pulse Resp BP Pulse Ox 91.8 F 74 16 107/60 95 12/04/19 03:14 12/04/19 14:00 12/04/19 14:00 12/04/19 08:42 12/04/19 14:00 Laboratory Results: 12/04/19 13:25 12/04/19 11:00 INR (Anticoag Therapy) 1.20 (0.82-1.09) H 12/04/19 06:20 APTT 33.0 seconds (26.0-38.0) 12/04/19 06:20 Total Bilirubin 0.70 mg/dL (0.2-1.0) 12/04/19 06:20 Direct Bilirubin 0.40 mg/dL (0.03-0.18) H 12/04/19 06:20 Indirect Bilirubin 0.3 mg/dL (0.3-1.0) 12/04/19 06:20 AST 258 U/L (13-39) H 12/04/19 06:20 ALT 161 U/L (7-52) H 12/04/19 06:20 Alkaline Phosphatase 47 U/L (34-104) 12/04/19 06:20 CK-MB (CK-2) 240.9 ng/mL (0.6-6.3) H 12/04/19 06:20 B-Natriuretic Peptide 70 pg/mL (<=100) 12/02/19 18:15 Total Protein 5.0 g/dL (6.4-8.9) L 12/04/19 06:20 Albumin 2.7 g/dL (3.2-5.2) L 12/04/19 06:20 Globulin 2.3 g/dL (2-4) 12/04/19 06:20 Albumin/Globulin Ratio 1.2 (1-3) 12/04/19 06:20 Triglycerides 210 mg/dL 12/03/19 05:55 Cholesterol 100 mg/dL 12/03/19 05:55 LDL Cholesterol 33 mg/dL 12/03/19 05:55 HDL Cholesterol 24.7 mg/dL 12/03/19 05:55 TSH 1.02 mcIU/mL (0.34-5.60) 12/02/19 18:15 12/02/19 12/02/19 12/02/19 10:47 13:15 18:15 Troponin I 0.07 H* 19.50 H* 41.77 H* 12/03/19 12/03/19 12/03/19 00:00 05:55 17:20 Troponin I 60.49 H* 66.45 H* 53.30 H* 12/04/19 06:20 Troponin I 43.16 H* Assessment/Plan Points of Discussion: The patient was seen and examined by me. As above, due to the questionable GI absorption of the brilinta and aspirin which has crystal noted by Dr. Rodriguez ( [facility]) we will be stopping the brilinta, using rectal suppository aspirin and starting integrelin IV (boluses and Drip adjusted for renal insufficiency) .Ideally we will get better GI motility once the patient is rewarmed at which point we can consider going back to the oral route/NG tube. CBC will be followed to watch for acute thrombocytopenia as a reaction to integrelin. Oc Goldman MD, FACC, [facility].
[2019-12-04] MEDS ORDERED: KCL 20 MEQ/100 ML IVPREMIX* 20 MEQ/100 ML BAG IV ONE (11:09)
[2019-12-04] MEDS ORDERED: Furosemide IV* 10 MG/ML VIAL (40 MG) IV ONE (11:09)
[2019-12-04] MEDS: Norepinephrine 16MCG/ML IVPRE* 4,000 MCG/250 ML BAG IV SCH (11:14)
--- NOTE | 2019-12-04 11:17 | PN ---
Progress Note - Progress Note Date of Service: 12/04/19 Note: Progress Note -- Critical Care 24 hour events -remains intubated -on hypothermia protocol; rewarming phase started at 3am last night -on propofol / precedex for sedation, low dose levophed but MAPs 80s -making urine -no sig secretions from ETT -some loose stool+ -ileus, meds sitting in stomach, not passing through -no arrhythmias noted overnight ROS: ROS unable to be obtained secondary to intubated/sedated Tele: sinus cosmo Vitals: Vital Signs Temp 91.8 F 12/04/19 03:14 Pulse 68 12/04/19 11:00 Resp 19 12/04/19 10:00 BP 107/60 12/04/19 08:42 Pulse Ox 95 12/04/19 11:00 Intake & Output 12/03/19 12/04/19 12/04/19 18:59 06:59 18:59 Intake Total 1767.5 3657 30 Output Total 560 466 705 Balance 1207.5 3191 -675 Intake: IV Fluids 952 2129 NS 37 2129 Zosyn 915 IVPB 100 221 Zosyn 100 221 Medicated IV 415.5 1007 Levophed 48.2 80 Precedex 74.3 169 Propofol 137 336 Protonix 156 422 Tube Feeding Flush Amount 300 NG Tube Irrigate Amount 300 30 Output: NG Tube Drainage Amount 600 Rose 560 466 105 O2/Vent: AC 14/400/+5/40% Infusions: propofol, levophed, NS infusion, protonix infusion, precedex Current Medications: Acetaminophen (Tylenol 650 Mg Supp) 650 mg [place] Q6H PRN PRN Reason: shivering or fever >100.4 Albuterol (Ventolin 2.5 Mg/3 Ml Neb.Mariangel*) 2.5 mg INH Q2H PRN PRN Reason: SOB/WHEEZING Aspirin (Aspirin 81 Mg Chew Tab*) 81 mg PO DAILY COUNTS INCLUDE 234 BEDS AT THE [facility] Last Admin: 12/04/19 09:59 Dose: Not Given Atorvastatin Calcium (Lipitor*) 80 mg PO 1700 COUNTS INCLUDE 234 BEDS AT THE [facility] Last Admin: 12/03/19 17:59 Dose: 80 mg Baclofen (Lioresal Tab*) 5 mg PO BID COUNTS INCLUDE 234 BEDS AT THE [facility] Last Admin: 12/04/19 09:59 Dose: Not Given Buspirone HCl (Buspar Tab*) 30 mg PO BID COUNTS INCLUDE 234 BEDS AT THE [facility] Stop: 12/05/19 20:59 Last Admin: 12/04/19 10:00 Dose: Not Given Chlorhexidine Gluconate (Peridex Mouth Wash 0.12%*) 15 ml TOPICAL Q4H COUNTS INCLUDE 234 BEDS AT THE [facility] Last Admin: 12/04/19 06:55 Dose: 15 ml Dextrose (D50w Syringe 50 Ml*) 12.5 gm IV PUSH .FOR FS < 60 - SS PRN PRN Reason: FS < 60 Eptifibatide (Integrilin Iv (Load Dose)(*)) 15 mg IV Q10M COUNTS INCLUDE 234 BEDS AT THE [facility] Stop: 12/04/19 11:26 Fentanyl Citrate (Fentanyl*) 50 mcg IV SLOW PU Q1H PRN PRN Reason: shivering Last Admin: 12/03/19 00:43 Dose: 50 mcg Heparin Sodium (Porcine) (Heparin Vial(*)) 5,000 units SUBCUT Q8HR COUNTS INCLUDE 234 BEDS AT THE [facility] Last Admin: 12/04/19 06:35 Dose: 5,000 units Sodium Chloride (Ns 0.9% 1000 Ml) 1,000 mls @ 125 mls/hr IV PER RATE COUNTS INCLUDE 234 BEDS AT THE [facility] Last Admin: 12/04/19 04:11 Dose: 125 mls/hr Pantoprazole Sodium (Protonix Iv Bag*) 80 mg in 250 mls @ 25 mls/hr IV Q10H COUNTS INCLUDE 234 BEDS AT THE [facility] Last Admin: 12/04/19 11:03 Dose: 25 mls/hr Norepinephrine Bitartrate (Levophed 16 Mcg/Ml Premix*) 4,000 mcg in 250 mls @ 18.75 mls/hr IV .PER PROTOCOL COUNTS INCLUDE 234 BEDS AT THE [facility]; Protocol Last Admin: 12/03/19 02:09 Dose: 18.75 mls/hr Piperacillin Sod/Tazobactam (Sod 3.375 gm/ Sodium Chloride) 100 mls @ 25 mls/ hr IVPB Q8H COUNTS INCLUDE 234 BEDS AT THE [facility] Last Admin: 12/04/19 07:42 Dose: 25 mls/hr Propofol (Diprivan*) 100 mls @ 7.209 mls/hr IV .PER PROTOCOL COUNTS INCLUDE 234 BEDS AT THE [facility]; Protocol Last Admin: 12/04/19 04:11 Dose: 21.6 mls/hr Dexmedetomidine HCl 1,000 mcg/ (Sodium Chloride) 250 mls @ 10.01 mls/hr IV .PER PROTOCOL COUNTS INCLUDE 234 BEDS AT THE [facility]; Protocol Last Admin: 12/03/19 16:19 Dose: 10.01 mls/hr Levetiracetam (Keppra Iv Premix*) 500 mg in 100 mls @ 400 mls/hr IV Q12H JANELL Eptifibatide (Integrilin (*)) 100 mls @ 6.648 mls/hr IV .INITIAL RATE JANELL; Protocol Insulin Human Lispro (Humalog*) 0 units SUBCUT FS Q6 ICU JANELL; Protocol Last Admin: 12/04/19 07:39 Dose: 2 units Ticagrelor (Brilinta*) 90 mg PO BID JANELL Last Admin: 12/04/19 10:00 Dose: Not Given Physical Exam: Constitutional: intubated, unresponsive, no distress, no diaphoresis Head: normocephalic, atraumatic Eyes: no pallor, no icterus ENT: moist mucous membranes Neck: soft, supple, no jvd CVS: normal rate, regular, no murmur Chest/Resp: bilateral air entry, no rhales, no wheeze, + rhonchi scattered, no acc muscle use Abdomen/GI: soft, nondistended, BS+ Ext/Msk: cool, pulses+, no edema Skin: intact, cool Neuro: intubated, unresponsive/sedated, pupils small but reactive bilaterally, cough+; limited exam due to sedation/hypothermia Psych: unable to assess/intubated Labs: reveiwed Imaging: brain ct 12/01 - no acute findings; encephalomalacia chronic+ cxr 12/01 - ett above theodore; ogt in place; left sided haziness++ cxr 12/02 - ett above theodore ; bilateral haziness, left>right infiltrates+ cxr 12/03 - ett above theodore, bialteral opacities but improved, left>right; more central congestion appearing Assessment: 73y M w/pmhx of DM, HTN, WPW, prior history of prostate surgery complicated by 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 He was a witnessed collapse by house keeper, who started CPR, called EMS, state troopers arrive and gave 1 shock and continued CPR, EMS arrived and cont CPR with 2 epi with ROSC. Brought to ER and intubated. EKG demonstrated NSR with inferior ST elevations. STEMI called, taken to laboratory technician, found to have occluded mid-RCA. PCI performed with 3 stents, discussed intraop findings with cardiology , some distal disease still present in RCA, no sig disease in LAD at this time. Given brillinta/asa. He is now in ICU, intubated, did not wake post code, on propofol now, BP stable. Given criteria for cardiac arrest he is started on Therapeutic hypothermia protocol. CT brain done showing no acute findings, areas of encephalomalacia+. -VT/VF out of hospital arrest -STEMI of RCA; s/p PCI x3 to mRCA 12/01 -Acute hypoxix respiratory failure, int 12/01 -BAM -Shock liver -metabolic acidosis -possible aspiration pneumonia of left lung -Encephalopathy -upper GI bleed DM HTN h/o WPW h/o prior Right MCA CVA with left deficit seizure disorder Plan: Neuro- -s/p cardiac arrest, not responsive post ROSC; ongoing TTM; rewarming started 3am; target temp was 33C -brain ct 12/01 - no acute findings; chronic encephalomalacia+ -neuro consult after warming -daily neurochecks -cont propofol/precedex for sedation; fentanyl and precedex for shivering -h/o Right MCA CVA - chronic left residual weakness; has contractures of upper ext -seizure disorder - suspect not absorbing lamictal; change to IV keppra 500mg bid for now till bowel movments return -hold home sedatives and other anxiety meds -cont baclofen for spasms -Delirium prec; avoid BDZ CVS- -VT/VF arrest - no further arrhythmias, no antiarrhythmics needs, follow tele -current sinus 60s; likely from hypothermia -EKG with resolved ST elevations, inferior Qwaves noted -STEMI RCA; s/p PCI - some left over residual disease; cont DAPT/statin; may not be absorbing DAPT, and has diarrhea so Per rectal not a good option; discussed with cardiology, will start Integrillin as bridge till able to take DAPT (unclear if he was able to absorb past 2 days), start double bolus, check cbc after 1 hr and start infusion renal dosing for CrCl 49 at 1mcg/kg/hr, if clearance improves will incr to 2mcg/kg/hr -shock; unspecified; labile BP requiring low dose levophed; maintain MAP 70-80 -follow urine output, cont IVF 125cc/hr -TTE reviewed - thick LV, intact function it appears; no effusion, small cavity ; some mild RV dysfunction noted only -HTN - hold antihypertensives; noted to be on clonidine/coreg/norvasc/ lisinopril at home -h/o WPW - monitoring -Titrate Pressors to Maintain MAP>65 Resp- -intubated on AC 40%; abg reviewed -CXR / improving infiltrates; some haziness on left, left >right -no sig secretions -possible periarrest aspiration; sputum cx if any; cont empiric asp abx -abg q6h -lasix 40mg iv x1 -Wean Fio2 to keep sat>92% -Bronchodilators PRN, Aspiration prec, Pulmonary Toilet -VAP bundle ID- hypothermic on protocol; wbc 16-15-11-8 -CXR 3 with left>right haziness+ -cxr 12/03 - improved haziness -high risk for aspiration; cont empiric asp coverage with zosyn q8h (day#3) -culture neg so far from blood and urine GI- -NPO -coffee ground and dark red from OGT+ intermittent mild redness but def better; hg stable; possible GI bleed from arrest/stress/AC/antiplatelets. -h/o PPI at home; previous PUD? -cont PPI infusion -trend h/h Renal- -BAM, suspect this to be from ischemic ATN/hypoperfusion from cardiac arrest; Cr improving 1-2s stable, making urine -no obstruction, rose in place -metabolic acidosis+, likely was from hypoperfusion, improving -cont IVF NS 125cc/hr -hyperkalemia, resolved -bmp q4h -lasix 40mg iv x1 -strict I/O, replete to keep K>4, Mg>2 -rose as indicated Heme- -hg stable -plt okay -cont DAPT for coronary stents; bridging with integrillin for now till able to absorb antiplatelets; check plt count after 1 hr; renal dosing integrilin -d/c heparin sq given integrillin to be started and he has SCDs and he has intermittent slight bleeding Endo- Maintain BG<200, insulin protocol as needed -tsh 1; check hba1b Musculsk- pressure ulcer prophylaxis. Bedrest. Wounds- none Nutrition- NPO DVT prophylaxis: SCD GI prophylaxis: ppi Central Line: left fem tlc/cooling cath 12/01 Arterial Line: right fem 12/01 Rose Cathetor: yes 12/01 Followup discussion with family --- discussed with sister Nata Mendoza yesterday, she would accept being a surrogate decision maker for patient at this time. Re-eval based on neuro status and progression. Disposition: Patient requires Critical Care/ICU for cardiac arrest, encephalopathy, stemi, therapeutic hypothermia Patient Clinical Status: guarded, critical Code Status: full code Total Critical Care time is 60 minutes, excluding procedures/teaching Christian Rodriguez MD Senior Accounting Manager (Electronically Signed)
[2019-12-04 11:31] LABS: BUN/Creatinine Ratio 28.4 (8-20); EGFR African American 63.4 (>60); EGFR Non-African American 52.4 (>60); Phosphorus 4.5 mg/dL (2.5-5.0)
[2019-12-04 11:33] LABS: Potassium 3.4 mmol/L (3.5-5.0)
[2019-12-04] MEDS: Eptifibatide IV (Load dose)(*) 2 MG/ML 10 ml VIAL IV SCH ×2 (11:40→11:50)
[2019-12-04] MEDS: Eptifibatide (*) 100 ML IV SCH (11:53)
[2019-12-04] MEDS: levETIRAcetam 500 MG IVPREMIX* 500 MG/100 ML BAG IV SCH (12:53)
[2019-12-04 13:31] LABS: ABS Lymphocytes 0.5 10^3/ul (1.0-4.8); ABS Monocytes 0.9 10^3/ul (0-0.8); ABS Neutrophils 8.4 10^3/ul (1.5-7.7); Hematocrit 33 % (42-52); Hemoglobin 11.6 g/dL (14.0-18.0); Lymphocyte % 5.3 %; Mean Corpuscular HGB Conc 36 g/dL (31-36); Mean Corpuscular Hemoglobin 33 pg (27-31); Mean Corpuscular Volume 91 fL (80-94); Mean Platelet Volume 8.3 fL (7.4-10.4); Nucleated Red Blood Cells % 0.1; Platelet Count 140 10^3/uL (150-450); Red Blood Count 3.57 10^6 /uL (4.18-5.48); Red Cell Distribution Width 14 % (10-15); White Blood Count 9.8 10^3/uL (3.5-10.8)
[2019-12-04] MEDS: KCL 20 MEQ/100 ML IVPREMIX* 20 MEQ/100 ML BAG IV SCH ×2 (14:59→16:25)
[2019-12-04 15:37] LABS: BUN/Creatinine Ratio 27.3 (8-20); Blood Urea Nitrogen 38 mg/dL (6-24); CO2 Carbon Dioxide 17 mmol/L (22-32); Calcium 6.9 mg/dL (8.6-10.3); Creatine Kinase 1050 U/L (10-223); EGFR African American 60.8 (>60); EGFR Non-African American 50.2 (>60); Glucose 195 mg/dL (70-100); Phosphorus 4.5 mg/dL (2.5-5.0); Sodium 142 mmol/L (135-145)
[2019-12-04 15:42] LABS: CKMB ng/mL 148.9 ng/mL (0.6-6.3); Chloride 116 mmol/L (101-111)
[2019-12-04 15:55] LABS: Anion Gap 9 mmol/L (2-11)
[2019-12-04] MEDS: Atorvastatin* 80 MG TAB PO SCH (16:10)
[2019-12-04] MEDS: Dexmedetomidine* 1,000 MCG in NS 0.9% 250 ML* 240 ML IV SCH (16:25)
[2019-12-04 18:09] LABS: Hematocrit 33 % (42-52); Hemoglobin 11.5 g/dL (14.0-18.0); Mean Corpuscular HGB Conc 35 g/dL (31-36); Mean Corpuscular Hemoglobin 33 pg (27-31); Mean Corpuscular Volume 92 fL (80-94); Mean Platelet Volume 8.6 fL (7.4-10.4); Platelet Count 152 10^3/uL (150-450); Red Blood Count 3.53 10^6 /uL (4.18-5.48); Red Cell Distribution Width 14 % (10-15); White Blood Count 12.9 10^3/uL (3.5-10.8)
[2019-12-04 19:11] LABS: Glucose 195 mg/dL (70-100)
[2019-12-04 20:00] LABS: Blood Urea Nitrogen 39 mg/dL (6-24); CO2 Carbon Dioxide 15 mmol/L (22-32); Calcium 6.9 mg/dL (8.6-10.3); EGFR African American 55.7 (>60); Sodium 142 mmol/L (135-145)
[2019-12-04 20:04] LABS: Chloride 115 mmol/L (101-111)
[2019-12-04 20:08] LABS: Anion Gap 12 mmol/L (2-11)
[2019-12-05 00:09] LABS: BUN/Creatinine Ratio 25.5 (8-20); Calcium 6.8 mg/dL (8.6-10.3); EGFR African American 56.1 (>60); EGFR Non-African American 46.4 (>60); Phosphorus 4.6 mg/dL (2.5-5.0)
[2019-12-05] MEDS: levETIRAcetam 500 MG IVPREMIX* 500 MG/100 ML BAG IV SCH ×2 (00:14→13:00)
[2019-12-05] MEDS: Piperacillin/Tazobac ADVAN(*) 3.375 GM in NS 0.9% 100 ML* 100 ML IVPB SCH ×3 (00:16→15:52)
[2019-12-05] MEDS: Chlorhexidine MOUTHWASH 0.12%* 15 ML UDC TOPICAL SCH ×7 (00:17→22:13)
[2019-12-05 00:20] LABS: Potassium 3.6 mmol/L (3.5-5.0)
[2019-12-05] MEDS: Insulin LISPRO* 1 UNITS UNIT SUBCUT SCH ×4 (00:29→19:26)
[2019-12-05] MEDS: Eptifibatide (*) 100 ML IV SCH ×2 (00:58→16:04)
[2019-12-05 03:25] LABS: Calcium 6.5 mg/dL (8.6-10.3)
[2019-12-05 03:31] LABS: BUN/Creatinine Ratio 26.3 (8-20); EGFR African American 53.2 (>60)
[2019-12-05 03:33] LABS: Potassium 3.6 mmol/L (3.5-5.0)
[2019-12-05] MEDS: Propofol* 100 ML IV SCH ×5 (03:55→20:10)
[2019-12-05] MEDS: Norepinephrine 16MCG/ML IVPRE* 4,000 MCG/250 ML BAG IV SCH (04:09)
[2019-12-05 06:24] LABS: Hematocrit 29 % (42-52); Hemoglobin 10.5 g/dL (14.0-18.0); Mean Corpuscular HGB Conc 36 g/dL (31-36); Mean Corpuscular Hemoglobin 33 pg (27-31); Mean Corpuscular Volume 91 fL (80-94); Mean Platelet Volume 8.8 fL (7.4-10.4); Platelet Count 153 10^3/uL (150-450); Red Blood Count 3.19 10^6 /uL (4.18-5.48); Red Cell Distribution Width 14 % (10-15); White Blood Count 13.2 10^3/uL (3.5-10.8)
[2019-12-05] MEDS: Pantoprazole* 80 mg IN NS 80 MG/250 ML BAG IV SCH ×3 (06:27→15:52)
[2019-12-05 06:39] LABS: Activated Partial Thrombo Time 50.5 seconds (26.0-38.0); INR 1.2 (0.82-1.09)
[2019-12-05 06:42] LABS: ALT 98 U/L (7-52); Albumin 2.5 g/dL (3.2-5.2); Albumin/Globulin Ratio 1.1 (1-3); Alkaline Phosphatase 44 U/L (34-104); Globulin 2.3 g/dL (2-4); Total Protein 4.8 g/dL (6.4-8.9)
[2019-12-05 06:47] LABS: CKMB ng/mL 52.1 ng/mL (0.6-6.3)
[2019-12-05 06:49] LABS: Calcium 6.4 mg/dL (8.6-10.3)
[2019-12-05] MEDS: NS 0.9% 1000 ML** 1,000 ML IV SCH (08:42)
[2019-12-05 08:48] LABS: Blood Urea Nitrogen 40 mg/dL (6-24); CO2 Carbon Dioxide 16 mmol/L (22-32); EGFR African American 51.7 (>60); EGFR Non-African American 42.7 (>60); Glucose 176 mg/dL (70-100); Sodium 142 mmol/L (135-145)
[2019-12-05 08:52] LABS: Anion Gap 9 mmol/L (2-11); Calcium 6.4 mg/dL (8.6-10.3); Chloride 117 mmol/L (101-111)
[2019-12-05] MEDS ORDERED: CALCIUM GLUCONATE 1GM/50ML NS 1 GM/50 ML BAG IV ONE (08:55)
[2019-12-05] MEDS ORDERED: NS 0.9% 1000 ML** 1,000 ML IV SCH (09:04)
[2019-12-05] MEDS: Furosemide IV* 10 MG/ML VIAL (40 MG) IV SLOW PU SCH (09:26)
[2019-12-05] MEDS: Baclofen TAB* 10 MG PO SCH ×2 (09:28→20:07)
[2019-12-05] MEDS: Aspirin 81 mg CHEW TAB* 81 MG TAB.CHEW PO SCH (09:29)
--- NOTE | 2019-12-05 11:42 | PN ---
<Maria Del Carmen Damian - Last Filed: 12/05/19 12:12> Date of Service: 12/05/19 Critical Care Services: 24 hour events -remains intubated -on hypothermia protocol; rewarmed to 37 yesterday at 2330 yesterday -on propofol / precedex for sedation (RASS -4), low dose levophed (3mcg/min), MAP in 70s -making urine - passing loose dark brown stool - no sig secretions from ETT - aspirin was able to pass through this morning. - no arrhythmias noted overnight O2/Vent: AC 14/400/+5/40% Infusions: propofol, levophed, NS infusion, protonix infusion, precedex Vital Signs: Temp Pulse Resp BP SpO2 FiO2 98.6 F 77 29 107/60 93 40 12/05/19 08:00 12/05/19 11:15 12/05/19 11:00 12/04/19 08:42 12/05/19 11:15 12/04 08:14 Physical Exam: Gen: HEENT: Lungs: Cardiac: Abdomen: Extremities: Neuro: Fluid Balance (Past 24 Hours): I= O= Net Intake & Output 12/03/19 12/04/19 12/05/19 12/06/19 06:59 06:59 06:59 06:59 Intake Total 8206 5424.5 3839 Output Total 1493 1026 2815 435 Balance 6713 4398.5 1024 -435 Weight 83.1 kg 91.4 kg Intake: IV Fluids 6599 3081 592 NS 4849 2166 492 Zosyn 915 100 IVPB 622 149 2222 Ca Gluconate 299 NS 1164 Zosyn 223 321 200 Medicated IV 685 1422.5 1823 Integrilin 107 Levophed 48 128.2 332 Precedex 51 243.3 236 Propofol 312 473 560 Protonix 274 578 588 Tube Feeding 200 Tube Feeding Flush Amount 300 NG Tube Irrigate Amount 200 300 60 Output: NG Tube Drainage Amount 700 750 Rose 543 1026 1765 435 Residual 250 Coude 250 Liquid Stool 300 Labs: Laboratory Results - last 24 hr 12/04/19 12/04/19 12/04/19 12:00 13:25 15:10 WBC 9.8 RBC 3.57 L Hgb 11.6 L Hct 33 L MCV 91 MCH 33 H MCHC 36 RDW 14 Plt Count 140 L MPV 8.3 Neut % (Auto) 85.7 Lymph % (Auto) 5.3 [place] % (Auto) 8.9 Eos % (Auto) 0.0 Baso % (Auto) 0.1 Absolute Neuts (auto) 8.4 H Absolute Lymphs (auto) 0.5 L Absolute Monos (auto) 0.9 H Absolute Eos (auto) 0.0 Absolute Basos (auto) 0.0 Absolute Nucleated RBC 0.0 Nucleated RBC % 0.1 INR (Anticoag Therapy) APTT Patient Temperature 35.3 ABG pH 7.34 L ABG pH (Temp Correct) Not Reportable ABG pCO2 29 L ABG pCO2 (Temp Corrct Not Reportable ABG pO2 77 L ABG pO2 (Temp Correct Not Reportable ABG HCO3 18.0 L ABG O2 Saturation 96.8 ABG Base Excess -8.8 L Respiration Rate 14 O2 Delivery Device Ett Ventilator Type Not Reportable Vent Mode apv/cmv FiO2 40 Inspiratory Time Not Reportable PEEP 5 Pressure Support Not Reportable Pressure Control Not Reportable EPAP Not Reportable IPAP Not Reportable BiPAP Not Reportable Sodium 142 Potassium TNP Chloride 116 H Carbon Dioxide 17 L Anion Gap 9 BUN 38 H Creatinine 1.39 H Est GFR ( Amer) 60.8 Est GFR (Non-Af Amer) 50.2 BUN/Creatinine Ratio 27.3 H Glucose 195 H Calcium 6.9 L Ionized Calcium Phosphorus 4.5 Magnesium 2.0 Total Bilirubin Direct Bilirubin Indirect Bilirubin AST ALT Alkaline Phosphatase Total Creatine Kinase 1050 H CK-MB (CK-2) 148.9 H Total Protein Albumin Globulin Albumin/Globulin Ratio 12/04/19 12/04/19 12/04/19 16:08 17:55 17:55 WBC RBC Hgb Hct MCV MCH MCHC RDW Plt Count MPV Neut % (Auto) Lymph % (Auto) [place] % (Auto) Eos % (Auto) Baso % (Auto) Absolute Neuts (auto) Absolute Lymphs (auto) Absolute Monos (auto) Absolute Eos (auto) Absolute Basos (auto) Absolute Nucleated RBC Nucleated RBC % INR (Anticoag Therapy) APTT Patient Temperature Not Reportable ABG pH 7.36 ABG pH (Temp Correct) Not Reportable ABG pCO2 27 L ABG pCO2 (Temp Corrct Not Reportable ABG pO2 77 L ABG pO2 (Temp Correct Not Reportable ABG HCO3 18.2 L ABG O2 Saturation 97.6 ABG Base Excess -8.6 L Respiration Rate 14 O2 Delivery Device ett Ventilator Type 400 Vent Mode apv/cmv FiO2 40 Inspiratory Time Not Reportable PEEP 5 Pressure Support Not Reportable Pressure Control Not Reportable EPAP Not Reportable IPAP Not Reportable BiPAP Not Reportable Sodium Potassium TNP 4.0 Chloride Carbon Dioxide Anion Gap BUN Creatinine Est GFR ( Amer) Est GFR (Non-Af Amer) BUN/Creatinine Ratio Glucose Calcium Ionized Calcium Phosphorus Magnesium Total Bilirubin Direct Bilirubin Indirect Bilirubin AST ALT Alkaline Phosphatase Total Creatine Kinase CK-MB (CK-2) Total Protein Albumin Globulin Albumin/Globulin Ratio 12/04/19 12/04/19 12/04/19 17:55 18:37 23:29 WBC 12.9 H RBC 3.53 L Hgb 11.5 L Hct 33 L MCV 92 MCH 33 H MCHC 35 RDW 14 Plt Count 152 MPV 8.6 Neut % (Auto) Lymph % (Auto) [place] % (Auto) Eos % (Auto) Baso % (Auto) Absolute Neuts (auto) Absolute Lymphs (auto) Absolute Monos (auto) Absolute Eos (auto) Absolute Basos (auto) Absolute Nucleated RBC Nucleated RBC % INR (Anticoag Therapy) APTT Patient Temperature ABG pH 7.36 ABG pH (Temp Correct) ABG pCO2 27 L ABG pCO2 (Temp Corrct ABG pO2 82 ABG pO2 (Temp Correct ABG HCO3 18.2 L ABG O2 Saturation 97.7 ABG Base Excess -8.6 L Respiration Rate O2 Delivery Device Ventilator Type Vent Mode FiO2 Inspiratory Time PEEP Pressure Support Pressure Control EPAP IPAP BiPAP Sodium 142 Potassium TNP Chloride 115 H Carbon Dioxide 15 L Anion Gap 12 H BUN 39 H Creatinine 1.50 H Est GFR ( Amer) 55.7 Est GFR (Non-Af Amer) 46.0 BUN/Creatinine Ratio 26.0 H Glucose 195 H Calcium 6.9 L Ionized Calcium Phosphorus Magnesium Total Bilirubin Direct Bilirubin Indirect Bilirubin AST ALT Alkaline Phosphatase Total Creatine Kinase CK-MB (CK-2) Total Protein Albumin Globulin Albumin/Globulin Ratio 12/04/19 12/05/19 12/05/19 23:29 03:03 05:57 WBC RBC Hgb Hct MCV MCH MCHC RDW Plt Count MPV Neut % (Auto) Lymph % (Auto) [place] % (Auto) Eos % (Auto) Baso % (Auto) Absolute Neuts (auto) Absolute Lymphs (auto) Absolute Monos (auto) Absolute Eos (auto) Absolute Basos (auto) Absolute Nucleated RBC Nucleated RBC % INR (Anticoag Therapy) APTT Patient Temperature ABG pH 7.34 L ABG pH (Temp Correct) ABG pCO2 29 L ABG pCO2 (Temp Corrct ABG pO2 70 L ABG pO2 (Temp Correct ABG HCO3 17.9 L ABG O2 Saturation 94.1 ABG Base Excess -8.8 L Respiration Rate O2 Delivery Device Ventilator Type Vent Mode FiO2 Inspiratory Time PEEP Pressure Support Pressure Control EPAP IPAP BiPAP Sodium 141 141 Potassium 3.6 3.6 Chloride 115 H 115 H Carbon Dioxide 16 L 16 L Anion Gap 10 10 BUN 38 H 41 H Creatinine 1.49 H 1.56 H Est GFR ( Amer) 56.1 53.2 Est GFR (Non-Af Amer) 46.4 44.0 BUN/Creatinine Ratio 25.5 H 26.3 H Glucose 184 H 175 H Calcium 6.8 L 6.5 L Ionized Calcium Phosphorus 4.6 Magnesium 2.0 Total Bilirubin Direct Bilirubin Indirect Bilirubin AST ALT Alkaline Phosphatase Total Creatine Kinase 761 H CK-MB (CK-2) Total Protein Albumin Globulin Albumin/Globulin Ratio 12/05/19 12/05/19 12/05/19 05:57 05:57 05:57 WBC RBC Hgb Hct MCV MCH MCHC RDW Plt Count MPV Neut % (Auto) Lymph % (Auto) [place] % (Auto) Eos % (Auto) Baso % (Auto) Absolute Neuts (auto) Absolute Lymphs (auto) Absolute Monos (auto) Absolute Eos (auto) Absolute Basos (auto) Absolute Nucleated RBC Nucleated RBC % INR (Anticoag Therapy) 1.20 H APTT 50.5 H Patient Temperature ABG pH ABG pH (Temp Correct) ABG pCO2 ABG pCO2 (Temp Corrct ABG pO2 ABG pO2 (Temp Correct ABG HCO3 ABG O2 Saturation ABG Base Excess Respiration Rate O2 Delivery Device Ventilator Type Vent Mode FiO2 Inspiratory Time PEEP Pressure Support Pressure Control EPAP IPAP BiPAP Sodium Potassium Chloride Carbon Dioxide Anion Gap BUN Creatinine Est GFR ( Amer) Est GFR (Non-Af Amer) BUN/Creatinine Ratio Glucose Calcium 6.4 L* Ionized Calcium 0.90 L Phosphorus Magnesium Total Bilirubin 0.60 Direct Bilirubin TNP Indirect Bilirubin Not Reportable AST TNP ALT 98 H Alkaline Phosphatase 44 Total Creatine Kinase CK-MB (CK-2) 52.1 H Total Protein 4.8 L Albumin 2.5 L Globulin 2.3 Albumin/Globulin Ratio 1.1 12/05/19 12/05/19 05:57 08:12 WBC 13.2 H RBC 3.19 L Hgb 10.5 L Hct 29 L MCV 91 MCH 33 H MCHC 36 RDW 14 Plt Count 153 MPV 8.8 Neut % (Auto) Lymph % (Auto) [place] % (Auto) Eos % (Auto) Baso % (Auto) Absolute Neuts (auto) Absolute Lymphs (auto) Absolute Monos (auto) Absolute Eos (auto) Absolute Basos (auto) Absolute Nucleated RBC Nucleated RBC % INR (Anticoag Therapy) APTT Patient Temperature ABG pH ABG pH (Temp Correct) ABG pCO2 ABG pCO2 (Temp Corrct ABG pO2 ABG pO2 (Temp Correct ABG HCO3 ABG O2 Saturation ABG Base Excess Respiration Rate O2 Delivery Device Ventilator Type Vent Mode FiO2 Inspiratory Time PEEP Pressure Support Pressure Control EPAP IPAP BiPAP Sodium 142 Potassium TNP Chloride 117 H Carbon Dioxide 16 L Anion Gap 9 BUN 40 H Creatinine 1.60 H Est GFR ( Amer) 51.7 Est GFR (Non-Af Amer) 42.7 BUN/Creatinine Ratio 25.0 H Glucose 176 H Calcium 6.4 L* Ionized Calcium Phosphorus Magnesium Total Bilirubin Direct Bilirubin Indirect Bilirubin AST ALT Alkaline Phosphatase Total Creatine Kinase CK-MB (CK-2) Total Protein Albumin Globulin Albumin/Globulin Ratio Studies: brain ct 12/01 - no acute findings; encephalomalacia chronic+ cxr 12/01 - ett above theodore; ogt in place; left sided haziness++ cxr 12/02 - ett above theodore ; bilateral haziness, left>right infiltrates+ cxr 12/03 - ett above theodore, bialteral opacities but improved, left>right; more central congestion appearing CXR 12/04- ett above theodore, worsening right lung consolidation and pulmonary edema. EKG: inferior lead Q waves, otherwise no new changes. Nutrition: Start NG feeding, nephro continuous. 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 He was a witnessed collapse by house keeper, who started CPR, called EMS, state troopers arrive and gave 1 shock and continued CPR, EMS arrived and cont CPR with 2 epi with ROSC. Brought to ER and intubated. EKG demonstrated NSR with inferior ST elevations. STEMI called, taken to electroplating laborer, found to have occluded mid-RCA. PCI performed with 3 stents, discussed intraop findings with cardiology, some distal disease still present in RCA, no sig disease in LAD at this time. Given brillinta/asa. He subsequently came to ICU, intubated, did not wake post code, on Therapeutic hypothermia protocol, rewarmed since 12/04. CT brain done showing no acute findings, areas of encephalomalacia+. 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 seizure disorder Plan: Neuro- -s/p cardiac arrest, not responsive post ROSC; ongoing TTM; rewarmed to 37 started 2330 last night -brain ct 12/01 - no acute findings; chronic encephalomalacia+ -Wean down propofol/precdex sedation today, watch his neurological response -neuro consult if still doesn't wake up after 72 hours from TTM -daily neurochecks -h/o Right MCA CVA - chronic left residual weakness; has contractures of upper ext -seizure disorder - on IV keppra 500mg bid for now due to poor bowel absorption , converted back to lamictal if proved absorbing -hold home sedatives and other anxiety meds -cont baclofen for spasms -Delirium prec; avoid BDZ CVS- -VT/VF arrest - no further arrhythmias, no antiarrhythmics needs, follow tele -current sinus 70s -EKG with resolved ST elevations, inferior Qwaves noted -STEMI RCA; s/p PCI - some left over residual disease; cont DAPT/statin; was using Integrillin as bridging due to no BM, will convert to Brillinta today if confirmed absorption. -shock; unspecified; labile BP requiring low dose levophed; maintain MAP 70-80 -follow urine output, iv lasix 40mg toay, overloaded today with significant weight gain and pulmonary edema in CXR -TTE reviewed - thick LV, intact function it appears; no effusion, small cavity ; some mild RV dysfunction noted only -HTN - hold antihypertensives; noted to be on clonidine/coreg/norvasc/ lisinopril at home -h/o WPW - monitoring Resp- -intubated on AC 40%; abg reviewed -CXR 12/04 worsening right infiltrate with pulmonary edema -no sig secretions -possible aspiration pneumonia, cont iv Zosyn (12/02) -abg q6h -lasix 40mg iv x1 today -Wean Fio2 to keep sat>92% -Bronchodilators PRN, Aspiration prec, Pulmonary Toilet -VAP bundle ID- hypothermic on protocol; wbc 16-15-11-8 -CXR 12/02 with left>right haziness+ -cxr 12/03 - improved haziness -high risk for aspiration; cont empiric asp coverage -sputum cs yeast likely oral contamination -culture neg so far from blood and urine, GI- -coffee ground and dark red from OGT+ intermittent mild redness resolved, Hb drop by 1 but in general stable - possible GI bleed from arrest/stress/AC/antiplatelets. - start ngt feeding with nephro since BM recovers -h/o PPI at home; previous PUD? -cont PPI infusion -trend h/h Renal- -BAM, suspect this to be from ischemic ATN/hypoperfusion from cardiac arrest; Cr improving 1-2s stable, making urine -no obstruction, rose in place -metabolic acidosis+, likely was from hypoperfusion, improving -cont IVF NS 50cc/hr -hyperkalemia, resolved -bmp q4h -lasix 40mg iv x1 -strict I/O, replete to keep K>4, Mg>2 -rose as indicated Heme- -hg drop by 1, continue to monitor -plt okay with integrillin -cont DAPT for coronary stents -d/c heparin sq given integrillin to be started and he has SCDs and he had intermittent slight bleeding, consider restart if no bleeding Endo- Maintain BG<200, insulin protocol as needed Musculsk- pressure ulcer prophylaxis. Bedrest. Wounds- none Nutrition- start tube feeding DVT prophylaxis: SCD GI prophylaxis: ppi Central Line: left fem tlc/cooling cath 12/01 Arterial Line: right fem 12/01 Rose Cathetor: yes 12/01 Disposition: Patient requires Critical Care/ICU for cardiac arrest, encephalopathy, stemi, therapeutic hypothermia Patient Clinical Status: guarded, critical Code Status: full code Total Critical Care time is 60 minutes <Christian Rodriguez - Last Filed: 12/05/19 13:02> Vital Signs: Temp Pulse Resp BP SpO2 FiO2 98.6 F 81 35 107/60 92 40 12/05/19 12:00 12/05/19 12:15 12/05/19 12:00 12/04/19 08:42 12/05/19 12:15 12/04 12:00 Physical Exam: Gen: HEENT: Lungs: Cardiac: Abdomen: Extremities: Neuro: Fluid Balance (Past 24 Hours): I= O= Net Intake & Output 12/03/19 12/04/19 12/05/19 12/06/19 06:59 06:59 06:59 06:59 Intake Total 8206 5424.5 3839 Output Total 1493 1026 2815 685 Balance 6713 4398.5 1024 -685 Weight 83.1 kg 91.4 kg Intake: IV Fluids 6599 3081 592 NS 4849 2166 492 Zosyn 915 100 IVPB 692 065 9793 Ca Gluconate 299 NS 1164 Zosyn 223 321 200 Medicated IV 685 1422.5 1823 Integrilin 107 Levophed 48 128.2 332 Precedex 51 243.3 236 Propofol 312 473 560 Protonix 274 578 588 Tube Feeding 200 Tube Feeding Flush Amount 300 NG Tube Irrigate Amount 200 300 60 Output: NG Tube Drainage Amount 700 750 Rose 543 1026 1765 685 Residual 250 Coude 250 Liquid Stool 300 Labs: Laboratory Results - last 24 hr 12/04/19 12/04/19 12/04/19 13:25 15:10 16:08 WBC 9.8 RBC 3.57 L Hgb 11.6 L Hct 33 L MCV 91 MCH 33 H MCHC 36 RDW 14 Plt Count 140 L MPV 8.3 Neut % (Auto) 85.7 Lymph % (Auto) 5.3 [place] % (Auto) 8.9 Eos % (Auto) 0.0 Baso % (Auto) 0.1 Absolute Neuts (auto) 8.4 H Absolute Lymphs (auto) 0.5 L Absolute Monos (auto) 0.9 H Absolute Eos (auto) 0.0 Absolute Basos (auto) 0.0 Absolute Nucleated RBC 0.0 Nucleated RBC % 0.1 INR (Anticoag Therapy) APTT Patient Temperature ABG pH ABG pH (Temp Correct) ABG pCO2 ABG pCO2 (Temp Corrct ABG pO2 ABG pO2 (Temp Correct ABG HCO3 ABG O2 Saturation ABG Base Excess Respiration Rate O2 Delivery Device Ventilator Type Vent Mode FiO2 Inspiratory Time PEEP Pressure Support Pressure Control EPAP IPAP BiPAP Sodium 142 Potassium TNP TNP Chloride 116 H Carbon Dioxide 17 L Anion Gap 9 BUN 38 H Creatinine 1.39 H Est GFR ( Amer) 60.8 Est GFR (Non-Af Amer) 50.2 BUN/Creatinine Ratio 27.3 H Glucose 195 H Calcium 6.9 L Ionized Calcium Phosphorus 4.5 Magnesium 2.0 Total Bilirubin Direct Bilirubin Indirect Bilirubin AST ALT Alkaline Phosphatase Total Creatine Kinase 1050 H CK-MB (CK-2) 148.9 H Total Protein Albumin Globulin Albumin/Globulin Ratio 12/04/19 12/04/19 12/04/19 17:55 17:55 17:55 WBC 12.9 H RBC 3.53 L Hgb 11.5 L Hct 33 L MCV 92 MCH 33 H MCHC 35 RDW 14 Plt Count 152 MPV 8.6 Neut % (Auto) Lymph % (Auto) [place] % (Auto) Eos % (Auto) Baso % (Auto) Absolute Neuts (auto) Absolute Lymphs (auto) Absolute Monos (auto) Absolute Eos (auto) Absolute Basos (auto) Absolute Nucleated RBC Nucleated RBC % INR (Anticoag Therapy) APTT Patient Temperature Not Reportable ABG pH 7.36 ABG pH (Temp Correct) Not Reportable ABG pCO2 27 L ABG pCO2 (Temp Corrct Not Reportable ABG pO2 77 L ABG pO2 (Temp Correct Not Reportable ABG HCO3 18.2 L ABG O2 Saturation 97.6 ABG Base Excess -8.6 L Respiration Rate 14 O2 Delivery Device ett Ventilator Type 400 Vent Mode apv/cmv FiO2 40 Inspiratory Time Not Reportable PEEP 5 Pressure Support Not Reportable Pressure Control Not Reportable EPAP Not Reportable IPAP Not Reportable BiPAP Not Reportable Sodium Potassium 4.0 Chloride Carbon Dioxide Anion Gap BUN Creatinine Est GFR ( Amer) Est GFR (Non-Af Amer) BUN/Creatinine Ratio Glucose Calcium Ionized Calcium Phosphorus Magnesium Total Bilirubin Direct Bilirubin Indirect Bilirubin AST ALT Alkaline Phosphatase Total Creatine Kinase CK-MB (CK-2) Total Protein Albumin Globulin Albumin/Globulin Ratio 12/04/19 12/04/19 12/04/19 18:37 23:29 23:29 WBC RBC Hgb Hct MCV MCH MCHC RDW Plt Count MPV Neut % (Auto) Lymph % (Auto) [place] % (Auto) Eos % (Auto) Baso % (Auto) Absolute Neuts (auto) Absolute Lymphs (auto) Absolute Monos (auto) Absolute Eos (auto) Absolute Basos (auto) Absolute Nucleated RBC Nucleated RBC % INR (Anticoag Therapy) APTT Patient Temperature ABG pH 7.36 ABG pH (Temp Correct) ABG pCO2 27 L ABG pCO2 (Temp Corrct ABG pO2 82 ABG pO2 (Temp Correct ABG HCO3 18.2 L ABG O2 Saturation 97.7 ABG Base Excess -8.6 L Respiration Rate O2 Delivery Device Ventilator Type Vent Mode FiO2 Inspiratory Time PEEP Pressure Support Pressure Control EPAP IPAP BiPAP Sodium 142 141 Potassium TNP 3.6 Chloride 115 H 115 H Carbon Dioxide 15 L 16 L Anion Gap 12 H 10 BUN 39 H 38 H Creatinine 1.50 H 1.49 H Est GFR ( Amer) 55.7 56.1 Est GFR (Non-Af Amer) 46.0 46.4 BUN/Creatinine Ratio 26.0 H 25.5 H Glucose 195 H 184 H Calcium 6.9 L 6.8 L Ionized Calcium Phosphorus 4.6 Magnesium 2.0 Total Bilirubin Direct Bilirubin Indirect Bilirubin AST ALT Alkaline Phosphatase Total Creatine Kinase 761 H CK-MB (CK-2) Total Protein Albumin Globulin Albumin/Globulin Ratio 12/05/19 12/05/19 12/05/19 03:03 05:57 05:57 WBC RBC Hgb Hct MCV MCH MCHC RDW Plt Count MPV Neut % (Auto) Lymph % (Auto) [place] % (Auto) Eos % (Auto) Baso % (Auto) Absolute Neuts (auto) Absolute Lymphs (auto) Absolute Monos (auto) Absolute Eos (auto) Absolute Basos (auto) Absolute Nucleated RBC Nucleated RBC % INR (Anticoag Therapy) 1.20 H APTT 50.5 H Patient Temperature ABG pH 7.34 L ABG pH (Temp Correct) ABG pCO2 29 L ABG pCO2 (Temp Corrct ABG pO2 70 L ABG pO2 (Temp Correct ABG HCO3 17.9 L ABG O2 Saturation 94.1 ABG Base Excess -8.8 L Respiration Rate O2 Delivery Device Ventilator Type Vent Mode FiO2 Inspiratory Time PEEP Pressure Support Pressure Control EPAP IPAP BiPAP Sodium 141 Potassium 3.6 Chloride 115 H Carbon Dioxide 16 L Anion Gap 10 BUN 41 H Creatinine 1.56 H Est GFR ( Amer) 53.2 Est GFR (Non-Af Amer) 44.0 BUN/Creatinine Ratio 26.3 H Glucose 175 H Calcium 6.5 L Ionized Calcium Phosphorus Magnesium Total Bilirubin Direct Bilirubin Indirect Bilirubin AST ALT Alkaline Phosphatase Total Creatine Kinase CK-MB (CK-2) Total Protein Albumin Globulin Albumin/Globulin Ratio 12/05/19 12/05/19 12/05/19 05:57 05:57 05:57 WBC 13.2 H RBC 3.19 L Hgb 10.5 L Hct 29 L MCV 91 MCH 33 H MCHC 36 RDW 14 Plt Count 153 MPV 8.8 Neut % (Auto) Lymph % (Auto) [place] % (Auto) Eos % (Auto) Baso % (Auto) Absolute Neuts (auto) Absolute Lymphs (auto) Absolute Monos (auto) Absolute Eos (auto) Absolute Basos (auto) Absolute Nucleated RBC Nucleated RBC % INR (Anticoag Therapy) APTT Patient Temperature ABG pH ABG pH (Temp Correct) ABG pCO2 ABG pCO2 (Temp Corrct ABG pO2 ABG pO2 (Temp Correct ABG HCO3 ABG O2 Saturation ABG Base Excess Respiration Rate O2 Delivery Device Ventilator Type Vent Mode FiO2 Inspiratory Time PEEP Pressure Support Pressure Control EPAP IPAP BiPAP Sodium Potassium Chloride Carbon Dioxide Anion Gap BUN Creatinine Est GFR ( Amer) Est GFR (Non-Af Amer) BUN/Creatinine Ratio Glucose Calcium 6.4 L* Ionized Calcium 0.90 L Phosphorus Magnesium Total Bilirubin 0.60 Direct Bilirubin TNP Indirect Bilirubin Not Reportable AST TNP ALT 98 H Alkaline Phosphatase 44 Total Creatine Kinase CK-MB (CK-2) 52.1 H Total Protein 4.8 L Albumin 2.5 L Globulin 2.3 Albumin/Globulin Ratio 1.1 12/05/19 08:12 WBC RBC Hgb Hct MCV MCH MCHC RDW Plt Count MPV Neut % (Auto) Lymph % (Auto) [place] % (Auto) Eos % (Auto) Baso % (Auto) Absolute Neuts (auto) Absolute Lymphs (auto) Absolute Monos (auto) Absolute Eos (auto) Absolute Basos (auto) Absolute Nucleated RBC Nucleated RBC % INR (Anticoag Therapy) APTT Patient Temperature ABG pH ABG pH (Temp Correct) ABG pCO2 ABG pCO2 (Temp Corrct ABG pO2 ABG pO2 (Temp Correct ABG HCO3 ABG O2 Saturation ABG Base Excess Respiration Rate O2 Delivery Device Ventilator Type Vent Mode FiO2 Inspiratory Time PEEP Pressure Support Pressure Control EPAP IPAP BiPAP Sodium 142 Potassium TNP Chloride 117 H Carbon Dioxide 16 L Anion Gap 9 BUN 40 H Creatinine 1.60 H Est GFR ( Amer) 51.7 Est GFR (Non-Af Amer) 42.7 BUN/Creatinine Ratio 25.0 H Glucose 176 H Calcium 6.4 L* Ionized Calcium Phosphorus Magnesium Total Bilirubin Direct Bilirubin Indirect Bilirubin AST ALT Alkaline Phosphatase Total Creatine Kinase CK-MB (CK-2) Total Protein Albumin Globulin Albumin/Globulin Ratio Plan: 73y M w/pmhx of DM, HTN, WPW, prior history of prostate surgery complicated by 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 He was a witnessed collapse by house keeper, who started CPR, called EMS, state troopers arrive and gave 1 shock and continued CPR, EMS arrived and cont CPR with 2 epi with ROSC. Brought to ER and intubated. EKG demonstrated NSR with inferior ST elevations. STEMI called, taken to electroplating laborer, found to have occluded mid-RCA. PCI performed with 3 stents, discussed intraop findings with cardiology, some distal disease still present in RCA, no sig disease in LAD at this time. Given brillinta/asa. He is now in ICU, intubated, did not wake post code, on propofol now, BP stable. Given criteria for cardiac arrest he is started on Therapeutic hypothermia protocol. CT brain done showing no acute findings, areas of encephalomalacia+. 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 off pressors on propofol and precedex on integrilin infusion no further sig bleeding noted from ngt or ett diarrhea+ labs reviewed imaging reviewed cxr with ett above theodore, bilateral infitlrates with congestion plan - cont diuretics cont zosyn will hold sedation for neuro assessment today givne asa via gastric tube; if tolerating TF, then hold integrillin and will give brillinta 180mg po 1 hr later and start bid tonight. cont statin on minimal pressor making urine, Cr stabilized mid 1s; chronic renal insuf? cont diuretics neuro assessment in progress cont keppra; may switch to lamictal later today bid as per home meds trend h/h; no drop noted; cont ppi infusion for now lfts improving maintain vent for now; awaiting imrpoved mental status discussed plan with Dr Goldman Teaching Attestation This service has been performed in part by a resident under the direction of a teaching physician. I, Dr Christian Rodriguez, performed the service, or was physically present during the critical, or dennis portions of the service, furnished by the resident. I participated in the management of the patient. CC 60min
[2019-12-05] MEDS: Ticagrelor* 90 MG TAB PO SCH ×2 (12:27→20:07)
[2019-12-05] MEDS: busPIRone TAB* 30 MG PO SCH (14:34)
[2019-12-05] MEDS: Atorvastatin* 80 MG TAB PO SCH (18:43)
[2019-12-05] MEDS ORDERED: Propofol* 100 ML IV SCH (22:44)
[2019-12-06] MEDS: Piperacillin/Tazobac ADVAN(*) 3.375 GM in NS 0.9% 100 ML* 100 ML IVPB SCH ×4 (00:06→23:30)
[2019-12-06] MEDS: levETIRAcetam 500 MG IVPREMIX* 500 MG/100 ML BAG IV SCH (00:06)
[2019-12-06] MEDS: Insulin LISPRO* 1 UNITS UNIT SUBCUT SCH ×4 (01:12→19:32)
[2019-12-06] MEDS: Pantoprazole* 80 mg IN NS 80 MG/250 ML BAG IV SCH ×2 (01:58→15:03)
[2019-12-06] MEDS: Chlorhexidine MOUTHWASH 0.12%* 15 ML UDC TOPICAL SCH ×6 (03:52→22:45)
[2019-12-06 05:50] LABS: Hematocrit 27 % (42-52); Mean Corpuscular HGB Conc 36 g/dL (31-36); Mean Corpuscular Hemoglobin 33 pg (27-31); Mean Corpuscular Volume 90 fL (80-94); Mean Platelet Volume 8.7 fL (7.4-10.4); Platelet Count 147 10^3/uL (150-450); Red Blood Count 3.04 10^6 /uL (4.18-5.48); Red Cell Distribution Width 14 % (10-15); White Blood Count 14.8 10^3/uL (3.5-10.8)
[2019-12-06 05:58] LABS: Activated Partial Thrombo Time 89.3 seconds (26.0-38.0); INR 1.07 (0.82-1.09)
[2019-12-06 06:07] LABS: Albumin 2.5 g/dL (3.2-5.2); BUN/Creatinine Ratio 24.3 (8-20); Calcium 6.8 mg/dL (8.6-10.3); EGFR African American 54.8 (>60); EGFR Non-African American 45.3 (>60); Globulin 2.5 g/dL (2-4); Phosphorus 3.7 mg/dL (2.5-5.0); Total Bilirubin 0.8 mg/dL (0.2-1.0)
[2019-12-06 06:23] LABS: Indirect Bilirubin 0.4 mg/dL (0.3-1.0)
[2019-12-06 06:28] LABS: Potassium 3.3 mmol/L (3.5-5.0)
[2019-12-06] MEDS: Eptifibatide (*) 100 ML IV SCH (07:14)
[2019-12-06] MEDS: Aspirin 81 mg CHEW TAB* 81 MG TAB.CHEW PO SCH (08:32)
[2019-12-06] MEDS: lamoTRIgine TAB(*) 100 MG PO SCH ×2 (08:32→19:30)
[2019-12-06] MEDS: Baclofen TAB* 10 MG PO SCH ×2 (08:32→19:53)
[2019-12-06] MEDS: Furosemide IV* 10 MG/ML VIAL (40 MG) IV SLOW PU SCH (08:33)
[2019-12-06] MEDS ORDERED: CALCIUM GLUCONATE 1GM/50ML NS 1 GM/50 ML BAG IV ONE (09:40)
[2019-12-06] MEDS ORDERED: Magnesium Sulfate 2 GM IV* 2 GM/50 ML BAG ONE (10:16)
[2019-12-06] MEDS ORDERED: Metoprolol Tartrate IV* 1 MG/ML 5 ML VIAL ONE (10:20)
[2019-12-06] MEDS ORDERED: Metoprolol Tartrate IV* 1 MG/ML 5 ML VIAL IV ONE (10:34)
[2019-12-06] MEDS ORDERED: Amiodarone 150 MG IVPREMIX* 150 MG/100 ML BAG IV ONE (10:37)
[2019-12-06] MEDS ORDERED: Magnesium Sulfate 1 GM IV* 1 GM/100 ML BAG IV ONE (10:40)
[2019-12-06] MEDS ORDERED: Amiodarone 360 MG IVPREMIX* 360 MG/200 ML BAG IV ONE (10:51)
[2019-12-06] MEDS ORDERED: Magnesium Sulfate 2 GM IV* 2 GM/50 ML BAG IVPB ONE (11:01)
[2019-12-06] MEDS: KCL 10 MEQ/50 ML IVPREMIX* 10 MEQ/50 ML BAG IV SCH ×3 (11:03→13:35)
[2019-12-06] MEDS: Metoprolol Tartrate TAB* 25 MG PO SCH (11:42)
[2019-12-06] MEDS ORDERED: Ticagrelor* 90 MG TAB PO ONE (12:00)
[2019-12-06 12:57] LABS: Glucose Confirmatory 164 mg/dL (70-100); Triglycerides 820 mg/dL
[2019-12-06] MEDS ORDERED: Docusate LIQ* 100 MG/10 ML UDC PO PRN (14:11)
[2019-12-06] MEDS ORDERED: Vancomycin(*) 1,000 MG in NS 0.9% 250 ML* 250 ML IV ONE (14:12)
--- NOTE | 2019-12-06 14:42 | PN ---
Progress Note - Progress Note Date of Service: 12/06/19 Note: Progress Note -- Critical Care 24 hour events -remains intubated -off hypothermia -off pressors -on propofol and precedex infusion -held prop this morning but then became tachypnic and then afib/rvr; became hypotensive and had to have sync Cardioversion done state -not waking yet, back on sedation -making urine -abd slightly distended; making stool; TF being tolerated -on integrillin ifusion still; no bleeding observed ROS: ROS unable to be obtained secondary to intubated/sedated Tele: NSR; afib rvr Vitals: Vital Signs Temp 100.0 F 12/06/19 14:00 Pulse 82 12/06/19 14:00 Resp 21 12/06/19 07:00 BP 107/60 12/04/19 08:42 Pulse Ox 94 12/06/19 14:00 Intake & Output 12/05/19 12/06/19 12/06/19 18:59 06:59 18:59 Intake Total 1535 2066 126 Output Total 5150 698 6974 Balance -80 1331 -1309 Weight 93 kg Intake: IV Fluids 655 681 NS 634 681 Zosyn 21 IVPB 200 215 NS 100 Zosyn 100 215 Medicated IV 580 1028 Integrilin 53 101 Levophed 105 163 Precedex 83 154 Propofol 139 225 Protonix 200 385 Tube Feeding 100 112 126 Tube Feeding Flush Amount 30 Output: G Tube 250 Rose 7163 796 4893 O2/Vent: AC 14/400/+5/40% Infusions: propofol, levophed, NS infusion, protonix infusion, precedex Current Medications: Acetaminophen (Tylenol 650 Mg Supp) 650 mg OK Q6H PRN PRN Reason: shivering or fever >100.4 Albuterol (Ventolin 2.5 Mg/3 Ml Neb.Mariangel*) 2.5 mg INH Q2H PRN PRN Reason: SOB/WHEEZING Aspirin (Aspirin 81 Mg Chew Tab*) [address] [facility] Last Admin: 12/06/19 08:32 Dose: 81 mg Atorvastatin Calcium (Lipitor*) [address] [facility] Last Admin: 12/05/19 18:43 Dose: 80 mg Baclofen (Lioresal Tab*) [address] [facility] Last Admin: 12/06/19 08:32 Dose: 5 mg Chlorhexidine Gluconate (Peridex Mouth Wash 0.12%*) 15 ml TOPICAL Q4H [facility] Last Admin: 12/06/19 11:41 Dose: 15 ml Dextrose (D50w Syringe 50 Ml*) 12.5 gm IV PUSH .FOR FS < 60 - SS PRN PRN Reason: FS < 60 Docusate Sodium (Colace Liq*) 100 mg PO BID PRN PRN Reason: CONSTIPATION Fentanyl Citrate (Fentanyl*) 50 mcg IV SLOW PU Q1H PRN PRN Reason: shivering Last Admin: 12/03/19 00:43 Dose: 50 mcg Norepinephrine Bitartrate (Levophed 16 Mcg/Ml Premix*) 4,000 mcg in 250 mls @ 18.75 mls/hr IV .PER PROTOCOL JANELL; Protocol Last Admin: 12/05/19 04:09 Dose: 18.75 mls/hr Piperacillin Sod/Tazobactam (Sod 3.375 gm/ Sodium Chloride) 100 mls @ 25 mls/ hr IVPB Q8H [facility] Last Admin: 12/06/19 08:33 Dose: 25 mls/hr Dexmedetomidine HCl 1,000 mcg/ (Sodium Chloride) 250 mls @ 10.01 mls/hr IV .PER PROTOCOL JANELL; Protocol Last Admin: 12/04/19 16:25 Dose: 10.01 mls/hr Propofol (Diprivan*) 100 mls @ 7.209 mls/hr IV .PER PROTOCOL JANELL; Protocol Amiodarone HCl (Nexterone 360 Mg/200 Ml Ivpremix*) 360 mg in 200 mls @ 33.333 mls/hr IV ONCE ONE Stop: 12/06/19 16:50 Last Admin: 12/06/19 11:42 Dose: 33.333 mls/hr Fentanyl Citrate (Fentanyl Infusion Bag 50 Mcg/Ml 50 Ml) 2,500 mcg in 50 mls @ 2 mls/hr IV Q72H [facility]; Protocol Vancomycin HCl 1,000 mg/ (Sodium Chloride) 250 mls @ 166.667 mls/hr IV ONCE ONE ; Protocol Stop: 12/06/19 15:41 Insulin Human Lispro (Humalog*) 0 units SUBCUT FS Q6 ICU [facility]; Protocol Last Admin: 12/06/19 13:35 Dose: 2 units Lactulose (Lactulose*) 30 ml NG TUBE ED ONCE ONE Stop: 12/06/19 14:12 Lamotrigine (Lamictal Tab(*)) [address] [facility] Last Admin: 12/06/19 08:32 Dose: 150 mg Metoprolol Tartrate (Lopressor Tab*) 12.[address] [facility] Last Admin: 12/06/19 11:42 Dose: 12.5 mg Pantoprazole Sodium (Protonix Iv*) [address] [facility] Ticagrelor (Brilinta*) [address] [facility] Physical Exam: Constitutional: intubated, sedated, no distress, no diaphoresis Head: normocephalic, atraumatic Eyes: no pallor, no icterus ENT: moist mucous membranes Neck: soft, supple, no jvd CVS: normal rate, regular, no murmur Chest/Resp: bilateral air entry, no rhales, no wheeze, scattered rhonchi , no acc muscle use Abdomen/GI: soft, nondistended, BS+ Ext/Msk: warm, pulses+, no edema Skin: intact, cool Neuro: intubated, sedated, pupils reactive bilaterally, cough+, gag+; limited exam due to sedation/hypothermia Psych: unable to assess/intubated Labs: Laboratory Results - last 24 hr 12/05/19 12/06/19 12/06/19 17:30 00:26 05:30 WBC RBC Hgb Hct MCV MCH MCHC RDW Plt Count MPV INR (Anticoag Therapy) APTT ABG pH 7.33 L ABG pCO2 31 L ABG pO2 68 L ABG HCO3 18.3 L ABG O2 Saturation 93.9 L ABG Base Excess -8.4 L Sodium Potassium Chloride Carbon Dioxide Anion Gap BUN Creatinine Est GFR ( Amer) Est GFR (Non-Af Amer) BUN/Creatinine Ratio Glucose 144 H Glucose Meter Confirm 133 H Calcium Ionized Calcium Phosphorus Magnesium Total Bilirubin Direct Bilirubin Indirect Bilirubin AST ALT Alkaline Phosphatase Total Protein Albumin Globulin Albumin/Globulin Ratio Triglycerides 12/06/19 12/06/19 12/06/19 05:30 05:30 05:30 WBC RBC Hgb Hct MCV MCH MCHC RDW Plt Count MPV INR (Anticoag Therapy) 1.07 APTT 89.3 H ABG pH ABG pCO2 ABG pO2 ABG HCO3 ABG O2 Saturation ABG Base Excess Sodium 146 H Potassium 3.3 L Chloride 120 H Carbon Dioxide 17 L Anion Gap 9 BUN 37 H Creatinine 1.52 H Est GFR ( Amer) 54.8 Est GFR (Non-Af Amer) 45.3 BUN/Creatinine Ratio 24.3 H Glucose 147 H Glucose Meter Confirm Calcium 6.8 L Ionized Calcium 0.92 L Phosphorus 3.7 Magnesium 2.0 Total Bilirubin 0.80 Direct Bilirubin 0.40 H Indirect Bilirubin 0.4 AST 91 H ALT 75 H Alkaline Phosphatase 61 Total Protein 5.0 L Albumin 2.5 L Globulin 2.5 Albumin/Globulin Ratio 1.0 Triglycerides 12/06/19 12/06/19 05:30 12:30 WBC 14.8 H RBC 3.04 L Hgb 10.0 L Hct 27 L MCV 90 MCH 33 H MCHC 36 RDW 14 Plt Count 147 L MPV 8.7 INR (Anticoag Therapy) APTT ABG pH ABG pCO2 ABG pO2 ABG HCO3 ABG O2 Saturation ABG Base Excess Sodium Potassium Chloride Carbon Dioxide Anion Gap BUN Creatinine Est GFR ( Amer) Est GFR (Non-Af Amer) BUN/Creatinine Ratio Glucose Glucose Meter Confirm 164 H Calcium Ionized Calcium Phosphorus Magnesium Total Bilirubin Direct Bilirubin Indirect Bilirubin AST ALT Alkaline Phosphatase Total Protein Albumin Globulin Albumin/Globulin Ratio Triglycerides 820 Imaging: brain ct 12/01 - no acute findings; encephalomalacia chronic+ cxr 12/01 - ett above [place]; ogt in place; left sided haziness++ cxr 12/02 - ett above [place] ; bilateral haziness, left>right infiltrates+ cxr 12/03 - ett above [place], bialteral opacities but improved, left>right; more central congestion appearing cxr 12/05 - ett high, bilateral infiltrates/congestion abd xr 12/05 - no ileus seen, stool in colon Assessment: 73y M w/pmhx of DM, HTN, WPW, prior history of prostate surgery complicated by 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 He was a witnessed collapse by house keeper, who started CPR, called EMS, state troopers arrive and gave 1 shock and continued CPR, EMS arrived and cont CPR with 2 epi with ROSC. Brought to ER and intubated. EKG demonstrated NSR with inferior ST elevations. STEMI called, taken to collaborative physician, found to have occluded mid-RCA. PCI performed with 3 stents, discussed intraop findings with cardiology , some distal disease still present in RCA, no sig disease in LAD at this time. Given brillinta/asa. He is now in ICU, intubated, did not wake post code, on propofol now, BP stable. Given criteria for cardiac arrest he is started on Therapeutic hypothermia protocol. CT brain done showing no acute findings, areas of encephalomalacia+. -VT/VF out of hospital arrest -STEMI of RCA; s/p PCI x3 to mRCA 12/01 -Acute hypoxic respiratory failure, int 12/01 -BAM -Shock liver -metabolic acidosis -aspiration pneumonia of left lung -sepsis -Encephalopathy -upper GI bleed DM HTN h/o WPW h/o prior Right MCA CVA with left deficit seizure disorder Plan: Neuro- -s/p cardiac arrest, not responsive post ROSC; completed TTM 12/04 -has not woken when prop was dropped down; on prop and precedex; will stop prop given high lipids, start fentanyl infusion instead -brain ct 12/01 - no acute findings; chronic encephalomalacia+ -drop sedation further today; will plan for repeat CT brain today -neuro consult tomorrow and will ask for EEG tomorrow if not waking -neurochecks -h/o Right MCA CVA - chronic left residual weakness; has contractures of upper ext -seizure disorder - change keppra back to lamictal BID -hold home sedatives and other anxiety meds -cont baclofen for spasms -Delirium prec; avoid BDZ CVS- -VT/VF arrest - no further arrhythmias, no antiarrhythmics needs -Afib with RVR, new onset today; was unstable requiring DC cardioversion for hypotension; d/w Dr Goldman, added amio bolus/infusion; BP recovered after, started on lopressor low dose with increase as tolerated -currently NSR -EKG with resolved ST elevations, inferior Qwaves noted -STEMI RCA; s/p PCI - some left over residual disease; cont DAPT/statin; tolerating feeds so back on brillinta 180mg po x1 now then BID and ASA 81; d/c integrilin infusion -Shock resolved; likely related to sedation -d/c IVF -re-eval need for lasix daily based on Na and Cr; i think there is some pulm congestion; if ont improving may need repeat TTE to eval for any valvular dysfxn and LV function post STEMI -TTE reviewed - thick LV, intact function it appears; no effusion, small cavity ; some mild RV dysfunction noted only -HTN - restart antihypertensives as tolerated; noted to be on clonidine/coreg/ norvasc/lisinopril at home -h/o WPW - monitoring -Maintain MAP>65 Resp- -intubated on AC 40%; abg reviewed -CXR 12/05 - ett was high; bilateral infiltrates/congestion -ETT was pushed down 3cm by staff -has more pickens secretions; repeat sputum cultures -suspect aspiration pneumonia; cont zosyn -IV diuretics daily -Wean Fio2 to keep sat>92% -Bronchodilators PRN, Aspiration prec, Pulmonary Toilet -VAP bundle ID- tmax 100; wbc on protocol; wbc [id number] -cxr 12/05 - bilateral congestion/infiltrates -high risk for aspiration; cont empiric asp coverage with zosyn q8h (day#5) -add vancomycin -repeat sputum culture today GI- -OGT TF - nepro -abd mild distension, has diarrhea, passing TF down; abd xr with stool but no ileus seens/obstruction seen -will obtain CT abd -no further blood from OGT: stop ppi infusion, change to IV BID -hg stable -h/o PPI at home; previous PUD? Renal- -BAM, suspect this to be from ischemic ATN/hypoperfusion from cardiac arrest; Cr improved to mid 1-2, may be chronic underlying? -no obstruction, rose in place -metabolic acidosis+, likely was from hypoperfusion/renal insuff -d/c IVF -hyperkalemia, resolved -hypokalemia; given KCL this morning IV -some mild hypernatremia; given IV lasix; hold lasix and re-eval tomorrow for need -strict I/O, replete to keep K>4, Mg>2 -rose as indicated Heme- -hg stable -plt okay -cont DAPT for coronary stents; d/c intregillin today -restat heparin sq today Endo- Maintain BG<200, insulin protocol as needed Musculsk- pressure ulcer prophylaxis. Bedrest. Wounds- none Nutrition- OGt TFD Nepro DVT prophylaxis: SCD, heparin sq GI prophylaxis: ppi bid Central Line: left fem tlc/cooling cath 12/01 Arterial Line: right fem 12/01 Rose Cathetor: yes 12/01 Disposition: Patient requires Critical Care/ICU for cardiac arrest, encephalopathy, stemi, respiratory failure Patient Clinical Status: guarded, critical Code Status: full code Total Critical Care time is 45 minutes, excluding procedures/teaching Christian Rodriguez MD Professor Of Legal Studies (Electronically Signed)
--- NOTE | 2019-12-06 14:52 | PN ---
Progress Note - Progress Note Date of Service: 12/06/19 Note: CODE NOTE: Called to bedside by RN for arrhythmia noted on telemetry. Patient was on sedation vacation for approximately 25 minutes when he converted into an atrial fibrillation with RVR and became unstable. Rate was in the 160s-180s. Initially , magnesium and 5mg of lopressor was given to slow rate, however, BP did not tolerate the beta rudi and he became hypotensive. Given patient's history of WPW, decision was made to proceed with synchronized cardioversion to restore rhythm and cardiac output quickly. EKG was completed to confirm rhythm. Pads were placed on patient, defibrillator was placed on synch and set to 200 joules. Patient was shocked x1 with immediate cheondoism of regular sinus rhythm at 10:28 am. Blood pressure corresponded favorably. Amiodarone bolus given and drip initiated at 1mg/hr. Dr. Goldman/Cardiology aware of events.
[2019-12-06] MEDS: fentaNYL INFUSION 50 MCG/ML* 2,500 MCG/50 ML BAG IV SCH (15:52)
[2019-12-06] MEDS: Atorvastatin* 80 MG TAB PO SCH (15:52)
[2019-12-06] MEDS: Pantoprazole IV* 40 MG IV SCH (15:53)
[2019-12-06] MEDS: Amiodarone 360 MG IVPREMIX* 360 MG/200 ML BAG IV SCH (18:20)
[2019-12-06] MEDS ORDERED: hydrALAZINE IV* 20 MG/ML VIAL IV SLOW PU PRN (19:32)
[2019-12-06] MEDS: amLODIPine TAB* 5 MG PO SCH (19:52)
[2019-12-06] MEDS: Carvedilol TAB* 6.25 MG PO SCH ×2 (19:52→19:53)
[2019-12-06] MEDS: Heparin VIAL(*) 5000 UNITS/ML VIAL (FIVE THOUSAND) SUBCUT SCH (22:44)
[2019-12-06] MEDS: Ticagrelor* 90 MG TAB PO SCH (22:44)
[2019-12-07] MEDS: Insulin LISPRO* 1 UNITS UNIT SUBCUT SCH ×4 (00:36→19:02)
[2019-12-07] MEDS: Chlorhexidine MOUTHWASH 0.12%* 15 ML UDC TOPICAL SCH ×5 (02:47→20:01)
[2019-12-07] MEDS: Pantoprazole IV* 40 MG IV SCH ×2 (02:48→16:08)
[2019-12-07 05:50] LABS: Hematocrit 25 % (42-52); Hemoglobin 8.7 g/dL (14.0-18.0); Mean Corpuscular HGB Conc 35 g/dL (31-36); Mean Corpuscular Hemoglobin 31 pg (27-31); Mean Corpuscular Volume 90 fL (80-94); Mean Platelet Volume 8.8 fL (7.4-10.4); Platelet Count 130 10^3/uL (150-450); Red Blood Count 2.79 10^6 /uL (4.18-5.48); Red Cell Distribution Width 14 % (10-15); White Blood Count 11.8 10^3/uL (3.5-10.8)
[2019-12-07 05:56] LABS: INR 1.04 (0.82-1.09)
[2019-12-07 06:09] LABS: Albumin 2.5 g/dL (3.2-5.2); Albumin/Globulin Ratio 0.9 (1-3); BUN/Creatinine Ratio 21.5 (8-20); EGFR African American 47.5 (>60); EGFR Non-African American 39.3 (>60); Globulin 2.7 g/dL (2-4); Indirect Bilirubin 0.4 mg/dL (0.3-1.0); Magnesium 2.1 mg/dL (1.9-2.7); Phosphorus 3.8 mg/dL (2.5-5.0); Potassium 3.2 mmol/L (3.5-5.0); Total Bilirubin 0.8 mg/dL (0.2-1.0); Total Protein 5.2 g/dL (6.4-8.9)
[2019-12-07] MEDS: Heparin VIAL(*) 5000 UNITS/ML VIAL (FIVE THOUSAND) SUBCUT SCH ×3 (06:27→21:01)
[2019-12-07] MEDS: Amiodarone 360 MG IVPREMIX* 360 MG/200 ML BAG IV SCH (06:38)
[2019-12-07] MEDS: Metoprolol Tartrate TAB* 25 MG PO SCH (07:33)
[2019-12-07] MEDS: KCL 20 MEQ/100 ML IVPREMIX* 20 MEQ/100 ML BAG IV SCH ×4 (08:00→21:01)
[2019-12-07] MEDS: Aspirin 81 mg CHEW TAB* 81 MG TAB.CHEW PO SCH (08:01)
[2019-12-07] MEDS: lamoTRIgine TAB(*) 100 MG PO SCH ×2 (08:01→20:59)
[2019-12-07] MEDS: amLODIPine TAB* 5 MG PO SCH (08:01)
[2019-12-07] MEDS: Carvedilol TAB* 6.25 MG PO SCH ×2 (08:01→21:01)
[2019-12-07] MEDS: Piperacillin/Tazobac ADVAN(*) 3.375 GM in NS 0.9% 100 ML* 100 ML IVPB SCH ×2 (08:01→16:08)
[2019-12-07] MEDS: Baclofen TAB* 10 MG PO SCH ×2 (08:01→21:00)
--- NOTE | 2019-12-07 08:40 | PN ---
<Manasa Marquez - Last Filed: 12/07/19 08:35> Subjective Date of Service: 12/07/19 - Witnessed arrest, Inferior STEMI, Interval History: No events last night. Patient is sedated/ventilated. He is s/p external CV 2019 due to Afib with RVR 160's now on IV Amiodarone therapy. I spoke with his nurse who states he has been moving RUE and head. He has known left hemiparesis from prior right MCA infarct remotely. No medications have been suctioned from OG tube. No other events overnight. Medications Active Medications: Acetaminophen (Tylenol 650 Mg Supp) 650 mg [place] Q6H PRN PRN Reason: shivering or fever >100.4 Albuterol (Ventolin 2.5 Mg/3 Ml Neb.Mariangel*) 2.5 mg INH Q2H PRN PRN Reason: SOB/WHEEZING Amlodipine Besylate (Norvasc Tab*) 10 mg PO DAILY [facility] Last Admin: 12/07/19 08:01 Dose: 10 mg Aspirin (Aspirin 81 Mg Chew Tab*) 81 mg PO DAILY [facility] Last Admin: 12/07/19 08:01 Dose: 81 mg Atorvastatin Calcium (Lipitor*) 80 mg PO 1700 [facility] Last Admin: 12/06/19 15:52 Dose: 80 mg Baclofen (Lioresal Tab*) 5 mg PO BID [facility] Last Admin: 12/07/19 08:01 Dose: 5 mg Carvedilol (Coreg Tab*) 6.25 mg PO BID [facility] Last Admin: 12/07/19 08:01 Dose: 6.25 mg Chlorhexidine Gluconate (Peridex Mouth Wash 0.12%*) 15 ml TOPICAL Q4H [facility] Last Admin: 12/07/19 06:19 Dose: 15 ml Dextrose (D50w Syringe 50 Ml*) 12.5 gm IV PUSH .FOR FS < 60 - SS PRN PRN Reason: FS < 60 Docusate Sodium (Colace Liq*) 100 mg PO BID PRN PRN Reason: CONSTIPATION Last Admin: 12/06/19 15:52 Dose: 100 mg Fentanyl Citrate (Fentanyl*) 50 mcg IV SLOW PU Q1H PRN PRN Reason: shivering Last Admin: 12/03/19 00:43 Dose: 50 mcg Heparin Sodium (Porcine) (Heparin Vial(*)) 5,000 units SUBCUT Q8HR [facility] Last Admin: 12/07/19 06:27 Dose: 5,000 units Hydralazine HCl (Apresoline Iv*) 10 mg IV SLOW PU Q4H PRN PRN Reason: sbp>160 Norepinephrine Bitartrate (Levophed 16 Mcg/Ml Premix*) 4,000 mcg in 250 mls @ 18.75 mls/hr IV .PER PROTOCOL JANELL; Protocol Last Admin: 12/05/19 04:09 Dose: 18.75 mls/hr Piperacillin Sod/Tazobactam (Sod 3.375 gm/ Sodium Chloride) 100 mls @ 25 mls/ hr IVPB Q8H [facility] Last Admin: 12/07/19 08:01 Dose: 25 mls/hr Propofol (Diprivan*) 100 mls @ 7.209 mls/hr IV .PER PROTOCOL JANELL; Protocol Last Admin: 12/06/19 18:14 Dose: 4.8 mls/hr Fentanyl Citrate (Fentanyl Infusion Bag 50 Mcg/Ml 50 Ml) 2,500 mcg in 50 mls @ 2 mls/hr IV Q72H [facility]; Protocol Last Admin: 12/06/19 15:52 Dose: 2 mls/hr Dexmedetomidine HCl 1,000 mcg/ (Sodium Chloride) 250 mls @ 11.62 mls/hr IV .PER PROTOCOL JANELL; Protocol Potassium Chloride (Potassium Chloride 20 Meq/100 Ml Ivpremix*) 20 meq in 100 mls @ 50 mls/hr IV Q2H [facility] Stop: 12/07/19 11:59 Last Admin: 12/07/19 08:00 Dose: 50 mls/hr Potassium Chloride (Potassium Chloride 20 Meq/100 Ml Ivpremix*) 20 meq in 100 mls @ 50 mls/hr IV Q2H [facility] Stop: 12/07/19 12:59 Insulin Human Lispro (Humalog*) 0 units SUBCUT FS Q6 ICU [facility]; Protocol Last Admin: 12/07/19 06:52 Dose: 4 units Lamotrigine (Lamictal Tab(*)) 150 mg PO Q12H [facility] Last Admin: 12/07/19 08:01 Dose: 150 mg Metoprolol Tartrate (Lopressor Iv*) 5 mg IV Q6H PRN PRN Reason: BLOOD PRESSURE Pantoprazole Sodium (Protonix Iv*) 40 mg IV Q12H [facility] Last Admin: 12/07/19 02:48 Dose: Not Given Ticagrelor (Brilinta*) 90 mg PO Q12H [facility] Last Admin: 12/06/19 22:44 Dose: 90 mg Objective Vital Signs: Temp Pulse Resp BP Pulse Ox 99.9 F 72 15 107/60 99 12/07/19 07:00 12/07/19 07:00 12/07/19 06:54 12/04/19 08:42 12/07/19 07:00 Oxygen Devices in Use Now: Endotracheal Tube, Mechanical Ventilator Appearance: Sedated, ventilated. ill but stable at this time Eyes: - - 2mm fixed. Ears/Nose/Mouth/Throat: Mucous Membranes Moist, - - ET/OG tube in place. Neck: Trachea Midline, No Thyroid Enlargement, Masses Respiratory: - - Auscultated anteriorly. Clear. No secretions were suctioned from ET. OG tube has coffee ground emesis noted in tube Cardiovascular: NL Sounds; No Murmurs; No JVD, No Edema Extremities: No Edema, - - cool to touch. Skin: No Rash or Ulcers Neurological: - - sedated on ventilator. Lines/Tubes/Other Access: Clean, Dry and Intact Endotracheal Tube, Clean, Dry and Intact Valentin, Clean, Dry and Intact Central Line, Clean, Dry and Intact Arterial Line Laboratory Results: 12/07/19 05:30 12/07/19 05:30 INR (Anticoag Therapy) 1.04 (0.82-1.09) 12/07/19 05:30 APTT 89.3 seconds (26.0-38.0) H 12/06/19 05:30 Total Bilirubin 0.80 mg/dL (0.2-1.0) 12/07/19 05:30 Direct Bilirubin 0.40 mg/dL (0.03-0.18) H 12/07/19 05:30 Indirect Bilirubin 0.4 mg/dL (0.3-1.0) 12/07/19 05:30 AST 59 U/L (13-39) H 12/07/19 05:30 ALT 56 U/L (7-52) H 12/07/19 05:30 Alkaline Phosphatase 81 U/L (34-104) 12/07/19 05:30 CK-MB (CK-2) 52.1 ng/mL (0.6-6.3) H 12/05/19 05:57 B-Natriuretic Peptide 70 pg/mL (<=100) 12/02/19 18:15 Total Protein 5.2 g/dL (6.4-8.9) L 12/07/19 05:30 Albumin 2.5 g/dL (3.2-5.2) L 12/07/19 05:30 Globulin 2.7 g/dL (2-4) 12/07/19 05:30 Albumin/Globulin Ratio 0.9 (1-3) L 12/07/19 05:30 Triglycerides 820 mg/dL 12/06/19 12:30 Cholesterol 100 mg/dL 12/03/19 05:55 LDL Cholesterol 33 mg/dL 12/03/19 05:55 HDL Cholesterol 24.7 mg/dL 12/03/19 05:55 TSH 1.02 mcIU/mL (0.34-5.60) 12/02/19 18:15 12/02/19 12/02/19 12/02/19 10:47 13:15 18:15 Troponin I 0.07 H* 19.50 H* 41.77 H* 12/03/19 12/03/19 12/03/19 00:00 05:55 17:20 Troponin I 60.49 H* 66.45 H* 53.30 H* 12/04/19 06:20 Troponin I 43.16 H* Laboratory Results - last 24 hr 12/06/19 12/06/19 12/06/19 12:30 18:10 23:30 WBC RBC Hgb Hct MCV MCH MCHC RDW Plt Count MPV INR (Anticoag Therapy) ABG pH ABG pCO2 ABG pO2 ABG HCO3 ABG O2 Saturation ABG Base Excess Sodium Potassium Chloride Carbon Dioxide Anion Gap BUN Creatinine Est GFR ( Amer) Est GFR (Non-Af Amer) BUN/Creatinine Ratio Glucose 169 H Glucose Meter Confirm 164 H 169 H Calcium Ionized Calcium Phosphorus Magnesium Total Bilirubin Direct Bilirubin Indirect Bilirubin AST ALT Alkaline Phosphatase Ammonia Total Protein Albumin Globulin Albumin/Globulin Ratio Triglycerides 820 12/07/19 12/07/19 12/07/19 05:30 05:30 05:30 WBC RBC Hgb Hct MCV MCH MCHC RDW Plt Count MPV INR (Anticoag Therapy) ABG pH 7.35 ABG pCO2 33 L ABG pO2 92 ABG HCO3 19.9 ABG O2 Saturation 98.7 H ABG Base Excess -6.4 L Sodium 149 H Potassium 3.2 L Chloride 121 H Carbon Dioxide 18 L Anion Gap 10 BUN 37 H Creatinine 1.72 H Est GFR ( Amer) 47.5 Est GFR (Non-Af Amer) 39.3 BUN/Creatinine Ratio 21.5 H Glucose 212 H Glucose Meter Confirm Calcium 7.0 L Ionized Calcium Phosphorus 3.8 Magnesium 2.1 Total Bilirubin 0.80 Direct Bilirubin 0.40 H Indirect Bilirubin 0.4 AST 59 H ALT 56 H Alkaline Phosphatase 81 Ammonia 74 H Total Protein 5.2 L Albumin 2.5 L Globulin 2.7 Albumin/Globulin Ratio 0.9 L Triglycerides 12/07/19 12/07/19 12/07/19 05:30 05:30 05:30 WBC 11.8 H RBC 2.79 L Hgb 8.7 L Hct 25 L MCV 90 MCH 31 MCHC 35 RDW 14 Plt Count 130 L MPV 8.8 INR (Anticoag Therapy) 1.04 ABG pH ABG pCO2 ABG pO2 ABG HCO3 ABG O2 Saturation ABG Base Excess Sodium Potassium Chloride Carbon Dioxide Anion Gap BUN Creatinine Est GFR ( Amer) Est GFR (Non-Af Amer) BUN/Creatinine Ratio Glucose Glucose Meter Confirm Calcium Ionized Calcium 0.97 L Phosphorus Magnesium Total Bilirubin Direct Bilirubin Indirect Bilirubin AST ALT Alkaline Phosphatase Ammonia Total Protein Albumin Globulin Albumin/Globulin Ratio Triglycerides Diagnostic Imaging: *[facility]* [place] [address] Fax #: [phone] Transthoracic Echocardiogram Patient: Sherif Craven : 1945 Study Date: 12/02/2019 Age: 74 Gender: M HR: 74 bpm Height: 10 in /25.4 cm BSA: 0.49 m^2 Weight: 180.6 lb /82.1 kg BMI: 1272.6 kg/m^2 *Manager Security And Safety: * Liz Torres *Referring Physician: * Oc Goldman MD *Reading Physician: * Atiya Schofield MD Indications: Cardiac Arrest. History: PMH: Myocardial infarction. Risk factors: Hypertension. Diabetes mellitus. Conclusions Summary: - Procedure narrative: Transthoracic echocardiography was performed. Image quality was suboptimal. The study was technically limited due to poor acoustic window availability, restricted patient mobility, and Patient on ventilator. - Left ventricle: The cavity size is mildly reduced. Wall thickness is moderately increased. Systolic function is hyperdynamic. The estimated ejection fraction is 55-60%. Severe hypokinesis of the basal-midinferior myocardium. - Right ventricle: Systolic function is moderately reduced. - Mitral valve: There is trace regurgitation. Study data: Transthoracic echocardiogram. Procedure: Transthoracic echocardiography was performed. Image quality was suboptimal. The study was technically limited due to poor acoustic window availability, restricted patient mobility, and Patient on This report is only to be considered final once signed by the Provider(s) as displayed in the "<Electronically Signed by >" field (s). Absence of a signature indicates the report is in a draft status and still needs to be finalized. In the event this document was created by someone other than the signing Provider, the individual initiating the document will be listed in the "Entered by:" or "Dictated by:" carbone. Patient Name: SHERIF CRAVEN JR Medical Record#: [id number] Ordering Physician: Christian Rodriguez MD Acct.#: [id number] : 1945 Age: 74 Sex: M Location: [facility] Exam Date: 12/03/19 06 ADM Status: ADM IN Order Information: CHEST AP/PORT Accession Number: [id number] CPT: 97079 INDICATION: Respiratory failure COMPARISON: There are no relevant prior studies available for comparison. TECHNIQUE: A portable view of the chest was obtained. FINDINGS: Overlying leads obscure the [id number]. The patient rotated. Endotracheal tube tip terminates approximately 6 cm above the theodore. An enteric tube terminates in the left upper quadrant. A temperature probe is seen in the midesophagus. There is decreased aeration in the right midlung zone with similar opacification of the left hemithorax. Small pleural effusions are possible. The heart is similarly enlarged. The vascular markings are prominent. IMPRESSION: 1. The endotracheal tube is about 6 cm above the theodore (consider advancing). 2. Slightly decreased aeration of the right middle lung zone with similar opacification of the left hemithorax. 3. Small pleural effusions are suspected. <Electronically signed by Gerardo Dickey MD in [place]> 12/03/1907 Dictated By: Gerardo Dickey MD Dictated Date/Time: 12/03/19756 Transcribed Date/Time: 12/03/19756 Copy to: CC:Sina Sims MD; Christian Rodriguez MD; Oc Goldman MD Imaging - [facility] [address] This report is only to be considered final once signed by the Provider(s) as displayed in the "<Electronically Signed by >" field (s). Absence of a signature indicates the report is in a draft status and still needs to be finalized. In the event this document was created by someone other than the signing Provider, the individual initiating the document will be listed in the "Entered by:" or "Dictated by:" carbone. 1 of 2 [facility] Patient Name:SHERIF CRAVEN JR MR:[id number] : 1945 IMPRESSION: 1. Patient is status post cardiac arrest. The CT scan shows severe coronary calcification. No pericardial thickening or effusion. 2. Moderate size bilateral pleural effusions with consolidation and volume loss of the lower lungs and some areas of atelectasis in the upper lungs. 3. Perihilar infiltrates most likely representing pulmonary edema secondary to left-sided heart failure. Differential would consist of atypical pneumonia, pulmonary hemorrhage and ARDS. 4. Acute fractures of both lower anterior ribs. Abnormality of the manubrium and sternum which may represent motion artifacts but could represent acute fractures in light of the patient's history of a recent cardiac arrest and possible resuscitation. No retrosternal hematoma. PROCEDURE INFORMATION: Exam: CT Abdomen And Pelvis Without Contrast Exam date and time: 12/06/2019 10:01 PM Age: 74 years old Clinical indication: Mass, lump, or swelling; Other: Post cardiac arrest; Additional info: Aspiration, cardiac arrest, pulm congestion TECHNIQUE: Imaging protocol: Computed tomography of the abdomen and pelvis without contrast. Radiation optimization: All CT scans at this facility use at least one of these dose optimization techniques: automated exposure control; mA and/or kV adjustment per patient size (includes targeted exams where dose is matched to clinical indication); or iterative reconstruction. COMPARISON: DX CXR PORTAP CHEST AP/PORT 12/06/2019 6:27 AM FINDINGS: Tubes, catheters and devices: NG tube tip located in the stomach. Right femoral arterial catheter. Left femoral venous catheter with the tip located in the mid inferior vena cava. Liver: Normal. No mass. Gallbladder and bile ducts: Calcified gallstones located in the dependent portion of the gallbladder. Largest stone measures approximately 2 cm in length. No gallbladder wall thickening. No pericholecystic fluid collection. No ductal distention. Pancreas: Normal. No ductal dilation. Spleen: Normal. No splenomegaly. Adrenals: Normal. No mass. Kidneys and ureters: The kidneys are of normal size. Multiple hypodensities scattered throughout the renal cortex on both sides. Largest lesion is in the midpole of the right kidney. This measures 2.2 cm in length. It has a central density of 43 Hounsfield units. The other cortical lesions have a lower density pattern consistent with simple cysts. No hydronephrosis or nephrolithiasis. The Stomach and bowel: The stomach is partially filled with food fluid and air. The duodenal bulb and sweep are not remarkable. No bowel obstruction. Moderate amount of feces and air located in the sigmoid colon and rectum. The cecum, ascending colon, transverse colon and descending colon are partially empty. No bowel wall thickening. Occasional colonic diverticuli. No evidence of acute diverticulitis. Appendix: No evidence of appendicitis. Intraperitoneal space: Unremarkable. No free air. No significant fluid collection. Vasculature: Calcification of the wall of the abdominal aorta and iliac arteries. No abdominal aortic aneurysm. Lymph nodes: Prostatectomy with dissection of the lymph nodes in the pelvis. No periaortic or pericaval adenopathy. Bladder: Valentin catheter located in the bladder which is empty. Areas seen This report is only to be considered final once signed by the Provider(s) as displayed in the "<Electronically Signed by >" field (s). Absence of a signature indicates the report is in a draft status and still needs to be finalized. In the event this document was created by someone other than the signing Provider, the individual initiating the document will be listed in the "Entered by:" or "Dictated by:" carbone. 2 of 5 EKG Data: 12/03/2019; Sinus bradycardia rate 57 with inferior Q waves and TW inversion/ flattening c/w recent MS. QTc 531 02/03/2020; Sinus bradycardia rate 02/05/20; Sinus rhythm rate 73, Diffuse minimal ST depression with TWI. Telemetry; reviewed. Sinus rhythm rate 70-80's. NO VT/VF. Afib with RVR 160's 150s 12/06/2019 Assessment/Plan #1 S/P Acute Inferior STEMI presented with witnessed arrest. Patient was defibrillated x1 per EMS and received 2 rounds of Epi. He is s/p CAROLE to Proximal RCA 12/02/2019. LVEF 55-60% with basal midinferior hypokinesis. Troponin peaked at 66 on 12/03/2019 and has started to trend down. He is currently euthermic,, neurology consult pending. On ASA 81/day in combination with Brilinta 90 BID, Coreg 6.25mg Po BID, Lipitor 80QHS. He had AF with RVR 160 's 12/06/19 s/p CV now on Amiodarone. Hgb trending down however, if patient has recurrent AF it may be reasonable to consider Plavix 75/day in combination with Xarelto 15/day ( [place] PCI-AF trial). For now continue current regimen. Will follow closely/ #2 Transaminitis; AST/ALT are elevated however are < 500. Likely ischemic injury due to above #1. Primary team following. He is on high intensity statin therapy. enzymes continue to improve. #3 BAM; Likely due to above #1. Renal function improved but is still elevated. 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 On ASA therapy. #5 Newly found AF with RVR 12/06/2019. s/p CV now on IV amiodarone. No recurrent AF. Will continue IV amiodarone and Coreg therapy. If patient has recurrent AF will consider changing antiplatlet and placing him on renal dose DOAC. Will follow. 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 Keep K+>4, Mag >2. Will replace K+. ( ordered) #6 Coffee ground emesis in noted in OG tube. Hgb 8.7, Plts 130,000. On IV Protonix managed by ICU team. #7 Disposition pending course. Patient condition guarded. Neuro to see patient . Will follow closely. Will d/w attending Dr. Pederson. Points of Discussion: . Attending: Gurwinder Pederson <Gurwinder Pederson - Last Filed: 12/07/19 11:14> Medications Active Medications: Acetaminophen (Tylenol Adult Liq*) 650 mg PO Q4H PRN PRN Reason: mild pain for temp>101 Albuterol (Ventolin 2.5 Mg/3 Ml Neb.Mariangel*) 2.5 mg INH Q2H PRN PRN Reason: SOB/WHEEZING Amiodarone HCl (Cordarone Tab*) 200 mg PO BID [facility] Amlodipine Besylate (Norvasc Tab*) 10 mg PO DAILY [facility] Last Admin: 12/07/19 08:01 Dose: 10 mg Aspirin (Aspirin 81 Mg Chew Tab*) 81 mg PO DAILY [facility] Last Admin: 12/07/19 08:01 Dose: 81 mg Atorvastatin Calcium (Lipitor*) 80 mg PO 1700 [facility] Last Admin: 12/06/19 15:52 Dose: 80 mg Baclofen (Lioresal Tab*) 5 mg PO BID [facility] Last Admin: 12/07/19 08:01 Dose: 5 mg Carvedilol (Coreg Tab*) 6.25 mg PO BID [facility] Last Admin: 12/07/19 08:01 Dose: 6.25 mg Chlorhexidine Gluconate (Peridex Mouth Wash 0.12%*) 15 ml TOPICAL Q4H [facility] Last Admin: 12/07/19 10:32 Dose: 15 ml Dextrose (D50w Syringe 50 Ml*) 12.5 gm IV PUSH .FOR FS < 60 - SS PRN PRN Reason: FS < 60 Docusate Sodium (Colace Liq*) 100 mg PO BID PRN PRN Reason: CONSTIPATION Last Admin: 12/06/19 15:52 Dose: 100 mg Fentanyl Citrate (Fentanyl*) 50 mcg IV SLOW PU Q1H PRN PRN Reason: shivering Last Admin: 12/03/19 00:43 Dose: 50 mcg Heparin Sodium (Porcine) (Heparin Vial(*)) 5,000 units SUBCUT Q8HR [facility] Last Admin: 12/07/19 06:27 Dose: 5,000 units Hydralazine HCl (Apresoline Iv*) 10 mg IV SLOW PU Q4H PRN PRN Reason: sbp>160 Norepinephrine Bitartrate (Levophed 16 Mcg/Ml Premix*) 4,000 mcg in 250 mls @ 18.75 mls/hr IV .PER PROTOCOL [facility]; Protocol Last Admin: 12/05/19 04:09 Dose: 18.75 mls/hr Piperacillin Sod/Tazobactam (Sod 3.375 gm/ Sodium Chloride) 100 mls @ 25 mls/ hr IVPB Q8H [facility] Last Admin: 12/07/19 08:01 Dose: 25 mls/hr Propofol (Diprivan*) 100 mls @ 7.209 mls/hr IV .PER PROTOCOL JANELL; Protocol Last Admin: 12/06/19 18:14 Dose: 4.8 mls/hr Fentanyl Citrate (Fentanyl Infusion Bag 50 Mcg/Ml 50 Ml) 2,500 mcg in 50 mls @ 2 mls/hr IV Q72H [facility]; Protocol Last Admin: 12/06/19 15:52 Dose: 2 mls/hr Dexmedetomidine HCl 1,000 mcg/ (Sodium Chloride) 250 mls @ 11.62 mls/hr IV .PER PROTOCOL JANELL; Protocol Potassium Chloride (Potassium Chloride 20 Meq/100 Ml Ivpremix*) 20 meq in 100 mls @ 50 mls/hr IV Q2H [facility] Stop: 12/07/19 11:59 Last Admin: 12/07/19 10:53 Dose: 50 mls/hr Vancomycin HCl 1,000 mg/ (Sodium Chloride) 250 mls @ 166.667 mls/hr IV ONCE ONE Stop: 12/07/19 12:29 Insulin Human Lispro (Humalog*) 0 units SUBCUT FS Q6 ICU [facility]; Protocol Last Admin: 12/07/19 06:52 Dose: 4 units Lamotrigine (Lamictal Tab(*)) 150 mg PO Q12H [facility] Last Admin: 12/07/19 08:01 Dose: 150 mg Metoclopramide HCl (Reglan Iv*) 5 mg IV Q6H PRN PRN Reason: motility Metoprolol Tartrate (Lopressor Iv*) 5 mg IV Q6H PRN PRN Reason: BLOOD PRESSURE Pantoprazole Sodium (Protonix Iv*) 40 mg IV Q12H [facility] Last Admin: 12/07/19 02:48 Dose: Not Given Pharmacy Consult (Vancomycin Per Pharmacy*) 1 note FOLLOW UP .VANC PER PHARMACY J[facility]; Protocol Pharmacy Consult (Vancomycin Random Level*) 1 note FOLLOW UP 0600 ONE Stop: 12/08/19 06:01 Ticagrelor (Brilinta*) 90 mg PO Q12H [facility] Last Admin: 12/07/19 10:53 Dose: 90 mg Objective Vital Signs: Temp Pulse Resp BP Pulse Ox 100.2 F 69 16 107/60 98 12/07/19 09:45 12/07/19 09:45 12/07/19 09:00 12/04/19 08:42 12/07/19 09:45 Laboratory Results: 12/07/19 05:30 12/07/19 05:30 INR (Anticoag Therapy) 1.04 (0.82-1.09) 12/07/19 05:30 APTT 89.3 seconds (26.0-38.0) H 12/06/19 05:30 Total Bilirubin 0.80 mg/dL (0.2-1.0) 12/07/19 05:30 Direct Bilirubin 0.40 mg/dL (0.03-0.18) H 12/07/19 05:30 Indirect Bilirubin 0.4 mg/dL (0.3-1.0) 12/07/19 05:30 AST 59 U/L (13-39) H 12/07/19 05:30 ALT 56 U/L (7-52) H 12/07/19 05:30 Alkaline Phosphatase 81 U/L (34-104) 12/07/19 05:30 CK-MB (CK-2) 52.1 ng/mL (0.6-6.3) H 12/05/19 05:57 B-Natriuretic Peptide 70 pg/mL (<=100) 12/02/19 18:15 Total Protein 5.2 g/dL (6.4-8.9) L 12/07/19 05:30 Albumin 2.5 g/dL (3.2-5.2) L 12/07/19 05:30 Globulin 2.7 g/dL (2-4) 12/07/19 05:30 Albumin/Globulin Ratio 0.9 (1-3) L 12/07/19 05:30 Triglycerides 820 mg/dL 12/06/19 12:30 Cholesterol 100 mg/dL 12/03/19 05:55 LDL Cholesterol 33 mg/dL 12/03/19 05:55 HDL Cholesterol 24.7 mg/dL 12/03/19 05:55 TSH 1.02 mcIU/mL (0.34-5.60) 12/02/19 18:15 12/02/19 12/02/19 12/02/19 10:47 13:15 18:15 Troponin I 0.07 H* 19.50 H* 41.77 H* 12/03/19 12/03/19 12/03/19 00:00 05:55 17:20 Troponin I 60.49 H* 66.45 H* 53.30 H* 12/04/19 06:20 Troponin I 43.16 H* Assessment/Plan Points of Discussion: personally saw and examined pt. discussed in detail with GEORGE Marquez
[2019-12-07] MEDS ORDERED: KCL 20 MEQ/100 ML IVPREMIX* 20 MEQ/100 ML BAG IV SCH (09:00)
[2019-12-07] MEDS ORDERED: Metoclopramide IV* 5 MG/ML 2 ML VIAL IV PRN (09:07)
[2019-12-07] MEDS ORDERED: Acetaminophen ADULT LIQ* 650 MG/20.3 ML UDC ONE (10:41)
[2019-12-07] MEDS: Ticagrelor* 90 MG TAB PO SCH (10:53)
--- NOTE | 2019-12-07 10:59 | PN ---
<Maria Del Carmen Damian - Last Filed: 12/07/19 10:52> Date of Service: 12/07/19 Critical Care Services: Overnight events -remains intubated -off hypothermia -off pressors -on propofol and precedex infusion -rate controlled after cardioconversion and amiodarone yesterday - had purposeful movement when off sedation, but back on sedation (Precedex 1.4 , Propofol 200 ) due to agitation and Afib with RVR - abd slightly distended; making stool but not much, CT abdomen doesn't show any obstruction, will try free water and see how he tolerates. - coffee ground emesis this morning, Hb drop from 10->8.7, no flash bleeding - still low grade temp 100.2, TW downtrending after adding vanco Tele: NSR O2/Vent: AC 14/500/+5/55% Infusions: propofol, protonix infusion, precedex Vital Signs: Temp Pulse Resp BP SpO2 FiO2 100.2 F 69 16 107/60 98 65 12/07/19 09:45 12/07/19 09:45 12/07/19 09:00 12/04/19 08:42 12/07/19 09:45 12/06 03:07 Physical Exam: Constitutional: intubated, sedated, no distress, no diaphoresis Head: normocephalic, atraumatic Eyes: no pallor, no icterus ENT: moist mucous membranes Neck: soft, supple, no jvd CVS: normal rate, regular, no murmur Chest/Resp: bilateral air entry, no rhales, no wheeze, scattered rhonchi , no acc muscle use Abdomen/GI: soft, nondistended, BS+ Ext/Msk: warm, pulses+, no edema Skin: intact, cool Neuro: intubated, sedated, limited exam due to sedation/hypothermia Psych: unable to assess/intubated Fluid Balance (Past 24 Hours): B=5850 O= 3240 Net= -560 Intake & Output 12/05/19 12/06/19 12/07/19 12/08/19 06:59 06:59 06:59 06:59 Intake Total 3839 3601 2679.1 103 Output Total 2815 2350 3240 245 Balance 1024 1251 -560.9 -142 Weight 91.4 kg 93 kg 93.8 kg Intake: IV Fluids 592 1336 215 NS 492 1315 215 Zosyn 100 21 IVPB 1364 415 550 Ca Gluconate 55 NS 1164 100 280 Zosyn 200 315 215 Medicated IV 1823 1608 1758.1 Amiodarone 488 Integrilin 107 154 34.5 Levophed 332 268 Magnesium 55 Precedex 236 237 168.6 Propofol 560 364 155 Protonix 588 585 213 Vancomycin 293 fentanyl 17 ns 79 potassium 151 zosyn 104 IV Narcotic Infusion 3 Fentanyl 3 Tube Feeding 212 126 Tube Feeding Flush Amount 30 100 NG Tube Irrigate Amount 60 30 Output: NG Tube Drainage Amount 750 G Tube 250 Rose 1765 2100 2740 245 Liquid Stool 300 500 Labs: Laboratory Results - last 24 hr 12/06/19 12/06/19 12/06/19 12:30 18:10 23:30 WBC RBC Hgb Hct MCV MCH MCHC RDW Plt Count MPV INR (Anticoag Therapy) ABG pH ABG pCO2 ABG pO2 ABG HCO3 ABG O2 Saturation ABG Base Excess Sodium Potassium Chloride Carbon Dioxide Anion Gap BUN Creatinine Est GFR ( Amer) Est GFR (Non-Af Amer) BUN/Creatinine Ratio Glucose 169 H Glucose Meter Confirm 164 H 169 H Calcium Ionized Calcium Phosphorus Magnesium Total Bilirubin Direct Bilirubin Indirect Bilirubin AST ALT Alkaline Phosphatase Ammonia Total Protein Albumin Globulin Albumin/Globulin Ratio Triglycerides 820 12/07/19 12/07/19 12/07/19 05:30 05:30 05:30 WBC RBC Hgb Hct MCV MCH MCHC RDW Plt Count MPV INR (Anticoag Therapy) ABG pH 7.35 ABG pCO2 33 L ABG pO2 92 ABG HCO3 19.9 ABG O2 Saturation 98.7 H ABG Base Excess -6.4 L Sodium 149 H Potassium 3.2 L Chloride 121 H Carbon Dioxide 18 L Anion Gap 10 BUN 37 H Creatinine 1.72 H Est GFR ( Amer) 47.5 Est GFR (Non-Af Amer) 39.3 BUN/Creatinine Ratio 21.5 H Glucose 212 H Glucose Meter Confirm Calcium 7.0 L Ionized Calcium Phosphorus 3.8 Magnesium 2.1 Total Bilirubin 0.80 Direct Bilirubin 0.40 H Indirect Bilirubin 0.4 AST 59 H ALT 56 H Alkaline Phosphatase 81 Ammonia 74 H Total Protein 5.2 L Albumin 2.5 L Globulin 2.7 Albumin/Globulin Ratio 0.9 L Triglycerides 12/07/19 12/07/19 12/07/19 05:30 05:30 05:30 WBC 11.8 H RBC 2.79 L Hgb 8.7 L Hct 25 L MCV 90 MCH 31 MCHC 35 RDW 14 Plt Count 130 L MPV 8.8 INR (Anticoag Therapy) 1.04 ABG pH ABG pCO2 ABG pO2 ABG HCO3 ABG O2 Saturation ABG Base Excess Sodium Potassium Chloride Carbon Dioxide Anion Gap BUN Creatinine Est GFR ( Amer) Est GFR (Non-Af Amer) BUN/Creatinine Ratio Glucose Glucose Meter Confirm Calcium Ionized Calcium 0.97 L Phosphorus Magnesium Total Bilirubin Direct Bilirubin Indirect Bilirubin AST ALT Alkaline Phosphatase Ammonia Total Protein Albumin Globulin Albumin/Globulin Ratio Triglycerides Nutrition: Tube feeding: nephro continuous, add free water Q4h today, aim for free water 1.2L today Impression: 73y M w/pmhx of DM, HTN, WPW, prior history of prostate surgery complicated by 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 He was a witnessed collapse by house keeper, who started CPR, called EMS, state troopers arrive and gave 1 shock and continued CPR, EMS arrived and cont CPR with 2 epi with ROSC. Brought to ER and intubated. EKG demonstrated NSR with inferior ST elevations. STEMI called, taken to laborer cutting tool, found to have occluded mid-RCA. PCI performed with 3 stents, discussed intraop findings with cardiology, some distal disease still present in RCA, no sig disease in LAD at this time. Given brillinta/asa. He subsequently came to ICU, intubated, did not wake post code, on Therapeutic hypothermia protocol, rewarmed since 12/04. CT brain done showing no acute findings, areas of encephalomalacia+. 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 seizure disorder Plan: Neuro- -s/p cardiac arrest, not responsive post ROSC; completed TTM 12/04 -has some purposeful movement yesterday when off sedation; on precedex and fentanyl, will trial off sedation to reassess mental status. -brain ct 12/01 - no acute findings; chronic encephalomalacia+ -neuro consult today and EEG today when he is off sedation -neurochecks -h/o Right MCA CVA - chronic left residual weakness; has contractures of upper ext -seizure disorder - was on iv keppra, now back to lamictal BID -hold home sedatives and other anxiety meds -cont baclofen for spasms -Delirium prec; avoid BDZ CVS- -VT/VF arrest - no further arrhythmias, no antiarrhythmics needs -Afib with RVR- 12/05, was unstable requiring DC cardioversion for hypotension; received amiodarone/lopressor, will continue iv amiodarone for now since oral absorption is a concern with his possible ileus. -currently NSR -EKG with resolved ST elevations, inferior Qwaves noted -STEMI RCA; s/p PCI - some left over residual disease; cont DAPT/statin; tolerating feeds so back on brillinta 180mg po x1 now then BID and ASA 81; d/c integrilin infusion -Shock resolved; likely related to sedation -d/c IVF -re-eval need for lasix daily based on Na and Cr; i think there is some pulm congestion; if ont improving may need repeat TTE to eval for any valvular dysfxn and LV function post STEMI -TTE reviewed - thick LV, intact function it appears; no effusion, small cavity ; some mild RV dysfunction noted only -HTN - restart antihypertensives as tolerated; noted to be on clonidine/coreg/ norvasc/lisinopril at home -h/o WPW - monitoring -Maintain MAP>65 Resp- -intubated on AC 55%; abg reviewed -CXR 12/05 - ett was high; bilateral infiltrates/congestion -ETT was pushed down 3cm by staff, now in CT chest placement good -suspect aspiration pneumonia; cont zosyn and vancomycin -will hold off diuretics for today due to hyperNa, reaccess tomorrow -Wean Fio2 to keep sat>92% -Bronchodilators PRN, Aspiration prec, Pulmonary Toilet -VAP bundle ID- tmax 100; wbc on protocol; wbc [id number] -cxr 12/05 - bilateral congestion/infiltrates -high risk for aspiration; cont empiric asp coverage with zosyn q8h (day#6) and vancomycin GI- -OGT TF - nepro -abd mild distension, has diarrhea, CT abdomen: no obstruction or infection seen. -coffee-ground emesis, likely UGIT, will continue iv pantoprazole bid -will trend Hb -h/o PPI at home; previous PUD? Renal- -BAM, suspect this to be from ischemic ATN/hypoperfusion from cardiac arrest; Cr improved to mid 1-2, may be chronic or new baseline? -no obstruction, rose in place -metabolic acidosis+, likely was from hypoperfusion/renal insuff -d/c IVF -hypokalemia, 2 cycles of KCL today, -hypernatremia, will add free water via tube, free water deficit 1.2L, aim for 1.2 today, recheck bmp PM -some mild hypernatremia; given IV lasix; hold lasix and re-eval tomorrow for need -strict I/O, replete to keep K>4, Mg>2 -rose as indicated Heme- -hg drop today, probably due to UGIT (coffeeground emesis with possible underlying PUD) -plt okay -cont DAPT for coronary stents -continue heparin sq today - will repeat CBC this afternoon, threshold for transfusion from cardiac point: Hb<8 Endo- Maintain BG<200, insulin protocol as needed, if persistent >200, will add on lantus Musculsk- pressure ulcer prophylaxis. Bedrest. Wounds- none Nutrition- OGt TFD Nepro and free water Q4h DVT prophylaxis: SCD, heparin sq GI prophylaxis: ppi bid Central Line: left fem tlc/cooling cath 12/01 Arterial Line: right fem 12/01 Rose Cathetor: yes 12/01 Disposition: Patient requires Critical Care/ICU for cardiac arrest, encephalopathy, stemi, respiratory failure Patient Clinical Status: guarded, critical Code Status: full code <Carmen Rivero - Last Filed: 12/07/19 16:06> Labs: Plan: ATTESTATION: This service has been performed by a resident under the direction of a teaching physician. I, Carmen Rivero, performed the service, or was physically present during the critical, or dennis portions of the service, furnished by the resident. I participated in the management of the patient. Out of hospital cardiac arrest STEMI s/p PCI x3 to RCA Acute hypoxic respiratory failure BAM Sepsis due to aspiration PNA left lung Upper GI bleed DM HTN S/p WPW H/o R MCA stroke Seizure disorder Moves spontaneously but does not follow commands. Sedation with Precedex and fentanyl, holding propofol due to high triglycerides. Home lamotrigine Will continue amiodarone gtt for a fib. Due to abdominal distension and possibly poor absorption, hold oral amiodarone. Continue home Coreg at decreased dose and amlodipine. Continue ticagrelor. Unable to extubate due to mental status. Treating for presumed aspiration PNA. Continue tube feeds. Start reglan prn. PPI. Rose for accurate I&Os. Potassium replaced. Increase free water for hypernatremia. Continue Zosyn and vanco, plan to treat for total 7 days. Hemoglobin trending down, will transfuse if hgb <8. SQH for DVT ppx Increase sliding scale insulin, goal BG <200 Critical Care Time: 40 min excluding procedures/teaching Carmen Rivero MD
[2019-12-07] MEDS ORDERED: Vancomycin(*) 1,000 MG in NS 0.9% 250 ML* 250 ML IV ONE (11:00)
[2019-12-07] MEDS ORDERED: Vancomycin per Pharmacy* NOTE FOLLOW UP SCH (11:00)
[2019-12-07] MEDS: Metoclopramide IV* 5 MG/ML 2 ML VIAL IV PRN ×2 (11:19→19:05)
[2019-12-07] MEDS ORDERED: Carvedilol TAB* 6.25 MG PO ONE (11:40)
[2019-12-07] MEDS: Dexmedetomidine* 1,000 MCG in NS 0.9% 250 ML* 240 ML IV SCH ×2 (11:44→21:15)
[2019-12-07] MEDS: Acetaminophen ADULT LIQ* 650 MG/20.3 ML UDC PO PRN ×2 (11:56→16:08)
[2019-12-07] MEDS: Phenylephrine 10 MG/ML VIAL* 50 MG in NS 0.9% 250 ML* 245 ML IV SCH (12:55)
--- NOTE | 2019-12-07 13:21 | EEG ---
ELECTROENCEPHALOGRAPHY: DATE OF STUDY: 12/07/19 - ROOM #ICU-02 ORDERED BY: Dr. Maria Del Carmen Damian. MEDICATIONS: 1. Fentanyl. 2. Precedex. 3. Levophed. 4. Tylenol. 5. Lamictal. CLINICAL PROBLEM: Mr. Craven is a 74-year-old man who has a right MCA vascular territory ischemic infarction, who is status post craniotomy in the past, who presented after a cardiopulmonary arrest. The patient was recently taken off sedation. ECG was obtained to evaluate for epileptiform abnormalities or electrographic seizures. CLINICAL STATE: Encephalopathy. REPORT: The background lacked organization or clearly defined anterior- posterior voltage and frequency gradient. There was no discernible posterior dominant rhythm, instead the background on the left hemisphere consisted of diffuse, medium amplitude, polymorphic, 2-3 Hz delta slowing, and on the right hemisphere, it is comprised of 1-2 delta frequency slowing. There was no reactivity to stimulation. There were no epileptiform discharges or electrographic seizures. EKG showed sinus tachycardia with a rate of 150 beats per min. CLINICAL IMPRESSION: This is an abnormal EEG due to the presence of diffuse slowing that seems to be worse on the right hemisphere. These findings are suggestive of a nonspecific moderate-severe diffuse encephalopathy with a structural abnormality in the right hemisphere. There were no epileptiform discharges or electrographic seizures. [id number]/[facility] #: [id number] [facility]
[2019-12-07] MEDS: Atorvastatin* 80 MG TAB PO SCH (16:08)
[2019-12-07] MEDS: Metoprolol Tartrate IV* 1 MG/ML 5 ML VIAL IV PRN (16:41)
[2019-12-07 17:39] LABS: Hematocrit 27 % (42-52); Hemoglobin 9.3 g/dL (14.0-18.0); Mean Corpuscular HGB Conc 34 g/dL (31-36); Mean Corpuscular Hemoglobin 31 pg (27-31); Mean Corpuscular Volume 91 fL (80-94); Mean Platelet Volume 9.2 fL (7.4-10.4); Platelet Count 132 10^3/uL (150-450); Red Blood Count 2.98 10^6 /uL (4.18-5.48); Red Cell Distribution Width 15 % (10-15); White Blood Count 12.1 10^3/uL (3.5-10.8)
--- NOTE | 2019-12-07 17:51 | OP ---
<Darby Parrish - Last Filed: 12/07/19 17:48> Operative Report - Blank - Operative Report Date of Operation: 12/07/19 Note: Central Line Procedure Note Indication: Access, medications Diagnosis: Cardiac arrest s/p hypothermia protocol Performed by: Thierno Parrish DATA WAREHOUSING SPECIALIST, supervised by Dr Rivero Consent: Informed consent placed in chart, surrogate decision maker Daysi Mendoza Risks of procedure were explained if possible, all risks of pain/discomfort, bleeding, infection, PTX, Hemotx, need for chest tube, air/wire embolism, vessel injury, , and failed procedure disclosed and understanding verbalized [place] Protocol: Time-out was performed and the correct patient and site were verified - Prior labs/history was reviewed prior to procedure - Full sterile precautions with chlorhexidine/full drapes/gowns/gloves utilized - Left IJ visualized with ultrasound - Vessel accessed under ultrasound guidance with return of nonpulsatile blood. A guidewire was passed into vessel and confirmed in vessel with ultrasound. 1 attempt was made to access vessel. Vessel was dilated and cathetor was passed over wire into vessel. All ports demonstrated good blood return and flushed. Catheter was sutured to site and dressing applied. Adequate hemostasis was achieved EBL 5cc No immediate complications noted, patient tolerated procedure well. Post Procedure CXR: Pending <Carmen Rivero - Last Filed: 12/07/19 18:22> Operative Report - Blank - Operative Report Note: CXR confirmed correct position in SVC. No immediate complications. Carmen Rivero MD
[2019-12-07 17:57] LABS: Calcium 7.1 mg/dL (8.6-10.3); EGFR African American 48.8 (>60); EGFR Non-African American 40.4 (>60); Potassium 3.4 mmol/L (3.5-5.0)
[2019-12-07] MEDS ORDERED: Furosemide IV* 10 MG/ML VIAL (40 MG) IV ONE (18:28)
[2019-12-07 18:35] LABS: ABS Basophils 0.1 10^3/ul (0-0.2); ABS Lymphocytes 1.4 10^3/ul (1.0-4.8); ABS Monocytes 1.2 10^3/ul (0-0.8); ABS Neutrophils 9.4 10^3/ul (1.5-7.7); Eosinophil % 0.1 %; Lymphocyte % 11.9 %; Nucleated Red Blood Cells % 0.1
--- NOTE | 2019-12-07 20:48 | CONS ---
NEUROLOGY CONSULTATION NOTE: DATE OF CONSULT: 12/07/19 CONSULTED BY: Dr. Damian. REASON FOR CONSULT: Status post cardiac arrest, evaluate for anoxic encephalopathy. CHIEF COMPLAINT: Intubated. HISTORY OF PRESENT ILLNESS: Mr. Sherif Craven is a 74-year-old man with a history of complete right middle cerebral artery ischemic infarction with severe encephalomalacia in that region, who has residual left hemiplegia and spasticity, who is wheelchair bound and nonmobile at baseline, who was admitted to [facility] on 12/02/19 after having a cardiac arrest. The patient also has a history of post stroke epilepsy, who takes lamotrigine 150 mg twice daily. The patient was admitted after he collapsed at home. He was witnessed by his visiting housekeeper. CPR was started immediately and he had approximately 10 to 15 minutes before return of spontaneous circulation. This was reported by the primary team including Dr. Damian. The patient was brought back to the ED and intubated. STEMI call was activated and the patient was taken to the heart cath where he was found to have an occluded mid right coronary artery. PCI with stent was performed by Cardiology and the patient was started on Brilinta and aspirin. The patient also underwent therapeutic hypothermia and has been rewarmed for the past 48 hours. The patient is continued on propofol and Precedex due to intermittent agitation, movements of the extremity, and hemodynamic instability with severe tachycardia and elevated pressure when he is off the sedation. PAST MEDICAL HISTORY: Diabetes mellitus type 2, hypertension, WPW, prior history of prostate cancer, right middle cerebral artery stroke with residual left hemiplegia and spasticity. He had hemicraniectomy due to severe edema. 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 PAST SURGICAL HISTORY: Prostatectomy, craniotomy for decompression, surgery of the right craniotomy. HOME MEDICATIONS: 1. Trospium 20 mg p.o. b.i.d. 2. Tamsulosin 0.4 mg p.o. daily. 3. Metformin 1000 mg p.o. b.i.d. 4. Clonidine 0.3 mg transdermal weekly. 5. Citalopram 40 mg p.o. daily. 6. Vitamin D 2000 units p.o. daily. 7. Carvedilol 25 mg p.o. at night. 8. Carvedilol 37.5 mg p.o. in the morning. 9. Baclofen 10 mg p.o. b.i.d. 10. Gabapentin 400 mg p.o. b.i.d. 11. Lamotrigine 150 mg p.o. every 12 hours. 12. Salicylate 500 mg p.o. t.i.d. 13. Pantoprazole 20 mg p.o. in the morning. 14. Dextrose 12 g p.o. daily p.r.n. 15. Aspirin 81 mg p.o. daily. 16. Amlodipine 5 mg p.o. daily. 17. Zolpidem 10 mg p.o. at bedtime. 18. Trazodone 50 mg p.o. at bedtime. 19. Lisinopril 5 mg p.o. daily. 20. Calcium citrate 200 mg p.o. b.i.d. 21. Atorvastatin 40 mg p.o. daily. 22. Insulin. 23. Glipizide 5 mg p.o. b.i.d. ALLERGIES: No known drug allergies. FAMILY HISTORY: Unable to obtain due to the patient's intubation. SOCIAL HISTORY: Unable to obtain due to the patient's intubation. REVIEW OF SYSTEMS: Review of systems was unable to be obtained due to the patient's current intubation and critical state. PHYSICAL EXAM: Vitals: Temperature of 101.1, pulse of 104, respiratory rate of 13, blood pressure of 124/57. General: Intubated, ill-appearing man, who is dishevelled and does not appear in any acute distress. Head: Atraumatic, normocephalic without any obvious abnormality. Neck is supple and symmetrical with no carotid bruit. Cardiovascular: Regular rate and rhythm with intermittent sinus tachycardia. Chest: Diminished breath sounds bilaterally. Extremities: No hammertoes or high arches. Skin: No skin lesions or laceration. Psych: Unable to obtain. Neurological Examination: Mental Status : The patient is intubated and does not respond appropriately. He opens his eyes spontaneously. He does not follow any commands. He is able to move the right upper extremity spontaneously according to the nurse as well as was recorded during the video recording on EEG. He is able to minimally withdraw to proximal and noxious stimuli on the right. He is spastic on the left. Corneal , pupillary and gag reflexes are all intact. Oculocephalic reflex is present. Gait and coordination were deferred due to the patient's intubated state. LABS, IMAGING, AND OTHER DIAGNOSTIC TESTING: EEG showed moderate to severe encephalopathy. Brain CT head showed large encephalomalacia on the right hemisphere in the distribution of the middle cerebral artery. ASSESSMENT AND RECOMMENDATIONS: Mr. Sherif Craven is a 74-year-old man with premorbid baseline disability due to a malignant remote right middle cerebral artery vascular territory ischemic infarction with residual left hemiplegia and spasticity, who presented to [facility] on 12/02/19 after a cardiopulmonary arrest due to ST segment elevation myocardial infarction. The patient is status post therapeutic hypothermia. Acute hypoxic ischemic and metabolic encephalopathy related to recent cardiopulmonary arrest, uremia, and hyperammonemia. The patient has intact brainstem reflexes. The patient does not meet criteria for brain . I recommend weaning off sedation, correcting the metabolic imbalance, and discussing with family to discuss the route of PEG and tracheostomy tube placement, if these are the patient's wishes. His recovery can take days, weeks , or months and complete recovery is unlikely. He has no evidence of nonconvulsive status epilepticus on EEG. He has no evidence of a severe anoxic brain injury on CT. Please make sure we prevent any fevers, as fevers in the setting of hypoxic- ischemic encephalopathy can be associated with an unfavorable outcome. Please monitor for any seizure-like activity. Obtain a neuron specific enolase level. If he does not improve clinically off sedation, an MRI brain without contrast can assess the degree of anoxic brain injury. Contact me for any questions or concerns. I have discussed these recommendations with Dr. Damian. [id number]/[facility] #: [id number] RAFA[facility]
[2019-12-07] MEDS ORDERED: Amiodarone TAB* 200 MG PO SCH (21:00)
[2019-12-08] MEDS: KCL 20 MEQ/100 ML IVPREMIX* 20 MEQ/100 ML BAG IV SCH (00:47)
[2019-12-08] MEDS: Ticagrelor* 90 MG TAB PO SCH ×2 (00:47→10:55)
[2019-12-08] MEDS: Chlorhexidine MOUTHWASH 0.12%* 15 ML UDC TOPICAL SCH ×6 (00:47→18:28)
[2019-12-08] MEDS: Piperacillin/Tazobac ADVAN(*) 3.375 GM in NS 0.9% 100 ML* 100 ML IVPB SCH ×3 (00:54→15:49)
[2019-12-08] MEDS: Insulin LISPRO* 1 UNITS UNIT SUBCUT SCH ×3 (00:54→12:29)
[2019-12-08] MEDS: Pantoprazole IV* 40 MG IV SCH ×2 (03:31→14:31)
[2019-12-08] MEDS: Metoprolol Tartrate IV* 1 MG/ML 5 ML VIAL IV PRN ×2 (03:31→22:23)
[2019-12-08] MEDS: Dexmedetomidine* 1,000 MCG in NS 0.9% 250 ML* 240 ML IV SCH ×3 (05:12→21:36)
[2019-12-08] MEDS: fentaNYL INFUSION 50 MCG/ML* 2,500 MCG/50 ML BAG IV SCH (05:15)
[2019-12-08 05:16] LABS: INR 1.03 (0.82-1.09)
[2019-12-08 05:33] LABS: Albumin 2.5 g/dL (3.2-5.2); Albumin/Globulin Ratio 0.8 (1-3); BUN/Creatinine Ratio 22.9 (8-20); Calcium 7.2 mg/dL (8.6-10.3); EGFR African American 48.2 (>60); EGFR Non-African American 39.8 (>60); Globulin 3.1 g/dL (2-4); Phosphorus 3.5 mg/dL (2.5-5.0); Total Bilirubin 0.8 mg/dL (0.2-1.0); Total Protein 5.6 g/dL (6.4-8.9)
[2019-12-08] MEDS: Heparin VIAL(*) 5000 UNITS/ML VIAL (FIVE THOUSAND) SUBCUT SCH (05:35)
[2019-12-08] MEDS ORDERED: Metoprolol Tartrate IV* 1 MG/ML 5 ML VIAL IV ONE (05:37)
[2019-12-08 05:38] LABS: Vancomycin Random 7.8 mcg/mL
[2019-12-08 05:45] LABS: Hematocrit 26 % (42-52); Hemoglobin 8.8 g/dL (14.0-18.0); Mean Corpuscular HGB Conc 34 g/dL (31-36); Mean Corpuscular Hemoglobin 31 pg (27-31); Mean Corpuscular Volume 92 fL (80-94); Mean Platelet Volume 9.4 fL (7.4-10.4); Platelet Count 155 10^3/uL (150-450); Red Blood Count 2.81 10^6 /uL (4.18-5.48); Red Cell Distribution Width 15 % (10-15); White Blood Count 10.8 10^3/uL (3.5-10.8)
[2019-12-08] MEDS ORDERED: Vancomycin Random Level* NOTE FOLLOW UP ONE (06:00)
[2019-12-08 06:08] LABS: Indirect Bilirubin 0.6 mg/dL (0.3-1.0)
[2019-12-08] MEDS: Baclofen TAB* 10 MG PO SCH ×2 (08:44→21:37)
[2019-12-08] MEDS: lamoTRIgine TAB(*) 100 MG PO SCH ×2 (08:44→21:37)
[2019-12-08] MEDS: amLODIPine TAB* 5 MG PO SCH (08:45)
[2019-12-08] MEDS: Carvedilol TAB* 6.25 MG PO SCH (08:46)
[2019-12-08] MEDS: Aspirin 81 mg CHEW TAB* 81 MG TAB.CHEW PO SCH (08:46)
[2019-12-08] MEDS: Vancomycin(*) 750 MG in NS 0.9% 250 ML* 250 ML IVPB SCH ×2 (09:06→21:38)
[2019-12-08] MEDS ORDERED: Amiodarone 150 MG IVPREMIX* 150 MG/100 ML BAG IV ONE (09:44)
[2019-12-08] MEDS: Amiodarone 360 MG IVPREMIX* 360 MG/200 ML BAG IV ONE ×2 (10:11→15:53)
--- NOTE | 2019-12-08 10:33 | PN ---
<Manasa Marquez - Last Filed: 12/08/19 10:27> Subjective Date of Service: 12/08/19 - witnessed arrest, inferior STEMI Interval History: Amiodarone gtt was accidentally stopped at 1800 due to order not being renewed. Patient went back into Afib/AFL rate 100-110. Bblocker and Norvasc held due to relative hypotension. I spoke with neuro who states EEG did not suggest seizure activity. Medications Active Medications: Acetaminophen (Tylenol Adult Liq*) 650 mg PO Q4H PRN PRN Reason: mild pain for temp>101 Last Admin: 12/07/19 16:08 Dose: 650 mg Albuterol (Ventolin 2.5 Mg/3 Ml Neb.Mariangel*) 2.5 mg INH Q2H PRN PRN Reason: SOB/WHEEZING Amlodipine Besylate (Norvasc Tab*) 10 mg PO DAILY [facility] Last Admin: 12/08/19 08:45 Dose: Not Given Aspirin (Aspirin 81 Mg Chew Tab*) 81 mg PO DAILY [facility] Last Admin: 12/08/19 08:46 Dose: 81 mg Atorvastatin Calcium (Lipitor*) 80 mg PO 1700 [facility] Last Admin: 12/07/19 16:08 Dose: 80 mg Baclofen (Lioresal Tab*) 5 mg PO BID [facility] Last Admin: 12/08/19 08:44 Dose: 5 mg Carvedilol (Coreg Tab*) 25 mg PO BID [facility] Chlorhexidine Gluconate (Peridex Mouth Wash 0.12%*) 15 ml TOPICAL Q4H [facility] Last Admin: 12/08/19 06:00 Dose: 15 ml Dextrose (D50w Syringe 50 Ml*) 12.5 gm IV PUSH .FOR FS < 60 - SS PRN PRN Reason: FS < 60 Docusate Sodium (Colace Liq*) 100 mg PO BID PRN PRN Reason: CONSTIPATION Last Admin: 12/06/19 15:52 Dose: 100 mg Fentanyl Citrate (Fentanyl*) 50 mcg IV SLOW PU Q1H PRN PRN Reason: shivering Last Admin: 12/03/19 00:43 Dose: 50 mcg Heparin Sodium (Porcine) (Heparin Vial(*)) 5,000 units SUBCUT Q8HR [facility] Last Admin: 12/08/19 05:35 Dose: 5,000 units Hydralazine HCl (Apresoline Iv*) 10 mg IV SLOW PU Q4H PRN PRN Reason: sbp>160 Piperacillin Sod/Tazobactam (Sod 3.375 gm/ Sodium Chloride) 100 mls @ 25 mls/ hr IVPB Q8H [facility] Last Admin: 12/08/19 08:57 Dose: 25 mls/hr Propofol (Diprivan*) 100 mls @ 7.209 mls/hr IV .PER PROTOCOL [facility]; Protocol Last Admin: 12/06/19 18:14 Dose: 4.8 mls/hr Fentanyl Citrate (Fentanyl Infusion Bag 50 Mcg/Ml 50 Ml) 2,500 mcg in 50 mls @ 2 mls/hr IV Q72H [facility]; Protocol Last Admin: 12/08/19 05:15 Dose: 2 mls/hr Dexmedetomidine HCl 1,000 mcg/ (Sodium Chloride) 250 mls @ 11.62 mls/hr IV .PER PROTOCOL [facility]ANE[facility]; Protocol Last Admin: 12/08/19 05:12 Dose: 34.9 mls/hr Phenylephrine HCl 50 mg/ (Sodium Chloride) 250 mls @ 15 mls/hr IV .PER PROTOCOL [facility]ANE[facility]; Protocol Last Admin: 12/07/19 12:55 Dose: 15 mls/hr Vancomycin HCl 750 mg/ Sodium (Chloride) 250 mls @ 166.667 mls/hr IVPB Q12H [facility] Last Admin: 12/08/19 09:06 Dose: 166.667 mls/hr Amiodarone HCl (Nexterone 360 Mg/200 Ml Ivpremix*) 360 mg in 200 mls @ 33.333 mls/hr IV ONCE ONE Stop: 12/08/19 15:59 Last Admin: 12/08/19 10:11 Dose: 33.333 mls/hr Insulin Human Lispro (Humalog*) 0 units SUBCUT FS Q6 ICU [facility]; Protocol Last Admin: 12/08/19 05:49 Dose: 3 unit Lamotrigine (Lamictal Tab(*)) 150 mg PO Q12H [facility] Last Admin: 12/08/19 08:44 Dose: 150 mg Metoclopramide HCl (Reglan Iv*) 5 mg IV Q6H PRN PRN Reason: motility Last Admin: 12/07/19 19:05 Dose: 5 mg Metoprolol Tartrate (Lopressor Iv*) 5 mg IV Q6H PRN PRN Reason: BLOOD PRESSURE Last Admin: 12/08/19 03:31 Dose: 5 mg Pantoprazole Sodium (Protonix Iv*) 40 mg IV Q12H [facility] Last Admin: 12/08/19 03:31 Dose: 40 mg Pharmacy Consult (Vancomycin Per Pharmacy*) 1 note FOLLOW UP .VANC PER PHARMACY [facility]; Protocol Pharmacy Profile Note (Vancomycin Trough Check) 1 note FOLLOW UP ONCE ONE Stop: 12/10/19 08:31 Ticagrelor (Brilinta*) 90 mg PO Q12H [facility] Last Admin: 12/08/19 00:47 Dose: 90 mg Objective Vital Signs: Temp Pulse Resp BP Pulse Ox 99.9 F 88 10 140/90 94 12/08/19 08:00 12/08/19 10:00 12/08/19 10:00 12/08/19 04:00 12/08/19 10:00 Oxygen Devices in Use Now: Endotracheal Tube, Mechanical Ventilator Appearance: Sedated, ventilated. ill but stable at this time Eyes: - - 2mm fixed. Ears/Nose/Mouth/Throat: Mucous Membranes Moist, - - ET/OG tube in place. Neck: Trachea Midline, No Thyroid Enlargement, Masses Respiratory: - - Auscultated anteriorly. Clear. No secretions were suctioned from ET. OG tube has coffee ground emesis noted in tube Cardiovascular: NL Sounds; No Murmurs; No JVD, No Edema Extremities: No Edema, - - cool to touch. Skin: No Rash or Ulcers Neurological: - - sedated on ventilator. Lines/Tubes/Other Access: Clean, Dry and Intact Endotracheal Tube, Clean, Dry and Intact Valentin, Clean, Dry and Intact Central Line, Clean, Dry and Intact Arterial Line Laboratory Results: 12/08/19 04:50 12/08/19 04:50 INR (Anticoag Therapy) 1.03 (0.82-1.09) 12/08/19 04:50 APTT 89.3 seconds (26.0-38.0) H 12/06/19 05:30 Total Bilirubin 0.80 mg/dL (0.2-1.0) 12/08/19 04:50 Direct Bilirubin 0.20 mg/dL (0.03-0.18) H 12/08/19 04:50 Indirect Bilirubin 0.6 mg/dL (0.3-1.0) 12/08/19 04:50 AST 43 U/L (13-39) H 12/08/19 04:50 ALT 48 U/L (7-52) 12/08/19 04:50 Alkaline Phosphatase 80 U/L (34-104) 12/08/19 04:50 CK-MB (CK-2) 52.1 ng/mL (0.6-6.3) H 12/05/19 05:57 B-Natriuretic Peptide 70 pg/mL (<=100) 12/02/19 18:15 Total Protein 5.6 g/dL (6.4-8.9) L 12/08/19 04:50 Albumin 2.5 g/dL (3.2-5.2) L 12/08/19 04:50 Globulin 3.1 g/dL (2-4) 12/08/19 04:50 Albumin/Globulin Ratio 0.8 (1-3) L 12/08/19 04:50 Triglycerides 279 mg/dL 12/08/19 04:50 Cholesterol 100 mg/dL 12/03/19 05:55 LDL Cholesterol 33 mg/dL 12/03/19 05:55 HDL Cholesterol 24.7 mg/dL 12/03/19 05:55 TSH 1.02 mcIU/mL (0.34-5.60) 12/02/19 18:15 12/02/19 12/02/19 12/02/19 10:47 13:15 18:15 Troponin I 0.07 H* 19.50 H* 41.77 H* 12/03/19 12/03/19 12/03/19 00:00 05:55 17:20 Troponin I 60.49 H* 66.45 H* 53.30 H* 12/04/19 06:20 Troponin I 43.16 H* Laboratory Results - last 24 hr 12/07/19 12/07/19 12/07/19 11:35 17:27 17:27 WBC 12.1 H RBC 2.98 L Hgb 9.3 L Hct 27 L MCV 91 MCH 31 MCHC 34 RDW 15 Plt Count 132 L MPV 9.2 Neut % (Auto) 77.4 Lymph % (Auto) 11.9 Camp % (Auto) 10.1 Eos % (Auto) 0.1 Baso % (Auto) 0.5 Absolute Neuts (auto) 9.4 H Absolute Lymphs (auto) 1.4 Absolute Monos (auto) 1.2 H Absolute Eos (auto) 0.0 Absolute Basos (auto) 0.1 Absolute Nucleated RBC 0.0 Nucleated RBC % 0.1 INR (Anticoag Therapy) Sodium 147 H Potassium 3.4 L Chloride 119 H Carbon Dioxide 20 L Anion Gap 8 BUN 37 H Creatinine 1.68 H Est GFR ( Amer) 48.8 Est GFR (Non-Af Amer) 40.4 BUN/Creatinine Ratio 22.0 H Glucose 223 H 251 H Calcium 7.1 L Ionized Calcium Phosphorus Magnesium Total Bilirubin Direct Bilirubin Indirect Bilirubin AST ALT Alkaline Phosphatase Total Protein Albumin Globulin Albumin/Globulin Ratio Triglycerides Random Vancomycin 12/08/19 12/08/19 12/08/19 04:50 04:50 04:50 WBC 10.8 RBC 2.81 L Hgb 8.8 L Hct 26 L MCV 92 MCH 31 MCHC 34 RDW 15 Plt Count 155 MPV 9.4 Neut % (Auto) Lymph % (Auto) Camp % (Auto) Eos % (Auto) Baso % (Auto) Absolute Neuts (auto) Absolute Lymphs (auto) Absolute Monos (auto) Absolute Eos (auto) Absolute Basos (auto) Absolute Nucleated RBC Nucleated RBC % INR (Anticoag Therapy) Sodium 147 H Potassium 4.0 Chloride 120 H Carbon Dioxide 20 L Anion Gap 7 BUN 39 H Creatinine 1.70 H Est GFR ( Amer) 48.2 Est GFR (Non-Af Amer) 39.8 BUN/Creatinine Ratio 22.9 H Glucose 176 H Calcium 7.2 L Ionized Calcium 1.00 L Phosphorus 3.5 Magnesium 2.0 Total Bilirubin 0.80 Direct Bilirubin 0.20 H Indirect Bilirubin 0.6 AST 43 H ALT 48 Alkaline Phosphatase 80 Total Protein 5.6 L Albumin 2.5 L Globulin 3.1 Albumin/Globulin Ratio 0.8 L Triglycerides 279 Random Vancomycin 7.8 12/08/19 04:50 WBC RBC Hgb Hct MCV MCH MCHC RDW Plt Count MPV Neut % (Auto) Lymph % (Auto) Camp % (Auto) Eos % (Auto) Baso % (Auto) Absolute Neuts (auto) Absolute Lymphs (auto) Absolute Monos (auto) Absolute Eos (auto) Absolute Basos (auto) Absolute Nucleated RBC Nucleated RBC % INR (Anticoag Therapy) 1.03 Sodium Potassium Chloride Carbon Dioxide Anion Gap BUN Creatinine Est GFR ( Amer) Est GFR (Non-Af Amer) BUN/Creatinine Ratio Glucose Calcium Ionized Calcium Phosphorus Magnesium Total Bilirubin Direct Bilirubin Indirect Bilirubin AST ALT Alkaline Phosphatase Total Protein Albumin Globulin Albumin/Globulin Ratio Triglycerides Random Vancomycin Diagnostic Imaging: *[facility]* [place] [address] Fax #: [phone] Transthoracic Echocardiogram Patient: Sherif Craven : 1945 Study Date: 12/02/2019 Age: 74 Gender: M HR: 74 bpm Height: 10 in /25.4 cm BSA: 0.49 m^2 Weight: 180.6 lb /82.1 kg BMI: 1272.6 kg/m^2 *Yarn Worker: * Liz Torres *Referring Physician: * Oc Goldman MD *Reading Physician: * Atiya Schofield MD Indications: Cardiac Arrest. History: PMH: Myocardial infarction. Risk factors: Hypertension. Diabetes mellitus. Conclusions Summary: - Procedure narrative: Transthoracic echocardiography was performed. Image quality was suboptimal. The study was technically limited due to poor acoustic window availability, restricted patient mobility, and Patient on ventilator. - Left ventricle: The cavity size is mildly reduced. Wall thickness is moderately increased. Systolic function is hyperdynamic. The estimated ejection fraction is 55-60%. Severe hypokinesis of the basal-midinferior myocardium. - Right ventricle: Systolic function is moderately reduced. - Mitral valve: There is trace regurgitation. Study data: Transthoracic echocardiogram. Procedure: Transthoracic echocardiography was performed. Image quality was suboptimal. The study was technically limited due to poor acoustic window availability, restricted patient mobility, and Patient on This report is only to be considered final once signed by the Provider(s) as displayed in the "<Electronically Signed by >" field (s). Absence of a signature indicates the report is in a draft status and still needs to be finalized. In the event this document was created by someone other than the signing Provider, the individual initiating the document will be listed in the "Entered by:" or "Dictated by:" carbone. Patient Name: SHERIF CRAVEN JR Medical Record#: [id number] Ordering Physician: Christian Rodriguez MD Acct.#: [id number] : 1945 Age: 74 Sex: M Location: [facility] Exam Date: 12/03/19 06 ADM Status: ADM IN Order Information: CHEST AP/PORT Accession Number: [id number] CPT: 89020 INDICATION: Respiratory failure COMPARISON: There are no relevant prior studies available for comparison. TECHNIQUE: A portable view of the chest was obtained. FINDINGS: Overlying leads obscure the [id number]. The patient rotated. Endotracheal tube tip terminates approximately 6 cm above the theodore. An enteric tube terminates in the left upper quadrant. A temperature probe is seen in the midesophagus. There is decreased aeration in the right midlung zone with similar opacification of the left hemithorax. Small pleural effusions are possible. The heart is similarly enlarged. The vascular markings are prominent. IMPRESSION: 1. The endotracheal tube is about 6 cm above the theodore (consider advancing). 2. Slightly decreased aeration of the right middle lung zone with similar opacification of the left hemithorax. 3. Small pleural effusions are suspected. <Electronically signed by Gerardo Dickey MD in [place]> 12/03/19806 Dictated By: Gerardo Dickey MD Dictated Date/Time: 12/03/19756 Transcribed Date/Time: 12/03/19756 Copy to: CC:Sina Sims MD; Christian Rodriguez MD; Oc Goldman MD Imaging - [facility] [address] This report is only to be considered final once signed by the Provider(s) as displayed in the "<Electronically Signed by >" field (s). Absence of a signature indicates the report is in a draft status and still needs to be finalized. In the event this document was created by someone other than the signing Provider, the individual initiating the document will be listed in the "Entered by:" or "Dictated by:" carbone. 1 of 2 [facility] Patient Name:SHERIF CRAVEN JR MR:[id number] : 1945 IMPRESSION: 1. Patient is status post cardiac arrest. The CT scan shows severe coronary calcification. No pericardial thickening or effusion. 2. Moderate size bilateral pleural effusions with consolidation and volume loss of the lower lungs and some areas of atelectasis in the upper lungs. 3. Perihilar infiltrates most likely representing pulmonary edema secondary to left-sided heart failure. Differential would consist of atypical pneumonia, pulmonary hemorrhage and ARDS. 4. Acute fractures of both lower anterior ribs. Abnormality of the manubrium and sternum which may represent motion artifacts but could represent acute fractures in light of the patient's history of a recent cardiac arrest and possible resuscitation. No retrosternal hematoma. PROCEDURE INFORMATION: Exam: CT Abdomen And Pelvis Without Contrast Exam date and time: 12/06/2019 10:01 PM Age: 74 years old Clinical indication: Mass, lump, or swelling; Other: Post cardiac arrest; Additional info: Aspiration, cardiac arrest, pulm congestion TECHNIQUE: Imaging protocol: Computed tomography of the abdomen and pelvis without contrast. Radiation optimization: All CT scans at this facility use at least one of these dose optimization techniques: automated exposure control; mA and/or kV adjustment per patient size (includes targeted exams where dose is matched to clinical indication); or iterative reconstruction. COMPARISON: DX CXR PORTAP CHEST AP/PORT 12/06/2019 6:27 AM FINDINGS: Tubes, catheters and devices: NG tube tip located in the stomach. Right femoral arterial catheter. Left femoral venous catheter with the tip located in the mid inferior vena cava. Liver: Normal. No mass. Gallbladder and bile ducts: Calcified gallstones located in the dependent portion of the gallbladder. Largest stone measures approximately 2 cm in length. No gallbladder wall thickening. No pericholecystic fluid collection. No ductal distention. Pancreas: Normal. No ductal dilation. Spleen: Normal. No splenomegaly. Adrenals: Normal. No mass. Kidneys and ureters: The kidneys are of normal size. Multiple hypodensities scattered throughout the renal cortex on both sides. Largest lesion is in the midpole of the right kidney. This measures 2.2 cm in length. It has a central density of 43 Hounsfield units. The other cortical lesions have a lower density pattern consistent with simple cysts. No hydronephrosis or nephrolithiasis. The Stomach and bowel: The stomach is partially filled with food fluid and air. The duodenal bulb and sweep are not remarkable. No bowel obstruction. Moderate amount of feces and air located in the sigmoid colon and rectum. The cecum, ascending colon, transverse colon and descending colon are partially empty. No bowel wall thickening. Occasional colonic diverticuli. No evidence of acute diverticulitis. Appendix: No evidence of appendicitis. Intraperitoneal space: Unremarkable. No free air. No significant fluid collection. Vasculature: Calcification of the wall of the abdominal aorta and iliac arteries. No abdominal aortic aneurysm. Lymph nodes: Prostatectomy with dissection of the lymph nodes in the pelvis. No periaortic or pericaval adenopathy. Bladder: Valentin catheter located in the bladder which is empty. Areas seen This report is only to be considered final once signed by the Provider(s) as displayed in the "<Electronically Signed by >" field (s). Absence of a signature indicates the report is in a draft status and still needs to be finalized. In the event this document was created by someone other than the signing Provider, the individual initiating the document will be listed in the "Entered by:" or "Dictated by:" carbone. 2 of 5 EKG Data: 12/03/2019; Sinus bradycardia rate 57 with inferior Q waves and TW inversion/ flattening c/w recent MA. QTc 531 12/04/2019; Sinus bradycardia rate 12/06/19; Sinus rhythm rate 73, Diffuse minimal ST depression with TWI. 12/08/19; Afib/AFL rate 91 diffuse TWI with inferior Q waves Telemetry; reviewed. Afib/AFL rate 90-110. Assessment/Plan #1 S/P Acute Inferior STEMI presented with witnessed arrest. Patient was defibrillated x1 per EMS and received 2 rounds of Epi. He is s/p CAROLE to Proximal RCA 12/02/2019. LVEF 55-60% with basal midinferior hypokinesis. Troponin peaked at 66 on 12/03/2019 and has started to trend down. He is currently euthermic,, neurology seeing patient to determine brain function and help establish goals of care. On ASA 81/day in combination with Brilinta 90 BID , Coreg 6.25mg Po BID, Lipitor 80QHS. He had AF with RVR 160's 12/06/19 s/p CV was on Amiodarone gtt that was accidentally weaned off. He is back in Afib/ aflutter with RVR will RX Amio 150mg bolus x1 followed by 1mg/minx6 hours then .5mg/min there after. for now continue Brilinta 90 BID and ASA 81/day. #2 Transaminitis; AST/ALT are elevated however are < 500. Likely ischemic injury due to above #1. Primary team following. He is on high intensity statin therapy. enzymes continue to improve. #3 BAM; Likely due to above #1. Renal function improved but is still elevated. 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 On ASA therapy. #5 Newly found AF with RVR 12/06/2019. s/p CV 12/06/2019. Was in NSR however, went back into Afib/AFL last evening. Will order IV amio 150mg bolus x1 followed by gtt at 1mg/min x 6 hours then .5mg/min there after. His Hgb is 8.8. Not on anticoagulation. Will speak with Dr. Pederson about starting Heparin ggt in combination with Brilinta and ASA and monitoring patient closely for bleeding. #6 Coffee ground emesis in noted in OG tube. Hgb 8.8, Plts normalized today. On IV Protonix managed by ICU team. #7 Disposition pending course. Patient condition guarded. Neuro to see patient . Will follow closely. Will d/w attending Dr. Pederson. Attending: Gurwinder Pederson <Gurwinder Pederson - Last Filed: 12/08/19 12:08> Subjective Interval History: pt seen and examined. Agree with findings as documented by GEORGE Marquez. Medications Active Medications: Acetaminophen (Tylenol Adult Liq*) 650 mg PO Q4H PRN PRN Reason: mild pain for temp>101 Last Admin: 12/07/19 16:08 Dose: 650 mg Albuterol (Ventolin 2.5 Mg/3 Ml Neb.Mariangel*) 2.5 mg INH Q2H PRN PRN Reason: SOB/WHEEZING Aspirin (Aspirin 81 Mg Chew Tab*) 81 mg PO DAILY [facility] Last Admin: 12/08/19 08:46 Dose: 81 mg Atorvastatin Calcium (Lipitor*) 80 mg PO 1700 [facility] Last Admin: 12/07/19 16:08 Dose: 80 mg Baclofen (Lioresal Tab*) 5 mg PO BID [facility] Last Admin: 12/08/19 08:44 Dose: 5 mg Carvedilol (Coreg Tab*) 3.125 mg PO BID [facility] Chlorhexidine Gluconate (Peridex Mouth Wash 0.12%*) 15 ml TOPICAL Q4H [facility] Last Admin: 12/08/19 10:55 Dose: 15 ml Dextrose (D50w Syringe 50 Ml*) 12.5 gm IV PUSH .FOR FS < 60 - SS PRN PRN Reason: FS < 60 Docusate Sodium (Colace Liq*) 100 mg PO BID PRN PRN Reason: CONSTIPATION Last Admin: 12/06/19 15:52 Dose: 100 mg Fentanyl Citrate (Fentanyl*) 50 mcg IV SLOW PU Q1H PRN PRN Reason: shivering Last Admin: 12/03/19 00:43 Dose: 50 mcg Heparin Sodium (Porcine) (Heparin Vial(*)) 0 units IV .FOR BOLUSES PRN PRN Reason: HEPARIN DRIP BOLUSES Hydralazine HCl (Apresoline Iv*) 10 mg IV SLOW PU Q4H PRN PRN Reason: sbp>160 Piperacillin Sod/Tazobactam (Sod 3.375 gm/ Sodium Chloride) 100 mls @ 25 mls/ hr IVPB Q8H [facility] Last Admin: 12/08/19 08:57 Dose: 25 mls/hr Propofol (Diprivan*) 100 mls @ 7.209 mls/hr IV .PER PROTOCOL [facility]ANE[facility]; Protocol Last Admin: 12/06/19 18:14 Dose: 4.8 mls/hr Fentanyl Citrate (Fentanyl Infusion Bag 50 Mcg/Ml 50 Ml) 2,500 mcg in 50 mls @ 2 mls/hr IV Q72H [facility]; Protocol Last Admin: 12/08/19 05:15 Dose: 2 mls/hr Dexmedetomidine HCl 1,000 mcg/ (Sodium Chloride) 250 mls @ 11.62 mls/hr IV .PER PROTOCOL JANE[facility]; Protocol Last Admin: 12/08/19 05:12 Dose: 34.9 mls/hr Phenylephrine HCl 50 mg/ (Sodium Chloride) 250 mls @ 15 mls/hr IV .PER PROTOCOL JANE[facility]; Protocol Last Admin: 12/07/19 12:55 Dose: 15 mls/hr Vancomycin HCl 750 mg/ Sodium (Chloride) 250 mls @ 166.667 mls/hr IVPB Q12H [facility] Last Admin: 12/08/19 09:06 Dose: 166.667 mls/hr Amiodarone HCl (Nexterone 360 Mg/200 Ml Ivpremix*) 360 mg in 200 mls @ 33.333 mls/hr IV ONCE ONE Stop: 12/08/19 15:59 Last Admin: 12/08/19 10:11 Dose: 33.333 mls/hr Heparin Sodium/Dextrose (Heparin Drip 25,000 Units(*)) 25,000 units in 500 mls @ 0 mls/hr IV PER RATE [facility]; Protocol Last Admin: 12/08/19 11:02 Dose: 28 mls/hr Insulin Human Lispro (Humalog*) 0 units SUBCUT FS Q6 ICU [facility]; Protocol Last Admin: 12/08/19 05:49 Dose: 3 unit Lamotrigine (Lamictal Tab(*)) 150 mg PO Q12H [facility] Last Admin: 12/08/19 08:44 Dose: 150 mg Metoclopramide HCl (Reglan Iv*) 5 mg IV Q6H PRN PRN Reason: motility Last Admin: 12/07/19 19:05 Dose: 5 mg Metoprolol Tartrate (Lopressor Iv*) 5 mg IV Q6H PRN PRN Reason: BLOOD PRESSURE Last Admin: 12/08/19 03:31 Dose: 5 mg Pantoprazole Sodium (Protonix Iv*) 40 mg IV Q12H [facility] Last Admin: 12/08/19 03:31 Dose: 40 mg Pharmacy Consult (Vancomycin Per Pharmacy*) 1 note FOLLOW UP .VANC PER PHARMACY [facility]; Protocol Pharmacy Profile Note (Vancomycin Trough Check) 1 note FOLLOW UP ONCE ONE Stop: 12/10/19 08:31 Ticagrelor (Brilinta*) 90 mg PO Q12H [facility] Last Admin: 12/08/19 10:55 Dose: 90 mg Objective Vital Signs: Temp Pulse Resp BP Pulse Ox 99.9 F 101 14 140/90 92 12/08/19 08:00 12/08/19 11:00 12/08/19 11:00 12/08/19 04:00 12/08/19 11:00 Laboratory Results: 12/08/19 11:11 12/08/19 11:11 INR (Anticoag Therapy) 1.03 (0.82-1.09) 12/08/19 04:50 APTT 35.1 seconds (26.0-38.0) 12/08/19 11:11 Total Bilirubin 0.80 mg/dL (0.2-1.0) 12/08/19 04:50 Direct Bilirubin 0.20 mg/dL (0.03-0.18) H 12/08/19 04:50 Indirect Bilirubin 0.6 mg/dL (0.3-1.0) 12/08/19 04:50 AST 43 U/L (13-39) H 12/08/19 04:50 ALT 48 U/L (7-52) 12/08/19 04:50 Alkaline Phosphatase 80 U/L (34-104) 12/08/19 04:50 CK-MB (CK-2) 52.1 ng/mL (0.6-6.3) H 12/05/19 05:57 B-Natriuretic Peptide 70 pg/mL (<=100) 12/02/19 18:15 Total Protein 5.6 g/dL (6.4-8.9) L 12/08/19 04:50 Albumin 2.5 g/dL (3.2-5.2) L 12/08/19 04:50 Globulin 3.1 g/dL (2-4) 12/08/19 04:50 Albumin/Globulin Ratio 0.8 (1-3) L 12/08/19 04:50 Triglycerides 279 mg/dL 12/08/19 04:50 Cholesterol 100 mg/dL 12/03/19 05:55 LDL Cholesterol 33 mg/dL 12/03/19 05:55 HDL Cholesterol 24.7 mg/dL 12/03/19 05:55 TSH 1.02 mcIU/mL (0.34-5.60) 12/02/19 18:15 12/02/19 12/02/19 12/02/19 10:47 13:15 18:15 Troponin I 0.07 H* 19.50 H* 41.77 H* 12/03/19 12/03/19 12/03/19 00:00 05:55 17:20 Troponin I 60.49 H* 66.45 H* 53.30 H* 12/04/19 06:20 Troponin I 43.16 H*
--- NOTE | 2019-12-08 10:52 | PN ---
Subjective Date of Service: 12/08/19 Interval History: Overnight events -remains intubated -off hypothermia since 12/04 -on phentanyl and precedex infusion (off propofol due to high TG), only on phentanyl this morning - Afib/Aflutter with RVR and hypotensive last night when bringing down sedation , Ron was started, turned off since morning - Loose stool, absorb pills well - no more coffee ground emesis - TW downtrending Tele: Afib, HR 105 O2/Vent: AC 14/500/+5/ Infusions: propofol, protonix infusion, precedex, amiodarone Objective Active Medications: Acetaminophen (Tylenol Adult Liq*) 650 mg PO Q4H PRN PRN Reason: mild pain for temp>101 Last Admin: 12/07/19 16:08 Dose: 650 mg Albuterol (Ventolin 2.5 Mg/3 Ml Neb.Mariangel*) 2.5 mg INH Q2H PRN PRN Reason: SOB/WHEEZING Amlodipine Besylate (Norvasc Tab*) 10 mg PO DAILY [facility] Last Admin: 12/08/19 08:45 Dose: Not Given Aspirin (Aspirin 81 Mg Chew Tab*) 81 mg PO DAILY [facility] Last Admin: 12/08/19 08:46 Dose: 81 mg Atorvastatin Calcium (Lipitor*) 80 mg PO 1700 [facility] Last Admin: 12/07/19 16:08 Dose: 80 mg Baclofen (Lioresal Tab*) 5 mg PO BID [facility] Last Admin: 12/08/19 08:44 Dose: 5 mg Carvedilol (Coreg Tab*) 25 mg PO BID [facility] Chlorhexidine Gluconate (Peridex Mouth Wash 0.12%*) 15 ml TOPICAL Q4H [facility] Last Admin: 12/08/19 06:00 Dose: 15 ml Dextrose (D50w Syringe 50 Ml*) 12.5 gm IV PUSH .FOR FS < 60 - SS PRN PRN Reason: FS < 60 Docusate Sodium (Colace Liq*) 100 mg PO BID PRN PRN Reason: CONSTIPATION Last Admin: 12/06/19 15:52 Dose: 100 mg Fentanyl Citrate (Fentanyl*) 50 mcg IV SLOW PU Q1H PRN PRN Reason: shivering Last Admin: 12/03/19 00:43 Dose: 50 mcg Hydralazine HCl (Apresoline Iv*) 10 mg IV SLOW PU Q4H PRN PRN Reason: sbp>160 Piperacillin Sod/Tazobactam (Sod 3.375 gm/ Sodium Chloride) 100 mls @ 25 mls/ hr IVPB Q8H [facility] Last Admin: 12/08/19 08:57 Dose: 25 mls/hr Propofol (Diprivan*) 100 mls @ 7.209 mls/hr IV .PER PROTOCOL [facility]; Protocol Last Admin: 12/06/19 18:14 Dose: 4.8 mls/hr Fentanyl Citrate (Fentanyl Infusion Bag 50 Mcg/Ml 50 Ml) 2,500 mcg in 50 mls @ 2 mls/hr IV Q72H [facility]; Protocol Last Admin: 12/08/19 05:15 Dose: 2 mls/hr Dexmedetomidine HCl 1,000 mcg/ (Sodium Chloride) 250 mls @ 11.62 mls/hr IV .PER PROTOCOL [facility]; Protocol Last Admin: 12/08/19 05:12 Dose: 34.9 mls/hr Phenylephrine HCl 50 mg/ (Sodium Chloride) 250 mls @ 15 mls/hr IV .PER PROTOCOL [facility]; Protocol Last Admin: 12/07/19 12:55 Dose: 15 mls/hr Vancomycin HCl 750 mg/ Sodium (Chloride) 250 mls @ 166.667 mls/hr IVPB Q12H [facility] Last Admin: 12/08/19 09:06 Dose: 166.667 mls/hr Amiodarone HCl (Nexterone 360 Mg/200 Ml Ivpremix*) 360 mg in 200 mls @ 33.333 mls/hr IV ONCE ONE Stop: 12/08/19 15:59 Last Admin: 12/08/19 10:11 Dose: 33.333 mls/hr Heparin Sodium/Dextrose (Heparin Drip 25,000 Units(*)) 25,000 units in 500 mls @ 0 mls/hr IV PER RATE [facility]; Protocol Insulin Human Lispro (Humalog*) 0 units SUBCUT FS Q6 ICU [facility]; Protocol Last Admin: 12/08/19 05:49 Dose: 3 unit Lamotrigine (Lamictal Tab(*)) 150 mg PO Q12H [facility] Last Admin: 12/08/19 08:44 Dose: 150 mg Metoclopramide HCl (Reglan Iv*) 5 mg IV Q6H PRN PRN Reason: motility Last Admin: 12/07/19 19:05 Dose: 5 mg Metoprolol Tartrate (Lopressor Iv*) 5 mg IV Q6H PRN PRN Reason: BLOOD PRESSURE Last Admin: 12/08/19 03:31 Dose: 5 mg Pantoprazole Sodium (Protonix Iv*) 40 mg IV Q12H [facility] Last Admin: 12/08/19 03:31 Dose: 40 mg Pharmacy Consult (Vancomycin Per Pharmacy*) 1 note FOLLOW UP .VANC PER PHARMACY [facility]; Protocol Pharmacy Profile Note (Vancomycin Trough Check) 1 note FOLLOW UP ONCE ONE Stop: 12/10/19 08:31 Ticagrelor (Brilinta*) 90 mg PO Q12H [facility] Last Admin: 12/08/19 00:47 Dose: 90 mg Vital Signs - 8 hr 12/08/19 12/08/19 12/08/19 02:45 03:00 03:15 Temperature Pulse Rate 128 111 100 Respiratory 15 Rate Blood Pressure (mmHg) O2 Sat by Pulse 95 96 96 Oximetry 12/08/19 12/08/19 12/08/19 03:30 03:45 03:46 Temperature Pulse Rate 138 80 87 Respiratory Rate Blood Pressure 123/70 (mmHg) O2 Sat by Pulse 97 95 95 Oximetry 12/08/19 12/08/19 12/08/19 03:55 04:00 04:15 Temperature 99.1 F Pulse Rate 118 103 Respiratory 18 Rate Blood Pressure 140/90 (mmHg) O2 Sat by Pulse 93 94 Oximetry 12/08/19 12/08/19 12/08/19 04:30 04:45 04:46 Temperature Pulse Rate 105 104 Respiratory 13 Rate Blood Pressure (mmHg) O2 Sat by Pulse 95 96 Oximetry 12/08/19 12/08/19 12/08/19 05:00 05:15 05:30 Temperature Pulse Rate 108 108 132 Respiratory 24 Rate Blood Pressure (mmHg) O2 Sat by Pulse 96 97 95 Oximetry 12/08/19 12/08/19 12/08/19 05:45 05:55 06:00 Temperature Pulse Rate 101 75 Respiratory 16 Rate Blood Pressure (mmHg) O2 Sat by Pulse 96 97 Oximetry 12/08/19 12/08/19 12/08/19 06:15 06:30 06:45 Temperature Pulse Rate 88 82 87 Respiratory Rate Blood Pressure (mmHg) O2 Sat by Pulse 97 95 96 Oximetry 12/08/19 12/08/19 12/08/19 07:00 07:15 07:30 Temperature Pulse Rate 89 93 72 Respiratory 15 Rate Blood Pressure (mmHg) O2 Sat by Pulse 96 97 98 Oximetry 12/08/19 12/08/19 12/08/19 07:45 08:00 08:15 Temperature 99.9 F Pulse Rate 80 82 90 Respiratory 13 Rate Blood Pressure (mmHg) O2 Sat by Pulse 99 96 96 Oximetry 12/08/19 12/08/19 12/08/19 08:30 08:45 09:00 Temperature Pulse Rate 85 86 87 Respiratory 12 Rate Blood Pressure (mmHg) O2 Sat by Pulse 96 96 96 Oximetry 12/08/19 12/08/19 12/08/19 09:15 09:30 09:45 Temperature Pulse Rate 100 103 102 Respiratory Rate Blood Pressure (mmHg) O2 Sat by Pulse 92 93 92 Oximetry 12/08/19 10:00 Temperature Pulse Rate 88 Respiratory 10 Rate Blood Pressure (mmHg) O2 Sat by Pulse 94 Oximetry Oxygen Devices in Use Now: Endotracheal Tube, Mechanical Ventilator Exam: Constitutional: intubated, sedated, no distress, no diaphoresis Head: normocephalic, atraumatic Eyes: no pallor, no icterus ENT: moist mucous membranes Neck: soft, supple, no jvd CVS: normal rate, regular, no murmur Chest/Resp: bilateral air entry, no rales, no wheeze, scattered rhonchi , no acc muscle use Abdomen/GI: soft, distended, BS+, loose stool in recta bag Ext/Msk: warm, pulses+, 2+ edema over legs Skin: intact, cool Neuro: intubated, sedated, limited exam due to sedation/hypothermia Psych: unable to assess/intubated Line: left IJ central line Right groin A line Rose Result Diagrams: 12/08/19 14:41 12/08/19 11:11 Assess/Plan/Problems-Billing Assessment: 73y M w/pmhx of DM, HTN, WPW, prior history of prostate surgery complicated by 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 He was a witnessed collapse by house keeper, who started CPR, called EMS, state troopers arrive and gave 1 shock and continued CPR, EMS arrived and cont CPR with 2 epi with ROSC. Brought to ER and intubated. EKG demonstrated NSR with inferior ST elevations. STEMI called, taken to manager labor relations, found to have occluded mid-RCA. PCI performed with 3 stents, discussed intraop findings with cardiology, some distal disease still present in RCA, no sig disease in LAD at this time. Given brillinta/asa. He subsequently came to ICU, intubated, completed Therapeutic hypothermia protocol, rewarmed since 12/04, had purposeful movement off sedation but limited neurological function. New Afib/flutter 12/04 cardioconverted but recurred. -VT/VF out of hospital arrest -STEMI of RCA; s/p PCI x3 to mRCA 12/01 -Acute hypoxix respiratory failure, int 12/01 -New Atrial fib/Flutter s/p cardioconversion 12/05 but recurred -Hypoxic-ischemic Encephalopathy -possible aspiration pneumonia of both lung -BAM -Shock liver -metabolic acidosis -upper GI bleed DM HTN h/o WPW h/o prior Right MCA CVA with left deficit seizure disorder Plan: Neuro- -s/p cardiac arrest, not responsive post ROSC; completed TTM 12/04 -has some purposeful movement yesterday when off sedation; brainstem reflexes intact -continue to wean down sedation -brain ct 12/01 - no acute findings; chronic encephalomalacia+ - -neurochecks -h/o Right MCA CVA - chronic left residual weakness; has contractures of upper ext -seizure disorder, EEG no epilepsy - was on iv keppra, now back to lamictal BID -hold home sedatives and other anxiety meds -cont baclofen for spasms -Delirium prec; avoid BDZ CVS- -VT/VF arrest - no further arrhythmias, no antiarrhythmics needs -Afib with RVR- 12/05, was unstable requiring DC cardioversion, recurred since - iv amiodarone continuously after iv bolus 150mg today as per transplanter - STEMI RCA; s/p PCI - some left over residual disease; cont DAPT/statin - start heparin drip for afib as per transplanter - start low dose carvedilol tonight as per transplanter, hold off due to low bp -TTE reviewed - thick LV, intact function it appears; no effusion, small cavity ; some mild RV dysfunction noted only -HTN - restart antihypertensives as tolerated; noted to be on clonidine/coreg/ norvasc/lisinopril at home -h/o WPW - monitoring -Maintain MAP>65 Resp- -intubated on AC 90% now -suspect aspiration pneumonia; cont zosyn and vancomycin -slightly volume overloaded, hold off diuretics for now due to hypotension, hyper Na, reassess on daily basis -Wean Fio2 to keep sat>92% -repeat CXR tomorrow -Bronchodilators PRN, Aspiration prec, Pulmonary Toilet -VAP bundle ID- tmax 101 yesterday - wbc downtrending -cxr 12/05 - bilateral congestion/infiltrates -high risk for aspiration; cont empiric asp coverage with zosyn q8h (12/02- ) and vancomycin (12/02), plan for 7 days GI- -OGT TF - nepro -abd mild distension, has diarrhea, CT abdomen: no obstruction or infection seen. -coffee-ground emesis resolved, will continue iv pantoprazole bid -Hb stable today, liver function normalizing -h/o PPI at home, episodes of coffee ground emesis this stay -high ng aspirate this morning, try small feed 50ml every hour and watch ng aspirate Renal- -BAM, suspect this to be from ischemic ATN/hypoperfusion from cardiac arrest; Cr now mid 1-2, may be chronic or new baseline -no obstruction, rose in place -metabolic acidosis+, likely was from hypoperfusion/renal insuff -hypernatremia, continue free water 1.2L/d for now -strict I/O, replete to keep K>4, Mg>2 -rose as indicated Heme- -hg stable at 8-9 now -cont DAPT for coronary stents -start iv heparin drip as per transplanter -threshold for transfusion from cardiac point: Hb<8 Endo- Maintain BG<200, insulin protocol as needed, if persistent >200, will add on lantus Musculsk- pressure ulcer prophylaxis. Bedrest. Wounds- none Nutrition- OGt TFD Nepro and free water, DVT prophylaxis: SCD, iv heparin GI prophylaxis: ppi bid Central Line: left IJ central line 12/07 Arterial Line: right fem 12/01 Rose Cathetor: yes 12/01 Disposition: Patient requires Critical Care/ICU for cardiac arrest, encephalopathy, stemi, respiratory failure Patient Clinical Status: guarded, critical Code Status: full code Status and Disposition: Stays in ICU Counseling and/or Coordination of Care Minutes: Cardiology, Neurology Attestation Documenting Resident: Maria Del Carmen Damian Supervising Physician: Carmen Rivero Attending/Supervising Physician Comment: 74M with out of hospital cardiac arrest s/p PCI x3 to RCA and hypothermia Out of hospital cardiac arrest STEMI s/p PCI x3 to RCA Acute hypoxic respiratory failure BAM Sepsis due to aspiration PNA left lung Upper GI bleed DM HTN H/o WPW H/o R MCA stroke Seizure disorder Moves spontaneously but still does not follow commands. Requiring high FiO2 on ventilator. Amiodarone was not continued overnight, and he is back in atrial fibrillation this morning. Amio bolus and drip restarted. Has been intermittently hypotensive but has not required pressors. He did require phenylephrine overnight. Sedation with Precedex and fentanyl. Home lamotrigine Amiodarone gtt for a fib. Continue home Coreg at decreased dose and amlodipine but hold if hypotensive. Continue ticagrelor. Will wean FiO2 as tolerated but likely will require ventilator for several days. Treating for presumed aspiration PNA. Reglan prn. PPI. Will stop tube feeds per sister request. Rose for accurate I&Os. Free water for hypernatremia. Continue Zosyn and vanco. Hemoglobin trending down, will transfuse if hgb <8. SQH for DVT ppx Increase sliding scale insulin, goal BG <200 Discussed goals of care with sister (Daysi Mendoza), and Dr Singh also talked with the sister. MOLST completed. Will plan to terminally extubate and transition to comfort measures on Th when his sister and nephew can come back. Patient is DNR now. Critical Care Time: 40 min excluding procedures/teaching Carmen Rivero MD Attestation: This service has been performed in part by a resident under the direction of a teaching physician.I, Carmen Rivero, performed the service, or was physically present during the critical, or dennis portions of the service, furnished by the resident. I participated in the management of the patient.
[2019-12-08] MEDS ORDERED: Heparin VIAL(*) 5000 UNITS/ML VIAL (FIVE THOUSAND) IV PRN (10:53)
[2019-12-08] MEDS: Heparin DRIP 25,000 UNITS(*) 25,000 UNITS/500 ML BAG IV SCH (11:02)
[2019-12-08 11:24] LABS: Hematocrit 24 % (42-52); Hemoglobin 8.4 g/dL (14.0-18.0); Mean Corpuscular HGB Conc 35 g/dL (31-36); Mean Corpuscular Hemoglobin 32 pg (27-31); Mean Corpuscular Volume 92 fL (80-94); Mean Platelet Volume 8.8 fL (7.4-10.4); Platelet Count 128 10^3/uL (150-450); Red Blood Count 2.64 10^6 /uL (4.18-5.48); Red Cell Distribution Width 15 % (10-15); White Blood Count 10.4 10^3/uL (3.5-10.8)
[2019-12-08 11:43] LABS: EGFR African American 44.8 (>60)
[2019-12-08 12:33] LABS: ABS Lymphocytes 1.5 10^3/ul (1.0-4.8); ABS Monocytes 1.2 10^3/ul (0-0.8); ABS Neutrophils 7.7 10^3/ul (1.5-7.7); Eosinophil % 0.2 %; Lymphocyte % 14.4 %; Nucleated Red Blood Cells % 0.2
--- NOTE | 2019-12-08 13:36 | CONSULT ---
Palliative / Hospice Consult Ordering Provider: Carmen Rivero - PCP-Susi Referal Reason: Goals of care/colace/fentanyl - Subjective Code Status: DNR Advance Directives Location: In Chart MOLST Part A Completed: Yes - completed on chart MOLST Part E Completed:: Yes - completed on chart - History or Present Illness History or Present Illness: 74yo male with remote RMCA infarct presents in cardiac arrest to ER. 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 Studies ECHO-55-60%, severe hypokinesis, brain CT-stable encephalomalacia consistent with R remote MCA infarct, CXR pul edema, small pleural effusion ?L lung infection, brain CT #2 no change, abd/chest/pel CT-cholelithiasis, edema upper abd/thigh, EEG-diffuse slowing mod-severe diffuse encephalopathy, H/H 8.4/24, plt 128, BUN/Cr 40/1.81 egfr 44.8, Ca 7.2, alb 2.5, troponin 66.45, BNP 70, NH4 80 and BC neg. Pt admitted to ICU intubated with cardiac arrest, STEMI RCA and acute hypoxic respiratory failure. Pt has 2 prior ER visits. All history is from family and medical records. Lab Values: Abnormal Lab Results 12/07/19 12/07/19 12/08/19 17:27 17:27 04:50 WBC 12.1 H RBC 2.98 L Hgb 9.3 L Hct 27 L MCV 91 MCH 31 MCHC 34 RDW 15 Plt Count 132 L MPV 9.2 Neut % (Auto) 77.4 Lymph % (Auto) 11.9 [place] % (Auto) 10.1 Eos % (Auto) 0.1 Baso % (Auto) 0.5 Absolute Neuts (auto) 9.4 H Absolute Lymphs (auto) 1.4 Absolute Monos (auto) 1.2 H Absolute Eos (auto) 0.0 Absolute Basos (auto) 0.1 Absolute Nucleated RBC 0.0 Nucleated RBC % 0.1 Toxic Granulation Hypochromasia Anisocytosis INR (Anticoag Therapy) APTT Sodium 147 H 147 H Potassium 3.4 L 4.0 Chloride 119 H 120 H Carbon Dioxide 20 L 20 L Anion Gap 8 7 BUN 37 H 39 H Creatinine 1.68 H 1.70 H Est GFR ( Amer) 48.8 48.2 Est GFR (Non-Af Amer) 40.4 39.8 BUN/Creatinine Ratio 22.0 H 22.9 H Glucose 251 H 176 H Calcium 7.1 L 7.2 L Ionized Calcium Phosphorus 3.5 Magnesium 2.0 Total Bilirubin 0.80 Direct Bilirubin 0.20 H Indirect Bilirubin 0.6 AST 43 H ALT 48 Alkaline Phosphatase 80 Total Protein 5.6 L Albumin 2.5 L Globulin 3.1 Albumin/Globulin Ratio 0.8 L Triglycerides 279 Random Vancomycin 7.8 12/08/19 12/08/19 12/08/19 04:50 04:50 04:50 WBC 10.8 RBC 2.81 L Hgb 8.8 L Hct 26 L MCV 92 MCH 31 MCHC 34 RDW 15 Plt Count 155 MPV 9.4 Neut % (Auto) Lymph % (Auto) [place] % (Auto) Eos % (Auto) Baso % (Auto) Absolute Neuts (auto) Absolute Lymphs (auto) Absolute Monos (auto) Absolute Eos (auto) Absolute Basos (auto) Absolute Nucleated RBC Nucleated RBC % Toxic Granulation Hypochromasia Anisocytosis INR (Anticoag Therapy) 1.03 APTT Sodium Potassium Chloride Carbon Dioxide Anion Gap BUN Creatinine Est GFR ( Amer) Est GFR (Non-Af Amer) BUN/Creatinine Ratio Glucose Calcium Ionized Calcium 1.00 L Phosphorus Magnesium Total Bilirubin Direct Bilirubin Indirect Bilirubin AST ALT Alkaline Phosphatase Total Protein Albumin Globulin Albumin/Globulin Ratio Triglycerides Random Vancomycin 12/08/19 12/08/19 12/08/19 11:11 11:11 11:11 WBC 10.4 RBC 2.64 L Hgb 8.4 L Hct 24 L MCV 92 MCH 32 H MCHC 35 RDW 15 Plt Count 128 L MPV 8.8 Neut % (Auto) 74.1 Lymph % (Auto) 14.4 [place] % (Auto) 11.1 Eos % (Auto) 0.2 Baso % (Auto) 0.2 Absolute Neuts (auto) 7.7 Absolute Lymphs (auto) 1.5 Absolute Monos (auto) 1.2 H Absolute Eos (auto) 0.0 Absolute Basos (auto) 0.0 Absolute Nucleated RBC 0.0 Nucleated RBC % 0.2 Toxic Granulation 1+ Hypochromasia 2+ Anisocytosis 2+ INR (Anticoag Therapy) APTT 35.1 Sodium Potassium Chloride Carbon Dioxide Anion Gap BUN 40 H Creatinine 1.81 H Est GFR ( Amer) 44.8 Est GFR (Non-Af Amer) 37.0 BUN/Creatinine Ratio Glucose Calcium Ionized Calcium Phosphorus Magnesium Total Bilirubin Direct Bilirubin Indirect Bilirubin AST ALT Alkaline Phosphatase Total Protein Albumin Globulin Albumin/Globulin Ratio Triglycerides Random Vancomycin 12/08/19 11:11 WBC RBC Hgb Hct MCV MCH MCHC RDW Plt Count MPV Neut % (Auto) Lymph % (Auto) [place] % (Auto) Eos % (Auto) Baso % (Auto) Absolute Neuts (auto) Absolute Lymphs (auto) Absolute Monos (auto) Absolute Eos (auto) Absolute Basos (auto) Absolute Nucleated RBC Nucleated RBC % Toxic Granulation Hypochromasia Anisocytosis INR (Anticoag Therapy) APTT Sodium Potassium Chloride Carbon Dioxide Anion Gap BUN Creatinine Est GFR ( Amer) Est GFR (Non-Af Amer) BUN/Creatinine Ratio Glucose 195 H Calcium Ionized Calcium Phosphorus Magnesium Total Bilirubin Direct Bilirubin Indirect Bilirubin AST ALT Alkaline Phosphatase Total Protein Albumin Globulin Albumin/Globulin Ratio Triglycerides Random Vancomycin Laboratory Last Values WBC 10.4 10^3/uL (3.5-10.8) 12/08/19 11:11 RBC 2.64 10^6 /uL (4.18-5.48) L 12/08/19 11:11 Hgb 8.4 g/dL (14.0-18.0) L 12/08/19 11:11 Hct 24 % (42-52) L 12/08/19 11:11 MCV 92 fL (80-94) 12/08/19 11:11 MCH 32 pg (27-31) H 12/08/19 11:11 MCHC 35 g/dL (31-36) 12/08/19 11:11 RDW 15 % (10-15) 12/08/19 11:11 Plt Count 128 10^3/uL (150-450) L 12/08/19 11:11 MPV 8.8 fL (7.4-10.4) 12/08/19 11:11 Neut % (Auto) 74.1 % 12/08/19 11:11 Lymph % (Auto) 14.4 % 12/08/19 11:11 [place] % (Auto) 11.1 % 12/08/19 11:11 Eos % (Auto) 0.2 % 12/08/19 11:11 Baso % (Auto) 0.2 % 12/08/19 11:11 Absolute Neuts (auto) 7.7 10^3/ul (1.5-7.7) 12/08/19 11:11 Absolute Lymphs (auto) 1.5 10^3/ul (1.0-4.8) 12/08/19 11:11 Absolute Monos (auto) 1.2 10^3/ul (0-0.8) H 12/08/19 11:11 Absolute Eos (auto) 0.0 10^3/ul (0-0.6) 12/08/19 11:11 Absolute Basos (auto) 0.0 10^3/ul (0-0.2) 12/08/19 11:11 Absolute Nucleated RBC 0.0 10^3/ul 12/08/19 11:11 Immature Gran % 3.0 % (0-9) 12/02/19 10:47 Neutrophils % 54.0 % 12/02/19 10:47 Band Neutrophils % 2.0 % (0-8) 12/02/19 10:47 Lymphocytes % 17.0 % 12/02/19 10:47 Reactive Lymphs % 21.0 % (0-6) H 12/02/19 10:47 Monocytes % 4.0 % 12/02/19 10:47 Eosinophils % 1.0 % 12/02/19 10:47 Metamyelocytes % 1.0 % (0-2) 12/02/19 10:47 Nucleated RBC % 0.2 12/08/19 11:11 Toxic Granulation 1+ 12/08/19 11:11 Normal RBC Morphology Normal (Normal) 12/02/19 10:47 Hypochromasia 2+ 12/08/19 11:11 Anisocytosis 2+ 12/08/19 11:11 Hem Pathologist Commnt 12/02/19 10:47 INR (Anticoag Therapy) 1.03 (0.82-1.09) 12/08/19 04:50 APTT 35.1 seconds (26.0-38.0) 12/08/19 11:11 Fibrinogen 238.2 mg/dL (110.8-404.3) 12/02/19 18:15 Patient Temperature Not Reportable 12/04/19 17:55 ABG pH 7.35 (7.35-7.45) 12/07/19 05:30 ABG pH (Temp Correct) Not Reportable 12/04/19 17:55 ABG pCO2 33 mmHg (35-45) L 12/07/19 05:30 ABG pCO2 (Temp Corrct Not Reportable 12/04/19 17:55 ABG pO2 92 mmHg (80-100) 12/07/19 05:30 ABG pO2 (Temp Correct Not Reportable 12/04/19 17:55 ABG HCO3 19.9 mmol/L (19-31) 12/07/19 05:30 ABG O2 Saturation 98.7 % (94.0-98.0) H 12/07/19 05:30 ABG Base Excess -6.4 mmol/L (-2.0-2.0) L 12/07/19 05:30 Respiration Rate 14 12/04/19 17:55 O2 Delivery Device ett 12/04/19 17:55 Ventilator Type 400 12/04/19 17:55 Vent Mode apv/cmv 12/04/19 17:55 FiO2 40 12/04/19 17:55 Inspiratory Time Not Reportable 12/04/19 17:55 PEEP 5 12/04/19 17:55 Pressure Support Not Reportable 12/04/19 17:55 Pressure Control Not Reportable 12/04/19 17:55 EPAP Not Reportable 12/04/19 17:55 IPAP Not Reportable 12/04/19 17:55 BiPAP Not Reportable 12/04/19 17:55 Sodium 147 mmol/L (135-145) H 12/08/19 04:50 Potassium 4.0 mmol/L (3.5-5.0) 12/08/19 04:50 Chloride 120 mmol/L (101-111) H 12/08/19 04:50 Carbon Dioxide 20 mmol/L (22-32) L 12/08/19 04:50 Anion Gap 7 mmol/L (2-11) 12/08/19 04:50 BUN 40 mg/dL (6-24) H 12/08/19 11:11 Creatinine 1.81 mg/dL (0.67-1.17) H 12/08/19 11:11 Est GFR ( Amer) 44.8 (>60) 12/08/19 11:11 Est GFR (Non-Af Amer) 37.0 (>60) 12/08/19 11:11 BUN/Creatinine Ratio 22.9 (8-20) H 12/08/19 04:50 Glucose 195 mg/dL (70-100) H 12/08/19 11:11 POC Glucose (mg/dL) 124 mg/dL (70-100) H 12/03/19 03:52 Glucose Meter Confirm 169 mg/dL (70-100) H 12/06/19 18:10 Hemoglobin A1c 9.6 % (4.0-5.6) H 12/02/19 18:15 Lactic Acid 1.5 mmol/L (0.5-2.0) 12/03/19 12:02 Calcium 7.2 mg/dL (8.6-10.3) L 12/08/19 04:50 Ionized Calcium 1.00 mmol/L (1.16-1.32) L 12/08/19 04:50 Phosphorus 3.5 mg/dL (2.5-5.0) 12/08/19 04:50 Magnesium 2.0 mg/dL (1.9-2.7) 12/08/19 04:50 Total Bilirubin 0.80 mg/dL (0.2-1.0) 12/08/19 04:50 Direct Bilirubin 0.20 mg/dL (0.03-0.18) H 12/08/19 04:50 Indirect Bilirubin 0.6 mg/dL (0.3-1.0) 12/08/19 04:50 AST 43 U/L (13-39) H 12/08/19 04:50 ALT 48 U/L (7-52) 12/08/19 04:50 Alkaline Phosphatase 80 U/L (34-104) 12/08/19 04:50 Ammonia 74 mcmol/L (16-53) H 12/07/19 05:30 Total Creatine Kinase 761 U/L (10-223) H 12/04/19 23:29 CK-MB (CK-2) 52.1 ng/mL (0.6-6.3) H 12/05/19 05:57 Troponin I 43.16 ng/mL (<0.03) H* 12/04/19 06:20 B-Natriuretic Peptide 70 pg/mL (<=100) 12/02/19 18:15 Total Protein 5.6 g/dL (6.4-8.9) L 12/08/19 04:50 Albumin 2.5 g/dL (3.2-5.2) L 12/08/19 04:50 Globulin 3.1 g/dL (2-4) 12/08/19 04:50 Albumin/Globulin Ratio 0.8 (1-3) L 12/08/19 04:50 Triglycerides 279 mg/dL 12/08/19 04:50 Cholesterol 100 mg/dL 12/03/19 05:55 LDL Cholesterol 33 mg/dL 12/03/19 05:55 LDL Cholesterol Direct 93 mg/dL 12/02/19 10:47 HDL Cholesterol 24.7 mg/dL 12/03/19 05:55 Lipase 37 U/L (11.0-82.0) 12/02/19 18:15 TSH 1.02 mcIU/mL (0.34-5.60) 12/02/19 18:15 Cortisol 33.77 mcg/dL 12/02/19 18:15 Urine Color Sherry 12/02/19 14:42 Urine Appearance Cloudy 12/02/19 14:42 Urine pH 5.0 (5-9) 12/02/19 14:42 Ur Specific [place] 1.051 (1.010-1.030) H 12/02/19 14:42 Urine Protein 2+(100 mg/dl) (Negative) A 12/02/19 14:42 Urine Ketones Negative (Negative) 12/02/19 14:42 Urine Blood 3+ (Negative) A 12/02/19 14:42 Urine Nitrate Negative (Negative) 12/02/19 14:42 Urine Bilirubin Negative (Negative) 12/02/19 14:42 Urine Urobilinogen Negative (Negative) 12/02/19 14:42 Ur Leukocyte Esterase Negative (Negative) 12/02/19 14:42 Urine WBC (Auto) Trace(0-5/hpf) (Absent) 12/02/19 14:42 Urine RBC (Auto) Absent (Absent) 12/02/19 14:42 Ur Squamous Epith Cells Present (Absent) A 12/02/19 14:42 Urine Bacteria Absent (Absent) 12/02/19 14:42 Hyaline Casts Present (Absent) A 12/02/19 14:42 Urine Glucose 1+(50 mg/dl) (Negative) A 12/02/19 14:42 Random Vancomycin 7.8 mcg/mL 12/08/19 04:50 Serum Alcohol < 10 mg/dL (<10) 12/02/19 18:15 Blood Type B Positive 12/02/19 18:15 Antibody Screen Negative 12/02/19 18:15 - Objective Active Medications: Acetaminophen (Tylenol Adult Liq*) 650 mg PO Q4H PRN PRN Reason: mild pain for temp>101 Last Admin: 12/07/19 16:08 Dose: 650 mg Albuterol (Ventolin 2.5 Mg/3 Ml Neb.Mariangel*) 2.5 mg INH Q2H PRN PRN Reason: SOB/WHEEZING Aspirin (Aspirin 81 Mg Chew Tab*) 81 mg PO DAILY PENDING SALE TO [facility] Last Admin: 12/08/19 08:46 Dose: 81 mg Atorvastatin Calcium (Lipitor*) 80 mg PO 1700 PENDING SALE TO [facility] Last Admin: 12/07/19 16:08 Dose: 80 mg Baclofen (Lioresal Tab*) 5 mg PO BID PENDING SALE TO [facility] Last Admin: 12/08/19 08:44 Dose: 5 mg Carvedilol (Coreg Tab*) 3.125 mg PO BID PENDING SALE TO [facility] Chlorhexidine Gluconate (Peridex Mouth Wash 0.12%*) 15 ml TOPICAL Q4H PENDING SALE TO [facility] Last Admin: 12/08/19 10:55 Dose: 15 ml Dextrose (D50w Syringe 50 Ml*) 12.5 gm IV PUSH .FOR FS < 60 - SS PRN PRN Reason: FS < 60 Docusate Sodium (Colace Liq*) 100 mg PO BID PRN PRN Reason: CONSTIPATION Last Admin: 12/06/19 15:52 Dose: 100 mg Fentanyl Citrate (Fentanyl*) 50 mcg IV SLOW PU Q1H PRN PRN Reason: shivering Last Admin: 12/03/19 00:43 Dose: 50 mcg Heparin Sodium (Porcine) (Heparin Vial(*)) 0 units IV .FOR BOLUSES PRN PRN Reason: HEPARIN DRIP BOLUSES Hydralazine HCl (Apresoline Iv*) 10 mg IV SLOW PU Q4H PRN PRN Reason: sbp>160 Piperacillin Sod/Tazobactam (Sod 3.375 gm/ Sodium Chloride) 100 mls @ 25 mls/ hr IVPB Q8H PENDING SALE TO [facility] Last Admin: 12/08/19 08:57 Dose: 25 mls/hr Propofol (Diprivan*) 100 mls @ 7.209 mls/hr IV .PER PROTOCOL JANELL; Protocol Last Admin: 12/06/19 18:14 Dose: 4.8 mls/hr Fentanyl Citrate (Fentanyl Infusion Bag 50 Mcg/Ml 50 Ml) 2,500 mcg in 50 mls @ 2 mls/hr IV Q72H JANELL; Protocol Last Admin: 12/08/19 05:15 Dose: 2 mls/hr Dexmedetomidine HCl 1,000 mcg/ (Sodium Chloride) 250 mls @ 11.62 mls/hr IV .PER PROTOCOL JANELL; Protocol Last Admin: 12/08/19 12:30 Dose: 34.9 mls/hr Phenylephrine HCl 50 mg/ (Sodium Chloride) 250 mls @ 15 mls/hr IV .PER PROTOCOL JANELL; Protocol Last Admin: 12/07/19 12:55 Dose: 15 mls/hr Vancomycin HCl 750 mg/ Sodium (Chloride) 250 mls @ 166.667 mls/hr IVPB Q12H PENDING SALE TO [facility] Last Admin: 12/08/19 09:06 Dose: 166.667 mls/hr Amiodarone HCl (Nexterone 360 Mg/200 Ml Ivpremix*) 360 mg in 200 mls @ 33.333 mls/hr IV ONCE ONE Stop: 12/08/19 15:59 Last Admin: 12/08/19 10:11 Dose: 33.333 mls/hr Heparin Sodium/Dextrose (Heparin Drip 25,000 Units(*)) 25,000 units in 500 mls @ 0 mls/hr IV PER RATE JANELL; Protocol Last Admin: 12/08/19 11:02 Dose: 28 mls/hr Insulin Human Lispro (Humalog*) 0 units SUBCUT FS Q6 ICU JANELL; Protocol Last Admin: 12/08/19 12:29 Dose: 3 unit Lamotrigine (Lamictal Tab(*)) 150 mg PO Q12H PENDING SALE TO [facility] Last Admin: 12/08/19 08:44 Dose: 150 mg Metoclopramide HCl (Reglan Iv*) 5 mg IV Q6H PRN PRN Reason: motility Last Admin: 12/07/19 19:05 Dose: 5 mg Metoprolol Tartrate (Lopressor Iv*) 5 mg IV Q6H PRN PRN Reason: BLOOD PRESSURE Last Admin: 12/08/19 03:31 Dose: 5 mg Pantoprazole Sodium (Protonix Iv*) 40 mg IV Q12H PENDING SALE TO [facility] Last Admin: 12/08/19 03:31 Dose: 40 mg Pharmacy Consult (Vancomycin Per Pharmacy*) 1 note FOLLOW UP .VANC PER PHARMACY JANELL; Protocol Pharmacy Profile Note (Vancomycin Trough Check) 1 note FOLLOW UP ONCE ONE Stop: 12/10/19 08:31 Ticagrelor (Brilinta*) 90 mg PO Q12H PENDING SALE TO [facility] Last Admin: 12/08/19 10:55 Dose: 90 mg Vital Signs: Vital Signs: Temp Pulse Resp BP Pulse Ox 100.4 F 108 13 140/90 93 12/08/19 12:00 12/08/19 13:00 12/08/19 13:00 12/08/19 04:00 12/08/19 13:00 Patient Weight: Weight 93.5 kg Intake and Output: Intake & Output 12/06/19 12/07/19 12/08/19 12/09/19 06:59 06:59 06:59 06:59 Intake Total 3601 2679.1 3747 Output Total 2350 3240 1835 195 Balance 1251 -560.9 1912 -195 Weight 93 kg 93.8 kg 93.5 kg Intake: IV Fluids 1336 215 317 ABX - VANCOMYCIN 59 NS 1315 215 Potassium chloride 183 Zosyn 21 75 IVPB 225 980 6229 ABX - VANCOMYCIN 262 Ca Gluconate 55 NS 100 280 Potassium chloride 522 Zosyn 315 215 362 Medicated IV 1608 1758.1 472 Amiodarone 488 183 CC - Phenylephrine/ 26 Neosynephrine Integrilin 154 34.5 Levophed 268 Magnesium 55 Precedex 237 168.6 263 Propofol 364 155 Protonix 585 213 Vancomycin 293 fentanyl 17 ns 79 potassium 151 zosyn 104 IV Narcotic Infusion 3 Fentanyl 3 Oral 0 Tube Feeding 212 126 509 Tube Feeding Flush Amount 30 1300 Autotransfusion 0 NG Tube Irrigate Amount 30 Output: G Tube 250 Valentin 2100 2740 1835 195 Liquid Stool 500 ADLs: Meal Record Start: 12/02/19 14: 27 Freq: 09,13,18 Status: Active Protocol: Created 12/02/19 14:27 System (Rec: 12/02/19 14:27 System ICU-M18) Document 12/02/19 18:00 [id number] (Rec: 12/02/19 18:22 [id number] ICU-M29) Document 12/03/19 08:59 [id number] (Rec: 12/03/19 08:59 [id number] ICU-C07) Document 12/03/19 13:00 [id number] (Rec: 12/03/19 13:46 [id number] ICU-M18) Document 12/03/19 17:43 [id number] (Rec: 12/03/19 17:43 [id number] ICU-C07) Document 12/04/19 09:00 [id number] (Rec: 12/04/19 09:09 PAL1782 ICU-M18) Document 12/05/19 09:00 NUB5536 (Rec: 12/05/19 09:05 [id number] ICU-C15) Document 12/05/19 13:00 PMK1512 (Rec: 12/05/19 13:05 UTO3567 ICU-C15) Document 12/07/19 09:00 HRU6523 (Rec: 12/07/19 09:59 WSP2364 ICU-C16) Document 12/07/19 13:00 [id number] (Rec: 12/07/19 14:32 GKO2045 ICU-C16) Document 12/07/19 18:00 IFK0829 (Rec: 12/07/19 20:18 DYO7386 ICU-C21) Document 12/08/19 09:00 SLD8968 (Rec: 12/08/19 09:45 CBC0399 ICU-C10) Document 12/08/19 13:00 KLO9884 (Rec: 12/08/19 13:08 IOS3561 ICU-C10) Intake and Output Start: 12/02/19 11: 11 Freq: Status: Active Protocol: Created 12/02/19 11:11 System (Rec: 12/02/19 11:11 System [id number]) Intake and Output Start: 12/02/19 14: 27 Freq: Q1HR Status: Active Protocol: Created 12/02/19 14:27 System (Rec: 12/02/19 14:27 System ICU-M18) Document 12/02/19 15:00 [id number] (Rec: 12/02/19 15:52 UTH4612 ICU-M18) Document 12/02/19 15:52 ALI1964 (Rec: 12/02/19 15:52 [id number] ICU-M18) Document 12/02/19 17:00 HLK1486 (Rec: 12/02/19 17:23 FRZ8763 ICU-M29) Document 12/02/19 18:00 XET0400 (Rec: 12/02/19 18:22 JHE7036 ICU-M29) Document 12/02/19 19:00 CKD1153 (Rec: 12/02/19 20:33 YQR5047 ICU-M18) Document 12/02/19 20:00 [id number] (Rec: 12/02/19 20:33 KRO6305 ICU-M18) Document 12/02/19 21:00 ZNE5436 (Rec: 12/02/19 21:26 MLF6521 ICU-M18) Document 12/02/19 22:00 WMO9900 (Rec: 12/02/19 22:12 RRL9710 ICU-M18) Document 12/02/19 23:00 AFF7233 (Rec: 12/02/19 23:05 ZCC2006 ICU-M18) Document 12/03/19 00:00 IZR4236 (Rec: 12/03/19 00:12 UHJ5476 ICU-M18) Document 12/03/19 00:59 ZPV9513 (Rec: 12/03/19 00:59 MLK0089 ICU-M18) Document 12/03/19 02:00 BLX7838 (Rec: 12/03/19 02:15 XLI0032 ICU-M18) Document 12/03/19 03:00 ING3982 (Rec: 12/03/19 03:03 UUB3295 ICU-M18) Document 12/03/19 04:00 KSP1525 (Rec: 12/03/19 04:01 EFQ0644 ICU-M18) Document 12/03/19 05:00 KLE3776 (Rec: 12/03/19 05:07 UAL1117 ICU-M18) Document 12/03/19 06:00 HXJ7918 (Rec: 12/03/19 06:19 PXR4146 ICU-M18) Document 12/03/19 07:00 TRT2218 (Rec: 12/03/19 07:46 YZT6473 ICU-C07) Document 12/03/19 08:00 EUW8073 (Rec: 12/03/19 08:05 WFA8567 ICU-C07) Document 12/03/19 08:58 OKE6967 (Rec: 12/03/19 08:58 FVN4713 ICU-C07) Document 12/03/19 10:00 ZNP1184 (Rec: 12/03/19 10:04 LJC6193 ICU-C07) Document 12/03/19 11:00 WYE2451 (Rec: 12/03/19 12:25 CRN1189 ICU-C07) Document 12/03/19 12:00 UVY9328 (Rec: 12/03/19 12:25 BGI9630 ICU-C07) Document 12/03/19 13:00 SQB8892 (Rec: 12/03/19 13:45 HJR0354 ICU-M18) Document 12/03/19 13:45 FAZ2697 (Rec: 12/03/19 13:45 HBQ2406 ICU-M18) Document 12/03/19 14:53 TFM8586 (Rec: 12/03/19 14:53 ZFY2556 ICU-C07) Document 12/03/19 15:57 YUM3312 (Rec: 12/03/19 15:57 TSG9532 ICU-M18) Document 12/03/19 16:59 XVC1757 (Rec: 12/03/19 16:59 MAJ3420 ICU-C07) Document 12/03/19 18:00 HGO9898 (Rec: 12/03/19 18:03 FWN0633 ICU-M18) Document 12/03/19 20:00 YYS1481 (Rec: 12/03/19 20:01 NZT5762 ICU-M18) Document 12/03/19 21:00 ZJI6179 (Rec: 12/03/19 21:20 NND3914 ICU-M18) Document 12/03/19 21:00 SCK5130 (Rec: 12/04/19 01:03 WUD2555 ICU-M18) Document 12/03/19 22:00 BNI2390 (Rec: 12/03/19 22:08 LYR0322 ICU-M18) Document 12/03/19 23:00 AFN9271 (Rec: 12/03/19 23:00 ZSM4612 ICU-M18) Document 12/04/19 00:00 EGU4742 (Rec: 12/04/19 00:14 QHZ3964 ICU-M18) Document 12/04/19 01:00 MLO9337 (Rec: 12/04/19 01:02 RPF7135 ICU-M18) Document 12/04/19 02:00 DAY8726 (Rec: 12/04/19 02:05 NCH4930 ICU-M18) Document 12/04/19 03:00 BKR3121 (Rec: 12/04/19 03:12 HTA5299 ICU-M18) Document 12/04/19 04:00 TGD4784 (Rec: 12/04/19 04:07 KMB9532 ICU-M18) Document 12/04/19 04:58 FTH3709 (Rec: 12/04/19 04:58 QJS4613 ICU-M18) Document 12/04/19 06:00 WLA1359 (Rec: 12/04/19 06:34 LKU4988 ICU-M18) Document 12/04/19 07:00 ASC9206 (Rec: 12/04/19 07:39 HGN4683 ICU-M18) Document 12/04/19 07:42 PAV1588 (Rec: 12/04/19 07:42 LYL5638 ICU-C56) Document 12/04/19 08:00 HBQ2360 (Rec: 12/04/19 08:29 EJC4531 ICU-M18) Document 12/04/19 09:00 XIE5547 (Rec: 12/04/19 09:09 LZE2047 ICU-M18) Document 12/04/19 10:00 XFU3411 (Rec: 12/04/19 10:25 WYR2893 ICU-M18) Document 12/04/19 11:00 VAD7362 (Rec: 12/04/19 11:12 JXN9577 ICU-M18) Document 12/04/19 12:00 YCX2806 (Rec: 12/04/19 12:34 QGN5703 ICU-M18) Document 12/04/19 13:00 FPG1803 (Rec: 12/04/19 13:16 LEE3574 ICU-M18) Document 12/04/19 14:00 NYQ4761 (Rec: 12/04/19 14:05 CHI8362 ICU-M18) Document 12/04/19 15:00 GOW8809 (Rec: 12/04/19 15:15 KLZ7362 ICU-M18) Document 12/04/19 16:00 KAU6681 (Rec: 12/04/19 16:58 CFQ2835 ICU-M18) Document 12/04/19 17:00 ZBI4504 (Rec: 12/04/19 17:01 MOO4846 ICU-M18) Document 12/04/19 18:00 PZA2931 (Rec: 12/04/19 18:02 MUS9259 ICU-M18) Document 12/04/19 20:00 JTU1140 (Rec: 12/04/19 20:10 UMY6360 IMG-M07) Document 12/04/19 21:00 VLX8284 (Rec: 12/04/19 21:27 ADA0168 ICU-C15) Document 12/04/19 22:00 KYA1564 (Rec: 12/04/19 22:23 QHZ1847 IMG-M07) Document 12/04/19 23:00 ASP3480 (Rec: 12/04/19 23:06 WLD4301 ICU-C15) Document 12/05/19 00:00 RDH0063 (Rec: 12/05/19 00:32 MME7964 IMG-M07) Document 12/05/19 01:00 ZYP1735 (Rec: 12/05/19 01:08 BNG1295 ICU-C15) Document 12/05/19 01:49 EIL5716 (Rec: 12/05/19 01:50 ZJF9006 ICU-C15) Document 12/05/19 03:00 WLZ1027 (Rec: 12/05/19 03:22 BOJ4431 ICU-C15) Document 12/05/19 04:00 WHJ8470 (Rec: 12/05/19 04:26 APC4284 ICU-C15) Document 12/05/19 05:00 SLI2492 (Rec: 12/05/19 05:16 BFD1061 ICU-C15) Document 12/05/19 05:18 DLS2959 (Rec: 12/05/19 05:19 TNN4032 ICU-C14) Document 12/05/19 06:00 KEZ0281 (Rec: 12/05/19 06:06 ZES8511 IMG-M07) Document 12/05/19 06:48 XGW1457 (Rec: 12/05/19 06:49 PKS1621 IMG-M07) Document 12/05/19 08:00 TUL9148 (Rec: 12/05/19 08:00 MFS6513 IMG-M07) Document 12/05/19 09:00 CYG5230 (Rec: 12/05/19 09:04 PBK5595 ICU-C15) Document 12/05/19 10:00 IRR5025 (Rec: 12/05/19 10:02 YZW8460 ICU-C15) Document 12/05/19 10:47 IFW5172 (Rec: 12/05/19 10:47 KLN4589 ICU-C15) Document 12/05/19 12:00 JTE7731 (Rec: 12/05/19 12:28 CIZ8079 ICU-C15) Document 12/05/19 13:00 UOZ7474 (Rec: 12/05/19 13:04 KFQ2902 ICU-C15) Document 12/05/19 13:49 FQV6115 (Rec: 12/05/19 13:49 BYG0869 ICU-C15) Document 12/05/19 14:32 QQL4423 (Rec: 12/05/19 14:33 QET9301 ICU-C15) Document 12/05/19 14:56 AQW2201 (Rec: 12/05/19 14:56 ZEG1884 ICU-C15) Document 12/05/19 16:00 IPD9031 (Rec: 12/05/19 17:03 NUU4084 ICU-C15) Document 12/05/19 17:00 NED7253 (Rec: 12/05/19 17:03 WOI6247 ICU-C15) Document 12/05/19 18:00 LAE7431 (Rec: 12/05/19 18:54 UDE9360 ICU-C15) Document 12/05/19 19:00 DQS3630 (Rec: 12/05/19 19:36 DPC3118 IMG-M07) Document 12/05/19 19:51 TQL5822 (Rec: 12/05/19 19:52 ZHO8948 IMG-M07) Document 12/05/19 21:00 AWI6153 (Rec: 12/05/19 21:04 XYP6611 ICU-C15) Document 12/05/19 22:00 AWG2838 (Rec: 12/05/19 22:04 BAJ7539 ICU-C15) Document 12/05/19 23:00 BNS4072 (Rec: 12/05/19 23:04 MOB8210 ICU-C15) Document 12/06/19 00:00 XNI5679 (Rec: 12/06/19 00:34 QFW0177 ICU-C15) Document 12/06/19 01:00 EFP1540 (Rec: 12/06/19 01:02 SRJ1188 ICU-C15) Document 12/06/19 02:00 WTV4824 (Rec: 12/06/19 02:17 SDC7002 ICU-C15) Document 12/06/19 03:00 ZYF7088 (Rec: 12/06/19 03:13 EJC5074 ICU-C15) Document 12/06/19 04:00 GMR8279 (Rec: 12/06/19 04:19 SHQ4841 ICU-C15) Document 12/06/19 05:00 RYE5516 (Rec: 12/06/19 05:04 OEC8415 ICU-C15) Document 12/06/19 05:53 FCT5094 (Rec: 12/06/19 05:55 URM7431 IMG-M07) Document 12/06/19 06:02 APR1951 (Rec: 12/06/19 06:03 AIJ3664 IMG-M07) Document 12/06/19 07:00 NYN8885 (Rec: 12/06/19 07:11 CII5836 ICU-C15) Document 12/06/19 08:00 UIW6745 (Rec: 12/06/19 08:58 KWV6186 IMG-M07) Document 12/06/19 08:58 POV8178 (Rec: 12/06/19 08:58 OSG7138 IMG-M07) Document 12/06/19 10:00 RXX6989 (Rec: 12/06/19 11:32 XVE4091 IMG-M07) Document 12/06/19 11:00 WKQ5146 (Rec: 12/06/19 11:32 HWX6015 IMG-M07) Document 12/06/19 12:00 OVZ6781 (Rec: 12/06/19 12:29 FNV0518 IMG-M07) Document 12/06/19 13:00 BSD5039 (Rec: 12/06/19 14:36 RPH5932 ICU-C10) Document 12/06/19 14:00 MCK4732 (Rec: 12/06/19 14:36 RFU4518 ICU-C10) Document 12/06/19 15:00 EZF2576 (Rec: 12/06/19 16:16 VVX0770 IMG-M07) Document 12/06/19 16:00 KCO7624 (Rec: 12/06/19 16:16 XDH7094 IMG-M07) Document 12/06/19 17:00 LCO1817 (Rec: 12/06/19 18:53 HXL6740 IMG-M07) Document 12/06/19 18:00 MSQ6084 (Rec: 12/06/19 18:53 KQE8737 IMG-M07) Document 12/06/19 19:00 HVA0776 (Rec: 12/06/19 19:40 ARQ8629 IMG-M07) Document 12/06/19 19:43 EUB4132 (Rec: 12/06/19 19:45 FKZ9167 IMG-M07) Document 12/06/19 21:00 MZO8581 (Rec: 12/06/19 21:06 IDE6749 ICU-C15) Document 12/06/19 22:00 XQT2317 (Rec: 12/06/19 22:21 HQQ0750 IMG-M07) Document 12/06/19 23:00 XXK4202 (Rec: 12/06/19 23:04 SIN6592 ICU-C15) Document 12/06/19 23:57 VKY9000 (Rec: 12/07/19 00:02 LGQ8935 ICU-C15) Document 12/07/19 01:00 HQD6189 (Rec: 12/07/19 01:10 UIO3342 ICU-C15) Document 12/07/19 02:00 ODL1211 (Rec: 12/07/19 02:09 MOP6852 ICU-C15) Document 12/07/19 03:00 ZYG7976 (Rec: 12/07/19 03:03 ZDJ5365 ICU-C15) Document 12/07/19 04:00 WVH8543 (Rec: 12/07/19 04:15 NNU1559 ICU-C15) Document 12/07/19 05:00 SKH0742 (Rec: 12/07/19 05:03 [id number] IMG-M07) Document 12/07/19 06:00 [id number] (Rec: 12/07/19 06:48 [id number] IMG-M07) Document 12/07/19 06:00 [id number] (Rec: 12/07/19 07:33 [id number] ICU-C10) Document 12/07/19 06:54 [id number] (Rec: 12/07/19 06:55 [id number] IMG-M07) Document 12/07/19 08:00 [id number] (Rec: 12/07/19 08:59 [id number] IMG-M07) Document 12/07/19 09:00 [id number] (Rec: 12/07/19 09:59 [id number] ICU-C16) Document 12/07/19 12:00 [id number] (Rec: 12/07/19 12:04 [id number] IMG-M07) Document 12/07/19 13:00 [id number] (Rec: 12/07/19 14:15 [id number] ICU-C22) Document 12/07/19 15:00 [id number] (Rec: 12/07/19 15:04 [id number] IMG-M07) Document 12/07/19 18:00 [id number] (Rec: 12/07/19 18:12 [id number] IMG-M07) Document 12/07/19 19:00 [id number] (Rec: 12/07/19 20:38 [id number] ICU-C10) Document 12/07/19 20:00 [id number] (Rec: 12/07/19 20:52 [id number] ICU-C10) Document 12/07/19 21:00 [id number] (Rec: 12/07/19 21:18 [id number] IMG-M07) Document 12/07/19 22:00 [id number] (Rec: 12/07/19 22:33 [id number] ICU-C10) Document 12/07/19 23:00 [id number] (Rec: 12/07/19 23:47 [id number] ICU-C10) Document 12/08/19 00:00 [id number] (Rec: 12/08/19 00:47 [id number] IMG-M07) Document 12/08/19 01:00 [id number] (Rec: 12/08/19 01:16 [id number] ICU-C10) Document 12/08/19 02:00 [id number] (Rec: 12/08/19 02:58 [id number] ICU-C10) Document 12/08/19 03:00 [id number] (Rec: 12/08/19 03:01 [id number] ICU-C10) Document 12/08/19 03:55 [id number] (Rec: 12/08/19 04:05 [id number] ICU-C10) Document 12/08/19 04:46 [id number] (Rec: 12/08/19 04:47 [id number] ICU-C10) Document 12/08/19 05:55 [id number] (Rec: 12/08/19 05:58 [id number] IMG-M07) Document 12/08/19 06:31 [id number] (Rec: 12/08/19 06:31 [id number] ICU-C10) Document 12/08/19 08:00 [id number] (Rec: 12/08/19 08:13 [id number] ICU-C10) Document 12/08/19 09:00 [id number] (Rec: 12/08/19 09:44 [id number] ICU-C10) Document 12/08/19 10:00 [id number] (Rec: 12/08/19 10:02 [id number] IMG-M07) Document 12/08/19 10:55 [id number] (Rec: 12/08/19 10:55 [id number] IMG-M07) Document 12/08/19 12:00 [id number] (Rec: 12/08/19 13:06 [id number] ICU-C10) Document 12/08/19 13:00 [id number] (Rec: 12/08/19 13:06 [id number] ICU-C10) Head: Normal Ears/Nose/Mouth/Throat: Clear Oropharnyx Neck: NL Appearance and Movements; NL JVP Cardiovascular: NL Sounds; No Murmurs; No JVD Respiratory: Clear to Auscultation Abdominal: NL Sounds; No Tenderness; No Distention Neurological: - - intubated unresponsive - Assessment Assessment: 74yo male with multiple medical problems now s/p cardiac arrest - Plan Consult Plan (MU): Palliative Plan: Long discussion with pt's sister about goals of care. Daughter is HCP but she declined decision making since they are estranged. His sister Daysi Mendoza is his only living relative, both brothers, and parents are . This is the first time she is seeing her brother in [place]ct[place] and didn't realize he was so sick. Sister said pt doesn't want to be on vent or have CPR or feeding tube, MOLST was completed to reflect his wishes. Plan is to stop tube feeds today and terminally extubate pt on when nephews can be here. Sister lives in [place], [place] and plans to return home tonight and return on . list provided to sister by adoption social worker. Support given. KPS 20%, PPS 10 % - Time On Unit Date of Evaluation: 12/08/19 Hospice Consult Time in: 12:30 Hospice Consult Time Out: 13:30 Hospice Consult Time Total: 60 > 50% of Time Spend In Counseling or Coordinating Care: Yes
[2019-12-08] MEDS: Acetaminophen ADULT LIQ* 650 MG/20.3 ML UDC PO PRN (14:31)
[2019-12-08 15:04] LABS: Hematocrit 24 % (42-52); Hemoglobin 8.1 g/dL (14.0-18.0); Mean Corpuscular HGB Conc 34 g/dL (31-36); Mean Corpuscular Hemoglobin 31 pg (27-31); Mean Corpuscular Volume 92 fL (80-94); Red Blood Count 2.57 10^6 /uL (4.18-5.48); Red Cell Distribution Width 15 % (10-15); White Blood Count 9.8 10^3/uL (3.5-10.8)
[2019-12-08 15:05] LABS: ABS Lymphocytes 1.3 10^3/ul (1.0-4.8); ABS Neutrophils 7.4 10^3/ul (1.5-7.7); Eosinophil % 0.3 %; Lymphocyte % 13.8 %; Nucleated Red Blood Cells % 0.3
[2019-12-08 15:43] LABS: Mean Platelet Volume 8.9 fL (7.4-10.4); Platelet Count 127 10^3/uL (150-450)
[2019-12-08] MEDS ORDERED: Amiodarone 360 MG IVPREMIX* 360 MG/200 ML BAG IV ONE (15:51)
[2019-12-08] MEDS: Amiodarone 360 MG IVPREMIX* 360 MG/200 ML BAG IV SCH (16:00)
--- NOTE | 2019-12-08 16:05 | PN ---
Subjective Date of Service: 12/08/19 Length of Stay: 6 Days Neurology is following for routine neurological examination post hypoxic brain injury. Interval History: There has been no significant change in his exam overnight. I spoke to the patient's caregiver Ashtyn Velarde, who has been caring for the patient for 20 years. The patient is wheelchair bound and required assistance with daily activities. He has not had any seizures overnight. Review of Systems: The patient cannot particiate in a ROS. Objective Active Medications: Acetaminophen (Tylenol Adult Liq*) 650 mg PO Q4H PRN PRN Reason: mild pain for temp>101 Last Admin: 12/08/19 14:31 Dose: 650 mg Albuterol (Ventolin 2.5 Mg/3 Ml Neb.Mariangel*) 2.5 mg INH Q2H PRN PRN Reason: SOB/WHEEZING Aspirin (Aspirin 81 Mg Chew Tab*) 81 mg PO DAILY [facility] Last Admin: 12/08/19 08:46 Dose: 81 mg Atorvastatin Calcium (Lipitor*) 80 mg PO 1700 [facility] Last Admin: 12/07/19 16:08 Dose: 80 mg Baclofen (Lioresal Tab*) 5 mg PO BID [facility] Last Admin: 12/08/19 08:44 Dose: 5 mg Carvedilol (Coreg Tab*) 3.125 mg PO BID [facility] Chlorhexidine Gluconate (Peridex Mouth Wash 0.12%*) 15 ml TOPICAL Q4H [facility] Last Admin: 12/08/19 14:31 Dose: 15 ml Dextrose (D50w Syringe 50 Ml*) 12.5 gm IV PUSH .FOR FS < 60 - SS PRN PRN Reason: FS < 60 Docusate Sodium (Colace Liq*) 100 mg PO BID PRN PRN Reason: CONSTIPATION Last Admin: 12/06/19 15:52 Dose: 100 mg Fentanyl Citrate (Fentanyl*) 50 mcg IV SLOW PU Q1H PRN PRN Reason: shivering Last Admin: 12/03/19 00:43 Dose: 50 mcg Heparin Sodium (Porcine) (Heparin Vial(*)) 0 units IV .FOR BOLUSES PRN PRN Reason: HEPARIN DRIP BOLUSES Hydralazine HCl (Apresoline Iv*) 10 mg IV SLOW PU Q4H PRN PRN Reason: sbp>160 Piperacillin Sod/Tazobactam (Sod 3.375 gm/ Sodium Chloride) 100 mls @ 25 mls/ hr IVPB Q8H [facility] Last Admin: 12/08/19 15:49 Dose: 25 mls/hr Propofol (Diprivan*) 100 mls @ 7.209 mls/hr IV .PER PROTOCOL [facility]; Protocol Last Admin: 12/06/19 18:14 Dose: 4.8 mls/hr Fentanyl Citrate (Fentanyl Infusion Bag 50 Mcg/Ml 50 Ml) 2,500 mcg in 50 mls @ 2 mls/hr IV Q72H [facility]; Protocol Last Admin: 12/08/19 05:15 Dose: 2 mls/hr Dexmedetomidine HCl 1,000 mcg/ (Sodium Chloride) 250 mls @ 11.62 mls/hr IV .PER PROTOCOL [facility]; Protocol Last Admin: 12/08/19 12:30 Dose: 34.9 mls/hr Phenylephrine HCl 50 mg/ (Sodium Chloride) 250 mls @ 15 mls/hr IV .PER PROTOCOL [facility]; Protocol Last Admin: 12/07/19 12:55 Dose: 15 mls/hr Vancomycin HCl 750 mg/ Sodium (Chloride) 250 mls @ 166.667 mls/hr IVPB Q12H [facility] Last Admin: 12/08/19 09:06 Dose: 166.667 mls/hr Amiodarone HCl (Nexterone 360 Mg/200 Ml Ivpremix*) 360 mg in 200 mls @ 33.333 mls/hr IV ONCE ONE Stop: 12/08/19 15:59 Last Admin: 12/08/19 10:11 Dose: 33.333 mls/hr Heparin Sodium/Dextrose (Heparin Drip 25,000 Units(*)) 25,000 units in 500 mls @ 0 mls/hr IV PER RATE [facility]; Protocol Last Admin: 12/08/19 11:02 Dose: 28 mls/hr Lamotrigine (Lamictal Tab(*)) 150 mg PO Q12H [facility] Last Admin: 12/08/19 08:44 Dose: 150 mg Metoclopramide HCl (Reglan Iv*) 5 mg IV Q6H PRN PRN Reason: motility Last Admin: 12/07/19 19:05 Dose: 5 mg Metoprolol Tartrate (Lopressor Iv*) 5 mg IV Q6H PRN PRN Reason: BLOOD PRESSURE Last Admin: 12/08/19 03:31 Dose: 5 mg Pantoprazole Sodium (Protonix Iv*) 40 mg IV Q12H [facility] Last Admin: 12/08/19 14:31 Dose: 40 mg Pharmacy Consult (Vancomycin Per Pharmacy*) 1 note FOLLOW UP .VANC PER PHARMACY [facility]; Protocol Pharmacy Profile Note (Vancomycin Trough Check) 1 note FOLLOW UP ONCE ONE Stop: 12/10/19 08:31 Ticagrelor (Brilinta*) 90 mg PO Q12H [facility] Last Admin: 12/08/19 10:55 Dose: 90 mg Vital Signs 12/08/19 12/08/19 14:00 14:15 Temperature Pulse Rate 106 118 Respiratory 14 Rate Blood Pressure (mmHg) O2 Sat by Pulse 94 94 Oximetry Intake and Output Last 24 Hours 12/06/19 12/07/19 12/08/19 12/09/19 06:59 06:59 06:59 06:59 Intake Total 3601 2679.1 3747 1788.7 Output Total 2350 3240 1835 230 Balance 1251 -560.9 1912 1558.7 Weight 205 lb 0.478 oz 206 lb 12.697 oz 206 lb 2.115 oz Intake: IV Fluids 1336 215 317 ABX - VANCOMYCIN 59 NS 1315 215 Potassium chloride 183 Zosyn 21 75 IVPB 177 802 9575 350 ABX - VANCOMYCIN 262 250 Ca Gluconate 55 NS 100 280 Potassium chloride 522 Zosyn 315 215 362 100 Medicated IV 1608 1758.1 472 695.7 Amiodarone 488 183 329 CC - Phenylephrine/ 26 Neosynephrine Heparin 86.7 Integrilin 154 34.5 Levophed 268 Magnesium 55 Precedex 237 168.6 263 280 Propofol 364 155 Protonix 585 213 Vancomycin 293 fentanyl 17 ns 79 potassium 151 zosyn 104 IV Narcotic Infusion 3 Fentanyl 3 Oral 0 Tube Feeding 212 126 509 343 Tube Feeding Flush Amount 30 1300 400 Autotransfusion 0 NG Tube Irrigate Amount 30 Output: G Tube 250 Valentin 2100 2740 1835 230 Liquid Stool 500 Oxygen Devices in Use Now: Endotracheal Tube, Mechanical Ventilator Neurology Exam: Ill appearing man who is intubated. He does not respond to outside stimuli. PERRL, EOM-I. Intact corneal reflex. Paraplegic and spastic on the left. Minimal movements to noxious stimuli on the right upper and lower extremities. Result Diagrams: 12/08/19 14:41 12/08/19 11:11 Microbiology and Other Data: Microbiology 12/06/19 16:30 Gram Stain - Final Sputum Sputum Culture - Final YEAST 12/02/19 20:24 Aerobic Blood Culture - Final Blood Line No Growth Day 5 Anaerobic Blood Culture - Final No Growth Day 5 12/02/19 20:15 Aerobic Blood Culture - Final Blood Line No Growth Day 5 Anaerobic Blood Culture - Final No Growth Day 5 12/04/19 17:55 Gram Stain - Final Sputum Trach Sputum Culture - Final YEAST Normal Deanna 12/02/19 14:42 Urine Culture - Final Urine No Growth (<1,000 CFU/mL) 12/02/19 14:28 Nasal Screen MRSA (PCR) - Final Nasal Mrsa Not Detected Assessment/Plan 1. Acute hypoxic-ischemic encephalopathy due to STEMI cardiopulmonary arrest. He had a poor premorbid condition with long standing disability that is complicated further after this arrest. Apparently, his code status was DNR prior to this hospitalization. I reviewed palliative care's consultation. The family have agreed to proceed with terminal extubation on . No further neurological work-up is recommended.
--- NOTE | 2019-12-08 16:06 | CONSULT ---
Subjective Date of Service: 12/08/19 Interval History: Mr. Craven is a 74 yo male with PMH significant for DM2, HTN, WPW, CVA w/ residual left-sided hemiparesis, BPH, prostate cancer, arthritis, and seizures; who presented to the emergency after an witnessed outside of hospital cardiac arrest. He was admitted to the hospital for a STEMI and underwent cardiac cath. While in the hospital a medical assistant cardiology associated mucosal pressure injury was noted due to the ET tube to the lower lip. This was treated by moving the ET tube. Patient seen and examined at bedside. Verbal consent for wound consultation and photographs. Family History: Unchanged from Admission Social History: Unchanged from Admission Past Medical History: Unchanged from Admission Review of Systems - Measurements Intake and Output: Intake and Output Last 24 Hours 12/06/19 12/07/19 12/08/19 12/09/19 06:59 06:59 06:59 06:59 Intake Total 3601 2679.1 3747 1788.7 Output Total 2350 3240 1835 230 Balance 1251 -560.9 1912 1558.7 Weight 205 lb 0.478 oz 206 lb 12.697 oz 206 lb 2.115 oz Intake: IV Fluids 1336 215 317 ABX - VANCOMYCIN 59 NS 1315 215 Potassium chloride 183 Zosyn 21 75 IVPB 094 093 7411 350 ABX - VANCOMYCIN 262 250 Ca Gluconate 55 NS 100 280 Potassium chloride 522 Zosyn 315 215 362 100 Medicated IV 1608 1758.1 472 695.7 Amiodarone 488 183 329 CC - Phenylephrine/ 26 Neosynephrine Heparin 86.7 Integrilin 154 34.5 Levophed 268 Magnesium 55 Precedex 237 168.6 263 280 Propofol 364 155 Protonix 585 213 Vancomycin 293 fentanyl 17 ns 79 potassium 151 zosyn 104 IV Narcotic Infusion 3 Fentanyl 3 Oral 0 Tube Feeding 212 126 509 343 Tube Feeding Flush Amount 30 1300 400 Autotransfusion 0 NG Tube Irrigate Amount 30 Output: G Tube 250 Valentin 2100 2740 1835 230 Liquid Stool 500 - Review of Systems General Comments: Unable to perform ROS, pt is intubated. Objective Active Medications: Acetaminophen (Tylenol Adult Liq*) 650 mg PO Q4H PRN Reason: mild pain for temp >101 Albuterol (Ventolin 2.5 Mg/3 Ml Neb.Mariangel*) 2.5 mg INH Q2H PRN Reason: SOB/ WHEEZING Aspirin (Aspirin 81 Mg Chew Tab*) 81 mg PO DAILY [facility] Atorvastatin Calcium (Lipitor*) 80 mg PO 1700 [facility] Baclofen (Lioresal Tab*) 5 mg PO BID [facility] Carvedilol (Coreg Tab*) 3.125 mg PO BID [facility] Chlorhexidine Gluconate (Peridex Mouth Wash 0.12%*) 15 ml TOPICAL Q4H [facility] Dextrose (D50w Syringe 50 Ml*) 12.5 gm IV PUSH PRN Reason: FS < 60 Docusate Sodium (Colace Liq*) 100 mg PO BID PRN Reason: CONSTIPATION Fentanyl Citrate (Fentanyl*) 50 mcg IV SLOW PU Q1H PRN Reason: shivering Heparin Sodium (Porcine) (Heparin Vial(*)) 0 units IV .FOR BOLUSES PRN Reason: HEPARIN DRIP BOLUSES Hydralazine HCl (Apresoline Iv*) 10 mg IV SLOW PU Q4H PRN Reason: sbp>160 Piperacillin Sod/Tazobactam (Sod 3.375 gm/ Sodium Chloride) 100 mls @ 25 mls/ hr IVPB Q8H [facility] Propofol (Diprivan*) 100 mls @ 7.209 mls/hr IV .PER PROTOCOL [facility]; Protocol Fentanyl Citrate (Fentanyl Infusion Bag 50 Mcg/Ml 50 Ml) 2,500 mcg in 50 mls @ 2 mls/hr IV Q72H [facility]; Protocol Dexmedetomidine HCl 1,000 mcg/ (Sodium Chloride) 250 mls @ 11.62 mls/hr IV .PER PROTOCOL [facility]; Protocol Phenylephrine HCl 50 mg/ (Sodium Chloride) 250 mls @ 15 mls/hr IV .PER PROTOCOL [facility]; Protocol Vancomycin HCl 750 mg/ Sodium (Chloride) 250 mls @ 166.667 mls/hr IVPB Q12H [facility] Amiodarone HCl (Nexterone 360 Mg/200 Ml Ivpremix*) 360 mg in 200 mls @ 33.333 mls/hr IV ONCE ONE Stop: 12/08/19 15:59 Heparin Sodium/Dextrose (Heparin Drip 25,000 Units) 25,000 units in 500 mls @ 0 mls/hr IV PER RATE [facility]; Protocol Lamotrigine (Lamictal Tab(*)) 150 mg PO Q12H [facility] Metoclopramide HCl (Reglan Iv*) 5 mg IV Q6H PRN Reason: motility Metoprolol Tartrate (Lopressor Iv*) 5 mg IV Q6H PRN Reason: BLOOD PRESSURE Pantoprazole Sodium (Protonix Iv*) 40 mg IV Q12H [facility] Ticagrelor (Brilinta*) 90 mg PO Q12H [facility] Vital Signs 12/08/19 12/08/19 12/08/19 11:30 11:45 12:00 Temperature 100.4 F Pulse Rate 118 102 99 Respiratory 15 Rate O2 Sat by Pulse 91 92 93 Oximetry 12/08/19 12/08/19 12/08/19 13:45 14:00 14:15 Temperature Pulse Rate 101 106 118 Respiratory 14 Rate O2 Sat by Pulse 95 94 94 Oximetry Oxygen Devices in Use Now: Endotracheal Tube, Mechanical Ventilator Appearance: NAD, laying in bed Ears/Nose/Mouth/Throat: Mucous Membranes Moist, - - See skin note below Respiratory: Symmetrical Chest Expansion and Respiratory Effort Skin: - - See skin note below Neurological: - - Unresponsive Result Diagrams: 12/09/19 06:51 12/09/19 06:51 Additional Lab and Data: Above labs were pulled into the note, when the note was edited prior to signing. See below for labs from the day of consultation. Laboratory Tests 12/02/19 12/08/19 12/08/19 18:15 04:50 14:41 WBC 9.8 Hgb 8.1 L Hct 24 L Plt Count 127 L Sodium 147 H Potassium 4.0 Chloride 120 H Carbon Dioxide 20 L BUN 39 H Creatinine 1.70 H Glucose 176 H Hemoglobin A1c 9.6 H Total Protein 5.6 L Albumin 2.5 L Skin Deviation Note - Skin Deviation Findings Lower lip (right side) - There are 2 healing wounds, the total area measures 1.5 cm x 1 cm x 0.3 cm. The wound base is a pale pink. There is no drainage. The surrounding skin is intact. Wound Problem/Plan Assessment: Mr. Craven is a 74 yo male with PMH significant for DM2, HTN, WPW, CVA w/ residual left-sided hemiparesis, BPH, prostate cancer, arthritis, and seizures; who presented to the emergency after an witnessed outside of hospital cardiac arrest. He was admitted to the hospital for a STEMI and underwent cardiac cath. While in the hospital a medical assistant cardiology associated mucosal pressure injury was noted due to the ET tube on the lower lip. This was treated by moving the ET tube. 1. cupola liner associated mucocal pressure injury to the lower lip. Recommend to keep the ET tube off this location, and to monitor for further breakdown. 2. STEMI. 3. DM2. HgA1C 9.6. Maintain glycemic control to assist with wound healing. 4. Nutrition. At risk nutrition, albumin 2.5. Consider checking a prealbumin. Recommend meeting minimal nutrition requirements to assist with wound healing ( Protein 1.3-1.5 grams.kg per day and Calories 30-35 kcal/kg per day). NPO, tube feeding diet. 5. Code Status. DNR. 6. Disposition. Inpatient, disposition per primary medicine team. TIME SPENT: Time for this wound consultation was 20 minutes and 10 minutes was spent with the patient assessing, measuring, and photographing the wounds. Is Patient a Wound Clinic Patient: No Attending: Karen Li
[2019-12-08] MEDS: Atorvastatin* 80 MG TAB PO SCH (17:02)
[2019-12-08] MEDS ORDERED: Acetaminophen IV 1GM/100ML * 1,000 MG/100 ML VIAL IVPB ONE (18:08)
[2019-12-08] MEDS ORDERED: Carvedilol TAB* 25 MG PO SCH (21:00)
[2019-12-08] MEDS: Carvedilol TAB* 3.125 MG PO SCH (21:37)
[2019-12-08 22:34] VITALS: BP 92/60
[2019-12-08] MEDS: Phenylephrine 10 MG/ML VIAL* 50 MG in NS 0.9% 250 ML* 245 ML IV SCH (22:37)
[2019-12-09] MEDS: Piperacillin/Tazobac ADVAN(*) 3.375 GM in NS 0.9% 100 ML* 100 ML IVPB SCH ×2 (00:15→07:58)
[2019-12-09] MEDS: Ticagrelor* 90 MG TAB PO SCH ×2 (00:16→11:24)
[2019-12-09] MEDS: Chlorhexidine MOUTHWASH 0.12%* 15 ML UDC TOPICAL SCH ×4 (00:16→11:24)
[2019-12-09] MEDS: fentaNYL INFUSION 50 MCG/ML* 2,500 MCG/50 ML BAG IV SCH (01:46)
[2019-12-09] MEDS: Pantoprazole IV* 40 MG IV SCH (02:39)
[2019-12-09] MEDS: Amiodarone 360 MG IVPREMIX* 360 MG/200 ML BAG IV SCH (02:40)
[2019-12-09] MEDS: Acetaminophen ADULT LIQ* 650 MG/20.3 ML UDC PO PRN (04:41)
[2019-12-09] MEDS: Heparin DRIP 25,000 UNITS(*) 25,000 UNITS/500 ML BAG IV SCH (04:42)
[2019-12-09] MEDS: Dexmedetomidine* 1,000 MCG in NS 0.9% 250 ML* 240 ML IV SCH (05:22)
[2019-12-09 07:00] LABS: ABS Eosinophils 0.1 10^3/ul (0-0.6); ABS Lymphocytes 1.6 10^3/ul (1.0-4.8); ABS Monocytes 0.9 10^3/ul (0-0.8); Eosinophil % 0.6 %; Hematocrit 23 % (42-52); Hemoglobin 7.9 g/dL (14.0-18.0); Mean Corpuscular HGB Conc 34 g/dL (31-36); Mean Corpuscular Hemoglobin 32 pg (27-31); Mean Corpuscular Volume 92 fL (80-94); Mean Platelet Volume 9.7 fL (7.4-10.4); Nucleated Red Blood Cells % 0.1; Platelet Count 124 10^3/uL (150-450); Red Blood Count 2.51 10^6 /uL (4.18-5.48); Red Cell Distribution Width 15 % (10-15); White Blood Count 10.6 10^3/uL (3.5-10.8)
[2019-12-09 07:17] LABS: BUN/Creatinine Ratio 22.3 (8-20); EGFR African American 35.8 (>60); EGFR Non-African American 29.6 (>60); Phosphorus 4.9 mg/dL (2.5-5.0); Potassium 3.6 mmol/L (3.5-5.0)
[2019-12-09] MEDS: lamoTRIgine TAB(*) 100 MG PO SCH (07:59)
[2019-12-09] MEDS: Baclofen TAB* 10 MG PO SCH (07:59)
[2019-12-09] MEDS: Carvedilol TAB* 3.125 MG PO SCH (08:00)
[2019-12-09] MEDS: Aspirin 81 mg CHEW TAB* 81 MG TAB.CHEW PO SCH (08:00)
--- NOTE | 2019-12-09 11:02 | PN ---
Date of Service: 12/09/19 Critical Care Services: Required phenylephrine overnight. Febrile. ROS: Unable to obtain due to intubation and mental status. Vital Signs: Temp Pulse Resp BP SpO2 FiO2 101.7 F 98 16 92/60 97 100 12/09/19 10:15 12/09/19 10:15 12/09/19 08:00 12/08/19 22:29 12/09/19 10:15 12/08 08:00 Physical Exam: Gen: NAD, intubated and sedated. HEENT: Normocephalic and atraumatic. Pupils equal and reactive. ETT and OGT in place. Neck supple. L IJ central line site clean and dry. Lungs: Clear to auscultation Cardiac: Irregular rhythm, normal rate. Abdomen: Soft, moderately distended. Extremities: Warm. Mild pedal edema b/l Neuro: Does not open eyes to voice. Does not follow commands. Fluid Balance (Past 24 Hours): I= O= Net Intake & Output 12/07/19 12/08/19 12/09/19 12/10/19 06:59 06:59 06:59 06:59 Intake Total 2679.1 3747 2249.7 120 Output Total 3240 1835 1362 35 Balance -560.9 1912 887.7 85 Weight 206 lb 12.697 oz 206 lb 2.115 oz 216 lb 0.848 oz Intake: IV Fluids 215 317 ABX - VANCOMYCIN 59 NS 215 Potassium chloride 183 Zosyn 75 IVPB 550 1146 700 ABX - VANCOMYCIN 262 500 Ca Gluconate 55 NS 280 Potassium chloride 522 Zosyn 215 362 200 Medicated IV 1758.1 472 695.7 Amiodarone 488 183 329 CC - Phenylephrine/ 26 Neosynephrine Heparin 86.7 Integrilin 34.5 Magnesium 55 Precedex 168.6 263 280 Propofol 155 Protonix 213 Vancomycin 293 fentanyl 17 ns 79 potassium 151 zosyn 104 IV Narcotic Infusion 3 51 Fentanyl 3 51 Oral 0 0 Tube Feeding 126 509 343 Tube Feeding Flush Amount 1300 400 Autotransfusion 0 NG Tube Irrigate Amount 30 60 120 Output: Valentin 2740 1835 1362 35 Liquid Stool 500 Labs: Laboratory Results - last 24 hr 12/02/19 12/08/19 12/08/19 10:23 11:11 11:11 WBC RBC Hgb Hct MCV MCH MCHC RDW Plt Count MPV Neut % (Auto) Lymph % (Auto) [place] % (Auto) Eos % (Auto) Baso % (Auto) Absolute Neuts (auto) Absolute Lymphs (auto) Absolute Monos (auto) Absolute Eos (auto) Absolute Basos (auto) Absolute Nucleated RBC Nucleated RBC % Toxic Granulation Hypochromasia Anisocytosis APTT 35.1 POC Activ Clotting Time 179 Sodium Potassium Chloride Carbon Dioxide Anion Gap BUN 40 H Creatinine 1.81 H Est GFR ( Amer) 44.8 Est GFR (Non-Af Amer) 37.0 BUN/Creatinine Ratio Glucose Calcium Phosphorus Magnesium 12/08/19 12/08/19 12/08/19 11:11 11:11 14:41 WBC 10.4 9.8 RBC 2.64 L 2.57 L Hgb 8.4 L 8.1 L Hct 24 L 24 L MCV 92 92 MCH 32 H 31 MCHC 35 34 RDW 15 15 Plt Count 128 L 127 L MPV 8.8 8.9 Neut % (Auto) 74.1 75.7 Lymph % (Auto) 14.4 13.8 [place] % (Auto) 11.1 9.9 Eos % (Auto) 0.2 0.3 Baso % (Auto) 0.2 0.3 Absolute Neuts (auto) 7.7 7.4 Absolute Lymphs (auto) 1.5 1.3 Absolute Monos (auto) 1.2 H 1.0 H Absolute Eos (auto) 0.0 0.0 Absolute Basos (auto) 0.0 0.0 Absolute Nucleated RBC 0.0 0.0 Nucleated RBC % 0.2 0.3 Toxic Granulation 1+ Hypochromasia 2+ Anisocytosis 2+ APTT POC Activ Clotting Time Sodium Potassium Chloride Carbon Dioxide Anion Gap BUN Creatinine Est GFR ( Amer) Est GFR (Non-Af Amer) BUN/Creatinine Ratio Glucose 195 H Calcium Phosphorus Magnesium 12/08/19 12/09/19 12/09/19 17:08 00:30 06:51 WBC RBC Hgb Hct MCV MCH MCHC RDW Plt Count MPV Neut % (Auto) Lymph % (Auto) [place] % (Auto) Eos % (Auto) Baso % (Auto) Absolute Neuts (auto) Absolute Lymphs (auto) Absolute Monos (auto) Absolute Eos (auto) Absolute Basos (auto) Absolute Nucleated RBC Nucleated RBC % Toxic Granulation Hypochromasia Anisocytosis APTT 78.8 H 99.4 H POC Activ Clotting Time Sodium 145 Potassium 3.6 Chloride 117 H Carbon Dioxide 18 L Anion Gap 10 BUN 49 H Creatinine 2.20 H Est GFR ( Amer) 35.8 Est GFR (Non-Af Amer) 29.6 BUN/Creatinine Ratio 22.3 H Glucose 257 H Calcium 7.0 L Phosphorus 4.9 Magnesium 2.0 12/09/19 12/09/19 06:51 06:51 WBC 10.6 RBC 2.51 L Hgb 7.9 L Hct 23 L MCV 92 MCH 32 H MCHC 34 RDW 15 Plt Count 124 L MPV 9.7 Neut % (Auto) 75.5 Lymph % (Auto) 15.0 [place] % (Auto) 8.5 Eos % (Auto) 0.6 Baso % (Auto) 0.4 Absolute Neuts (auto) 8.0 H Absolute Lymphs (auto) 1.6 Absolute Monos (auto) 0.9 H Absolute Eos (auto) 0.1 Absolute Basos (auto) 0.0 Absolute Nucleated RBC 0.0 Nucleated RBC % 0.1 Toxic Granulation Hypochromasia Anisocytosis APTT 97.1 H POC Activ Clotting Time Sodium Potassium Chloride Carbon Dioxide Anion Gap BUN Creatinine Est GFR ( Amer) Est GFR (Non-Af Amer) BUN/Creatinine Ratio Glucose Calcium Phosphorus Magnesium Impression: 73y M w/pmhx of DM, HTN, WPW, prior history of prostate surgery complicated by 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 He was a witnessed collapse by house keeper, who started CPR, called EMS, state troopers arrive and gave 1 shock and continued CPR, EMS arrived and cont CPR with 2 epi with ROSC. Brought to ER and intubated. EKG demonstrated NSR with inferior ST elevations. STEMI called, taken to freezer laboratory technician, found to have occluded mid-RCA. PCI performed with 3 stents, discussed intraop findings with cardiology, some distal disease still present in RCA, no sig disease in LAD at this time. Given brillinta/asa. He subsequently came to ICU, intubated, completed Therapeutic hypothermia protocol, rewarmed since 12/04, had purposeful movement off sedation but limited neurological function. New Afib/flutter 12/04 cardioverted but recurred. Continues to require high FiO2 and also requiring phenylephrine. Creatinine trending up today. Febrile overnight. Family called overnight asking to plan for terminal extubation today. Out of hospital cardiac arrest Atrial fibrillation/flutter Encephalopathy due to metabolic and/or hypoxia STEMI s/p PCI x3 to RCA Acute hypoxic respiratory failure BAM Sepsis due to aspiration PNA left lung Upper GI bleed DM HTN H/o WPW H/o R MCA stroke Seizure disorder Plan: Will continue with Precedex and fentanyl until family arrives. When family is ready, will switch to comfort measures and terminally extubate. When family arrived, patient was given morphine and versed. He was extubated. I performed an exam after the monitor showed asystole. Pupils were dilated and fixed. No gag reflex. No heart or breath sounds on auscultation. Time of at 1236. Carmen Rivero MD
[2019-12-09] MEDS ORDERED: Midazolam* 1 MG/ML 5 ML VIAL (5 MG) IV SLOW PU ONE (11:18)
[2019-12-09] MEDS ORDERED: Morphine 10 MG/ML VIAL (1 ml) IV ONE (11:19)
[2019-12-09] MEDS: Vancomycin(*) 750 MG in NS 0.9% 250 ML* 250 ML IVPB SCH (11:24)
[2019-12-10] MEDS ORDERED: Vancomycin Trough Check NOTE FOLLOW UP ONE (08:30)
--- NOTE | 2019-12-14 18:49 | DS ---
DATE OF ADMISSION: 12/02/2019 DATE OF DISCHARGE: 12/09/2019 REASON FOR ADMISSION: Cardiac arrest due to inferior wall STEMI SECONDARY DIAGNOSES: 1. Acute hypoxic respiratory failure 2. Possible aspiration pneumonia 3. Encephalopathy likely due to ischemia 4. ABM due to ischemic ATN 5. Atrial fibrillation with rapid ventricular rate 6. Diabetes type 2 7. HTN 8. Seizure disorder 9. H/o right MCA stroke s/p hemicraniectomy with left-sided hemiparesis 10. H/o WPW PATIENT CONDITION: PROCEDURES: 12/02/19- Cardiac catheterization with PCI to RCA 12/02/19- ICY catehter placement in right femoral vein 12/02/19- Right femoral arterial line placement 12/07/19- Central line placement in left internal jugular vein 12/07/19- EEG IMAGIN12/02/19- CT head 12/06/19- CT head 12/06/19- CT chest/abd/pelvis HOSPITAL COURSE: Sherif Craven is a 74 year-old man with history of stroke and left hemiparesis who sustained cardiac arrest at home. See H&P for full history. CPR was started at home, and he was brought to the ED. He was found to have inferior wall STEMI and was brought emergently to finishing lab technician. He was found to have occlusion of RCA and stents were placed to open the RCA. See cardiac catheterization report for details. He was started on dual-antiplatelet therapy. Post-procedure, the patient was brought to the ICU intubated. The patient did not wake up after cardiac arrest. CT head on 12/02/19 showed encephalomalacia but no acute findings. Therapeutic hypothermia protocol was initiated with target temperature 33C. On 12/03, the rewarming process started. He appeared to have coffee-ground emesis via OG tube so he was started on PPI drip then converted to BID dosing. On 12/05, the patient developed atrial fibrillation with RVR. He required cardioversion due to hemodynamic instability. He converted to sinus rhythm and was started on amiodarone bolus and infusion. He flipped back into atrial fibrillation on 12/08/19. He was restarted on amiodarone infusion and anticoagulation with heparin infusion was started. The patient had required vasopressors while hypothermic but became hemodynamically stable after warmed. However by 12/06, he became more hemodynamically labile and required vasopressors again. On chest xray at admission, there was evidence of pneumonia, suspected to be aspiration pneumonia during the initial cardiac arrest event. He was treated with Zosyn starting on 12/02/19. After the hypothermia protocol was completed, his oxygen requirements actually steadily increased. By the time of terminal extubation, he was requiring >80% FiO2 to maintain oxygen saturation in low to mid 90s. A repeat CT head on 12/06/19 showed similar findings as the first CT head without acute changes. CT chest/abdomen/pelvis was also done due to abdominal distension. Overall, the only remarkable findings were rib fractures, bilateral pleural effusions, and perihilar infiltrates. There was no solid organ injury. Neurology was consulted on 12/07/19. The recommendation was supportive care and early discussion about tracheostomy and PEG tube. EEG showed diffuse slowing, likely moderate-severe diffuse encephalopathy with structural abnormality in the right hemisphere. The patient did not have a healthcare proxy, and he was estranged from his family. His sister was willing to act as surrogate decision maker, although she did not have contact with the patient for several years. The patient actually had had DNR in place. The sister met with palliative care physician to fill out MOLST form on 12/08/19. She wished to proceed with comfort measures. On 12/09/19, his sister returned with her family. The patient shortly after extubation. Family declined autopsy.
== END 2019-12-09 12:36 | disposition expired | DRG 246 ==
LOC: ED 10:37 → CHICATH 11:03 → ICU 13:39
PROVIDERS: ADMIT Internal Medicine Cardiovascular Disease; ATTEND Surgery Surgical Critical Care
PROC: 02703DZ Dilation of Coronary Artery, One Artery with Intraluminal Device, Percutaneous Approach (ICD-10-PCS; 2019-12-02)
PROC: 5A1955Z Respiratory Ventilation, Greater than 96 Consecutive Hours (ICD-10-PCS; 2019-12-02)
PROC: 0BH17EZ Insertion of Endotracheal Airway into Trachea, Via Natural or Artificial Opening (ICD-10-PCS; 2019-12-02)
PROC: 04HY32Z Insertion of Monitoring Device into Lower Artery, Percutaneous Approach (ICD-10-PCS; 2019-12-02)
PROC: 4A133B1 Monitoring of Arterial Pressure, Peripheral, Percutaneous Approach (ICD-10-PCS; 2019-12-02)
PROC: 4A133J1 Monitoring of Arterial Pulse, Peripheral, Percutaneous Approach (ICD-10-PCS; 2019-12-02)
PROC: B211YZZ Fluoroscopy of Multiple Coronary Arteries using Other Contrast (ICD-10-PCS; 2019-12-02)
PROC: 027035Z Dilation of Coronary Artery, One Artery with Two Drug-eluting Intraluminal Devices, Percutaneous Approach (ICD-10-PCS; principal; 2019-12-02 10:00)
PROC: 4A00X4Z Measurement of Central Nervous Electrical Activity, External Approach (ICD-10-PCS; 2019-12-07)
PROC: 05HN33Z Insertion of Infusion Device into Left Internal Jugular Vein, Percutaneous Approach (ICD-10-PCS; 2019-12-07)
PROC: B544ZZA Ultrasonography of Left Jugular Veins, Guidance (ICD-10-PCS; 2019-12-07)
DX: I21.3 ST elevation (STEMI) myocardial infarction of unspecified site (principal); K72.01 Acute and subacute hepatic failure with coma; J96.01 Acute respiratory failure with hypoxia; G93.41 Metabolic encephalopathy; J69.0 Pneumonitis due to inhalation of food and vomit; N17.9 Acute kidney failure, unspecified; E87.2 Acidosis; G93.40 Encephalopathy, unspecified; I47.2 Ventricular tachycardia; K92.2 Gastrointestinal hemorrhage, unspecified; G93.1 Anoxic brain damage, not elsewhere classified; I48.92 Unspecified atrial flutter; I69.354 Hemiplegia and hemiparesis following cerebral infarction affecting left non-dominant side; I49.01 Ventricular fibrillation; G40.909 Epilepsy, unspecified, not intractable, without status epilepticus; E11.9 Type 2 diabetes mellitus without complications; I10 Essential (primary) hypertension; I46.2 Cardiac arrest due to underlying cardiac condition; E87.5 Hyperkalemia; Z66 Do not resuscitate; N40.0 Benign prostatic hyperplasia without lower urinary tract symptoms; R74.0 Nonspecific elevation of levels of transaminase and lactic acid dehydrogenase [LDH]; Z90.79 Acquired absence of other genital organ(s); Z87.891 Personal history of nicotine dependence; Z79.899 Other long term (current) drug therapy; M19.90 Unspecified osteoarthritis, unspecified site; Z79.82 Long term (current) use of aspirin; Z79.84 Long term (current) use of oral hypoglycemic drugs
CPT/HCPCS: 36415; 70450; 71045; 71250; 74019; 74176; 80048; 80053; 80061; 80076; 80202; 80320; 81003; 81015; 82140; 82310; 82330; 82533; 82550; 82553; 82565; 82803; 82947; 83036; 83520; 83605; 83690; 83721; 83735; 83880; 84100; 84132; 84443; 84478; 84484; 84520; 85014; 85018; 85025; 85027; 85060; 85347; 85384; 85610; 85730; 86850; 86900; 86901; 87040; 87070; 87086; 87205; 87641; 93005; 93306; 94003; 95822; 99285; A9270-GY; C8929; G0480; J0282; J0583; J0610; J1327; J1644; J1940; J2250; J2270; J2543; J2704; J2765; J3010; J3370; J3475; J3480; J3490